=== PATIENT | male | born 1965 | race Hispanic/Latino ===

== ENCOUNTER 2020-05-29 12:33 | Inpatient (IN) | payer MEDICARE ==
--- NOTE | 2020-05-29 13:11 | Emergency Department Report ---
ED Shortness of Breath HPI - General Chief Complaint: Dyspnea/Respdistress Stated Complaint: SOB Time Seen by Provider: 05/29/20 12:58 Source: patient, EMS Mode of arrival: Stretcher Limitations: Physical Limitation - History of Present Illness Initial Comments: Patient is 64 years old male with history of hypertension, diabetes, congestive heart failure left BKA. Patient brought to the emergency room via EMS from home for evaluation of shortness of breath, cough fever and chills for the last 5 days. Patient stated that he has been tested positive for COVID-19 5 days ago. EMS reported patient initial oxygen saturation was 80% on room air improved to 98% on a nonrebreather. Patient denied any chest pain, abdominal pain, nausea or vomiting. MD Complaint: shortness of breath, cough -: days(s) (5) Severity: moderate - Related Data Allergies Allergy/AdvReac Type Severity Reaction Status Date / Time No Known Allergies Allergy Unverified 05/29/20 15:15 ED Review of Systems ROS: Stated complaint: SOB Other details as noted in HPI Comment: All other systems reviewed and negative Constitutional: chills, fever Respiratory: cough, orthopnea, shortness of breath, SOB with exertion, SOB at rest. denies: wheezing Cardiovascular: denies: chest pain, palpitations Gastrointestinal: denies: abdominal pain, nausea, vomiting Neurological: weakness (generalized). denies: headache ED Past Medical Hx - Past Medical History Previous Medical History?: Yes Hx Hypertension: Yes Hx Congestive Heart Failure: Yes Hx Diabetes: Yes - Surgical History Past Surgical History?: Yes Hx Appendectomy: Yes (2007) Additional Surgical History: prostate 2011, Right leg fracture repair 2002, L BKA 2015, sacrum 2014, ED Physical Exam - General Limitations: Physical Limitation General appearance: alert, in no apparent distress - Head Head exam: Present: atraumatic, normocephalic, normal inspection - Eye Eye exam: Present: normal appearance - ENT ENT exam: Present: normal exam, normal orophraynx, mucous membranes moist - Neck Neck exam: Present: normal inspection, full ROM. Absent: tenderness, meningismus, lymphadenopathy, thyromegaly - Respiratory Respiratory exam: Present: normal lung sounds bilaterally - Cardiovascular Cardiovascular Exam: Present: regular rate, normal rhythm, normal heart sounds - GI/Abdominal GI/Abdominal exam: Present: soft, normal bowel sounds. Absent: distended, tenderness, guarding, rebound, rigid, organomegaly, mass, bruit, pulsatile mass, hernia - Extremities Exam Extremities exam: Present: normal inspection, full ROM, normal capillary refill. Absent: pedal edema, calf tenderness - Back Exam Back exam: Present: normal inspection, full ROM. Absent: CVA tenderness (R), CVA tenderness (L) - Neurological Exam Neurological exam: Present: alert, oriented X3, CN II-XII intact - Psychiatric Psychiatric exam: Present: normal mood - Skin Skin exam: Present: warm, intact, normal color ED Course Vital Signs 05/29/20 05/29/20 13:00 13:28 Temperature 99.5 F Pulse Rate 99 H Respiratory 24 Rate Blood Pressure 144/121 [Left] O2 Sat by Pulse 94 94 Oximetry ED Medical Decision Making - Lab Data Result diagrams: 05/29/20 13:25 05/29/20 13:25 - Radiology Data Radiology results: report reviewed - Medical Decision Making Patient is 64 years old male with history of hypertension, diabetes, congestive heart failure left BKA. Patient brought to the emergency room via EMS from home for evaluation of shortness of breath, cough fever and chills for the last 5 days. Patient stated that he has been tested positive for COVID-19 5 days ago. EMS reported patient initial oxygen saturation was 80% on room air improved to 98% on a nonrebreather. Patient denied any chest pain, abdominal pain, nausea or vomiting. Chest x-ray showed bilateral pneumonia. Labs reviewed and showed creatinine of 4.7. Lactic acid of 2.7. Patient received Rocephin 1 g IV and Zithromax 500 mg IV. Patient started on normal saline. I discussed the patient with Dr. Nunn, he agreed to admit the patient to medical service for further management. Critical Care Time: Yes Critical care time in (mins) excluding proc time.: 30 Critical care attestation.: If time is entered above; I have spent that time in minutes in the direct care of this critically ill patient, excluding procedure time. ED Disposition Clinical Impression: Bilateral pneumonia, COVID-19, Acute renal failure Disposition: OP ADMIT IP TO THIS HOSP Is pt being admited?: Yes Condition: Stable Instructions: Bacterial Pneumonia (ED)
--- NOTE | 2020-05-29 13:58 | XRay Report ---
CHEST 1 VIEW 05/29/2020 1:28 PM INDICATION / CLINICAL INFORMATION: Dyspnea. COMPARISON: None available. FINDINGS: SUPPORT DEVICES: None. HEART / MEDIASTINUM: No significant abnormality. LUNGS / PLEURA: There are rather diffuse, somewhat patchy bilateral airspace opacities. No pneumothor ax. ADDITIONAL FINDINGS: No significant additional findings. IMPRESSION: 1. Nonspecific diffuse somewhat patchy bilateral airspace opacities could be infectious/inflammatory in etiology. Signer Name: Arvin Hoover MD Signed: 05/29/2020 1:54 PM Workstation Name: [id number]
[2020-05-29 14:07] LABS: Basophils % (Auto) 0.2 % (0.0-1.8); Eosinophils # (Auto) 0.1 K/mm3 (0.0-0.4); Eosinophils % (Auto) 1.1 % (0.0-4.3); Hemoglobin 13.6 gm/dl (11.8-15.2); Lymphocytes # (Auto) 1.2 K/mm3 (1.2-5.4); Lymphocytes % (Auto) 15.5 % (13.4-35.0); Mean Corpuscular HGB Conc 32 % (32-34); Mean Corpuscular Volume 93 fl (84-94); Monocytes # (Auto) 0.4 K/mm3 (0.0-0.8); Monocytes % (Auto) 4.8 % (0.0-7.3); Platelet Count 184 K/mm3 (140-440); Red Cell Distribution Width 16.4 % (13.2-15.2)
[2020-05-29] MEDS ORDERED: cefTRIAXone/NS 1 GM/50 ML 1 GM/50 ML BAG IV ONE (14:12)
[2020-05-29 14:16] LABS: INR 0.95 (0.87-1.13)
[2020-05-29 14:17] LABS: Partial Thromboplastin Time 28.1 Sec. (24.2-36.6)
[2020-05-29 15:09] LABS: Calcium 8.3 mg/dL (8.4-10.2)
[2020-05-29 15:14] LABS: Alanine Aminotransferase 20 units/L (7-56); Albumin 2.9 g/dL (3.9-5)
[2020-05-29 15:15] LABS: Bilirubin,Direct < 0.2 mg/dL (0-0.2)
[2020-05-29] MEDS ORDERED: AZITHROMYCIN 500 MG in SODIUM CHLORIDE 0.9% 250ML 250 ML IV ONE (15:30)
[2020-05-29] MEDS ORDERED: SODIUM CHLORIDE 0.9% 1000 ML 1,000 ML IV ONE (15:38)
[2020-05-29 16:09] LABS: C-Reactive Protein 40.7 mg/dL (0.00-1.30)
--- NOTE | 2020-05-29 22:34 | History and Physical Report ---
History of Present Illness Date of examination: 05/29/20 Date of admission: 05/29/20 15:44 Chief complaint: Cough and fever for 5 days History of present illness: 64-year-old man with history of hypertension diabetes congestive heart failure and left below-knee amputation comes in for cough fever and shortness of breath and chills for 5 days. Patient has been tested positive for COVID-19 5 days ago. Patient saturations were 80% on room air which improved to 98% on a nonrebreather. Denies any chest pain. Patient is covered positive and hypoxic. - Past Medical History Previous Medical History?: Yes Hypertension: Yes Congestive Heart Failure: Yes Diabetes: Yes - Surgical History Past Surgical History?: Yes Hx Appendectomy: Yes (2007) Additional Surgical History: prostate 2011, Right leg fracture repair 2002, L BKA 2015, sacrum 2014, social history no alcohol family history htn Review of Systems ROS: Constitutional no weight loss or weight gain no fever or chills HEENT no sore throat no post nasal drip no diplopia Neck no neck stiffness no lymph gland enlargement Chest and lungs no shortness of breath cough or wheezing CVS no chest pain no diaphoresis no palpitations GI no nausea no vomiting no diarrhea Genitourinary system no dysuria no flank pain Musculoskeletal system no muscle pains 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 Skin no rash no itching Psychiatric no depression no homicidal or suicidal tendencies Hematologic no lymphedema or bruising Endocrine no polydipsia no polyuria no cold intolerance no heat intolerance Medications and Allergies Allergies Allergy/AdvReac Type Severity Reaction Status Date / Time No Known Allergies Allergy Unverified 05/29/20 15:15 Exam - Constitutional Vitals: Temp Pulse Resp BP Pulse Ox 99.5 F 97 H 30 H 113/89 94 05/29/20 13:00 05/29/20 16:14 05/29/20 16:14 05/29/20 15:00 05/29/20 16:14 General appearance: Present: severe distress, well-nourished - EENT Eyes: Present: PERRL ENT: hearing intact, clear oral mucosa - Neck Neck: Present: supple, normal ROM - Respiratory Respiratory effort: normal Respiratory: bilateral: CTA, rales, rhonchi - Cardiovascular Heart rate: 98 Rhythm: regular Heart Sounds: Present: S1 & S2. Absent: rub, click - Extremities Extremities: pulses symmetrical, No edema, abnormal (Left BKA) Extremity abnormal: other (Left BKA) Peripheral Pulses: within normal limits - Abdominal General gastrointestinal: Present: soft, non-tender, non-distended, normal bowel sounds Male genitourinary: Present: normal - Integumentary Integumentary: Present: clear, warm, dry - Musculoskeletal Musculoskeletal: gait normal, strength equal bilaterally - Psychiatric Psychiatric: appropriate mood/affect, intact judgment & insight - Neurologic Neurologic: CNII-XII intact, moves all extremities HEART Score - HEART Score Troponin: Troponin T 0.025 ng/mL (0.00-0.029) 05/29/20 15:10 Results - Labs CBC & Chem 7: 05/29/20 13:25 05/29/20 15:10 Labs: Laboratory Last Values WBC 7.5 K/mm3 (4.5-11.0) 05/29/20 13:25 RBC 4.50 M/mm3 (3.65-5.03) 05/29/20 13:25 Hgb 13.6 gm/dl (11.8-15.2) 05/29/20 13:25 Hct 42.0 % (35.5-45.6) 05/29/20 13:25 MCV 93 fl (84-94) 05/29/20 13:25 MCH 30 pg (28-32) 05/29/20 13:25 MCHC 32 % (32-34) 05/29/20 13:25 RDW 16.4 % (13.2-15.2) H 05/29/20 13:25 Plt Count 184 K/mm3 (140-440) 05/29/20 13:25 Lymph % (Auto) 15.5 % (13.4-35.0) 05/29/20 13:25 [place] % (Auto) 4.8 % (0.0-7.3) 05/29/20 13:25 Eos % (Auto) 1.1 % (0.0-4.3) 05/29/20 13:25 Baso % (Auto) 0.2 % (0.0-1.8) 05/29/20 13:25 Lymph # 1.2 K/mm3 (1.2-5.4) 05/29/20 13:25 [place] # 0.4 K/mm3 (0.0-0.8) 05/29/20 13:25 Eos # 0.1 K/mm3 (0.0-0.4) 05/29/20 13:25 Baso # 0.0 K/mm3 (0.0-0.1) 05/29/20 13:25 Seg Neutrophils % 78.4 % (40.0-70.0) H 05/29/20 13:25 Seg Neutrophils # 5.9 K/mm3 (1.8-7.7) 05/29/20 13:25 PT 12.9 Sec. (12.2-14.9) 05/29/20 13:25 INR 0.95 (0.87-1.13) 05/29/20 13:25 APTT 28.1 Sec. (24.2-36.6) 05/29/20 13:25 D-Dimer 1391.41 ng/mlDDU (0-234) H 05/29/20 15:10 Sodium 131 mmol/L (137-145) L 05/29/20 13:25 Potassium 5.4 mmol/L (3.6-5.0) H 05/29/20 13:25 Chloride 96.2 mmol/L (98-107) L 05/29/20 13:25 Carbon Dioxide 14 mmol/L (22-30) L 05/29/20 13:25 Anion Gap 26 mmol/L 05/29/20 13:25 BUN 42 mg/dL (9-20) H 05/29/20 13:25 Creatinine 4.7 mg/dL (0.8-1.3) H 05/29/20 13:25 Estimated GFR 13 ml/min 05/29/20 13:25 BUN/Creatinine Ratio 9 % 05/29/20 13:25 Glucose 120 mg/dL (75-100) H 05/29/20 15:10 Lactic Acid 2.20 mmol/L (0.7-2.0) H* 05/29/20 15:10 Calcium 8.3 mg/dL (8.4-10.2) L 05/29/20 13:25 Ferritin 1092.0 ng/mL (30.0-300.0) H 05/29/20 15:10 Total Bilirubin 0.30 mg/dL (0.1-1.2) 05/29/20 13:25 Direct Bilirubin < 0.2 mg/dL (0-0.2) 05/29/20 13:25 Indirect Bilirubin 0.1 mg/dL 05/29/20 13:25 AST 54 units/L (5-40) H 05/29/20 13:25 ALT 20 units/L (7-56) 05/29/20 13:25 Alkaline Phosphatase 55 units/L (35-129) 05/29/20 13:25 Lactate Dehydrogenase 581 units/L (91-180) H 05/29/20 15:10 Troponin T 0.025 ng/mL (0.00-0.029) 05/29/20 15:10 C-Reactive Protein 40.70 mg/dL (0.00-1.30) H 05/29/20 15:10 NT-Pro-B Natriuret Pep 89.58 pg/mL (0-900) 05/29/20 13:25 Total Protein 7.5 g/dL (6.3-8.2) 05/29/20 13:25 Albumin 2.9 g/dL (3.9-5) L 05/29/20 13:25 Albumin/Globulin Ratio 0.6 % 05/29/20 13:25 Short CBC 05/29/20 Range/Units 13:25 WBC 7.5 (4.5-11.0) K/mm3 Hgb 13.6 (11.8-15.2) gm/dl Hct 42.0 (35.5-45.6) % Plt Count 184 (140-440) K/mm3 BMP 05/29/20 05/29/20 13:25 15:10 Sodium 131 L Potassium 5.4 H Chloride 96.2 L Carbon Dioxide 14 L BUN 42 H Creatinine 4.7 H Glucose 121 H 120 H Calcium 8.3 L Cardiac Enzymes 05/29/20 05/29/20 Range/Units 13:25 15:10 Troponin T 0.026 0.025 (0.00-0.029) ng/mL Liver Function 05/29/20 Range/Units 13:25 Total Bilirubin 0.30 (0.1-1.2) mg/dL Direct Bilirubin < 0.2 (0-0.2) mg/dL AST 54 H (5-40) units/L ALT 20 (7-56) units/L Alkaline Phosphatase 55 (35-129) units/L Albumin 2.9 L (3.9-5) g/dL Short CBC 05/29/20 Range/Units 13:25 WBC 7.5 (4.5-11.0) K/mm3 Hgb 13.6 (11.8-15.2) gm/dl Hct 42.0 (35.5-45.6) % Plt Count 184 (140-440) K/mm3 BMP 05/29/20 05/29/20 13:25 15:10 Sodium 131 L Potassium 5.4 H Chloride 96.2 L Carbon Dioxide 14 L BUN 42 H Creatinine 4.7 H Glucose 121 H 120 H Calcium 8.3 L Cardiac Enzymes 05/29/20 05/29/20 Range/Units 13:25 15:10 Troponin T 0.026 0.025 (0.00-0.029) ng/mL Liver Function 05/29/20 Range/Units 13:25 Total Bilirubin 0.30 (0.1-1.2) mg/dL Direct Bilirubin < 0.2 (0-0.2) mg/dL AST 54 H (5-40) units/L ALT 20 (7-56) units/L Alkaline Phosphatase 55 (35-129) units/L Albumin 2.9 L (3.9-5) g/dL Microbiology: Microbiology 05/29/20 13:25 Peripheral/Venous Blood Culture - Preliminary Culture in Progress 05/29/20 13:25 Peripheral/Venous Blood Culture - Preliminary Culture in Progress - Imaging and Cardiology EKG: report reviewed Chest x-ray: report reviewed (Bilateral pneumonia) Assessment and Plan Advance Directives: Yes (Full code) VTE prophylaxis?: Chemical Plan of care discussed with patient/family: Yes - Patient Problems (1) Sepsis Current Visit: Yes Status: Acute Plan to address problem: Secondary to COVID pneumonia Elevated lactic acid (2) Bilateral pneumonia Current Visit: Yes Status: Acute Plan to address problem: Possible COVID pneumonia IV Rocephin initiated Patient is apparently coronavirus +5 days ago We will repeat the coronavirus PCR if positive ID consult (3) Acute respiratory failure with hypoxia Current Visit: Yes Status: Acute Plan to address problem: High flow oxygen for now Possible coronavirus pneumonia (4) COVID-19 Current Visit: Yes Status: Acute Plan to address problem: COVID-19 work-up High flow oxygen IV dexamethasone 6 mg every 24 started Lovenox 40 mg subcu daily for now (5) Hypertension Current Visit: Yes Status: Chronic Qualifiers: Hypertension type: essential hypertension Qualified Code(s): I10 - Essential (primary) hypertension Plan to address problem: Continue antihypertensives (6) Type 2 diabetes mellitus Current Visit: Yes Status: Chronic Qualifiers: Diabetes mellitus intermediate project manager insulin use: unspecified intermediate project manager insulin use status Plan to address problem: Coverage for now Check hemoglobin A1c (7) CHF (congestive heart failure) Current Visit: Yes Status: Chronic Qualifiers: Heart failure type: combined systolic and diastolic Plan to address problem: Echocardiogram requested (8) DVT prophylaxis Current Visit: Yes Status: Acute Plan to address problem: On Lovenox and GI prophylaxis
[2020-05-30] MEDS ORDERED: HYDROmorphone 1 MG/1 ML INJ IV PRN (00:19)
[2020-05-30] MEDS ORDERED: ONDANSETRON 4 MG/2 ML INJ IV PRN (00:19)
[2020-05-30] MEDS ORDERED: oxyCODONE /ACETAMINOPHEN 5-325MG TAB PO PRN (00:19)
[2020-05-30] MEDS: dexAMETHasone 4 MG/ML VIAL IV SCH (01:48)
[2020-05-30 07:58] LABS: Basophils % (Auto) 0.1 % (0.0-1.8); Eosinophils % (Auto) 0.1 % (0.0-4.3); Hematocrit 37.5 % (35.5-45.6); Hemoglobin 12.2 gm/dl (11.8-15.2); Lymphocytes # (Auto) 0.5 K/mm3 (1.2-5.4); Lymphocytes % (Auto) 7.3 % (13.4-35.0); Mean Corpuscular HGB Conc 33 % (32-34); Mean Corpuscular Volume 92 fl (84-94); Monocytes # (Auto) 0.3 K/mm3 (0.0-0.8); Monocytes % (Auto) 4.1 % (0.0-7.3); Platelet Count 195 K/mm3 (140-440); Red Blood Count 4.08 M/mm3 (3.65-5.03)
[2020-05-30 08:04] LABS: Albumin 3.2 g/dL (3.9-5); Calcium 7.8 mg/dL (8.4-10.2)
[2020-05-30] MEDS ORDERED: CALCIUM GLUCONATE 2,000 MG in SODIUM CHLORIDE 0.9% 100 ML IV ONE (09:00)
[2020-05-30] MEDS ORDERED: SODIUM POLYSTYRENE 15 GM/60 ML ORAL LIQD PO ONE ×2 (09:00→16:34)
[2020-05-30] MEDS: INSULIN LISPRO 100 UNIT/ML VIAL 3 mL SUB-Q SCH ×3 (09:41→17:20)
[2020-05-30] MEDS: AZITHROMYCIN 250 MG TAB PO SCH (09:42)
[2020-05-30] MEDS: cefTRIAXone/NS 2 GM/100 ML 2 GM/100 ML BAG IV SCH (09:42)
[2020-05-30] MEDS: FAMOTIDINE 20 MG TAB PO SCH (09:43)
[2020-05-30] MEDS ORDERED: AZITHROMYCIN 500 MG in SODIUM CHLORIDE 0.9% 250ML 250 ML IV SCH ×2 (10:00→20:00)
[2020-05-30] MEDS ORDERED: cefTRIAXone/NS 2 GM/100 ML 2 GM/100 ML BAG IV SCH (10:00)
--- NOTE | 2020-05-30 16:46 | Progress Note ---
Subjective Date of service: 05/30/20 Interval history: 64-year-old man with history of hypertension diabetes congestive heart failure and left below-knee amputation comes in for cough fever and shortness of breath and chills for 5 days. Patient has been tested positive for COVID-19 5 days ago. Patient saturations were 80% on room air which improved to 98% on a nonrebreather. Denies any chest pain. Patient is covered positive and hypoxic. 05/30 patient is a custodial resident, alert and oriented and appears m oderately short of breath and is on Ventimask Denies any chest pain or palpitations. He does complain of cough Lab results reviewed (1) Sepsis Current Visit: Yes Status: Acute Plan to address problem: Secondary to COVID pneumonia Elevated lactic acid, tachycardia, elevated procalcitonin Continue IV antibiotics Blood culture results pending (2) Bilateral pneumonia Current Visit: Yes Status: Acute Plan to address problem: 2/2 COVID pneumonia IV Rocephin initiated Patient is apparently coronavirus +5 days ago Repeat COVID test positive Will consult ID Continue steroids (3) Acute respiratory failure with hypoxia Current Visit: Yes Status: Acute Plan to address problem: Secondary to COVID-19 pneumonia Patient is on nonrebreather Ventimask and O2 sats are in the mid 80s Discussed with urinalysis technician to start the patient on high flow nasal cannula 4. Hyperkalemia secondary to renal failure Repeat electrolytes after Kayexalate administered yesterday shows a potassium of 5.9 Will order Kayexalate 60 g Monitor electrolytes Acute kidney injury R/O acute on chronic kidney disease Severe renal failure Baseline renal function is not known We will request nephrology consult Avoid nephrotoxins Renal ultrasound (5) Hypertension Current Visit: Yes Status: Chronic Qualifiers: Hypertension type: essential hypertension Qualified Code(s): I10 - Essential (primary) hypertension Plan to address problem: Blood pressure fair off medication Continue to monitor (6) Type 2 diabetes mellitus Current Visit: Yes Status: Chronic Qualifiers: Diabetes mellitus detention insulin use: unspecified intermediate project manager insulin use status Plan to address problem: Continue insulin sliding scale coverage hemoglobin A1c 9.7 (7) CHF (congestive heart failure) Current Visit: Yes Status: Chronic Qualifiers: Heart failure type: combined systolic and diastolic Plan to address problem: Echocardiogram requested (8) DVT prophylaxis Current Visit: Yes Status: Acute Plan to address problem: On Lovenox and GI prophylaxis Objective - Constitutional Vitals: Vital Signs - 12hr 05/30/20 05/30/20 05:41 11:25 Temperature 97.0 F L 97.4 F L Pulse Rate 99 H 105 H Respiratory 20 20 Rate Blood Pressure 102/56 115/54 O2 Sat by Pulse 83 L 86 Oximetry General appearance: Present: mild distress - EENT Eyes: PERRL, EOM intact ENT: hearing intact - Neck Neck: supple, normal ROM, no masses or JVD - Respiratory Respiratory effort: accessory muscle use Respiratory: bilateral: diminished - Cardiovascular Rhythm: regular Heart Sounds: Present: S1 & S2 Extremities: No edema Extremity abnormal: other (Left BKA) - Gastrointestinal General gastrointestinal: Present: soft, non-tender Rectal Exam: deferred - Genitourinary Male genitourinary: deferred - Integumentary Integumentary: clear - Neurologic Neurologic: no focal deficits - Labs CBC & Chem 7: 05/30/20 07:00 05/30/20 07:00 Labs: Abnormal lab results 05/29/20 05/29/20 05/30/20 Range/Units 22:55 Unknown 07:00 RDW 16.0 H (13.2-15.2) % Lymph % (Auto) 7.3 L (13.4-35.0) % Lymph # 0.5 L (1.2-5.4) K/mm3 Seg Neutrophils % 88.4 H (40.0-70.0) % Sodium (137-145) mmol/L Potassium (3.6-5.0) mmol/L Chloride (98-107) mmol/L Carbon Dioxide (22-30) mmol/L BUN (9-20) mg/dL Creatinine (0.8-1.3) mg/dL Glucose (75-100) mg/dL POC Glucose 256 H (70-105) Hemoglobin A1c (4-6) % Calcium (8.4-10.2) mg/dL AST (5-40) units/L Albumin (3.9-5) g/dL Coronavirus (PCR) Positive A (Negative) 05/30/20 05/30/20 05/30/20 Range/Units 07:00 07:00 07:45 RDW (13.2-15.2) % Lymph % (Auto) (13.4-35.0) % Lymph # (1.2-5.4) K/mm3 Seg Neutrophils % (40.0-70.0) % Sodium 132 L (137-145) mmol/L Potassium 5.9 H (3.6-5.0) mmol/L Chloride 95.5 L (98-107) mmol/L Carbon Dioxide 18 L (22-30) mmol/L BUN 49 H (9-20) mg/dL Creatinine 4.0 H (0.8-1.3) mg/dL Glucose 415 H (75-100) mg/dL POC Glucose 424 H (70-105) Hemoglobin A1c 9.7 H (4-6) % Calcium 7.8 L (8.4-10.2) mg/dL AST 46 H (5-40) units/L Albumin 3.2 L (3.9-5) g/dL Coronavirus (PCR) (Negative) 05/30/20 Range/Units 11:39 RDW (13.2-15.2) % Lymph % (Auto) (13.4-35.0) % Lymph # (1.2-5.4) K/mm3 Seg Neutrophils % (40.0-70.0) % Sodium (137-145) mmol/L Potassium (3.6-5.0) mmol/L Chloride (98-107) mmol/L Carbon Dioxide (22-30) mmol/L BUN (9-20) mg/dL Creatinine (0.8-1.3) mg/dL Glucose (75-100) mg/dL POC Glucose 468 H (70-105) Hemoglobin A1c (4-6) % Calcium (8.4-10.2) mg/dL AST (5-40) units/L Albumin (3.9-5) g/dL Coronavirus (PCR) (Negative) HEART Score - HEART Score Troponin: Troponin T 0.025 ng/mL (0.00-0.029) 05/29/20 15:10
[2020-05-30] MEDS ORDERED: cefTRIAXone/NS 1 GM/50 ML 1 GM/50 ML BAG IV SCH (17:00)
[2020-05-30] MEDS ORDERED: ENOXAPARIN 40 MG/0.4 ML INJ SUB-Q SCH (22:00)
[2020-05-31] MEDS: INSULIN LISPRO 100 UNIT/ML VIAL 3 mL SUB-Q SCH ×5 (02:15→22:48)
[2020-05-31] MEDS: FAMOTIDINE 20 MG TAB PO SCH ×2 (02:15→09:43)
[2020-05-31] MEDS: ENOXAPARIN 30 MG/0.3 ML INJ SUB-Q SCH ×2 (02:16→21:24)
[2020-05-31] MEDS: dexAMETHasone 4 MG/ML VIAL IV SCH (02:17)
[2020-05-31] MEDS: AZITHROMYCIN 250 MG TAB PO SCH (09:43)
[2020-05-31] MEDS: cefTRIAXone/NS 2 GM/100 ML 2 GM/100 ML BAG IV SCH (09:43)
[2020-05-31 10:56] LABS: Hematocrit 38.9 % (35.5-45.6); Hemoglobin 12.5 gm/dl (11.8-15.2); Mean Corpuscular HGB Conc 32 % (32-34); Mean Corpuscular Volume 93 fl (84-94); Platelet Count 267 K/mm3 (140-440); Red Blood Count 4.19 M/mm3 (3.65-5.03)
[2020-05-31 11:27] LABS: Albumin 3.2 g/dL (3.9-5); C-Reactive Protein 21.3 mg/dL (0.00-1.30); Calcium 8.7 mg/dL (8.4-10.2)
[2020-05-31] MEDS ORDERED: INSULIN REGULAR, HUMAN 100 UNIT/ML 3ML VIAL SUB-Q ONE (12:16)
--- NOTE | 2020-05-31 12:18 | Progress Note ---
Assessment and Plan Assessment and plan: 64-year-old man with history of hypertension diabetes congestive heart failure and left below-knee amputation comes in for cough fever and shortness of breath and chills for 5 days. Patient has been tested positive for COVID-19 5 days ago. Patient saturations were 80% on room air which improved to 98% on a nonrebreather. Denies any chest pain. Patient is covered positive and hypoxic. COVID19 + Bilateral Pneumonia Secondary Coagulopathy- Unable to get CTA chest due to renal dysfunction DM with Hyperglycemia- Adjust insulin. Will give Lantus at 20 night HS, also will give 18 Additional units. Acute Hypoxic Respiratory failure 05/30 patient is a half-way resident, alert and oriented and appears moderately short of breath and is on Ventimask Denies any chest pain or palpitations. He does complain of cough Lab results reviewed 05/31: Continues on high flow oxygen. still on High flow oxygen. Pulmonary consulted, ID consulted. COVID +, adjust insulin for better control. Sepsis Current Visit: Yes Status: Acute Plan to address problem: Secondary to COVID pneumonia Elevated lactic acid, tachycardia, elevated procalcitonin Continue IV antibiotics Blood culture results pending Bilateral pneumonia Current Visit: Yes Status: Acute Plan to address problem: 2/2 COVID pneumonia IV Rocephin initiated Patient is apparently coronavirus +5 days ago Repeat COVID test positive Will consult ID Continue steroids Acute respiratory failure with hypoxia Current Visit: Yes Status: Acute Plan to address problem: Secondary to COVID-19 pneumonia Patient is on nonrebreather Ventimask and O2 sats are in the mid 80s Discussed with facility environmental technician to start the patient on high flow nasal cannula Hyperkalemia secondary to renal failure Repeat electrolytes after Kayexalate administered yesterday shows a potassium of 5.9 Will order Kayexalate 60 g Monitor electrolytes Acute kidney injury R/O acute on chronic kidney disease Severe renal failure Baseline renal function is not known We will request nephrology consult Avoid nephrotoxins Renal ultrasound Hypertension Current Visit: Yes Status: Chronic Qualifiers: Hypertension type: essential hypertension Qualified Code(s): I10 - Essential (primary) hypertension Plan to address problem: Blood pressure fair off medication Continue to monitor Type 2 diabetes mellitus Current Visit: Yes Status: Chronic Qualifiers: Diabetes mellitus tray packer insulin use: unspecified prison insulin use status Plan to address problem: Continue insulin sliding scale coverage hemoglobin A1c 9.7 covid 19 + Management as outlined above CHF (congestive heart failure) Current Visit: Yes Status: Chronic Qualifiers: Heart failure type: combined systolic and diastolic Plan to address problem: Echocardiogram requested DVT prophylaxis Current Visit: Yes Status: Acute Plan to address problem: On Lovenox and GI prophylaxis History Interval history: Patient seen and examined today still with shortness of breath on high flow oxygen. Hospitalist Physical - Physical exam Narrative exam: VITAL SIGNS: Reviewed. GENERAL: The patient appears normally developed, morbidly obese vital signs as documented. HEAD: No signs of head trauma. EYES: Pupils are equal. Extraocular motions intact. EARS: Hearing grossly intact. MOUTH: Oropharynx is normal. NECK: No adenopathy, no JVD. CHEST: Chest with diminished breath sounds bilaterally. Increased respiratory rate. No wheezes, rales, or rhonchi. CARDIAC: Regular rate and rhythm. S1 and S2, without murmurs, gallops, or rubs. VASCULAR: No Edema. Peripheral pulses normal and equal in all extremities. ABDOMEN: Soft, non tender and non distended. No rebound or guarding, and no masses palpated. Bowel Sounds normal. MUSCULOSKELETAL: BKA bilateral lower extremit. extremities without clubbing, cyanosis or edema. NEUROLOGIC EXAM: Alert and oriented x 3 No focal sensory or strength deficits. Speech normal. Follows commands. PSYCHIATRIC: Mood normal. SKIN: detail exam as documented in skin assessment - Constitutional Vitals: Temp Pulse Resp BP Pulse Ox 98.7 F 82 16 123/73 93 05/31/20 06:06 05/31/20 07:55 05/31/20 06:06 05/31/20 06:06 05/31/20 06:06 General appearance: Present: mild distress HEART Score - HEART Score Troponin: Troponin T 0.025 ng/mL (0.00-0.029) 05/29/20 15:10 Results - Labs CBC & Chem 7: 05/31/20 10:17 05/31/20 10:17 Labs: Laboratory Last Values WBC 6.6 K/mm3 (4.5-11.0) 05/31/20 10:17 RBC 4.19 M/mm3 (3.65-5.03) 05/31/20 10:17 Hgb 12.5 gm/dl (11.8-15.2) 05/31/20 10:17 Hct 38.9 % (35.5-45.6) 05/31/20 10:17 MCV 93 fl (84-94) 05/31/20 10:17 MCH 30 pg (28-32) 05/31/20 10:17 MCHC 32 % (32-34) 05/31/20 10:17 RDW 16.0 % (13.2-15.2) H 05/31/20 10:17 Plt Count 267 K/mm3 (140-440) 05/31/20 10:17 Lymph % (Auto) 7.3 % (13.4-35.0) L 05/30/20 07:00 Thomas % (Auto) 4.1 % (0.0-7.3) 05/30/20 07:00 Eos % (Auto) 0.1 % (0.0-4.3) 05/30/20 07:00 Baso % (Auto) 0.1 % (0.0-1.8) 05/30/20 07:00 Lymph # 0.5 K/mm3 (1.2-5.4) L 05/30/20 07:00 Thomas # 0.3 K/mm3 (0.0-0.8) 05/30/20 07:00 Eos # 0.0 K/mm3 (0.0-0.4) 05/30/20 07:00 Baso # 0.0 K/mm3 (0.0-0.1) 05/30/20 07:00 Seg Neutrophils % 88.4 % (40.0-70.0) H 05/30/20 07:00 Seg Neutrophils # 6.5 K/mm3 (1.8-7.7) 05/30/20 07:00 PT 12.9 Sec. (12.2-14.9) 05/29/20 13:25 INR 0.95 (0.87-1.13) 05/29/20 13:25 APTT 28.1 Sec. (24.2-36.6) 05/29/20 13:25 D-Dimer 704.53 ng/mlDDU (0-234) H 05/31/20 10:17 Sodium 134 mmol/L (137-145) L 05/31/20 10:17 Potassium 5.2 mmol/L (3.6-5.0) H 05/31/20 10:17 Chloride 92.9 mmol/L (98-107) L 05/31/20 10:17 Carbon Dioxide 22 mmol/L (22-30) 05/31/20 10:17 Anion Gap 24 mmol/L 05/31/20 10:17 BUN 38 mg/dL (9-20) H 05/31/20 10:17 Creatinine 1.6 mg/dL (0.8-1.3) H D 05/31/20 10:17 Estimated GFR 45 ml/min 05/31/20 10:17 BUN/Creatinine Ratio 24 % 05/31/20 10:17 Glucose 556 mg/dL (75-100) H* 05/31/20 10:17 POC Glucose 482 (70-105) H 05/31/20 11:24 Hemoglobin A1c 9.7 % (4-6) H 05/30/20 07:00 Lactic Acid 2.20 mmol/L (0.7-2.0) H* 05/29/20 15:10 Calcium 8.7 mg/dL (8.4-10.2) 05/31/20 10:17 Ferritin 1221.0 ng/mL (30.0-300.0) H 05/31/20 10:17 Total Bilirubin 0.20 mg/dL (0.1-1.2) 05/31/20 10:17 Direct Bilirubin < 0.2 mg/dL (0-0.2) 05/29/20 13:25 Indirect Bilirubin 0.1 mg/dL 05/29/20 13:25 AST 37 units/L (5-40) 05/31/20 10:17 ALT 17 units/L (7-56) 05/31/20 10:17 Alkaline Phosphatase 66 units/L (35-129) 05/31/20 10:17 Lactate Dehydrogenase 676 units/L (91-180) H 05/31/20 10:17 Troponin T 0.025 ng/mL (0.00-0.029) 05/29/20 15:10 C-Reactive Protein 21.30 mg/dL (0.00-1.30) H 05/31/20 10:17 NT-Pro-B Natriuret Pep 89.58 pg/mL (0-900) 05/29/20 13:25 Total Protein 7.6 g/dL (6.3-8.2) 05/31/20 10:17 Albumin 3.2 g/dL (3.9-5) L 05/31/20 10:17 Albumin/Globulin Ratio 0.7 % 05/31/20 10:17 Procalcitonin 4.38 ng/mL (<0.15) 05/29/20 15:10 Coronavirus (PCR) Positive (Negative) A 05/29/20 Unknown Microbiology: Microbiology 05/29/20 13:25 Peripheral/Venous Blood Culture - Preliminary NO GROWTH AFTER 24 HOURS 05/29/20 13:25 Peripheral/Venous Blood Culture - Preliminary NO GROWTH AFTER 24 HOURS Ambrose/IV: Voiding Method Diaper IV Catheter Type [Left Chest] INT / Saline Lock Active Medications - Current Medications Current Medications: Generic Name Dose Route Start Last Admin Trade Name Freq PRN Reason Stop Dose Admin Acetaminophen 650 mg 05/30/20 00:19 Tylenol PO Q4H PRN Pain MILD(1-3)/Fever >100.5/ESPINOZA Azithromycin 500 mg 05/30/20 10:00 05/31/20 09:43 Zithromax PO 06/02/20 10:01 500 mg QDAY LONG Administration Dexamethasone 6 mg 05/31/20 14:00 Decadron PO 06/07/20 10:01 DAILY LONG Enoxaparin Sodium 30 mg 05/30/20 22:00 05/31/20 02:16 Enoxaparin SUB-Q 30 mg QDAY@2200 LONG Administration Famotidine 10 mg 05/31/20 22:00 Pepcid PO BID LONG Hydromorphone HCl 0.5 mg 05/30/20 00:19 Dilaudid IV Q3H PRN Pain , Severe (7-10) Ceftriaxone Sodium 2 gm in 100 mls @ 200 mls/hr 05/30/20 10:00 05/31/20 09:43 Rocephin/Ns 2 Gm/100 Ml IV 200 mls/hr Q24HR [facility] Administration Protocol Insulin Glargine 20 units 05/31/20 22:00 Lantus SUB-Q QHS LONG Insulin Human Lispro 0 unit 05/30/20 09:30 05/31/20 09:42 Humalog SUB-Q 8 unit ACHS [facility] Administration Protocol Insulin Human Regular 18 unit 05/31/20 12:16 Humulin R SUB-Q 05/31/20 12:17 ONCE ONE Ondansetron HCl 4 mg 05/30/20 00:19 Zofran IV Q8H PRN Nausea And Vomiting Oxycodone/Acetaminophen 1 tab 05/30/20 00:19 Percocet 5/325 PO Q6H PRN Pain, Moderate (4-6) Sodium Chloride 10 ml 05/30/20 10:00 05/31/20 09:43 Sodium Chloride Flush Syringe 10 Ml IV 10 ml BID LONG Administration Sodium Chloride 10 ml 05/30/20 00:19 Sodium Chloride Flush Syringe 10 Ml IV PRN PRN LINE FLUSH Nutrition/Malnutrition Assess - Dietary Evaluation Nutrition/Malnutrition Findings: Nutrition Notes Start: 05/30/20 14:30 Freq: Status: Active Protocol: Document 05/30/20 14:30 LM (Rec: 05/30/20 14:33 LM [id number]) Nutrition Notes Need for Assessment generated from: clinical appeals rn Initial or Follow up Brief Note Current Diagnosis Diabetes,Hypertension,Heart Failure Other Pertinent Diagnosis COVID-19, L BKA Current Diet cardiac Labs/Tests A1C 9.7 BG 424 Usual Body Weight 121 kg Subjective/Other Information RN screen for new DM. Pt with hx of DM. Pt with no wt loss. Pt stated he did not need any DM diet education at this time . Nutrition Intervention Change Diet Order: Cardiac/consistent CHO Revisit per MD consult or patient Sign Off request:
[2020-05-31] MEDS: DEXAMETHASONE 4 MG TAB PO SCH (13:35)
--- NOTE | 2020-05-31 14:32 | Consultation ---
History of Present Illness - Reason for Consult Consult date: 05/31/20 COVID Requesting physician: SHAZIA SUMMERS - History of Present Illness 55 years old male with history of diabetes mellitus, congestive heart disease, hypertension, left below knee amputation, admitted on 05/29/2020 due to 5-day history of cough, fever, malaise, chills and shortness of breath. Patient tested positive for COVID-19 PCR 5 days before admission. On arrival, initial temperature, O2 sat 80% on room air. Initial temperature 99.5. HR 96. RR 19. O2 sat 94%. Blood pressure 144/121, dropped to 81/33. WBC of 7.5. D-dimer 2091. Ferritin 1092. LDH 581. CRP 40. Lactate 2.7. Creatinine 4.7. AST 54. Procalcitonin 1.3. Chest x-ray shows patchy bilateral airspace densities. COV ID-19 PCR positive. Patient placed in a nonrebreather mask. Review of Systems: reviewed ED and H&P notes. Limited due to PPE conservation strategy Medications and Allergies Allergies Allergy/AdvReac Type Severity Reaction Status Date / Time No Known Allergies Allergy Unverified 05/29/20 15:15 Active Meds: Active Medications Acetaminophen (Tylenol) 650 mg PO Q4H PRN PRN Reason: Pain MILD(1-3)/Fever >100.5/ESPINOZA Azithromycin (Zithromax) 500 mg PO QDAY [facility] Stop: 06/02/20 10:01 Last Admin: 05/31/20 09:43 Dose: 500 mg Documented by: Dexamethasone (Decadron) 6 mg PO DAILY [facility] Stop: 06/07/20 10:01 Last Admin: 05/31/20 13:35 Dose: 6 mg Documented by: Enoxaparin Sodium (Enoxaparin) 30 mg SUB-Q QDAY@2200 [facility] Last Admin: 05/31/20 02:16 Dose: 30 mg Documented by: Famotidine (Pepcid) 10 mg PO BID [facility] Hydromorphone HCl (Dilaudid) 0.5 mg IV Q3H PRN PRN Reason: Pain , Severe (7-10) Ceftriaxone Sodium (Rocephin/Ns 2 Gm/100 Ml) 2 gm in 100 mls @ 200 mls/hr IV Q24HR [facility]; Protocol Last Admin: 05/31/20 09:43 Dose: 200 mls/hr Documented by: Insulin Glargine (Lantus) 20 units SUB-Q QHS LONG Insulin Human Lispro (Humalog) 0 unit SUB-Q ACHS [facility]; Protocol Last Admin: 05/31/20 13:32 Dose: 10 unit Documented by: Ondansetron HCl (Zofran) 4 mg IV Q8H PRN PRN Reason: Nausea And Vomiting Oxycodone/Acetaminophen (Percocet 5/325) 1 tab PO Q6H PRN PRN Reason: Pain, Moderate (4-6) Last Admin: 05/31/20 13:30 Dose: 1 tab Documented by: Sodium Chloride (Sodium Chloride Flush Syringe 10 Ml) 10 ml IV BID LONG Last Admin: 05/31/20 09:43 Dose: 10 ml Documented by: Sodium Chloride (Sodium Chloride Flush Syringe 10 Ml) 10 ml IV PRN PRN PRN Reason: LINE FLUSH Physical Examination - Physical Exam Narrative exam: Physical Exam: reviewed ED and hospitalist notes, limited due to conservation of PPE General appearance: limited due to conservation of PPE Eyes: limited due to conservation of PPE HENT: Atraumatic; limited due to conservation of PPE Lungs: limited due to conservation of PPE CV: limited due to conservation of PPE Abdomen: limited due to conservation of PPE Extremities: limited due to conservation of PPE Skin: limited due to conservation of PPE Psych: limited due to conservation of PPE Neuro: limited due to conservation of PPE - Constitutional Vitals: Vital Signs Temp Pulse Resp BP Pulse Ox 97.4 F L 88 24 113/76 90 05/31/20 11:08 05/31/20 11:08 05/31/20 11:08 05/31/20 11:08 05/31/20 11:08 Temperature -Last 24 Hours Temperature 97.4 F Temperature 98.7 F Temperature 98.2 F Temperature 97.5 F Results - Labs CBC & Chem 7: 05/31/20 10:17 05/31/20 10:17 Labs: Abnormal lab results 05/29/20 05/30/20 05/31/20 Range/Units Unknown 17:11 01:49 RDW (13.2-15.2) % D-Dimer (0-234) ng/mlDDU Sodium (137-145) mmol/L Potassium (3.6-5.0) mmol/L Chloride (98-107) mmol/L BUN (9-20) mg/dL Creatinine (0.8-1.3) mg/dL Glucose (75-100) mg/dL POC Glucose 475 H 426 H (70-105) Ferritin (30.0-300.0) ng/mL Lactate Dehydrogenase (91-180) units/L C-Reactive Protein (0.00-1.30) mg/dL Albumin (3.9-5) g/dL Coronavirus (PCR) Positive A (Negative) 05/31/20 05/31/20 05/31/20 Range/Units 08: 10:17 10:17 RDW 16.0 H (13.2-15.2) % D-Dimer 704.53 H (0-234) ng/mlDDU Sodium (137-145) mmol/L Potassium (3.6-5.0) mmol/L Chloride (98-107) mmol/L BUN (9-20) mg/dL Creatinine (0.8-1.3) mg/dL Glucose (75-100) mg/dL POC Glucose 430 H (70-105) Ferritin (30.0-300.0) ng/mL Lactate Dehydrogenase (91-180) units/L C-Reactive Protein (0.00-1.30) mg/dL Albumin (3.9-5) g/dL Coronavirus (PCR) (Negative) 05/31/20 05/31/20 05/31/20 Range/Units 10:17 10:17 11:24 RDW (13.2-15.2) % D-Dimer (0-234) ng/mlDDU Sodium 134 L (137-145) mmol/L Potassium 5.2 H (3.6-5.0) mmol/L Chloride 92.9 L (98-107) mmol/L BUN 38 H (9-20) mg/dL Creatinine 1.6 H D (0.8-1.3) mg/dL Glucose 556 H* (75-100) mg/dL POC Glucose 482 H (70-105) Ferritin 1221.0 H (30.0-300.0) ng/mL Lactate Dehydrogenase 676 H (91-180) units/L C-Reactive Protein 21.30 H (0.00-1.30) mg/dL Albumin 3.2 L (3.9-5) g/dL Coronavirus (PCR) (Negative) Assessment and Plan Cultures: Blood culture 05/29/2020 no growth today COVID PCR 05/29/2020 Positive Assessment: 55 years old male with history of diabetes mellitus, congestive heart failure, hypertension, left below-knee amputation, admitted on 05/29/2020 due to 5-day history of cough, fever, malaise, chills and shortness of breath: #Severe sepsis: Present on admission with hypotension, hypoxia, elevated lactate, NIR, elevated LFTs; likely due to bilateral pneumonia. #Severe COVID pneumonia: Inflammatory markers are very elevated, possible cytokine storm. D-dimer 2090. Procalcitonin 4.3, likely due to acute renal failure, but unclear if there is a bacterial component #Acute hypoxemic respiratory failure: Currently on high flow nasal cannula 100%, 3 L, sats 90%. BNP normal. #Elevated LFTs: from COVID, mild. #NIR: from COVID #Stage III sacral decubitus: Not infected. Per wound care measures 4 x 1 x 0.1 cm, small yellow slough. #Bilateral buttocks candidal intertrigo: Recommendations: -Start Dexamethasone 6 mg IV/PO daily for 10 days -Order COVID-19 convalescent plasma -No indication Remdesivir due to renal failure, renal on board -Monitor inflammatory markers - ferritin, Ddimer, CRP, LDH -Continue ceftriaxone and azithromycin for 5 days -Offloading sacral area, keep area dry -Wound care consult appreciated -Continue anticoagulation per protocol, high d-dimer -Add fluconazole 150 mg p.o. x1/apply topical antifungal to gluteal area Dr. Shannon will be covering the weekend, Dr. Ynag will be rounding on Wednesday. Will follow Trish Mathias MD Infectious Diseases [employer] Engineer [facility] M [phone] O [phone]
[2020-05-31] MEDS ORDERED: FLUCONAZOLE 200 MG TAB PO ONE (14:48)
--- NOTE | 2020-05-31 15:02 | Consultation ---
History of Present Illness - Reason for Consult Consult date: 05/31/20 acute renal failure - History of Present Illness This is a 55 year old male with history of diabetes mellitus, congestive heart disease, hypertension, left below knee amputation, admitted on 05/29/2020 due to 5-day history of cough, fever, malaise, chills and shortness of breath. Patient tested positive for COVID-19 PCR 5 days before admission. On arrival, noted to have creatinine 4.7 with K 5.4, HCO3 14. Lactate was elevated. Reviewed chart thoroughly. Repeat COVID-19 PCR positive. Patient noted to be requiring high oxygen needs. - Past Medical History Previous Medical History?: Yes Hypertension: Yes Congestive Heart Failure: Yes Diabetes: Yes - Surgical History Past Surgical History?: Yes Hx Appendectomy: Yes (2007) Additional Surgical History: prostate 2011, Right leg fracture repair 2002, L BKA 2015, sacrum 2014, social history no alcohol Family history htn Review of Systems: reviewed ED and H&P notes. Limited due to PPE conservation strategy Medications and Allergies Allergies Allergy/AdvReac Type Severity Reaction Status Date / Time No Known Allergies Allergy Unverified 05/29/20 15:15 Active Meds: Active Medications Acetaminophen (Tylenol) 650 mg PO Q4H PRN PRN Reason: Pain MILD(1-3)/Fever >100.5/ESPINOZA Azithromycin (Zithromax) 500 mg PO QDAY [facility] Stop: 06/02/20 10:01 Last Admin: 05/31/20 09:43 Dose: 500 mg Documented by: Dexamethasone (Decadron) 6 mg PO DAILY [facility] Stop: 06/07/20 10:01 Last Admin: 05/31/20 13:35 Dose: 6 mg Documented by: Enoxaparin Sodium (Enoxaparin) 30 mg SUB-Q QDAY@2200 [facility] Last Admin: 05/31/20 02:16 Dose: 30 mg Documented by: Famotidine (Pepcid) 10 mg PO BID [facility] Hydromorphone HCl (Dilaudid) 0.5 mg IV Q3H PRN PRN Reason: Pain , Severe (7-10) Ceftriaxone Sodium (Rocephin/Ns 2 Gm/100 Ml) 2 gm in 100 mls @ 200 mls/hr IV Q24HR [facility]; Protocol Last Admin: 05/31/20 09:43 Dose: 200 mls/hr Documented by: Insulin Glargine (Lantus) 20 units SUB-Q QHS LONG Insulin Human Lispro (Humalog) 0 unit SUB-Q ACHS [facility]; Protocol Last Admin: 05/31/20 13:32 Dose: 10 unit Documented by: Ondansetron HCl (Zofran) 4 mg IV Q8H PRN PRN Reason: Nausea And Vomiting Oxycodone/Acetaminophen (Percocet 5/325) 1 tab PO Q6H PRN PRN Reason: Pain, Moderate (4-6) Last Admin: 05/31/20 13:30 Dose: 1 tab Documented by: Sodium Chloride (Sodium Chloride Flush Syringe 10 Ml) 10 ml IV BID LONG Last Admin: 05/31/20 09:43 Dose: 10 ml Documented by: Sodium Chloride (Sodium Chloride Flush Syringe 10 Ml) 10 ml IV PRN PRN PRN Reason: LINE FLUSH Exam - Vital Signs Vital signs: Vital Signs Pulse Resp 96 H 19 05/29/20 12:36 05/29/20 12:36 - Physical Exam Narrative exam: Exam deferred due to COVID-19 conservation strategy. Reviewed examination from primary providers. Results - Lab Results 05/31/20 10:17 05/31/20 10:17 Most recent lab results Calcium 8.7 mg/dL (8.4-10.2) 05/31/20 10:17 Assessment and Plan # Acute Kidney Injury: creatinine on arrival 4.7, no baseline. Has improved to 1.6 most recently with supportive measures, suspect NIR in setting of COVID-19 sepsis, tubular injury. Continue with current supportive measures. - IVF prn - avoid nephrotoxins - no indications for dialysis - defer serologic testing - renal ultrasound pending, can defer given improvement # Metabolic Acidosis: improving, due to NIR and lactic acidosis # Sepsis, COVID-19, Pneumonia: management per primary, ID, pulmonary. Agree with current measures, prognosis is guarded. Follow up cultures # Respiratory Failure, Hypoxia: currently on non-rebreather # Mild Hyperkalemia: likely due to NIR, medical management prn # HTN: BP stable currently, monitor for hypotension given COVID-19, holding home meds # DM: management per primary
[2020-05-31] MEDS: FAMOTIDINE 10 MG TAB PO SCH (21:24)
[2020-05-31] MEDS ORDERED: INSULIN GLARGINE 100 UNITS/ML SUB-Q SCH (22:00)
[2020-06-01 06:20] LABS: Hematocrit 37.5 % (35.5-45.6); Hemoglobin 12.3 gm/dl (11.8-15.2); Mean Corpuscular HGB Conc 33 % (32-34); Mean Corpuscular Volume 91 fl (84-94); Platelet Count 268 K/mm3 (140-440); Red Blood Count 4.11 M/mm3 (3.65-5.03); Red Cell Distribution Width 15.7 % (13.2-15.2)
[2020-06-01 06:31] LABS: Calcium 8.4 mg/dL (8.4-10.2)
[2020-06-01] MEDS: INSULIN LISPRO 100 UNIT/ML VIAL 3 mL SUB-Q SCH ×4 (07:07→23:18)
[2020-06-01] MEDS ORDERED: INSULIN GLARGINE 100 UNITS/ML SUB-Q ONE (07:24)
[2020-06-01] MEDS ORDERED: INSULIN LISPRO 100 UNIT/ML VIAL 3 mL SUB-Q ONE (07:27)
--- NOTE | 2020-06-01 08:36 | Progress Note ---
Assessment and Plan Assessment and plan: 64-year-old man with history of hypertension diabetes congestive heart failure and left below-knee amputation comes in for cough fever and shortness of breath and chills for 5 days. Patient has been tested positive for COVID-19 5 days ago. Patient saturations were 80% on room air which improved to 98% on a nonrebreather. Denies any chest pain. Patient is covered positive and hypoxic. COVID19 + Bilateral Pneumonia Secondary Coagulopathy- Unable to get CTA chest due to renal dysfunction DM with Hyperglycemia- Adjust insulin. Will give Lantus at 20 night HS, also will give 18 Additional units. Acute Hypoxic Respiratory failure 05/30 patient is a skilled nursing resident, alert and oriented and appears moderately short of breath and is on Ventimask Denies any chest pain or palpitations. He does complain of cough Lab results reviewed 05/31: Continues on high flow oxygen. still on High flow oxygen. Pulmonary consulted, ID consulted. COVID +, adjust insulin for better control. 06/01: Remains on High flow, due to severe hypoxemia Consent obtained for convalescent plasma. We will also obtain type and cross for the same. Wean oxygen as tolerated. ID input noted. No indication Remdesivir due to renal failure, renal on board, although renal function beginning to improve we will discuss with ID if we should revisit Remdesivir if renal function continues to improve. Continue ceftriaxone and azithromycin for 5 days. Offloading sacral area and keep area dry per wound care team. Continue anticoagulation. ID added fluconazole. Will adjust insulin therapy and also sliding scale to a higher scale. Severe sepsis Current Visit: Yes Status: Acute Plan to address problem: Secondary to COVID pneumonia Elevated lactic acid, tachycardia, elevated procalcitonin Continue IV antibiotics Blood culture results pending Bilateral pneumonia Current Visit: Yes Status: Acute Plan to address problem: 2/2 COVID pneumonia IV Rocephin initiated Patient is apparently coronavirus +5 days ago Repeat COVID test positive Will consult ID Continue steroids Acute respiratory failure with hypoxia Current Visit: Yes Status: Acute Plan to address problem: Secondary to COVID-19 pneumonia Patient is on nonrebreather Ventimask and O2 sats are in the mid 80s Discussed with optics test technician to start the patient on high flow nasal cannula Hyperkalemia secondary to renal failure Repeat electrolytes after Kayexalate administered yesterday shows a potassium of 5.9 Will order Kayexalate 60 g Monitor electrolytes Acute kidney injury R/O acute on chronic kidney disease Severe renal failure Baseline renal function is not known We will request nephrology consult Avoid nephrotoxins Renal ultrasound Hypertension Current Visit: Yes Status: Chronic Qualifiers: Hypertension type: essential hypertension Qualified Code(s): I10 - Essential (primary) hypertension Plan to address problem: Blood pressure fair off medication Continue to monitor Type 2 diabetes mellitus Current Visit: Yes Status: Chronic Qualifiers: 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 insulin use: unspecified group home insulin use status Plan to address problem: Continue insulin sliding scale coverage hemoglobin A1c 9.7 covid 19 + Management as outlined above Acute kidney injury with vasomotor nephropathy CHF (congestive heart failure) Current Visit: Yes Status: Chronic Qualifiers: Heart failure type: combined systolic and diastolic Plan to address problem: Echocardiogram requested DVT prophylaxis Current Visit: Yes Status: Acute Plan to address problem: On Lovenox and GI prophylaxis The high probability of a clinically significant, sudden or life threatening deterioration of the [pulmonary, renal] system(s) required my full and direct attention, intervention and personal management. The aggregate critical care time was [35] minutes. This time is in addition to time spent performing reported procedures but includes the following: [x] Data Review and interpretation [x] Patient assessment and monitoring of vital signs [x] Documentation [x] Medication orders and management History Interval history: Patient seen and examined today still with shortness of breath on high flow oxygen. Hospitalist Physical - Physical exam Narrative exam: VITAL SIGNS: Reviewed. GENERAL: The patient appears normally developed, morbidly obese vital signs as documented. HEAD: No signs of head trauma. EYES: Pupils are equal. Extraocular motions intact. EARS: Hearing grossly intact. MOUTH: Oropharynx is normal. NECK: No adenopathy, no JVD. CHEST: Chest with diminished breath sounds bilaterally. Increased respiratory rate. No wheezes, rales, or rhonchi. CARDIAC: Regular rate and rhythm. S1 and S2, without murmurs, gallops, or rubs. VASCULAR: No Edema. Peripheral pulses normal and equal in all extremities. ABDOMEN: Soft, non tender and non distended. No rebound or guarding, and no masses palpated. Bowel Sounds normal. MUSCULOSKELETAL: BKA LEFT LOWER EXT. extremities without clubbing, cyanosis or edema. NEUROLOGIC EXAM: Alert and oriented x 3 No focal sensory or strength deficits. Speech normal. Follows commands. PSYCHIATRIC: Mood normal. SKIN: detail exam as documented in skin assessment - Constitutional Vitals: Temp Pulse Resp BP Pulse Ox 98.0 F 76 20 130/62 87 06/01/20 05:33 06/01/20 05:33 06/01/20 05:33 06/01/20 05:33 06/01/20 05:33 General appearance: Present: mild distress HEART Score - HEART Score Troponin: Troponin T 0.025 ng/mL (0.00-0.029) 05/29/20 15:10 Results - Labs CBC & Chem 7: 06/01/20 04:48 06/01/20 07:46 Labs: Laboratory Last Values WBC 6.3 K/mm3 (4.5-11.0) 06/01/20 04:48 RBC 4.11 M/mm3 (3.65-5.03) 06/01/20 04:48 Hgb 12.3 gm/dl (11.8-15.2) 06/01/20 04:48 Hct 37.5 % (35.5-45.6) 06/01/20 04:48 MCV 91 fl (84-94) 06/01/20 04:48 MCH 30 pg (28-32) 06/01/20 04:48 MCHC 33 % (32-34) 06/01/20 04:48 RDW 15.7 % (13.2-15.2) H 06/01/20 04:48 Plt Count 268 K/mm3 (140-440) 06/01/20 04:48 Lymph % (Auto) 7.3 % (13.4-35.0) L 05/30/20 07:00 Grant % (Auto) 4.1 % (0.0-7.3) 05/30/20 07:00 Eos % (Auto) 0.1 % (0.0-4.3) 05/30/20 07:00 Baso % (Auto) 0.1 % (0.0-1.8) 05/30/20 07:00 Lymph # 0.5 K/mm3 (1.2-5.4) L 05/30/20 07:00 Grant # 0.3 K/mm3 (0.0-0.8) 05/30/20 07:00 Eos # 0.0 K/mm3 (0.0-0.4) 05/30/20 07:00 Baso # 0.0 K/mm3 (0.0-0.1) 05/30/20 07:00 Seg Neutrophils % 88.4 % (40.0-70.0) H 05/30/20 07:00 Seg Neutrophils # 6.5 K/mm3 (1.8-7.7) 05/30/20 07:00 PT 12.9 Sec. (12.2-14.9) 05/29/20 13:25 INR 0.95 (0.87-1.13) 05/29/20 13:25 APTT 28.1 Sec. (24.2-36.6) 05/29/20 13:25 D-Dimer 704.53 ng/mlDDU (0-234) H 05/31/20 10:17 Sodium 132 mmol/L (137-145) L 06/01/20 04:48 Potassium 4.8 mmol/L (3.6-5.0) 06/01/20 04:48 Chloride 93.3 mmol/L (98-107) L 06/01/20 04:48 Carbon Dioxide 22 mmol/L (22-30) 06/01/20 04:48 Anion Gap 22 mmol/L 06/01/20 04:48 BUN 39 mg/dL (9-20) H 06/01/20 04:48 Creatinine 1.4 mg/dL (0.8-1.3) H 06/01/20 04:48 Estimated GFR 53 ml/min 06/01/20 04:48 BUN/Creatinine Ratio 28 % 06/01/20 04:48 Glucose 533 mg/dL (75-100) H* 06/01/20 04:48 POC Glucose 431 (70-105) H 05/31/20 22:52 Hemoglobin A1c 9.7 % (4-6) H 05/30/20 07:00 Lactic Acid 2.20 mmol/L (0.7-2.0) H* 05/29/20 15:10 Calcium 8.4 mg/dL (8.4-10.2) 06/01/20 04:48 Ferritin 1221.0 ng/mL (30.0-300.0) H 05/31/20 10:17 Total Bilirubin 0.20 mg/dL (0.1-1.2) 05/31/20 10:17 Direct Bilirubin < 0.2 mg/dL (0-0.2) 05/29/20 13:25 Indirect Bilirubin 0.1 mg/dL 05/29/20 13:25 AST 37 units/L (5-40) 05/31/20 10:17 ALT 17 units/L (7-56) 05/31/20 10:17 Alkaline Phosphatase 66 units/L (35-129) 05/31/20 10:17 Lactate Dehydrogenase 676 units/L (91-180) H 05/31/20 10:17 Troponin T 0.025 ng/mL (0.00-0.029) 05/29/20 15:10 C-Reactive Protein 21.30 mg/dL (0.00-1.30) H 05/31/20 10:17 NT-Pro-B Natriuret Pep 89.58 pg/mL (0-900) 05/29/20 13:25 Total Protein 7.6 g/dL (6.3-8.2) 05/31/20 10:17 Albumin 3.2 g/dL (3.9-5) L 05/31/20 10:17 Albumin/Globulin Ratio 0.7 % 05/31/20 10:17 Procalcitonin 4.38 ng/mL (<0.15) 05/29/20 15:10 Coronavirus (PCR) Positive (Negative) A 05/29/20 Unknown Microbiology: Microbiology 05/29/20 13:25 Peripheral/Venous Blood Culture - Preliminary NO GROWTH AFTER 48 HOURS 05/29/20 13:25 Peripheral/Venous Blood Culture - Preliminary NO GROWTH AFTER 48 HOURS Ambrose/IV: Voiding Method Diaper IV Catheter Type [Left Chest] INT / Saline Lock Active Medications - Current Medications Current Medications: Generic Name Dose Route Start Last Admin Trade Name Freq PRN Reason Stop Dose Admin Acetaminophen 650 mg 05/30/20 00:19 Tylenol PO Q4H PRN Pain MILD(1-3)/Fever >100.5/ESPINOZA Azithromycin 500 mg 05/30/20 10:00 05/31/20 09:43 Zithromax PO 06/02/20 10:01 500 mg QDAY LONG Administration Dexamethasone 6 mg 05/31/20 14:00 05/31/20 13:35 Decadron PO 06/07/20 10:01 6 mg DAILY LONG Administration Enoxaparin Sodium 30 mg 05/30/20 22:00 05/31/20 21:24 Enoxaparin SUB-Q 30 mg QDAY@2200 LONG Administration Famotidine 10 mg 05/31/20 22:00 05/31/20 21:24 Pepcid PO 10 mg BID LONG Administration Hydromorphone HCl 0.5 mg 05/30/20 00:19 Dilaudid IV Q3H PRN Pain , Severe (7-10) Ceftriaxone Sodium 2 gm in 100 mls @ 200 mls/hr 05/30/20 10:00 05/31/20 09:43 Rocephin/Ns 2 Gm/100 Ml IV 200 mls/hr Q24HR LONG Administration Protocol Insulin Glargine 20 units 05/31/20 22:00 05/31/20 22:49 Lantus SUB-Q 20 units QHS LONG Administration Insulin Human Lispro 0 unit 05/30/20 09:30 06/01/20 07:07 Humalog SUB-Q 10 unit ACHS LONG Administration Protocol Ondansetron HCl 4 mg 05/30/20 00:19 05/31/20 17:38 Zofran IV 4 mg Q8H PRN Administration Nausea And Vomiting Oxycodone/Acetaminophen 1 tab 05/30/20 00:19 05/31/20 13:30 Percocet 5/325 PO 1 tab Q6H PRN Administration Pain, Moderate (4-6) Sodium Chloride 10 ml 05/30/20 10:00 05/31/20 21:24 Sodium Chloride Flush Syringe 10 Ml IV 10 ml BID LONG Administration Sodium Chloride 10 ml 05/30/20 00:19 Sodium Chloride Flush Syringe 10 Ml IV PRN PRN LINE FLUSH Nutrition/Malnutrition Assess - Dietary Evaluation Nutrition/Malnutrition Findings: Nutrition Notes Start: 05/30/20 14:30 Freq: Status: Active Protocol: Document 05/30/20 14:30 LM (Rec: 05/30/20 14:33 LM [email or web address]) Nutrition Notes Need for Assessment generated from: roll skinner Initial or Follow up Brief Note Current Diagnosis Diabetes,Hypertension,Heart Failure Other Pertinent Diagnosis COVID-19, L BKA Current Diet cardiac Labs/Tests A1C 9.7 BG 424 Usual Body Weight 121 kg Subjective/Other Information RN screen for new DM. Pt with hx of DM. Pt with no wt loss. Pt stated he did not need any DM diet education at this time . Nutrition Intervention Change Diet Order: Cardiac/consistent CHO Revisit per MD consult or patient Sign Off request:
[2020-06-01] MEDS: cefTRIAXone/NS 2 GM/100 ML 2 GM/100 ML BAG IV SCH (10:32)
[2020-06-01] MEDS: AZITHROMYCIN 250 MG TAB PO SCH (10:33)
[2020-06-01] MEDS: FAMOTIDINE 10 MG TAB PO SCH (10:33)
[2020-06-01] MEDS: DEXAMETHASONE 4 MG TAB PO SCH (10:33)
[2020-06-01] MEDS ORDERED: FUROSEMIDE 20 MG/2 ML INJ IV ONE (13:38)
--- NOTE | 2020-06-01 13:46 | Consultation ---
History of Present Illness Consult date: 06/01/20 Requesting physician: JUAN F HERNANDEZ Reason for consult: hypoxemia, other (COVID) History of present illness: 55 y/o obese male admitted with acute respiratory failure, acute renal failure and COVID 19 infection. Medications and Allergies Allergies Allergy/AdvReac Type Severity Reaction Status Date / Time No Known Allergies Allergy Unverified 05/29/20 15:15 Active Meds: Active Medications Acetaminophen (Tylenol) 650 mg PO Q4H PRN PRN Reason: Pain MILD(1-3)/Fever >100.5/ESPINOZA Azithromycin (Zithromax) 500 mg PO QDAY [facility] Stop: 06/02/20 10:01 Last Admin: 06/01/20 10:33 Dose: 500 mg Documented by: Dexamethasone (Decadron) 6 mg PO DAILY [facility] Stop: 06/07/20 10:01 Last Admin: 06/01/20 10:33 Dose: 6 mg Documented by: Enoxaparin Sodium (Enoxaparin) 40 mg SUB-Q QHS [facility] Famotidine (Pepcid) 20 mg PO BID [facility] Hydromorphone HCl (Dilaudid) 0.5 mg IV Q3H PRN PRN Reason: Pain , Severe (7-10) Ceftriaxone Sodium (Rocephin/Ns 2 Gm/100 Ml) 2 gm in 100 mls @ 200 mls/hr IV Q24HR [facility]; Protocol Stop: 06/02/20 10:29 Last Admin: 06/01/20 10:32 Dose: 200 mls/hr Documented by: Insulin Glargine (Lantus) 40 units SUB-Q QHS [facility] Insulin Human Lispro (Humalog) 0 unit SUB-Q ACHS [facility]; Protocol Last Admin: 06/01/20 11:30 Dose: 8 unit Documented by: Ondansetron HCl (Zofran) 4 mg IV Q8H PRN PRN Reason: Nausea And Vomiting Last Admin: 05/31/20 17:38 Dose: 4 mg Documented by: Oxycodone/Acetaminophen (Percocet 5/325) 1 tab PO Q6H PRN PRN Reason: Pain, Moderate (4-6) Last Admin: 05/31/20 13:30 Dose: 1 tab Documented by: Sodium Chloride (Sodium Chloride Flush Syringe 10 Ml) 10 ml IV BID [facility] Last Admin: 06/01/20 10:34 Dose: 10 ml Documented by: Sodium Chloride (Sodium Chloride Flush Syringe 10 Ml) 10 ml IV PRN PRN PRN Reason: LINE FLUSH Physical Examination Vital signs: Vital Signs Pulse Resp 96 H 19 05/29/20 12:36 05/29/20 12:36 Patient not examined in person to preserve PPE during the COVID 19 pandemic Results - Laboratory Findings CBC and BMP: 06/01/20 04:48 06/01/20 07:46 PT/INR, D-dimer PT 12.9 Sec. (12.2-14.9) 05/29/20 13:25 INR 0.95 (0.87-1.13) 05/29/20 13:25 D-Dimer 704.53 ng/mlDDU (0-234) H 05/31/20 10:17 Abnormal lab findings: Abnormal Labs 05/29/20 05/29/20 05/29/20 13:25 13:25 13:25 RDW 16.4 H Lymph % (Auto) Lymph # Seg Neutrophils % 78.4 H D-Dimer Sodium 131 L Potassium 5.4 H Chloride 96.2 L Carbon Dioxide 14 L BUN 42 H Creatinine 4.7 H Glucose 121 H POC Glucose Hemoglobin A1c Lactic Acid 2.70 H* Calcium 8.3 L Ferritin AST Lactate Dehydrogenase C-Reactive Protein Albumin Coronavirus (PCR) 05/29/20 05/29/20 05/29/20 13:25 15:10 15:10 RDW Lymph % (Auto) Lymph # Seg Neutrophils % D-Dimer 1391.41 H Sodium Potassium Chloride Carbon Dioxide BUN Creatinine Glucose 120 H POC Glucose Hemoglobin A1c Lactic Acid Calcium Ferritin AST 54 H Lactate Dehydrogenase 581 H C-Reactive Protein 40.70 H Albumin 2.9 L Coronavirus (PCR) 05/29/20 05/29/20 05/29/20 15:10 15:10 22:55 RDW Lymph % (Auto) Lymph # Seg Neutrophils % D-Dimer Sodium Potassium Chloride Carbon Dioxide BUN Creatinine Glucose POC Glucose 256 H Hemoglobin A1c Lactic Acid 2.20 H* Calcium Ferritin 1092.0 H AST Lactate Dehydrogenase C-Reactive Protein Albumin Coronavirus (PCR) 05/29/20 05/30/20 05/30/20 Unknown 07:00 07:00 RDW 16.0 H Lymph % (Auto) 7.3 L Lymph # 0.5 L Seg Neutrophils % 88.4 H D-Dimer Sodium 132 L Potassium 5.9 H Chloride 95.5 L Carbon Dioxide 18 L BUN 49 H Creatinine 4.0 H Glucose 415 H POC Glucose Hemoglobin A1c Lactic Acid Calcium 7.8 L Ferritin AST 46 H Lactate Dehydrogenase C-Reactive Protein Albumin 3.2 L Coronavirus (PCR) Positive A 05/30/20 05/30/20 05/30/20 07:00 07:45 11:39 RDW Lymph % (Auto) Lymph # Seg Neutrophils % D-Dimer Sodium Potassium Chloride Carbon Dioxide BUN Creatinine Glucose POC Glucose 424 H 468 H Hemoglobin A1c 9.7 H Lactic Acid Calcium Ferritin AST Lactate Dehydrogenase C-Reactive Protein Albumin Coronavirus (PCR) 05/30/20 05/31/20 05/31/20 17:11 01:49 08:14 RDW Lymph % (Auto) Lymph # Seg Neutrophils % D-Dimer Sodium Potassium Chloride Carbon Dioxide BUN Creatinine Glucose POC Glucose 475 H 426 H 430 H Hemoglobin A1c Lactic Acid Calcium Ferritin AST Lactate Dehydrogenase C-Reactive Protein Albumin Coronavirus (PCR) 05/31/20 05/31/20 05/31/20 10:17 10:17 10:17 RDW 16.0 H Lymph % (Auto) Lymph # Seg Neutrophils % D-Dimer 704.53 H Sodium 134 L Potassium 5.2 H Chloride 92.9 L Carbon Dioxide BUN 38 H Creatinine 1.6 H D Glucose 556 H* POC Glucose Hemoglobin A1c Lactic Acid Calcium Ferritin AST Lactate Dehydrogenase 676 H C-Reactive Protein 21.30 H Albumin 3.2 L Coronavirus (PCR) 05/31/20 05/31/20 05/31/20 10:17 11:24 16:25 RDW Lymph % (Auto) Lymph # Seg Neutrophils % D-Dimer Sodium Potassium Chloride Carbon Dioxide BUN Creatinine Glucose POC Glucose 482 H 367 H Hemoglobin A1c Lactic Acid Calcium Ferritin 1221.0 H AST Lactate Dehydrogenase C-Reactive Protein Albumin Coronavirus (PCR) 05/31/20 06/01/20 06/01/20 22:52 04:48 04:48 RDW 15.7 H Lymph % (Auto) Lymph # Seg Neutrophils % D-Dimer Sodium 132 L Potassium Chloride 93.3 L Carbon Dioxide BUN 39 H Creatinine 1.4 H Glucose 533 H* POC Glucose 431 H Hemoglobin A1c Lactic Acid Calcium Ferritin AST Lactate Dehydrogenase C-Reactive Protein Albumin Coronavirus (PCR) 06/01/20 06/01/20 06/01/20 07:46 08:46 11:38 RDW Lymph % (Auto) Lymph # Seg Neutrophils % D-Dimer Sodium Potassium Chloride Carbon Dioxide BUN Creatinine Glucose 504 H* POC Glucose 448 H 287 H Hemoglobin A1c Lactic Acid Calcium Ferritin AST Lactate Dehydrogenase C-Reactive Protein Albumin Coronavirus (PCR) - Diagnostic Findings Chest x-ray: image reviewed Assessment and Plan 55 y/o obese male with acute respiratory failure from COVID and acute renal failure. 1. Patient not able to be diuresed 2. Not a candidate for remedesivir secondary to renal function 3. Currently on HFNC with marginal sats 4. Low threshold to transfer to ICU, not IMCU 5. If possible would prone as much as tolerated during the day and sleep prone at night Guarded prognosis, can try bipap but would likely need to be transferred if requires continuous therapy.
--- NOTE | 2020-06-01 15:58 | Progress Note ---
Assessment and Plan # Acute Kidney Injury: creatinine on arrival 4.7, no baseline. Has improved to 1.4 most recently with supportive measures, suspect NIR in setting of COVID-19 sepsis, tubular injury. Continue with current supportive measures. - IVF prn - avoid nephrotoxins - no indications for dialysis - defer serologic testing - renal ultrasound pending, can defer given improvement # Hyponatremia: mild, will follow, likely low due to hyperglycemia # Metabolic Acidosis: improving, due to NIR and lactic acidosis # Sepsis, COVID-19, Pneumonia: management per primary, ID, pulmonary. Agree with current measures, prognosis is guarded. Follow up cultures # Respiratory Failure, Hypoxia: currently on HFNC. Diuretics prn only, defer to pulmonary if needed # Mild Hyperkalemia: likely due to NIR, medical management prn, improved # HTN: BP stable currently, monitor for hypotension given COVID-19, holding home meds # DM: management per primary Subjective Date of service: 06/01/20 Interval history: Continues to require high flow oxygen. Pulmonary consulted. Objective - Exam Narrative Exam: Exam deferred due to COVID-19 conservation strategy. Reviewed examination from primary providers. - Vital Signs Vital signs: Vital Signs - 12hr 06/01/20 06/01/20 06/01/20 05:33 08:00 11:00 Temperature 98.0 F 98.3 F Pulse Rate 76 85 Respiratory 20 22 Rate Blood Pressure 130/62 Blood Pressure 143/76 [Left] O2 Sat by Pulse 87 87 90 Oximetry - Lab 06/01/20 04:48 06/01/20 07:46 Most recent lab results Calcium 8.4 mg/dL (8.4-10.2) 06/01/20 04:48 Medications & Allergies - Medications Allergies/Adverse Reactions: Allergies No Known Allergies Allergy (Unverified 05/29/20 15:15) Home Medications: Home Medications Medication Instructions Recorded Confirmed Last Taken Type No Known Home Medications [No 06/01/20 06/01/20 Unknown History Reported Home Medications] Active Medications: Generic Name Dose Route Start Last Admin Trade Name Freq PRN Reason Stop Dose Admin Acetaminophen 650 mg 05/30/20 00:19 Tylenol PO Q4H PRN Pain MILD(1-3)/Fever >100.5/ESPINOZA Azithromycin 500 mg 05/30/20 10:00 06/01/20 10:33 Zithromax PO 06/02/20 10:01 500 mg QDAY [facility] Administration Dexamethasone 6 mg 05/31/20 14:00 06/01/20 10:33 Decadron PO 06/07/20 10:01 6 mg DAILY [facility] Administration Enoxaparin Sodium 40 mg 06/01/20 22:00 Enoxaparin SUB-Q QHS [facility] Famotidine 20 mg 06/01/20 22:00 Pepcid PO BID [facility] Hydromorphone HCl 0.5 mg 05/30/20 00:19 Dilaudid IV Q3H PRN Pain , Severe (7-10) Ceftriaxone Sodium 2 gm in 100 mls @ 200 mls/hr 05/30/20 10:00 06/01/20 10:32 Rocephin/Ns 2 Gm/100 Ml IV 06/02/20 10:29 200 mls/hr Q24HR [facility] Administration Protocol Insulin Glargine 40 units 06/01/20 22:00 Lantus SUB-Q QHS [facility] Insulin Human Lispro 0 unit 05/30/20 09:30 06/01/20 11:30 Humalog SUB-Q 8 unit ACHS [facility] Administration Protocol Ondansetron HCl 4 mg 05/30/20 00:19 05/31/20 17:38 Zofran IV 4 mg Q8H PRN Administration Nausea And Vomiting Oxycodone/Acetaminophen 1 tab 05/30/20 00:19 05/31/20 13:30 Percocet 5/325 PO 1 tab Q6H PRN Administration Pain, Moderate (4-6) Sodium Chloride 10 ml 05/30/20 10:00 06/01/20 10:34 Sodium Chloride Flush Syringe 10 Ml IV 10 ml BID LONG Administration Sodium Chloride 10 ml 05/30/20 00:19 Sodium Chloride Flush Syringe 10 Ml IV PRN PRN LINE FLUSH
[2020-06-01] MEDS: FAMOTIDINE 20 MG TAB PO SCH (22:25)
[2020-06-01] MEDS: ENOXAPARIN 40 MG/0.4 ML INJ SUB-Q SCH (22:25)
[2020-06-01] MEDS: INSULIN GLARGINE 100 UNITS/ML SUB-Q SCH (23:19)
[2020-06-02] MEDS: INSULIN LISPRO 100 UNIT/ML VIAL 3 mL SUB-Q SCH ×4 (09:23→22:29)
[2020-06-02] MEDS: DEXAMETHASONE 4 MG TAB PO SCH (09:24)
[2020-06-02] MEDS: AZITHROMYCIN 250 MG TAB PO SCH (09:24)
[2020-06-02] MEDS: cefTRIAXone/NS 2 GM/100 ML 2 GM/100 ML BAG IV SCH (09:25)
[2020-06-02] MEDS: FAMOTIDINE 20 MG TAB PO SCH ×2 (09:25→22:28)
--- NOTE | 2020-06-02 10:15 | Progress Note ---
Assessment and Plan # Acute Kidney Injury: creatinine on arrival 4.7, no baseline. Has improved to 1.4 most recently with supportive measures, no labs for review today. Suspect NIR in setting of COVID-19 sepsis, tubular injury. Continue with current suppor tive measures. - IVF prn - avoid nephrotoxins - no indications for dialysis - defer serologic testing - renal ultrasound ordered, can defer given improvement # Hyponatremia: mild, will follow, likely low due to hyperglycemia # Metabolic Acidosis: improving, due to NIR and lactic acidosis # Sepsis, COVID-19, Pneumonia: management per primary, ID, pulmonary. Agree with current measures, prognosis is guarded. Follow up cultures # Respiratory Failure, Hypoxia: currently on HFNC. Diuretics prn only, defer to pulmonary if needed # Mild Hyperkalemia: likely due to NIR, medical management prn, improved # HTN: BP stable currently, monitor for hypotension given COVID-19, holding home meds # DM: management per primary, sugars remain elevated Subjective Date of service: 06/02/20 Interval history: Continues to require high flow oxygen. Pulmonary following. Chart reviewed in depth. Objective - Exam Narrative Exam: Exam deferred due to COVID-19 conservation strategy. Reviewed examination from primary providers. - Vital Signs Vital signs: Vital Signs - 12hr 06/01/20 06/02/20 06/02/20 22:36 02:00 04:58 Temperature 98.3 F 97.5 F L Pulse Rate 93 H 59 L Respiratory 22 24 Rate Blood Pressure 136/76 151/95 O2 Sat by Pulse 96 96 97 Oximetry - Lab 06/01/20 04:48 06/01/20 07:46 Most recent lab results Calcium 8.4 mg/dL (8.4-10.2) 06/01/20 04:48 Medications & Allergies - Medications Allergies/Adverse Reactions: Allergies No Known Allergies Allergy (Unverified 05/29/20 15:15) Home Medications: Home Medications Medication Instructions Recorded Confirmed Last Taken Type No Known Home Medications [No 06/01/20 06/01/20 Unknown History Reported Home Medications] Active Medications: Generic Name Dose Route Start Last Admin Trade Name Freq PRN Reason Stop Dose Admin Acetaminophen 650 mg 05/30/20 00:19 Tylenol PO Q4H PRN Pain MILD(1-3)/Fever >100.5/ESPINOZA Dexamethasone 6 mg 05/31/20 14:00 06/02/20 09:24 Decadron PO 06/07/20 10:01 6 mg DAILY LONG Administration Enoxaparin Sodium 40 mg 06/01/20 22:00 06/01/20 22:25 Enoxaparin SUB-Q 40 mg QHS LONG Administration Famotidine 20 mg 06/01/20 22:00 06/02/20 09:25 Pepcid PO 20 mg BID LONG Administration Hydromorphone HCl 0.5 mg 05/30/20 00:19 Dilaudid IV Q3H PRN Pain , Severe (7-10) Ceftriaxone Sodium 2 gm in 100 mls @ 200 mls/hr 05/30/20 10:00 06/02/20 09:25 Rocephin/Ns 2 Gm/100 Ml IV 06/02/20 10:29 200 mls/hr Q24HR LONG Administration Protocol Insulin Glargine 40 units 06/01/20 22:00 06/01/20 23:19 Lantus SUB-Q 40 units QHS [facility] Administration Insulin Human Lispro 0 unit 05/30/20 09:30 06/02/20 09:23 Humalog SUB-Q 10 unit ACHS [facility] Administration Protocol Ondansetron HCl 4 mg 05/30/20 00:19 05/31/20 17:38 Zofran IV 4 mg Q8H PRN Administration Nausea And Vomiting Oxycodone/Acetaminophen 1 tab 05/30/20 00:19 05/31/20 13:30 Percocet 5/325 PO 1 tab Q6H PRN Administration Pain, Moderate (4-6) Sodium Chloride 10 ml 05/30/20 10:00 06/02/20 09:24 Sodium Chloride Flush Syringe 10 Ml IV 10 ml BID LONG Administration Sodium Chloride 10 ml 05/30/20 00:19 Sodium Chloride Flush Syringe 10 Ml IV PRN PRN LINE FLUSH
[2020-06-02] MEDS ORDERED: FUROSEMIDE 40 MG/4 ML INJ IV ONE ×2 (10:22→15:00)
--- NOTE | 2020-06-02 10:28 | Progress Note ---
Assessment and Plan 55 y/o obese male with acute respiratory failure from COVID and acute renal failure. 1. Suggest checking chemistry, will decide tomorrow in regards to lasix therapy. 2. Not a candidate for remedesivir secondary to renal function 3. Currently on HFNC with marginal sats, also restrained based on charting, so not able to prone. May need some antipsychotic therapy. 4. Low threshold to transfer to ICU, not IMCU 5. If possible would prone as much as tolerated during the day and sleep prone at night, cannot do this if patient is restrained. Guarded prognosis, can try bipap but would likely need to be transferred if requires continuous therapy. Subjective Date of service: 06/02/20 Interval history: no labs today. Renal has seen and stated ok if I give diuretic therapy. Objective Vital Signs - 12hr 06/01/20 06/02/20 06/02/20 22:36 02:00 04:58 Temperature 98.3 F 97.5 F L Pulse Rate 93 H 59 L Respiratory 22 24 Rate Blood Pressure 136/76 151/95 O2 Sat by Pulse 96 96 97 Oximetry CBC and BMP: 06/01/20 04:48 06/01/20 07:46 ABG, PT/INR, D-dimer: PT/INR, D-dimer PT 12.9 Sec. (12.2-14.9) 05/29/20 13:25 INR 0.95 (0.87-1.13) 05/29/20 13:25 D-Dimer 704.53 ng/mlDDU (0-234) H 05/31/20 10:17 Abnormal lab findings: Abnormal Labs 05/29/20 05/29/20 05/29/20 13:25 13:25 13:25 RDW 16.4 H Lymph % (Auto) Lymph # Seg Neutrophils % 78.4 H D-Dimer Sodium 131 L Potassium 5.4 H Chloride 96.2 L Carbon Dioxide 14 L BUN 42 H Creatinine 4.7 H Glucose 121 H POC Glucose Hemoglobin A1c Lactic Acid 2.70 H* Calcium 8.3 L Ferritin AST Lactate Dehydrogenase C-Reactive Protein Albumin Coronavirus (PCR) 05/29/20 05/29/20 05/29/20 13:25 15:10 15:10 RDW Lymph % (Auto) Lymph # Seg Neutrophils % D-Dimer 1391.41 H Sodium Potassium Chloride Carbon Dioxide BUN Creatinine Glucose 120 H POC Glucose Hemoglobin A1c Lactic Acid Calcium Ferritin AST 54 H Lactate Dehydrogenase 581 H C-Reactive Protein 40.70 H Albumin 2.9 L Coronavirus (PCR) 05/29/20 05/29/20 05/29/20 15:10 15:10 22:55 RDW Lymph % (Auto) Lymph # Seg Neutrophils % D-Dimer Sodium Potassium Chloride Carbon Dioxide BUN Creatinine Glucose POC Glucose 256 H Hemoglobin A1c Lactic Acid 2.20 H* Calcium Ferritin 1092.0 H AST Lactate Dehydrogenase C-Reactive Protein Albumin Coronavirus (PCR) 05/29/20 05/30/20 05/30/20 Unknown 07:00 07:00 RDW 16.0 H Lymph % (Auto) 7.3 L Lymph # 0.5 L Seg Neutrophils % 88.4 H D-Dimer Sodium 132 L Potassium 5.9 H Chloride 95.5 L Carbon Dioxide 18 L BUN 49 H Creatinine 4.0 H Glucose 415 H POC Glucose Hemoglobin A1c Lactic Acid Calcium 7.8 L Ferritin AST 46 H Lactate Dehydrogenase C-Reactive Protein Albumin 3.2 L Coronavirus (PCR) Positive A 05/30/20 05/30/20 05/30/20 07:00 07:45 11:39 RDW Lymph % (Auto) Lymph # Seg Neutrophils % D-Dimer Sodium Potassium Chloride Carbon Dioxide BUN Creatinine Glucose POC Glucose 424 H 468 H Hemoglobin A1c 9.7 H Lactic Acid Calcium Ferritin AST Lactate Dehydrogenase C-Reactive Protein Albumin Coronavirus (PCR) 05/30/20 05/31/20 05/31/20 17:11 01:49 08:14 RDW Lymph % (Auto) Lymph # Seg Neutrophils % D-Dimer Sodium Potassium Chloride Carbon Dioxide BUN Creatinine Glucose POC Glucose 475 H 426 H 430 H Hemoglobin A1c Lactic Acid Calcium Ferritin AST Lactate Dehydrogenase C-Reactive Protein Albumin Coronavirus (PCR) 05/31/20 05/31/20 05/31/20 10:17 10:17 10:17 RDW 16.0 H Lymph % (Auto) Lymph # Seg Neutrophils % D-Dimer 704.53 H Sodium 134 L Potassium 5.2 H Chloride 92.9 L Carbon Dioxide BUN 38 H Creatinine 1.6 H D Glucose 556 H* POC Glucose Hemoglobin A1c Lactic Acid Calcium Ferritin AST Lactate Dehydrogenase 676 H C-Reactive Protein 21.30 H Albumin 3.2 L Coronavirus (PCR) 08/05/31/20 05/31/20 10:17 11:24 16:25 RDW Lymph % (Auto) Lymph # Seg Neutrophils % D-Dimer Sodium Potassium Chloride Carbon Dioxide BUN Creatinine Glucose POC Glucose 482 H 367 H Hemoglobin A1c Lactic Acid Calcium Ferritin 1221.0 H AST Lactate Dehydrogenase C-Reactive Protein Albumin Coronavirus (PCR) 05/31/20 06/01/20 06/01/20 22:52 04:48 04:48 RDW 15.7 H Lymph % (Auto) Lymph # Seg Neutrophils % D-Dimer Sodium 132 L Potassium Chloride 93.3 L Carbon Dioxide BUN 39 H Creatinine 1.4 H Glucose 533 H* POC Glucose 431 H Hemoglobin A1c Lactic Acid Calcium Ferritin AST Lactate Dehydrogenase C-Reactive Protein Albumin Coronavirus (PCR) 06/01/20 06/01/20 06/01/20 07:46 08:46 11:38 RDW Lymph % (Auto) Lymph # Seg Neutrophils % D-Dimer Sodium Potassium Chloride Carbon Dioxide BUN Creatinine Glucose 504 H* POC Glucose 448 H 287 H Hemoglobin A1c Lactic Acid Calcium Ferritin AST Lactate Dehydrogenase C-Reactive Protein Albumin Coronavirus (PCR) 06/01/20 06/01/20 06/02/20 16:27 22:47 07:35 RDW Lymph % (Auto) Lymph # Seg Neutrophils % D-Dimer Sodium Potassium Chloride Carbon Dioxide BUN Creatinine Glucose POC Glucose 298 H 411 H 347 H Hemoglobin A1c Lactic Acid Calcium Ferritin AST Lactate Dehydrogenase C-Reactive Protein Albumin Coronavirus (PCR)
[2020-06-02] MEDS ORDERED: DULOXETINE HCL PO SCH (11:45)
[2020-06-02] MEDS ORDERED: ARIPIPRAZOLE 2 MG PO SCH (11:45)
--- NOTE | 2020-06-02 12:31 | Progress Note ---
Assessment and Plan Assessment and plan: 64-year-old man with history of hypertension diabetes congestive heart failure and left below-knee amputation comes in for cough fever and shortness of breath and chills for 5 days. Patient has been tested positive for COVID-19 5 days ago. Patient saturations were 80% on room air which improved to 98% on a nonrebreather. Denies any chest pain. Patient is covered positive and hypoxic. COVID19 + Bilateral Pneumonia Secondary Coagulopathy- Unable to get CTA chest due to renal dysfunction DM with Hyperglycemia- Adjust insulin. Will give Lantus at 20 night HS, also will give 18 Additional units. Acute Hypoxic Respiratory failure 05/30 patient is a long-term resident, alert and oriented and appears moderately short of breath and is on Ventimask Denies any chest pain or palpitations. He does complain of cough Lab results reviewed 05/31: Continues on high flow oxygen. still on High flow oxygen. Pulmonary consulted, ID consulted. COVID +, adjust insulin for better control. 06/01: Remains on High flow, due to severe hypoxemia Consent obtained for convalescent plasma. We will also obtain type and cross for the same. Wean oxygen as tolerated. ID input noted. No indication Remdesivir due to renal failure, renal on board, although renal function beginning to improve we will discuss with ID if we should revisit Remdesivir if renal function continues to improve. Continue ceftriaxone and azithromycin for 5 days. Offloading sacral area and keep area dry per wound care team. Continue anticoagulation. ID added fluconazole. Will adjust insulin therapy and also sliding scale to a higher scale. 06/02: Called and discussed with family patient does have some psychiatric illness will obtain psych consultation due to new onset psychosis. Pulmonary input appreciated. Will proceed with ordering plasma therapy.The assigned patient code is [id number] for plasma transfusion. Severe sepsis Current Visit: Yes Status: Acute Plan to address problem: Secondary to COVID pneumonia Elevated lactic acid, tachycardia, elevated procalcitonin Continue IV antibiotics Blood culture results pending Bilateral pneumonia Current Visit: Yes Status: Acute Plan to address problem: 2/2 COVID pneumonia IV Rocephin initiated Patient is apparently coronavirus +5 days ago Repeat COVID test positive Will consult ID Continue steroids Acute psychosis with visual and auditory hallucination Resume outpatient medications for depression which was just obtained acute respiratory failure with hypoxia Current Visit: Yes Status: Acute Plan to address problem: Secondary to COVID-19 pneumonia Patient is on nonrebreather Ventimask and O2 sats are in the mid 80s Discussed with aviation electronics technician to start the patient on high flow nasal cannula Hyperkalemia secondary to renal failure Repeat electrolytes after Kayexalate administered yesterday shows a potassium of 5.9 Will order Kayexalate 60 g Monitor electrolytes Acute kidney injury R/O acute on chronic kidney disease Severe renal failure Baseline renal function is not known We will request nephrology consult Avoid nephrotoxins Renal ultrasound Hypertension Current Visit: Yes Status: Chronic Qualifiers: Hypertension type: essential hypertension Qualified Code(s): I10 - Essential (primary) hypertension Plan to address problem: Blood pressure fair off medication Continue to monitor Type 2 diabetes mellitus Current Visit: Yes Status: Chronic Qualifiers: Diabetes mellitus longterm insulin use: unspecified termite inspector insulin use status Plan to address problem: Continue insulin sliding scale coverage hemoglobin A1c 9.7 covid 19 + Management as outlined above Acute kidney injury with vasomotor nephropathy CHF (congestive heart failure) Current Visit: Yes Status: Chronic Qualifiers: Heart failure type: combined systolic and diastolic Plan to address problem: Echocardiogram requested DVT prophylaxis Current Visit: Yes Status: Acute Plan to address problem: On Lovenox and GI prophylaxis The high probability of a clinically significant, sudden or life threatening deterioration of the [pulmonary, renal] system(s) required my full and direct attention, intervention and personal management. The aggregate critical care time was [35] minutes. This time is in addition to time spent performing r eported procedures but includes the following: [x] Data Review and interpretation [x] Patient assessment and monitoring of vital signs [x] Documentation [x] Medication orders and management History Interval history: Patient seen and examined today still with shortness of breath on high flow oxygen. Required restraints yesterday as patient became acutely psychotic pulling on lines and exhibiting visual and auditory hallucination Hospitalist Physical - Physical exam Narrative exam: VITAL SIGNS: Reviewed. GENERAL: The patient appears normally developed, morbidly obese vital signs as documented. HEAD: No signs of head trauma. EYES: Pupils are equal. Extraocular motions intact. EARS: Hearing grossly intact. MOUTH: Oropharynx is normal. NECK: No adenopathy, no JVD. CHEST: Chest with diminished breath sounds bilaterally. Increased respiratory rate. No wheezes, rales, or rhonchi. CARDIAC: Regular rate and rhythm. S1 and S2, without murmurs, gallops, or rubs. VASCULAR: No Edema. Peripheral pulses normal and equal in all extremities. ABDOMEN: Soft, non tender and non distended. No rebound or guarding, and no masses palpated. Bowel Sounds normal. MUSCULOSKELETAL: BKA LEFT LOWER EXT. extremities without clubbing, cyanosis or edema. NEUROLOGIC EXAM: Alert and oriented x 1 No focal sensory or strength deficits. Speech normal. Follows commands. PSYCHIATRIC: Mood anxious SKIN: detail exam as documented in skin assessment - Constitutional Vitals: Temp Pulse Resp BP Pulse Ox 97 F L 89 22 132/83 95 06/02/20 11:00 06/02/20 11:40 06/02/20 11:00 06/02/20 11:40 06/02/20 11:59 General appearance: Present: mild distress HEART Score - HEART Score Troponin: Troponin T 0.025 ng/mL (0.00-0.029) 05/29/20 15:10 Results - Labs CBC & Chem 7: 06/01/20 04:48 06/01/20 07:46 Labs: Laboratory Last Values WBC 6.3 K/mm3 (4.5-11.0) 06/01/20 04:48 RBC 4.11 M/mm3 (3.65-5.03) 06/01/20 04:48 Hgb 12.3 gm/dl (11.8-15.2) 06/01/20 04:48 Hct 37.5 % (35.5-45.6) 06/01/20 04:48 MCV 91 fl (84-94) 06/01/20 04:48 MCH 30 pg (28-32) 06/01/20 04:48 MCHC 33 % (32-34) 06/01/20 04:48 RDW 15.7 % (13.2-15.2) H 06/01/20 04:48 Plt Count 268 K/mm3 (140-440) 06/01/20 04:48 Lymph % (Auto) 7.3 % (13.4-35.0) L 05/30/20 07:00 [place] % (Auto) 4.1 % (0.0-7.3) 05/30/20 07:00 Eos % (Auto) 0.1 % (0.0-4.3) 05/30/20 07:00 Baso % (Auto) 0.1 % (0.0-1.8) 05/30/20 07:00 Lymph # 0.5 K/mm3 (1.2-5.4) L 05/30/20 07:00 [place] # 0.3 K/mm3 (0.0-0.8) 05/30/20 07:00 Eos # 0.0 K/mm3 (0.0-0.4) 05/30/20 07:00 Baso # 0.0 K/mm3 (0.0-0.1) 05/30/20 07:00 Seg Neutrophils % 88.4 % (40.0-70.0) H 05/30/20 07:00 Seg Neutrophils # 6.5 K/mm3 (1.8-7.7) 05/30/20 07:00 PT 12.9 Sec. (12.2-14.9) 05/29/20 13:25 INR 0.95 (0.87-1.13) 05/29/20 13:25 APTT 28.1 Sec. (24.2-36.6) 05/29/20 13:25 D-Dimer 704.53 ng/mlDDU (0-234) H 05/31/20 10:17 Sodium 132 mmol/L (137-145) L 06/01/20 04:48 Potassium 4.8 mmol/L (3.6-5.0) 06/01/20 04:48 Chloride 93.3 mmol/L (98-107) L 06/01/20 04:48 Carbon Dioxide 22 mmol/L (22-30) 06/01/20 04:48 Anion Gap 22 mmol/L 06/01/20 04:48 BUN 39 mg/dL (9-20) H 06/01/20 04:48 Creatinine 1.4 mg/dL (0.8-1.3) H 06/01/20 04:48 Estimated GFR 53 ml/min 06/01/20 04:48 BUN/Creatinine Ratio 28 % 06/01/20 04:48 Glucose 504 mg/dL (75-100) H* 06/01/20 07:46 POC Glucose 406 (70-105) H 06/02/20 11:53 Hemoglobin A1c 9.7 % (4-6) H 05/30/20 07:00 Lactic Acid 2.20 mmol/L (0.7-2.0) H* 05/29/20 15:10 Calcium 8.4 mg/dL (8.4-10.2) 06/01/20 04:48 Ferritin 1221.0 ng/mL (30.0-300.0) H 05/31/20 10:17 Total Bilirubin 0.20 mg/dL (0.1-1.2) 05/31/20 10:17 Direct Bilirubin < 0.2 mg/dL (0-0.2) 05/29/20 13:25 Indirect Bilirubin 0.1 mg/dL 05/29/20 13:25 AST 37 units/L (5-40) 05/31/20 10:17 ALT 17 units/L (7-56) 05/31/20 10:17 Alkaline Phosphatase 66 units/L (35-129) 05/31/20 10:17 Lactate Dehydrogenase 676 units/L (91-180) H 05/31/20 10:17 Troponin T 0.025 ng/mL (0.00-0.029) 05/29/20 15:10 C-Reactive Protein 21.30 mg/dL (0.00-1.30) H 05/31/20 10:17 NT-Pro-B Natriuret Pep 89.58 pg/mL (0-900) 05/29/20 13:25 Total Protein 7.6 g/dL (6.3-8.2) 05/31/20 10:17 Albumin 3.2 g/dL (3.9-5) L 05/31/20 10:17 Albumin/Globulin Ratio 0.7 % 05/31/20 10:17 Procalcitonin 4.38 ng/mL (<0.15) 05/29/20 15:10 Coronavirus (PCR) Positive (Negative) A 05/29/20 Unknown Blood Type O POSITIVE 06/02/20 10:09 Antibody Screen Negative 06/02/20 10:09 Microbiology: Microbiology 05/29/20 13:25 Peripheral/Venous Blood Culture - Preliminary NO GROWTH AFTER 72 HOURS 05/29/20 13:25 Peripheral/Venous Blood Culture - Preliminary NO GROWTH AFTER 72 HOURS [place]/IV: Voiding Method Diaper IV Catheter Type [Right INT / Saline Lock Forearm] IV Catheter Type [Left Upper INT / Saline Lock arm] IV Catheter Type [Left Forearm INT / Saline Lock ] IV Catheter Type [Left Chest] INT / Saline Lock Active Medications - Current Medications Current Medications: Generic Name Dose Route Start Last Admin Trade Name Freq PRN Reason Stop Dose Admin Acetaminophen 650 mg 05/30/20 00:19 Tylenol PO Q4H PRN Pain MILD(1-3)/Fever >100.5/ESPINOZA Dexamethasone 6 mg 05/31/20 14:00 06/02/20 09:24 Decadron PO 06/07/20 10:01 6 mg DAILY LONG Administration Enoxaparin Sodium 40 mg 06/01/20 22:00 06/01/20 22:25 Enoxaparin SUB-Q 40 mg QHS LONG Administration Famotidine 20 mg 06/01/20 22:00 06/02/20 09:25 Pepcid PO 20 mg BID LONG Administration Hydromorphone HCl 0.5 mg 05/30/20 00:19 Dilaudid IV Q3H PRN Pain , Severe (7-10) Insulin Glargine 40 units 06/01/20 22:00 06/01/20 23:19 Lantus SUB-Q 40 units QHS LONG Administration Insulin Human Lispro 0 unit 05/30/20 09:30 06/02/20 09:23 Humalog SUB-Q 10 unit ACHS LONG Administration Protocol Miscellaneous Medication 2 mg 06/02/20 11:45 Aripiprazole [Aripiprazole] PO DAILY [facility] Miscellaneous Medication 2 tab 06/02/20 11:45 Duloxetine Hcl [Duloxetine Hcl] PO DAILY [facility] Ondansetron HCl 4 mg 05/30/20 00:19 05/31/20 17:38 Zofran IV 4 mg Q8H PRN Administration Nausea And Vomiting Oxycodone/Acetaminophen 1 tab 05/30/20 00:19 05/31/20 13:30 Percocet 5/325 PO 1 tab Q6H PRN Administration Pain, Moderate (4-6) Paroxetine HCl 10 mg 06/02/20 11:45 Paxil PO DAILY [facility] Sodium Chloride 10 ml 05/30/20 10:00 06/02/20 09:24 Sodium Chloride Flush Syringe 10 Ml IV 10 ml BID LONG Administration Sodium Chloride 10 ml 05/30/20 00:19 Sodium Chloride Flush Syringe 10 Ml IV PRN PRN LINE FLUSH Nutrition/Malnutrition Assess - Dietary Evaluation Nutrition/Malnutrition Findings: Nutrition Notes Start: 05/30/20 14:30 Freq: Status: Active Protocol: Document 05/30/20 14:30 LM (Rec: 05/30/20 14:33 LM [id number]) Nutrition Notes Need for Assessment generated from: observer electrical prospecting Initial or Follow up Brief Note Current Diagnosis Diabetes,Hypertension,Heart Failure Other Pertinent Diagnosis COVID-19, L BKA Current Diet cardiac Labs/Tests A1C 9.7 BG 424 Usual Body Weight 121 kg Subjective/Other Information RN screen for new DM. Pt with hx of DM. Pt with no wt loss. Pt stated he did not need any DM diet education at this time . Nutrition Intervention Change Diet Order: Cardiac/consistent CHO Revisit per MD consult or patient Sign Off request:
[2020-06-02] MEDS: PARoxetine 10 MG TAB PO SCH (12:35)
[2020-06-02] MEDS ORDERED: LORazepam 2 MG/ML VIAL IV ONE ×2 (14:35→17:52)
[2020-06-02] MEDS: INSULIN GLARGINE 100 UNITS/ML SUB-Q SCH (22:27)
[2020-06-02] MEDS: ENOXAPARIN 40 MG/0.4 ML INJ SUB-Q SCH (22:28)
[2020-06-03 05:53] LABS: Hematocrit 43.2 % (35.5-45.6); Hemoglobin 14.3 gm/dl (11.8-15.2); Mean Corpuscular HGB Conc 33 % (32-34); Mean Corpuscular Volume 90 fl (84-94); Platelet Count 341 K/mm3 (140-440); Red Blood Count 4.79 M/mm3 (3.65-5.03); Red Cell Distribution Width 15.6 % (13.2-15.2)
[2020-06-03 06:10] LABS: Calcium 9.2 mg/dL (8.4-10.2)
--- NOTE | 2020-06-03 08:28 | Progress Note ---
Assessment and Plan Assessment and plan: 64-year-old man with history of hypertension diabetes congestive heart failure and left below-knee amputation comes in for cough fever and shortness of breath and chills for 5 days. Patient has been tested positive for COVID-19 5 days ago. Patient saturations were 80% on room air which improved to 98% on a nonrebreather. Denies any chest pain. Patient is covered positive and hypoxic. COVID19 + Bilateral Pneumonia Secondary Coagulopathy- Unable to get CTA chest due to renal dysfunction DM with Hyperglycemia- Adjust insulin. Will give Lantus at 20 night HS, also will give 18 Additional units. Acute Hypoxic Respiratory failure 05/30 patient is a [facility] resident, alert and oriented and appears moderately short of breath and is on Ventimask Denies any chest pain or palpitations. He does complain of cough Lab results reviewed 05/31: Continues on high flow oxygen. still on High flow oxygen. Pulmonary consulted, ID consulted. COVID +, adjust insulin for better control. 06/01: Remains on High flow, due to severe hypoxemia Consent obtained for convalescent plasma. We will also obtain type and cross for the same. Wean oxygen as tolerated. ID input noted. No indication Remdesivir due to renal failure, renal on board, although renal function beginning to improve we will discuss with ID if we should revisit Remdesivir if renal function continues to improve. Continue ceftriaxone and azithromycin for 5 days. Offloading sacral area and keep area dry per wound care team. Continue anticoagulation. ID added fluconazole. Will adjust insulin therapy and also sliding scale to a higher scale. 06/02: Called and discussed with family patient does have some psychiatric illness will obtain psych consultation due to new onset psychosis. Pulmonary input appreciated. Will proceed with ordering plasma therapy.The assigned patient code is [id number] for plasma transfusion. 06/03: Continues with intermittent confusion, known psych hx, psych team consulted. Continue oxygen therapy, awaiting Plasma therapy. Patient being transferred to ICU due to worsening respiratory status. Psych following. Severe sepsis Current Visit: Yes Status: Acute Plan to address problem: Secondary to COVID pneumonia Elevated lactic acid, tachycardia, elevated procalcitonin Continue IV antibiotics Blood culture results pending Bilateral pneumonia Current Visit: Yes Status: Acute Plan to address problem: 2/2 COVID pneumonia IV Rocephin initiated Patient is apparently coronavirus +5 days ago Repeat COVID test positive Will consult ID Continue steroids Acute psychosis with visual and auditory hallucination Resume outpatient medications for depression which was just obtained acute respiratory failure with hypoxia Current Visit: Yes Status: Acute Plan to address problem: Secondary to COVID-19 pneumonia Patient is on nonrebreather Ventimask and O2 sats are in the mid 80s Discussed with medicine tech to start the patient on high flow nasal cannula Hyperkalemia secondary to renal failure Repeat electrolytes after Kayexalate administered yesterday shows a potassium of 5.9 Will order Kayexalate 60 g Monitor electrolytes Acute kidney injury R/O acute on chronic kidney disease Severe renal failure Baseline renal function is not known We will request nephrology consult Avoid nephrotoxins Renal ultrasound Hypertension Current Visit: Yes Status: Chronic Qualifiers: Hypertension type: essential hypertension Qualified Code(s): I10 - Essential (primary) hypertension Plan to address problem: Blood pressure fair off medication Continue to monitor Type 2 diabetes mellitus Current Visit: Yes Status: Chronic Qualifiers: Diabetes mellitus retirement insulin use: unspecified retirement insulin use status Plan to address problem: Continue insulin sliding scale coverage hemoglobin A1c 9.7 COVID19 + Management as outlined above CHF (congestive heart failure) Current Visit: Yes Status: Chronic Qualifiers: Heart failure type: combined systolic and diastolic Plan to address problem: Echocardiogram requested DVT prophylaxis Current Visit: Yes Status: Acute Plan to address problem: On Lovenox and GI prophylaxis The high probability of a clinically significant, sudden or life threatening deterioration of the [pulmonary, renal] system(s) required my full and direct attention, intervention and personal management. The aggregate critical care time was [35] minutes. This time is in addition to time spent performing reported procedures but includes the following: [x] Data Review and interpretation [x] Patient assessment and monitoring of vital signs [x] Documentation [x] Medication orders and management History Interval history: Patient seen and examined today still with shortness of breath on high flow oxygen. Still with hallucination and psychosis, removing lines Hospitalist Physical - Physical exam Narrative exam: VITAL SIGNS: Reviewed. GENERAL: The patient appears normally developed, morbidly obese vital signs as documented. HEAD: No signs of head trauma. EYES: Pupils are equal. Extraocular motions intact. EARS: Hearing grossly intact. MOUTH: Oropharynx is normal. NECK: No adenopathy, no JVD. CHEST: Chest with diminished breath sounds bilaterally. Increased respiratory rate. No wheezes, rales, or rhonchi. CARDIAC: Regular rate and rhythm. S1 and S2, without murmurs, gallops, or rubs. VASCULAR: No Edema. Peripheral pulses normal and equal in all extremities. ABDOMEN: Soft, non tender and non distended. No rebound or guarding, and no masses palpated. Bowel Sounds normal. MUSCULOSKELETAL: BKA LEFT LOWER EXT. extremities without clubbing, cyanosis or edema. NEUROLOGIC EXAM: Alert and oriented x 1 No focal sensory or strength deficits. Speech normal. Follows commands. PSYCHIATRIC: Mood anxious SKIN: detail exam as documented in skin assessment - Constitutional Vitals: Temp Pulse Resp BP Pulse Ox 97.9 F 53 L 24 143/84 83 L 06/03/20 05:30 06/03/20 05:30 06/03/20 05:30 06/03/20 05:30 06/03/20 05:30 General appearance: Present: mild distress HEART Score - HEART Score Troponin: Troponin T 0.025 ng/mL (0.00-0.029) 05/29/20 15:10 Results - Labs CBC & Chem 7: 06/03/20 05:14 06/03/20 05:14 Labs: Laboratory Last Values WBC 11.9 K/mm3 (4.5-11.0) H 06/03/20 05:14 RBC 4.79 M/mm3 (3.65-5.03) 06/03/20 05:14 Hgb 14.3 gm/dl (11.8-15.2) 06/03/20 05:14 Hct 43.2 % (35.5-45.6) 06/03/20 05:14 MCV 90 fl (84-94) 06/03/20 05:14 MCH 30 pg (28-32) 06/03/20 05:14 MCHC 33 % (32-34) 06/03/20 05:14 RDW 15.6 % (13.2-15.2) H 06/03/20 05:14 Plt Count 341 K/mm3 (140-440) 06/03/20 05:14 Lymph % (Auto) 7.3 % (13.4-35.0) L 05/30/20 07:00 Otero % (Auto) 4.1 % (0.0-7.3) 05/30/20 07:00 Eos % (Auto) 0.1 % (0.0-4.3) 05/30/20 07:00 Baso % (Auto) 0.1 % (0.0-1.8) 05/30/20 07:00 Lymph # 0.5 K/mm3 (1.2-5.4) L 05/30/20 07:00 Otero # 0.3 K/mm3 (0.0-0.8) 05/30/20 07:00 Eos # 0.0 K/mm3 (0.0-0.4) 05/30/20 07:00 Baso # 0.0 K/mm3 (0.0-0.1) 05/30/20 07:00 Seg Neutrophils % 88.4 % (40.0-70.0) H 05/30/20 07:00 Seg Neutrophils # 6.5 K/mm3 (1.8-7.7) 05/30/20 07:00 PT 12.9 Sec. (12.2-14.9) 05/29/20 13:25 INR 0.95 (0.87-1.13) 05/29/20 13:25 APTT 28.1 Sec. (24.2-36.6) 05/29/20 13:25 D-Dimer 704.53 ng/mlDDU (0-234) H 05/31/20 10:17 Sodium 142 mmol/L (137-145) D 06/03/20 05:14 Potassium 4.0 mmol/L (3.6-5.0) 06/03/20 05:14 Chloride 101.1 mmol/L (98-107) 06/03/20 05:14 Carbon Dioxide 23 mmol/L (22-30) 06/03/20 05:14 Anion Gap 22 mmol/L 06/03/20 05:14 BUN 44 mg/dL (9-20) H 06/03/20 05:14 Creatinine 1.4 mg/dL (0.8-1.3) H 06/03/20 05:14 Estimated GFR 53 ml/min 06/03/20 05:14 BUN/Creatinine Ratio 31 % 06/03/20 05:14 Glucose 291 mg/dL (75-100) H 06/03/20 05:14 POC Glucose 265 (70-105) H 06/03/20 08:11 Hemoglobin A1c 9.7 % (4-6) H 05/30/20 07:00 Lactic Acid 2.20 mmol/L (0.7-2.0) H* 05/29/20 15:10 Calcium 9.2 mg/dL (8.4-10.2) 06/03/20 05:14 Ferritin 1221.0 ng/mL (30.0-300.0) H 05/31/20 10:17 Total Bilirubin 0.20 mg/dL (0.1-1.2) 05/31/20 10:17 Direct Bilirubin < 0.2 mg/dL (0-0.2) 05/29/20 13:25 Indirect Bilirubin 0.1 mg/dL 05/29/20 13:25 AST 37 units/L (5-40) 05/31/20 10:17 ALT 17 units/L (7-56) 05/31/20 10:17 Alkaline Phosphatase 66 units/L (35-129) 05/31/20 10:17 Lactate Dehydrogenase 676 units/L (91-180) H 05/31/20 10:17 Troponin T 0.025 ng/mL (0.00-0.029) 05/29/20 15:10 C-Reactive Protein 21.30 mg/dL (0.00-1.30) H 05/31/20 10:17 NT-Pro-B Natriuret Pep 89.58 pg/mL (0-900) 05/29/20 13:25 Total Protein 7.6 g/dL (6.3-8.2) 05/31/20 10:17 Albumin 3.2 g/dL (3.9-5) L 05/31/20 10:17 Albumin/Globulin Ratio 0.7 % 05/31/20 10:17 Procalcitonin 4.38 ng/mL (<0.15) 05/29/20 15:10 Coronavirus (PCR) Positive (Negative) A 05/29/20 Unknown Blood Type O POSITIVE 06/02/20 10:09 Antibody Screen Negative 06/02/20 10:09 Microbiology: Microbiology 05/29/20 13:25 Peripheral/Venous Blood Culture - Preliminary NO GROWTH AFTER 4 DAYS 05/29/20 13:25 Peripheral/Venous Blood Culture - Preliminary NO GROWTH AFTER 4 DAYS Ambrose/IV: Voiding Method Incontinent IV Catheter Type [Right INT / Saline Lock Forearm] IV Catheter Type [Left Upper INT / Saline Lock arm] IV Catheter Type [Left Forearm INT / Saline Lock ] IV Catheter Type [Left Chest] INT / Saline Lock Active Medications - Current Medications Current Medications: Generic Name Dose Route Start Last Admin Trade Name Freq PRN Reason Stop Dose Admin Acetaminophen 650 mg 05/30/20 00:19 Tylenol PO Q4H PRN Pain MILD(1-3)/Fever >100.5/ESPINOZA Dexamethasone 6 mg 05/31/20 14:00 06/02/20 09:24 Decadron PO 06/07/20 10:01 6 mg DAILY LONG Administration Duloxetine HCl 120 mg 06/03/20 13:00 Cymbalta PO QDAY LONG Enoxaparin Sodium 40 mg 06/01/20 22:00 06/02/20 22:28 Enoxaparin SUB-Q 40 mg QHS LONG Administration Famotidine 20 mg 06/01/20 22:00 06/02/20 22:28 Pepcid PO 20 mg BID LONG Administration Hydromorphone HCl 0.5 mg 05/30/20 00:19 Dilaudid IV Q3H PRN Pain , Severe (7-10) Insulin Glargine 40 units 06/01/20 22:00 06/02/20 22:27 Lantus SUB-Q 40 units QHS LONG Administration Insulin Human Lispro 0 unit 05/30/20 09:30 06/02/20 22:29 Humalog SUB-Q 8 unit ACHS LONG Administration Protocol Miscellaneous Medication 2 mg 06/02/20 11:45 Aripiprazole [Aripiprazole] PO DAILY [facility] Ondansetron HCl 4 mg 05/30/20 00:19 05/31/20 17:38 Zofran IV 4 mg Q8H PRN Administration Nausea And Vomiting Oxycodone/Acetaminophen 1 tab 05/30/20 00:19 05/31/20 13:30 Percocet 5/325 PO 1 tab Q6H PRN Administration Pain, Moderate (4-6) Paroxetine HCl 10 mg 06/02/20 11:45 06/02/20 12:35 Paxil PO 10 mg DAILY LONG Administration Sodium Chloride 10 ml 05/30/20 10:00 06/02/20 22:29 Sodium Chloride Flush Syringe 10 Ml IV 10 ml BID LONG Administration Sodium Chloride 10 ml 05/30/20 00:19 Sodium Chloride Flush Syringe 10 Ml IV PRN PRN LINE FLUSH Nutrition/Malnutrition Assess - Dietary Evaluation Nutrition/Malnutrition Findings: Nutrition Notes Start: 05/30/20 14:30 Freq: Status: Active Protocol: Document 05/30/20 14:30 LM (Rec: 05/30/20 14:33 LM [id number]) Nutrition 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 Pt with hx of DM. Pt with no wt loss. Pt stated he did not need any DM diet education at this time . Nutrition Intervention Change Diet Order: Cardiac/consistent CHO Revisit per MD consult or patient Sign Off request:
[2020-06-03] MEDS: INSULIN LISPRO 100 UNIT/ML VIAL 3 mL SUB-Q SCH ×4 (08:58→21:15)
[2020-06-03] MEDS: PARoxetine 10 MG TAB PO SCH (09:02)
[2020-06-03] MEDS: FAMOTIDINE 20 MG TAB PO SCH ×2 (09:02→21:14)
[2020-06-03] MEDS: DEXAMETHASONE 4 MG TAB PO SCH (09:02)
--- NOTE | 2020-06-03 10:50 | Progress Note ---
Assessment and Plan Impression: * Acute kidney injury secondary to prerenal azotemia * Sepsis * Acute hypoxic respiratory failure * COVID 19 Pneumonia * Hyperkalemia - resolved * Type II diabetes mellitus Plan: * Renal function has improved - continue current management * Abx, steroids, convalescent plasma per primary team/ID * Glycemic control per primary team * Medical management of lytes * Avoid potential nephrotoxins * Dose medications for renal function Subjective Date of service: 06/03/20 Interval history: Chart, vitals, labs reviewed Objective - Exam Narrative Exam: In light of PPE conservation strategy, exam deferred. - Vital Signs Vital signs: Vital Signs - 12hr 06/02/20 06/03/20 23:52 05:30 Temperature 97.9 F Pulse Rate 53 L Respiratory 24 Rate Blood Pressure 143/84 O2 Sat by Pulse 93 83 L Oximetry - Lab 06/03/20 05:14 06/03/20 05:14 Most recent lab results Calcium 9.2 mg/dL (8.4-10.2) 06/03/20 05:14 Medications & Allergies - Medications Allergies/Adverse Reactions: Allergies No Known Allergies Allergy (Unverified 05/29/20 15:15) Home Medications: Home Medications Medication Instructions Recorded Confirmed Last Taken Type ARIPiprazole [Aripiprazole] 2 mg PO DAILY 06/02/20 06/02/20 Unknown History Duloxetine HCl 2 tab PO DAILY 06/02/20 06/02/20 Unknown History PARoxetine HCl 10 mg PO DAILY 06/02/20 06/02/20 Unknown History Active Medications: Generic Name Dose Route Start Last Admin Trade Name Freq PRN Reason Stop Dose Admin Acetaminophen 650 mg 05/30/20 00:19 Tylenol PO Q4H PRN Pain MILD(1-3)/Fever >100.5/ESPINOZA Dexamethasone 6 mg 05/31/20 14:00 06/03/20 09:02 Decadron PO 06/07/20 10:01 6 mg DAILY LONG Administration Duloxetine HCl 120 mg 06/03/20 13:00 Cymbalta PO QDAY LONG Enoxaparin Sodium 40 mg 06/01/20 22:00 06/02/20 22:28 Enoxaparin SUB-Q 40 mg QHS LONG Administration Famotidine 20 mg 06/01/20 22:00 06/03/20 09:02 Pepcid PO 20 mg BID LONG Administration Hydromorphone HCl 0.5 mg 05/30/20 00:19 Dilaudid IV Q3H PRN Pain , Severe (7-10) Insulin Glargine 40 units 06/01/20 22:00 06/02/20 22:27 Lantus SUB-Q 40 units QHS LONG Administration Insulin Human Lispro 0 unit 05/30/20 09:30 06/03/20 08:58 Humalog SUB-Q 8 unit ACHS LONG Administration Protocol Miscellaneous Medication 2 mg 06/02/20 11:45 Aripiprazole [Aripiprazole] PO DAILY [facility] Ondansetron HCl 4 mg 05/30/20 00:19 05/31/20 17:38 Zofran IV 4 mg Q8H PRN Administration Nausea And Vomiting Oxycodone/Acetaminophen 1 tab 05/30/20 00:19 05/31/20 13:30 Percocet 5/325 PO 1 tab Q6H PRN Administration Pain, Moderate (4-6) Paroxetine HCl 10 mg 06/02/20 11:45 06/03/20 09:02 Paxil PO 10 mg DAILY LONG Administration Sodium Chloride 10 ml 05/30/20 10:00 06/03/20 09:02 Sodium Chloride Flush Syringe 10 Ml IV 10 ml BID LONG Administration Sodium Chloride 10 ml 05/30/20 00:19 Sodium Chloride Flush Syringe 10 Ml IV PRN PRN LINE FLUSH
--- NOTE | 2020-06-03 11:50 | Progress Note ---
Assessment and Plan 55 y/o obese male with acute respiratory failure from COVID and acute renal failure. 1. would like to give lasix therapy. Will ask renal about this. 2. Not a candidate for remedesivir secondary to renal function 3. High risk for intubation. 4. Transfer to ICU, will. try bipap once down here. 5. Guarded prognosis. cct 31 Subjective Date of service: 06/03/20 Interval history: Now on NRB with HFNC sats only in the low 90's. Objective Vital Signs - 12hr 06/02/20 06/03/20 06/03/20 23:52 05:30 11:04 Temperature 97.9 F Pulse Rate 53 L Respiratory 24 Rate Blood Pressure 143/84 O2 Sat by Pulse 93 83 L 89 Oximetry CBC and BMP: 06/03/20 05:14 06/03/20 05:14 ABG, PT/INR, D-dimer: PT/INR, D-dimer PT 12.9 Sec. (12.2-14.9) 05/29/20 13:25 INR 0.95 (0.87-1.13) 05/29/20 13:25 D-Dimer 704.53 ng/mlDDU (0-234) H 05/31/20 10:17 Abnormal lab findings: Abnormal Labs 05/29/20 05/29/20 05/29/20 13:25 13:25 13:25 WBC RDW 16.4 H Lymph % (Auto) Lymph # Seg Neutrophils % 78.4 H D-Dimer Sodium 131 L Potassium 5.4 H Chloride 96.2 L Carbon Dioxide 14 L BUN 42 H Creatinine 4.7 H Glucose 121 H POC Glucose Hemoglobin A1c Lactic Acid 2.70 H* Calcium 8.3 L Ferritin AST Lactate Dehydrogenase C-Reactive Protein Albumin Coronavirus (PCR) 05/29/20 05/29/20 05/29/20 13:25 15:10 15:10 WBC RDW Lymph % (Auto) Lymph # Seg Neutrophils % D-Dimer 1391.41 H Sodium Potassium Chloride Carbon Dioxide BUN Creatinine Glucose 120 H POC Glucose Hemoglobin A1c Lactic Acid Calcium Ferritin AST 54 H Lactate Dehydrogenase 581 H C-Reactive Protein 40.70 H Albumin 2.9 L Coronavirus (PCR) 05/29/20 05/29/20 05/29/20 15:10 15:10 22:55 WBC RDW Lymph % (Auto) Lymph # Seg Neutrophils % D-Dimer Sodium Potassium Chloride Carbon Dioxide BUN Creatinine Glucose POC Glucose 256 H Hemoglobin A1c Lactic Acid 2.20 H* Calcium Ferritin 1092.0 H AST Lactate Dehydrogenase C-Reactive Protein Albumin Coronavirus (PCR) 05/29/20 05/30/20 05/30/20 Unknown 07:00 07:00 WBC RDW 16.0 H Lymph % (Auto) 7.3 L Lymph # 0.5 L Seg Neutrophils % 88.4 H D-Dimer Sodium 132 L Potassium 5.9 H Chloride 95.5 L Carbon Dioxide 18 L BUN 49 H Creatinine 4.0 H Glucose 415 H POC Glucose Hemoglobin A1c Lactic Acid Calcium 7.8 L Ferritin AST 46 H Lactate Dehydrogenase C-Reactive Protein Albumin 3.2 L Coronavirus (PCR) Positive A 05/30/20 05/30/20 05/30/20 07:00 07:45 11:39 WBC RDW Lymph % (Auto) Lymph # Seg Neutrophils % D-Dimer Sodium Potassium Chloride Carbon Dioxide BUN Creatinine Glucose POC Glucose 424 H 468 H Hemoglobin A1c 9.7 H Lactic Acid Calcium Ferritin AST Lactate Dehydrogenase C-Reactive Protein Albumin Coronavirus (PCR) 05/30/20 05/31/20 05/31/20 17:11 01:49 08:14 WBC RDW Lymph % (Auto) Lymph # Seg Neutrophils % D-Dimer Sodium Potassium Chloride Carbon Dioxide BUN Creatinine Glucose POC Glucose 475 H 426 H 430 H Hemoglobin A1c Lactic Acid Calcium Ferritin AST Lactate Dehydrogenase C-Reactive Protein Albumin Coronavirus (PCR) 05/31/20 05/31/20 05/31/20 10:17 10:17 10:17 WBC RDW 16.0 H Lymph % (Auto) Lymph # Seg Neutrophils % D-Dimer 704.53 H Sodium 134 L Potassium 5.2 H Chloride 92.9 L Carbon Dioxide BUN 38 H Creatinine 1.6 H D Glucose 556 H* POC Glucose Hemoglobin A1c Lactic Acid Calcium Ferritin AST Lactate Dehydrogenase 676 H C-Reactive Protein 21.30 H Albumin 3.2 L Coronavirus (PCR) 05/31/20 05/31/20 05/31/20 10:17 11:24 16:25 WBC RDW Lymph % (Auto) Lymph # Seg Neutrophils % D-Dimer Sodium Potassium Chloride Carbon Dioxide BUN Creatinine Glucose POC Glucose 482 H 367 H Hemoglobin A1c Lactic Acid Calcium Ferritin 1221.0 H AST Lactate Dehydrogenase C-Reactive Protein Albumin Coronavirus (PCR) 05/31/20 06/01/20 06/01/20 22:52 04:48 04:48 WBC RDW 15.7 H Lymph % (Auto) Lymph # Seg Neutrophils % D-Dimer Sodium 132 L Potassium Chloride 93.3 L Carbon Dioxide BUN 39 H Creatinine 1.4 H Glucose 533 H* POC Glucose 431 H Hemoglobin A1c Lactic Acid Calcium Ferritin AST Lactate Dehydrogenase C-Reactive Protein Albumin Coronavirus (PCR) 06/01/20 06/01/20 06/01/20 07:46 08:46 11:38 WBC RDW Lymph % (Auto) Lymph # Seg Neutrophils % D-Dimer Sodium Potassium Chloride Carbon Dioxide BUN Creatinine Glucose 504 H* POC Glucose 448 H 287 H Hemoglobin A1c Lactic Acid Calcium Ferritin AST Lactate Dehydrogenase C-Reactive Protein Albumin Coronavirus (PCR) 06/01/20 06/01/20 06/02/20 16:27 22:47 07:35 WBC RDW Lymph % (Auto) Lymph # Seg Neutrophils % D-Dimer Sodium Potassium Chloride Carbon Dioxide BUN Creatinine Glucose POC Glucose 298 H 411 H 347 H Hemoglobin A1c Lactic Acid Calcium Ferritin AST Lactate Dehydrogenase C-Reactive Protein Albumin Coronavirus (PCR) 06/02/20 06/02/20 06/02/20 11:53 17:08 22:41 WBC RDW Lymph % (Auto) Lymph # Seg Neutrophils % D-Dimer Sodium Potassium Chloride Carbon Dioxide BUN Creatinine Glucose POC Glucose 406 H 355 H 272 H Hemoglobin A1c Lactic Acid Calcium Ferritin AST Lactate Dehydrogenase C-Reactive Protein Albumin Coronavirus (PCR) 06/03/20 06/03/20 06/03/20 05:14 05:14 08:11 WBC 11.9 H RDW 15.6 H Lymph % (Auto) Lymph # Seg Neutrophils % D-Dimer Sodium Potassium Chloride Carbon Dioxide BUN 44 H Creatinine 1.4 H Glucose 291 H POC Glucose 265 H Hemoglobin A1c Lactic Acid Calcium Ferritin AST Lactate Dehydrogenase C-Reactive Protein Albumin Coronavirus (PCR)
[2020-06-03] MEDS: DULoxetine 30 MG CAP PO SCH (14:13)
[2020-06-03] MEDS ORDERED: LORazepam 2 MG/ML VIAL IV ONE (15:01)
[2020-06-03] MEDS ORDERED: diphenhydrAMINE 50 MG/ML VIAL IV ONE (15:02)
[2020-06-03] MEDS: HALOPERIDOL LACTATE 5 MG/1 ML INJ IV SCH ×2 (15:22→21:14)
[2020-06-03] MEDS: ACETAMINOPHEN 325 MG TAB PO PRN (15:41)
[2020-06-03] MEDS ORDERED: SODIUM CHLORIDE 0.9% 500 ML 500 ML IV SCH (17:00)
[2020-06-03] MEDS: DEXMEDETOMIDINE 200 MCG in SODIUM CHLORIDE 0.9% 48 ML IV SCH ×2 (17:03→20:11)
[2020-06-03] MEDS: ENOXAPARIN 40 MG/0.4 ML INJ SUB-Q SCH (21:14)
[2020-06-03] MEDS: INSULIN GLARGINE 100 UNITS/ML SUB-Q SCH (21:17)
[2020-06-04] MEDS: DEXMEDETOMIDINE 200 MCG in SODIUM CHLORIDE 0.9% 48 ML IV SCH ×4 (02:29→19:51)
[2020-06-04 04:06] LABS: Hematocrit 45.5 % (35.5-45.6); Mean Corpuscular HGB Conc 33 % (32-34); Mean Corpuscular Volume 91 fl (84-94); Platelet Count 362 K/mm3 (140-440); Red Cell Distribution Width 15.8 % (13.2-15.2)
[2020-06-04 04:49] LABS: Calcium 9.2 mg/dL (8.4-10.2)
[2020-06-04] MEDS: ACETAMINOPHEN 325 MG TAB PO PRN (04:50)
[2020-06-04] MEDS: HALOPERIDOL LACTATE 5 MG/1 ML INJ IV SCH ×4 (07:05→22:58)
[2020-06-04] MEDS: INSULIN LISPRO 100 UNIT/ML VIAL 3 mL SUB-Q SCH ×4 (08:27→23:00)
[2020-06-04] MEDS: PARoxetine 10 MG TAB PO SCH (09:10)
[2020-06-04] MEDS: DEXAMETHASONE 4 MG TAB PO SCH (09:10)
[2020-06-04] MEDS: FAMOTIDINE 20 MG TAB PO SCH ×2 (09:10→22:58)
[2020-06-04] MEDS: DULoxetine 30 MG CAP PO SCH (09:10)
--- NOTE | 2020-06-04 09:29 | Progress Note ---
Assessment and Plan Impression: * Acute kidney injury secondary to prerenal azotemia * Sepsis * Acute hypoxic respiratory failure * COVID 19 Pneumonia * Hyperkalemia - resolved * Type II diabetes mellitus Plan: * Increase in SCr noted. Monitor lytes and volume status. No acute need for initiation of renal replacement therapy * Diuresis prn - IV lasix/albumin * Abx, steroids, convalescent plasma per primary team/ID * Glycemic control per primary team * Medical management of lytes * Avoid potential nephrotoxins * Dose medications for renal function Subjective Date of service: 06/04/20 Interval history: Patient transferred to the ICU overnight. Currently on BiPAP. Objective - Vital Signs Vital signs: Vital Signs - 12hr 06/03/20 06/03/20 06/04/20 23:40 23:50 00:00 Temperature Pulse Rate 101 H 115 H 101 H Pulse Rate [ 98 H Apical] Respiratory 34 H 38 H 35 H Rate Blood Pressure 122/68 111/72 106/63 O2 Sat by Pulse 89 88 Oximetry 06/04/20 06/04/20 06/04/20 00:10 00:20 00:30 Temperature Pulse Rate 101 H 101 H 100 H Pulse Rate [ Apical] Respiratory 34 H 34 H 33 H Rate Blood Pressure 106/63 108/71 106/63 O2 Sat by Pulse 91 89 86 Oximetry 06/04/20 06/04/20 06/04/20 00:40 00:50 01:00 Temperature Pulse Rate 112 H 113 H 100 H Pulse Rate [ Apical] Respiratory 35 H 33 H 31 H Rate Blood Pressure 116/63 106/70 116/67 O2 Sat by Pulse 84 84 87 Oximetry 06/04/20 06/04/20 06/04/20 01:10 01:20 01:30 Temperature Pulse Rate 106 H 103 H 102 H Pulse Rate [ Apical] Respiratory 34 H 32 H 29 H Rate Blood Pressure 116/67 120/77 108/80 O2 Sat by Pulse 87 85 86 Oximetry 06/04/20 06/04/20 06/04/20 01:40 01:50 02:00 Temperature Pulse Rate 100 H 97 H 96 H Pulse Rate [ Apical] Respiratory 32 H 33 H 34 H Rate Blood Pressure 108/80 123/26 117/65 O2 Sat by Pulse 86 88 89 Oximetry 06/04/20 06/04/20 06/04/20 02:10 02:15 02:20 Temperature Pulse Rate 96 H 98 H Pulse Rate [ Apical] Respiratory 33 H 33 H Rate Blood Pressure 117/65 124/79 O2 Sat by Pulse 90 92 90 Oximetry 06/04/20 06/04/20 06/04/20 02:30 02:40 02:50 Temperature Pulse Rate 92 H 101 H 97 H Pulse Rate [ Apical] Respiratory 30 H 34 H 34 H Rate Blood Pressure 111/70 117/65 115/64 O2 Sat by Pulse 98 89 91 Oximetry 06/04/20 06/04/20 06/04/20 03:00 03:10 03:20 Temperature Pulse Rate 94 H 95 H 96 H Pulse Rate [ Apical] Respiratory 35 H 35 H 34 H Rate Blood Pressure 99/69 99/69 100/64 O2 Sat by Pulse 91 88 88 Oximetry 06/04/20 06/04/20 06/04/20 03:30 03:40 03:50 Temperature Pulse Rate 95 H 94 H 93 H Pulse Rate [ Apical] Respiratory 34 H 34 H 33 H Rate Blood Pressure 100/64 97/62 109/64 O2 Sat by Pulse 88 91 87 Oximetry 06/04/20 06/04/20 06/04/20 04:00 04:10 04:20 Temperature Pulse Rate 94 H 91 H 95 H Pulse Rate [ 99 H Apical] Respiratory 34 H 34 H 35 H Rate Blood Pressure 115/55 115/55 101/67 O2 Sat by Pulse 89 91 90 Oximetry 06/04/20 06/04/20 06/04/20 04:30 04:40 04:50 Temperature 101.5 F H Pulse Rate 95 H 100 H 95 H Pulse Rate [ Apical] Respiratory 35 H 26 H 34 H Rate Blood Pressure 107/52 115/55 112/78 O2 Sat by Pulse 90 91 84 Oximetry 06/04/20 06/04/20 06/04/20 05:00 05:10 05:20 Temperature Pulse Rate 99 H 94 H 93 H Pulse Rate [ Apical] Respiratory 25 H 30 H 26 H Rate Blood Pressure 112/78 96/58 122/66 O2 Sat by Pulse 87 92 Oximetry 06/04/20 06/04/20 06/04/20 05:30 05:40 05:50 Temperature Pulse Rate 97 H 96 H 99 H Pulse Rate [ Apical] Respiratory 32 H 21 28 H Rate Blood Pressure 114/76 114/76 126/66 O2 Sat by Pulse 83 L 86 84 Oximetry 06/04/20 06/04/20 06/04/20 06:00 06:10 06:20 Temperature Pulse Rate 91 H 96 H 98 H Pulse Rate [ Apical] Respiratory 25 H 34 H 31 H Rate Blood Pressure 126/66 124/56 124/56 O2 Sat by Pulse 87 Oximetry 06/04/20 06/04/20 06/04/20 06:30 06:40 06:50 Temperature Pulse Rate 98 H 85 99 H Pulse Rate [ Apical] Respiratory 33 H 29 H 29 H Rate Blood Pressure 133/79 133/79 109/64 O2 Sat by Pulse 84 90 90 Oximetry 06/04/20 06/04/20 06/04/20 07:00 07:10 07:20 Temperature Pulse Rate 95 H 102 H 89 Pulse Rate [ Apical] Respiratory 21 28 H 31 H Rate Blood Pressure 120/81 120/81 106/58 O2 Sat by Pulse 86 90 84 Oximetry 06/04/20 06/04/20 06/04/20 07:30 07:40 07:50 Temperature Pulse Rate 89 86 87 Pulse Rate [ Apical] Respiratory 30 H 31 H 32 H Rate Blood Pressure 106/58 112/70 96/72 O2 Sat by Pulse 89 85 85 Oximetry 06/04/20 06/04/20 07:58 08:17 Temperature 99.1 F Pulse Rate 99 H Pulse Rate [ Apical] Respiratory 25 H Rate Blood Pressure 101/62 O2 Sat by Pulse 94 Oximetry - General Appearance General appearance: well-developed, well-nourished Respiratory: Present: Decreased Breath Sounds Cardiology: regular, S1S2 Gastrointestinal: normal, no tenderness, no distended, obese Integumentary: warm and dry Musculoskeletal: other (no edema) - Lab 06/04/20 03:41 06/04/20 03:41 Most recent lab results Calcium 9.2 mg/dL (8.4-10.2) 06/04/20 03:41 Medications & Allergies - Medications Allergies/Adverse Reactions: Allergies No Known Allergies Allergy (Unverified 05/29/20 15:15) Home Medications: Home Medications Medication Instructions Recorded Confirmed Last Taken Type ARIPiprazole [Aripiprazole] 2 mg PO DAILY 06/02/20 06/02/20 Unknown History Duloxetine HCl 2 tab PO DAILY 06/02/20 06/02/20 Unknown History PARoxetine HCl 10 mg PO DAILY 06/02/20 06/02/20 Unknown History Active Medications: Generic Name Dose Route Start Last Admin Trade Name Freq PRN Reason Stop Dose Admin Acetaminophen 650 mg 05/30/20 00:19 06/04/20 04:50 Tylenol PO 650 mg Q4H PRN Administration Pain MILD(1-3)/Fever >100.5/ESPINOZA Dexamethasone 6 mg 05/31/20 14:00 06/04/20 09:10 Decadron PO 06/07/20 10:01 Not Given DAILY LONG Duloxetine HCl 120 mg 06/03/20 13:00 06/04/20 09:10 Cymbalta PO Not Given QDAY LONG Enoxaparin Sodium 40 mg 06/01/20 22:00 06/03/20 21:14 Enoxaparin SUB-Q 40 mg QHS LONG Administration Famotidine 20 mg 06/01/20 22:00 06/04/20 09:10 Pepcid PO Not Given BID LONG Haloperidol Lactate 5 mg 06/03/20 15:07 06/04/20 08:25 Haldol IV 5 mg Q6H LONG Administration Dexmedetomidine HCl 200 mcg/ 50 mls @ 5.9 mls/hr 06/03/20 17:00 06/04/20 07:55 Sodium Chloride IV 0.3 mcg/kg/hr TITRATE LONG 8.85 mls/hr Administration Protocol 0.2 MCG/KG/HR Sodium Chloride 500 mls @ 0 mls/hr 06/03/20 17:00 Nacl 0.9% 500 Ml IV DIRECT LONG As Directed Insulin Glargine 40 units 06/01/20 22:00 06/03/20 21:17 Lantus SUB-Q 40 units QHS LONG Administration Insulin Human Lispro 0 unit 05/30/20 09:30 06/04/20 08:27 Humalog SUB-Q 8 unit ACHS LONG Administration Protocol Ondansetron HCl 4 mg 05/30/20 00:19 05/31/20 17:38 Zofran IV 4 mg Q8H PRN Administration Nausea And Vomiting Paroxetine HCl 10 mg 06/02/20 11:45 06/04/20 09:10 Paxil PO Not Given DAILY LONG Sodium Chloride 10 ml 05/30/20 10:00 06/04/20 02:33 Sodium Chloride Flush Syringe 10 Ml IV 10 ml BID LONG Administration Sodium Chloride 10 ml 05/30/20 00:19 Sodium Chloride Flush Syringe 10 Ml IV PRN PRN LINE FLUSH
--- NOTE | 2020-06-04 09:49 | Progress Note ---
Assessment and Plan 55 y/o obese male with acute respiratory failure from COVID and acute renal failure. 1. would like to give lasix therapy. Will ask renal about this. They are ok, will give 40 with albumin 2. Not a candidate for remedesivir secondary to renal function 3. High risk for intubation. 4. Will attempt whitehead placement. 5. Changed steroids to IV cct 31 Subjective Date of service: 06/04/20 Principal diagnosis: Acute Respiratory Failure Secondary to COVID Interval history: No acute events. Placed on bipap this am as he has been removing the HFNC all night. Tolerating precedex. Objective Vital Signs - 12hr 06/03/20 06/03/20 06/04/20 23:40 23:50 00:00 Temperature Pulse Rate 101 H 115 H 101 H Pulse Rate [ 98 H Apical] Respiratory 34 H 38 H 35 H Rate Blood Pressure 122/68 111/72 106/63 O2 Sat by Pulse 89 88 Oximetry 06/04/20 06/04/20 06/04/20 00:10 00:20 00:30 Temperature Pulse Rate 101 H 101 H 100 H Pulse Rate [ Apical] Respiratory 34 H 34 H 33 H Rate Blood Pressure 106/63 108/71 106/63 O2 Sat by Pulse 91 89 86 Oximetry 06/04/20 06/04/20 06/04/20 00:40 00:50 01:00 Temperature Pulse Rate 112 H 113 H 100 H Pulse Rate [ Apical] Respiratory 35 H 33 H 31 H Rate Blood Pressure 116/63 106/70 116/67 O2 Sat by Pulse 84 84 87 Oximetry 06/04/20 06/04/20 06/04/20 01:10 01:20 01:30 Temperature Pulse Rate 106 H 103 H 102 H Pulse Rate [ Apical] Respiratory 34 H 32 H 29 H Rate Blood Pressure 116/67 120/77 108/80 O2 Sat by Pulse 87 85 86 Oximetry 06/04/20 06/04/20 06/04/20 01:40 01:50 02:00 Temperature Pulse Rate 100 H 97 H 96 H Pulse Rate [ Apical] Respiratory 32 H 33 H 34 H Rate Blood Pressure 108/80 123/26 117/65 O2 Sat by Pulse 86 88 89 Oximetry 06/04/20 06/04/20 06/04/20 02:10 02:15 02:20 Temperature Pulse Rate 96 H 98 H Pulse Rate [ Apical] Respiratory 33 H 33 H Rate Blood Pressure 117/65 124/79 O2 Sat by Pulse 90 92 90 Oximetry 06/04/20 06/04/20 06/04/20 02:30 02:40 02:50 Temperature Pulse Rate 92 H 101 H 97 H Pulse Rate [ Apical] Respiratory 30 H 34 H 34 H Rate Blood Pressure 111/70 117/65 115/64 O2 Sat by Pulse 98 89 91 Oximetry 06/04/20 06/04/20 06/04/20 03:00 03:10 03:20 Temperature Pulse Rate 94 H 95 H 96 H Pulse Rate [ Apical] Respiratory 35 H 35 H 34 H Rate Blood Pressure 99/69 99/69 100/64 O2 Sat by Pulse 91 88 88 Oximetry 06/04/20 06/04/20 06/04/20 03:30 03:40 03:50 Temperature Pulse Rate 95 H 94 H 93 H Pulse Rate [ Apical] Respiratory 34 H 34 H 33 H Rate Blood Pressure 100/64 97/62 109/64 O2 Sat by Pulse 88 91 87 Oximetry 06/04/20 06/04/20 06/04/20 04:00 04:10 04:20 Temperature Pulse Rate 94 H 91 H 95 H Pulse Rate [ 99 H Apical] Respiratory 34 H 34 H 35 H Rate Blood Pressure 115/55 115/55 101/67 O2 Sat by Pulse 89 91 90 Oximetry 06/04/20 06/04/20 06/04/20 04:30 04:40 04:50 Temperature 101.5 F H Pulse Rate 95 H 100 H 95 H Pulse Rate [ Apical] Respiratory 35 H 26 H 34 H Rate Blood Pressure 107/52 115/55 112/78 O2 Sat by Pulse 90 91 84 Oximetry 06/04/20 06/04/20 06/04/20 05:00 05:10 05:20 Temperature Pulse Rate 99 H 94 H 93 H Pulse Rate [ Apical] Respiratory 25 H 30 H 26 H Rate Blood Pressure 112/78 96/58 122/66 O2 Sat by Pulse 87 92 Oximetry 06/04/20 06/04/20 06/04/20 05:30 05:40 05:50 Temperature Pulse Rate 97 H 96 H 99 H Pulse Rate [ Apical] Respiratory 32 H 21 28 H Rate Blood Pressure 114/76 114/76 126/66 O2 Sat by Pulse 83 L 86 84 Oximetry 06/04/20 06/04/20 06/04/20 06:00 06:10 06:20 Temperature Pulse Rate 91 H 96 H 98 H Pulse Rate [ Apical] Respiratory 25 H 34 H 31 H Rate Blood Pressure 126/66 124/56 124/56 O2 Sat by Pulse 87 Oximetry 06/04/20 06/04/20 06/04/20 06:30 06:40 06:50 Temperature Pulse Rate 98 H 85 99 H Pulse Rate [ Apical] Respiratory 33 H 29 H 29 H Rate Blood Pressure 133/79 133/79 109/64 O2 Sat by Pulse 84 90 90 Oximetry 06/04/20 06/04/20 06/04/20 07:00 07:10 07:20 Temperature Pulse Rate 95 H 102 H 89 Pulse Rate [ Apical] Respiratory 21 28 H 31 H Rate Blood Pressure 120/81 120/81 106/58 O2 Sat by Pulse 86 90 84 Oximetry 06/04/20 06/04/20 06/04/20 07:30 07:40 07:50 Temperature Pulse Rate 89 86 87 Pulse Rate [ Apical] Respiratory 30 H 31 H 32 H Rate Blood Pressure 106/58 112/70 96/72 O2 Sat by Pulse 89 85 85 Oximetry 06/04/20 06/04/20 07:58 08:17 Temperature 99.1 F Pulse Rate 99 H Pulse Rate [ Apical] Respiratory 25 H Rate Blood Pressure 101/62 O2 Sat by Pulse 94 Oximetry Constitutional: lethargic (secondary to precedex), appears uncomfortable Eyes: non-icteric ENT: other (short fat neck) Neck: supple Effort: mildly labored Ascultation: Bilateral: diminished breath sounds Percussion: Bilateral: not dull Cardiovascular: regular rate and rhythm Gastrointestinal: normoactive bowel sounds, soft Extremities: no cyanosis CBC and BMP: 06/04/20 03:41 06/04/20 03:41 ABG, PT/INR, D-dimer: PT/INR, D-dimer PT 12.9 Sec. (12.2-14.9) 05/29/20 13:25 INR 0.95 (0.87-1.13) 05/29/20 13:25 D-Dimer 541.25 ng/mlDDU (0-234) H 06/04/20 03:41 Abnormal lab findings: Abnormal Labs 05/29/20 05/29/20 05/29/20 13:25 13:25 13:25 WBC RDW 16.4 H Lymph % (Auto) Lymph # Seg Neutrophils % 78.4 H D-Dimer Sodium 131 L Potassium 5.4 H Chloride 96.2 L Carbon Dioxide 14 L BUN 42 H Creatinine 4.7 H Glucose 121 H POC Glucose Hemoglobin A1c Lactic Acid 2.70 H* Calcium 8.3 L Ferritin AST Lactate Dehydrogenase C-Reactive Protein Albumin Coronavirus (PCR) 05/29/20 05/29/20 05/29/20 13:25 15:10 15:10 WBC RDW Lymph % (Auto) Lymph # Seg Neutrophils % D-Dimer 1391.41 H Sodium Potassium Chloride Carbon Dioxide BUN Creatinine Glucose 120 H POC Glucose Hemoglobin A1c Lactic Acid Calcium Ferritin AST 54 H Lactate Dehydrogenase 581 H C-Reactive Protein 40.70 H Albumin 2.9 L Coronavirus (PCR) 05/29/20 05/29/20 05/29/20 15:10 15:10 22:55 WBC RDW Lymph % (Auto) Lymph # Seg Neutrophils % D-Dimer Sodium Potassium Chloride Carbon Dioxide BUN Creatinine Glucose POC Glucose 256 H Hemoglobin A1c Lactic Acid 2.20 H* Calcium Ferritin 1092.0 H AST Lactate Dehydrogenase C-Reactive Protein Albumin Coronavirus (PCR) 05/29/20 05/30/20 05/30/20 Unknown 07:00 07:00 WBC RDW 16.0 H Lymph % (Auto) 7.3 L Lymph # 0.5 L Seg Neutrophils % 88.4 H D-Dimer Sodium 132 L Potassium 5.9 H Chloride 95.5 L Carbon Dioxide 18 L BUN 49 H Creatinine 4.0 H Glucose 415 H POC Glucose Hemoglobin A1c Lactic Acid Calcium 7.8 L Ferritin AST 46 H Lactate Dehydrogenase C-Reactive Protein Albumin 3.2 L Coronavirus (PCR) Positive A 05/30/20 05/30/20 05/30/20 07:00 07:45 11:39 WBC RDW Lymph % (Auto) Lymph # Seg Neutrophils % D-Dimer Sodium Potassium Chloride Carbon Dioxide BUN Creatinine Glucose POC Glucose 424 H 468 H Hemoglobin A1c 9.7 H Lactic Acid Calcium Ferritin AST Lactate Dehydrogenase C-Reactive Protein Albumin Coronavirus (PCR) 05/30/20 05/31/20 05/31/20 17:11 01:49 08:14 WBC RDW Lymph % (Auto) Lymph # Seg Neutrophils % D-Dimer Sodium Potassium Chloride Carbon Dioxide BUN Creatinine Glucose POC Glucose 475 H 426 H 430 H Hemoglobin A1c Lactic Acid Calcium Ferritin AST Lactate Dehydrogenase C-Reactive Protein Albumin Coronavirus (PCR) 05/31/20 05/31/20 05/31/20 10:17 10:17 10:17 WBC RDW 16.0 H Lymph % (Auto) Lymph # Seg Neutrophils % D-Dimer 704.53 H Sodium 134 L Potassium 5.2 H Chloride 92.9 L Carbon Dioxide BUN 38 H Creatinine 1.6 H D Glucose 556 H* POC Glucose Hemoglobin A1c Lactic Acid Calcium Ferritin AST Lactate Dehydrogenase 676 H C-Reactive Protein 21.30 H Albumin 3.2 L Coronavirus (PCR) 05/31/20 05/31/20 05/31/20 10:17 11:24 16:25 WBC RDW Lymph % (Auto) Lymph # Seg Neutrophils % D-Dimer Sodium Potassium Chloride Carbon Dioxide BUN Creatinine Glucose POC Glucose 482 H 367 H Hemoglobin A1c Lactic Acid Calcium Ferritin 1221.0 H AST Lactate Dehydrogenase C-Reactive Protein Albumin Coronavirus (PCR) 05/31/20 06/01/20 06/01/20 22:52 04:48 04:48 WBC RDW 15.7 H Lymph % (Auto) Lymph # Seg Neutrophils % D-Dimer Sodium 132 L Potassium Chloride 93.3 L Carbon Dioxide BUN 39 H Creatinine 1.4 H Glucose 533 H* POC Glucose 431 H Hemoglobin A1c Lactic Acid Calcium Ferritin AST Lactate Dehydrogenase C-Reactive Protein Albumin Coronavirus (PCR) 06/01/20 06/01/20 06/01/20 07:46 08:46 11:38 WBC RDW Lymph % (Auto) Lymph # Seg Neutrophils % D-Dimer Sodium Potassium Chloride Carbon Dioxide BUN Creatinine Glucose 504 H* POC Glucose 448 H 287 H Hemoglobin A1c Lactic Acid Calcium Ferritin AST Lactate Dehydrogenase C-Reactive Protein Albumin Coronavirus (PCR) 06/01/20 06/01/20 06/02/20 16:27 22:47 07:35 WBC RDW Lymph % (Auto) Lymph # Seg Neutrophils % D-Dimer Sodium Potassium Chloride Carbon Dioxide BUN Creatinine Glucose POC Glucose 298 H 411 H 347 H Hemoglobin A1c Lactic Acid Calcium Ferritin AST Lactate Dehydrogenase C-Reactive Protein Albumin Coronavirus (PCR) 06/02/20 06/02/20 06/02/20 11:53 17:08 22:41 WBC RDW Lymph % (Auto) Lymph # Seg Neutrophils % D-Dimer Sodium Potassium Chloride Carbon Dioxide BUN Creatinine Glucose POC Glucose 406 H 355 H 272 H Hemoglobin A1c Lactic Acid Calcium Ferritin AST Lactate Dehydrogenase C-Reactive Protein Albumin Coronavirus (PCR) 06/03/20 06/03/20 06/03/20 05:14 05:14 08:11 WBC 11.9 H RDW 15.6 H Lymph % (Auto) Lymph # Seg Neutrophils % D-Dimer Sodium Potassium Chloride Carbon Dioxide BUN 44 H Creatinine 1.4 H Glucose 291 H POC Glucose 265 H Hemoglobin A1c Lactic Acid Calcium Ferritin AST Lactate Dehydrogenase C-Reactive Protein Albumin Coronavirus (PCR) 06/03/20 06/03/20 06/03/20 13:32 18:24 21:26 WBC RDW Lymph % (Auto) Lymph # Seg Neutrophils % D-Dimer Sodium Potassium Chloride Carbon Dioxide BUN Creatinine Glucose POC Glucose 309 H 365 H 333 H Hemoglobin A1c Lactic Acid Calcium Ferritin AST Lactate Dehydrogenase C-Reactive Protein Albumin Coronavirus (PCR) 06/04/20 06/04/20 06/04/20 03:41 03:41 03:41 WBC 12.5 H RDW 15.8 H Lymph % (Auto) Lymph # Seg Neutrophils % D-Dimer 541.25 H Sodium Potassium 5.1 H D Chloride Carbon Dioxide BUN 52 H Creatinine 1.8 H Glucose 155 H POC Glucose Hemoglobin A1c Lactic Acid Calcium Ferritin AST Lactate Dehydrogenase 732 H C-Reactive Protein 3.00 H Albumin Coronavirus (PCR) 06/04/20 03:41 WBC RDW Lymph % (Auto) Lymph # Seg Neutrophils % D-Dimer Sodium Potassium Chloride Carbon Dioxide BUN Creatinine Glucose POC Glucose Hemoglobin A1c Lactic Acid Calcium Ferritin 913.8 H AST Lactate Dehydrogenase C-Reactive Protein Albumin Coronavirus (PCR)
[2020-06-04] MEDS ORDERED: ALBUMIN HUMAN 25% (25 GM/100 ML) INJ IV ONE (10:00)
[2020-06-04] MEDS ORDERED: FUROSEMIDE 40 MG/4 ML INJ IV ONE (10:00)
--- NOTE | 2020-06-04 13:16 | Consultation ---
History of Present Illness - Reason for Consult Consult date: 06/04/20 - History of Present Illness covid positive (ICU) 55-year-old man with history of hypertension diabetes congestive heart failure and left below-knee amputation comes in for cough fever and shortness of breath and chills for 5 days. Patient has been tested positive for COVID-19 5 days ago. Patient saturations were 80% on room air which improved to 98% on a nonrebreather. Denies any chest pain. CR 1.[address] VELARDE FOR WHITEHEAD---NURSE UNABLE TO PLACE (PROXIMAL BLCOKAGE) bladder scan - 200c urine abd soft (obese) attempted to place 16F [employer] whitehead via wire without success (dense proximal stricture)- i could partial dilated (hugh urine) unsafe to place suprapubic tube at bedside nurse at bedside A/p dense proximal urethral stricture obs for now may need cysto under anesthesia for whitehead placment Medications and Allergies Allergies Allergy/AdvReac Type Severity Reaction Status Date / Time No Known Allergies Allergy Unverified 05/29/20 15:15 Home Medications Medication Instructions Recorded Confirmed Last Taken Type ARIPiprazole [Aripiprazole] 2 mg PO DAILY 06/02/20 06/02/20 Unknown History Duloxetine HCl 2 tab PO DAILY 06/02/20 06/02/20 Unknown History PARoxetine HCl 10 mg PO DAILY 06/02/20 06/02/20 Unknown History Active Meds: Active Medications Acetaminophen (Tylenol) 650 mg PO Q4H PRN PRN Reason: Pain MILD(1-3)/Fever >100.5/ESPINOZA Last Admin: 06/04/20 04:50 Dose: 650 mg Documented by: Duloxetine HCl (Cymbalta) 120 mg PO QDAY [facility] Last Admin: 06/04/20 09:10 Dose: Not Given Documented by: Enoxaparin Sodium (Enoxaparin) 40 mg SUB-Q QHS [facility] Last Admin: 06/03/20 21:14 Dose: 40 mg Documented by: Famotidine (Pepcid) 20 mg PO BID [facility] Last Admin: 06/04/20 09:10 Dose: Not Given Documented by: Haloperidol Lactate (Haldol) 5 mg IV Q6H [facility] Last Admin: 06/04/20 08:25 Dose: 5 mg Documented by: Dexmedetomidine HCl 200 mcg/ (Sodium Chloride) 50 mls @ 5.9 mls/hr IV TITRATE LONG; Protocol Last Admin: 06/04/20 07:55 Dose: 0.3 mcg/kg/hr, 8.85 mls/hr Documented by: Sodium Chloride (Nacl 0.9% 500 Ml) 500 mls @ 0 mls/hr IV DIRECT LONG Insulin Glargine (Lantus) 40 units SUB-Q QHS [facility] Last Admin: 06/03/20 21:17 Dose: 40 units Documented by: Insulin Human Lispro (Humalog) 0 unit SUB-Q ACHS LONG; Protocol Last Admin: 06/04/20 11:50 Dose: 8 unit Documented by: Methylprednisolone Sodium Succinate (Solu-Medrol) 40 mg IV Q8HR LONG Ondansetron HCl (Zofran) 4 mg IV Q8H PRN PRN Reason: Nausea And Vomiting Last Admin: 05/31/20 17:38 Dose: 4 mg Documented by: Paroxetine HCl (Paxil) 10 mg PO DAILY [facility] Last Admin: 06/04/20 09:10 Dose: Not Given Documented by: Sodium Chloride (Sodium Chloride Flush Syringe 10 Ml) 10 ml IV BID [facility] Last Admin: 06/04/20 09:59 Dose: 10 ml Documented by: Sodium Chloride (Sodium Chloride Flush Syringe 10 Ml) 10 ml IV PRN PRN PRN Reason: LINE FLUSH Exam - Constitutional Vitals: Temp Pulse Resp BP Pulse Ox 99.1 F 99 H 25 H 101/62 94 06/04/20 07:58 06/04/20 08:17 06/04/20 08:17 06/04/20 08:17 06/04/20 08:17 Results - Labs CBC & Chem 7: 06/04/20 03:41 06/04/20 03:41 Labs: Abnormal lab results 06/03/20 06/03/20 06/03/20 Range/Units 13:32 18:24 21:26 WBC (4.5-11.0) K/mm3 RDW (13.2-15.2) % D-Dimer (0-234) ng/mlDDU Potassium (3.6-5.0) mmol/L BUN (9-20) mg/dL Creatinine (0.8-1.3) mg/dL Glucose (75-100) mg/dL POC Glucose 309 H 365 H 333 H (70-105) Ferritin (30.0-300.0) ng/mL Lactate Dehydrogenase (91-180) units/L C-Reactive Protein (0.00-1.30) mg/dL 06/04/20 06/04/20 06/04/20 Range/Units 03:41 03:41 03:41 WBC 12.5 H (4.5-11.0) K/mm3 RDW 15.8 H (13.2-15.2) % D-Dimer 541.25 H (0-234) ng/mlDDU Potassium 5.1 H D (3.6-5.0) mmol/L BUN 52 H (9-20) mg/dL Creatinine 1.8 H (0.8-1.3) mg/dL Glucose 155 H (75-100) mg/dL POC Glucose (70-105) Ferritin (30.0-300.0) ng/mL Lactate Dehydrogenase 732 H (91-180) units/L C-Reactive Protein 3.00 H (0.00-1.30) mg/dL 06/04/20 Range/Units 03:41 WBC (4.5-11.0) K/mm3 RDW (13.2-15.2) % D-Dimer (0-234) ng/mlDDU Potassium (3.6-5.0) mmol/L BUN (9-20) mg/dL Creatinine (0.8-1.3) mg/dL Glucose (75-100) mg/dL POC Glucose (70-105) Ferritin 913.8 H (30.0-300.0) ng/mL Lactate Dehydrogenase (91-180) units/L C-Reactive Protein (0.00-1.30) mg/dL
--- NOTE | 2020-06-04 13:28 | Progress Note ---
Assessment and Plan Cultures: Blood culture 05/29/2020 no growth COVID PCR 05/29/2020 Positive 06/03/2020 blood culture: In process Assessment: 55 years old male with history of diabetes mellitus, congestive heart failure, hypertension, left below-knee amputation, admitted on 05/29/2020 due to 5-day history of cough, fever, malaise, chills and shortness of breath: #Severe sepsis: likely due to bilateral pneumonia. Completed empiric CAP abx. #Severe/Critical COVID pneumonia: Inflammatory markers are very elevated, possible cytokine storm. #Acute hypoxemic respiratory failure: on BiPAP #Elevated LFTs: from COVID, mild. #Acute renal failure: improving. #Stage III sacral decubitus: Not infected. Per wound care measures 4 x 1 x 0.1 cm, small yellow slough. Recs: Given improvement in renal function, will add IV Remdesivir for 5 days, d/w pharmacy Continue steroids Awaiting CCP Completed empiric antibiotic course High mortality risk Alyssa Yang MD, FACP [facility] ([facility] C: [phone] O: [phone] F: [phone] Subjective Date of service: 06/04/20 Principal diagnosis: Acute Respiratory Failure Secondary to COVID Interval history: Patient was moved to ICU due to hypoxia worsening. Currently on BiPAP. Febrile. Objective - Exam Narrative Exam: Physical Exam (reviewed in chart due to PPE conservation) Constitutional: limited due to PPE conservation strategy Head, Ears, Nose: limited due to PPE conservation strategy Eyes: limited due to PPE conservation strategy Neck: limited due to PPE conservation strategy Oral: limited due to PPE conservation strategy Cardiovascular: limited due to PPE conservation strategy Respiratory: limited due to PPE conservation strategy GI: limited due to PPE conservation strategy Musculoskeletal: limited due to PPE conservation strategy Skin: limited due to PPE conservation strategy Hem/Lymphatic: limited due to PPE conservation strategy Psych: limited due to PPE conservation strategy Neurological: limited due to PPE conservation strategy - Constitutional Vitals: Vital Signs Temp Pulse Resp BP Pulse Ox 99.1 F 99 H 25 H 101/62 94 06/04/20 07:58 06/04/20 08:17 06/04/20 08:17 06/04/20 08:17 06/04/20 08:17 Temperature -Last 24 Hours Temperature 99.1 F Temperature 101.5 F Temperature 99.5 F - Labs CBC & Chem 7: 06/04/20 03:41 06/04/20 03:41 Labs: Abnormal lab results 06/03/20 06/03/20 06/04/20 Range/Units 18:24 21:26 03:41 WBC 12.5 H (4.5-11.0) K/mm3 RDW 15.8 H (13.2-15.2) % D-Dimer (0-234) ng/mlDDU Potassium (3.6-5.0) mmol/L BUN (9-20) mg/dL Creatinine (0.8-1.3) mg/dL Glucose (75-100) mg/dL POC Glucose 365 H 333 H (70-105) Ferritin (30.0-300.0) ng/mL Lactate Dehydrogenase (91-180) units/L C-Reactive Protein (0.00-1.30) mg/dL 06/04/20 06/04/20 06/04/20 Range/Units 03:41 03:41 03:41 WBC (4.5-11.0) K/mm3 RDW (13.2-15.2) % D-Dimer 541.25 H (0-234) ng/mlDDU Potassium 5.1 H D (3.6-5.0) mmol/L BUN 52 H (9-20) mg/dL Creatinine 1.8 H (0.8-1.3) mg/dL Glucose 155 H (75-100) mg/dL POC Glucose (70-105) Ferritin 913.8 H (30.0-300.0) ng/mL Lactate Dehydrogenase 732 H (91-180) units/L C-Reactive Protein 3.00 H (0.00-1.30) mg/dL
[2020-06-04] MEDS ORDERED: REMDESIVIR 200 MG in SODIUM CHLORIDE 0.9% 250ML 250 ML IV ONE (14:00)
[2020-06-04] MEDS ORDERED: REMDESIVIR 100 MG VIAL IV ONE (14:00)
[2020-06-04] MEDS: methylPREDNISolone Sod Succinate 40 MG/1 ML INJ IV SCH ×2 (14:51→22:57)
--- NOTE | 2020-06-04 16:09 | Progress Note ---
Assessment and Plan /Severe sepsis Secondary to COVID pneumonia presented with Elevated lactic acid, tachycardia, elevated procalcitonin /Bilateral COVID 19 pneumonia Repeat COVID test positive consulted ID Continue steroids, s/p plasmatherapy Given improvement in renal function, planned to start IV Remdesivir for 5 days, /Acute psychosis with visual and auditory hallucination Resume outpatient medications for depression psych following /Acute respiratory failure with hypoxia Secondary to COVID-19 pneumonia and underlying possible obesity hypoventilation syndrome Patient is on nonrebreather Ventimask/BiPAP cont nebs and wean off as tolerated /Hyperkalemia secondary to renal failure as needed Kayexalate Monitor electrolytes /Acute kidney injury- likely ATN R/O acute on chronic kidney disease Baseline renal function is not known nephrology consulted Avoid nephrotoxins Renal ultrasound /Hypertension Blood pressure fair off medication Continue to monitor /Type 2 diabetes mellitus Continue insulin sliding scale coverage hemoglobin A1c 9.7, consistent carb diet /COVID19 + Management as outlined above /CHF (congestive heart failure), combined systolic and diastolic Echocardiogram requested - pending /Morbid obesity, BMI 45.9 Dietary and exercise recommendation when clinically appropriate --DVT prophylaxis On Lovenox and GI prophylaxis The high probability of a clinically significant, sudden or life threatening deterioration of the [pulmonary, renal] system(s) required my full and direct attention, intervention and personal management. The aggregate critical care time was [35] minutes. This time is in addition to time spent performing reported procedures but includes the following: [x] Data Review and interpretation [x] Patient assessment and monitoring of vital signs [x] Documentation [x] Medication orders and management 05/30 patient is a [facility] resident, alert and oriented and appears moderately short of breath and is on Ventimask Denies any chest pain or palpitations. He does complain of cough Lab results reviewed 05/31: Continues on high flow oxygen. still on High flow oxygen. Pulmonary consulted, ID consulted. COVID +, adjust insulin for better control. 06/01: Remains on High flow, due to severe hypoxemia Consent obtained for convalescent plasma. We will also obtain type and cross for the same. Wean oxygen as tolerated. ID input noted. No indication Remdesivir due to renal richelle fazal, renal on board, although renal function beginning to improve we will discuss with ID if we should revisit Remdesivir if renal function continues to improve. Continue ceftriaxone and azithromycin for 5 days. Offloading sacral area and keep area dry per wound care team. Continue anticoagulation. ID added fluconazole. Will adjust insulin therapy and also sliding scale to a higher scale. 06/02: Called and discussed with family patient does have some psychiatric illness will obtain psych consultation due to new onset psychosis. Pulmonary input appreciated. Will proceed with ordering plasma therapy.The assigned patient code is [id number] for plasma transfusion. 06/03: Continues with intermittent confusion, known psych hx, psych team consulted. Continue oxygen therapy, awaiting Plasma therapy. Patient being transferred to ICU due to worsening respiratory status. Psych following. 06/04: Remains on BiPAP, with intermittent confusion, appears slighlty restless, s/p plasma therapy yesterday. cont to wean off from biPAP. planned to start IV Remdesivir for 5 days as renal function improved Brief History; 64-year-old man with history of hypertension diabetes congestive heart failure and left below-knee amputation comes in for cough fever and shortness of breath and chills for 5 days. Patient has been tested positive for COVID-19 5 days ago. Patient saturations were 80% on room air which improved to 98% on a nonrebreather. Denies any chest pain. Patient is covid positive and remains hypoxic. Subjective Date of service: 06/04/20 Principal diagnosis: Acute Respiratory Failure Secondary to COVID Interval history: Patient seen and examined Patient currently on BiPAP Follows command, denies any chest pain Received plasma therapy last night Objective - Exam Narrative Exam: VITAL SIGNS: Reviewed. GENERAL: The patient appears normally developed, morbidly obese vital signs as documented. HEAD: No signs of head trauma. EYES: Pupils are equal. Extraocular motions intact. EARS: Hearing grossly intact. MOUTH: Oropharynx is normal. NECK: No adenopathy, no JVD. CHEST: Chest with diminished breath sounds bilaterally. Increased respiratory rate. No wheezes, rales, or rhonchi. CARDIAC: Regular rate and rhythm. S1 and S2, without murmurs, gallops, or rubs. VASCULAR: No Edema. Peripheral pulses normal and equal in all extremities. ABDOMEN: Soft, non tender and non distended. No rebound or guarding, and no masses palpated. Bowel Sounds normal. MUSCULOSKELETAL: BKA LEFT LOWER EXT. extremities without clubbing, cyanosis or edema. NEUROLOGIC EXAM: Alert and oriented x 1 No focal sensory or strength deficits. Speech normal. Follows commands. PSYCHIATRIC: Mood anxious SKIN: no rash, warm - Constitutional Vitals: Vital Signs - 12hr 06/04/20 06/04/20 06/04/20 04:10 04:20 04:30 Temperature Pulse Rate 91 H 95 H 95 H Respiratory 34 H 35 H 35 H Rate Blood Pressure 115/55 101/67 107/52 O2 Sat by Pulse 91 90 90 Oximetry 06/04/20 06/04/20 06/04/20 04:40 04:50 05:00 Temperature 101.5 F H Pulse Rate 100 H 95 H 99 H Respiratory 26 H 34 H 25 H Rate Blood Pressure 115/55 112/78 112/78 O2 Sat by Pulse 91 84 87 Oximetry 06/04/20 06/04/20 06/04/20 05:10 05:20 05:30 Temperature Pulse Rate 94 H 93 H 97 H Respiratory 30 H 26 H 32 H Rate Blood Pressure 96/58 122/66 114/76 O2 Sat by Pulse 92 83 L Oximetry 06/04/20 06/04/20 06/04/20 05:40 05:50 06:00 Temperature Pulse Rate 96 H 99 H 91 H Respiratory 21 28 H 25 H Rate Blood Pressure 114/76 126/66 126/66 O2 Sat by Pulse 86 84 Oximetry 06/04/20 06/04/20 06/04/20 06:10 06:20 06:30 Temperature Pulse Rate 96 H 98 H 98 H Respiratory 34 H 31 H 33 H Rate Blood Pressure 124/56 124/56 133/79 O2 Sat by Pulse 87 84 Oximetry 06/04/20 06/04/20 06/04/20 06:40 06:50 07:00 Temperature Pulse Rate 85 99 H 95 H Respiratory 29 H 29 H 21 Rate Blood Pressure 133/79 109/64 120/81 O2 Sat by Pulse 90 90 86 Oximetry 06/04/20 06/04/20 06/04/20 07:10 07:20 07:30 Temperature Pulse Rate 102 H 89 89 Respiratory 28 H 31 H 30 H Rate Blood Pressure 120/81 106/58 106/58 O2 Sat by Pulse 90 84 89 Oximetry 06/04/20 06/04/20 06/04/20 07:40 07:50 07:58 Temperature 99.1 F Pulse Rate 86 87 Respiratory 31 H 32 H Rate Blood Pressure 112/70 96/72 O2 Sat by Pulse 85 85 Oximetry 06/04/20 06/04/20 08:17 14:35 Temperature Pulse Rate 99 H 89 Respiratory 25 H 31 H Rate Blood Pressure 101/62 O2 Sat by Pulse 94 90 Oximetry - Labs CBC & Chem 7: 06/06/20 04:40 06/06/20 05:00 Labs: Abnormal lab results 06/03/20 06/03/20 06/04/20 Range/Units 18:24 21:26 03:41 WBC 12.5 H (4.5-11.0) K/mm3 RDW 15.8 H (13.2-15.2) % D-Dimer (0-234) ng/mlDDU Potassium (3.6-5.0) mmol/L BUN (9-20) mg/dL Creatinine (0.8-1.3) mg/dL Glucose (75-100) mg/dL POC Glucose 365 H 333 H (70-105) Ferritin (30.0-300.0) ng/mL Lactate Dehydrogenase (91-180) units/L C-Reactive Protein (0.00-1.30) mg/dL 06/04/20 06/04/20 06/04/20 Range/Units 03:41 03:41 03:41 WBC (4.5-11.0) K/mm3 RDW (13.2-15.2) % D-Dimer 541.25 H (0-234) ng/mlDDU Potassium 5.1 H D (3.6-5.0) mmol/L BUN 52 H (9-20) mg/dL Creatinine 1.8 H (0.8-1.3) mg/dL Glucose 155 H (75-100) mg/dL POC Glucose (70-105) Ferritin 913.8 H (30.0-300.0) ng/mL Lactate Dehydrogenase 732 H (91-180) units/L C-Reactive Protein 3.00 H (0.00-1.30) mg/dL 06/04/20 Range/Units 07:49 WBC (4.5-11.0) K/mm3 RDW (13.2-15.2) % D-Dimer (0-234) ng/mlDDU Potassium (3.6-5.0) mmol/L BUN (9-20) mg/dL Creatinine (0.8-1.3) mg/dL Glucose (75-100) mg/dL POC Glucose 254 H (70-105) Ferritin (30.0-300.0) ng/mL Lactate Dehydrogenase (91-180) units/L C-Reactive Protein (0.00-1.30) mg/dL HEART Score - HEART Score Troponin: Troponin T 0.025 ng/mL (0.00-0.029) 05/29/20 15:10
[2020-06-04] MEDS: SODIUM CHLORIDE 0.9% 50 ML IVPB IV SCH (20:10)
[2020-06-04] MEDS: ENOXAPARIN 40 MG/0.4 ML INJ SUB-Q SCH (22:57)
[2020-06-04] MEDS: INSULIN GLARGINE 100 UNITS/ML SUB-Q SCH (22:58)
[2020-06-05] MEDS: DEXMEDETOMIDINE 200 MCG in SODIUM CHLORIDE 0.9% 48 ML IV SCH ×4 (03:22→23:46)
[2020-06-05] MEDS: HALOPERIDOL LACTATE 5 MG/1 ML INJ IV SCH ×4 (05:41→21:33)
[2020-06-05] MEDS: methylPREDNISolone Sod Succinate 40 MG/1 ML INJ IV SCH ×3 (05:41→21:33)
[2020-06-05 06:59] LABS: Albumin 3.4 g/dL (3.9-5); Calcium 8.9 mg/dL (8.4-10.2)
--- NOTE | 2020-06-05 09:08 | Progress Note ---
Assessment and Plan Impression: * Acute kidney injury secondary to prerenal azotemia * Sepsis * Acute hypoxic respiratory failure * COVID 19 Pneumonia * Hyperkalemia - resolved * Type II diabetes mellitus Plan: * Increase in SCr noted. Recommend holding diuresis for now * Monitor lytes and volume status. No acute need for initiation of renal replacement therapy * Abx, steroids, convalescent plasma per primary team/ID * Glycemic control per primary team * Medical management of lytes * Avoid potential nephrotoxins * Dose medications for renal function * Discussed with Dr. Gamboa Subjective Date of service: 06/05/20 Principal diagnosis: Acute Respiratory Failure Secondary to COVID Interval history: Patient has no complaints. States SOB slightly better than yesterday. Currently off BIPAP and on HiFlow oxygen Objective - Vital Signs Vital signs: Vital Signs - 12hr 06/04/20 06/04/20 06/04/20 21:11 21:21 21:31 Temperature Pulse Rate 79 76 75 Pulse Rate [ Apical] Respiratory 31 H 32 H 30 H Rate Blood Pressure 100/55 102/57 123/49 O2 Sat by Pulse 95 94 94 Oximetry 06/04/20 06/04/20 06/04/20 21:41 21:51 22:00 Temperature Pulse Rate 75 72 Pulse Rate [ Apical] Respiratory 33 H 32 H Rate Blood Pressure 123/49 108/48 O2 Sat by Pulse 94 93 80 L Oximetry 06/04/20 06/04/20 06/04/20 22:01 22:11 22:21 Temperature Pulse Rate 77 73 78 Pulse Rate [ Apical] Respiratory 32 H 30 H 27 H Rate Blood Pressure 108/48 108/48 108/48 O2 Sat by Pulse 90 92 89 Oximetry 06/04/20 06/04/20 06/04/20 22:31 22:41 22:51 Temperature Pulse Rate 75 74 Pulse Rate [ Apical] Respiratory 22 29 H Rate Blood Pressure 108/48 106/66 98/31 O2 Sat by Pulse 93 91 93 Oximetry 06/04/20 06/04/20 06/04/20 23:01 23:11 23:21 Temperature Pulse Rate 71 70 71 Pulse Rate [ Apical] Respiratory 30 H 28 H 30 H Rate Blood Pressure 85/56 107/16 107/16 O2 Sat by Pulse 92 92 95 Oximetry 06/04/20 06/04/20 06/04/20 23:31 23:41 23:51 Temperature Pulse Rate 70 74 73 Pulse Rate [ Apical] Respiratory 29 H 28 H 29 H Rate Blood Pressure 102/48 102/48 106/55 O2 Sat by Pulse 94 94 95 Oximetry 06/05/20 06/05/20 06/05/20 00:00 00:01 00:11 Temperature 99.9 F H Pulse Rate 73 75 Pulse Rate [ 72 Apical] Respiratory 26 H 18 Rate Blood Pressure 94/64 94/64 O2 Sat by Pulse 94 96 Oximetry 06/05/20 06/05/20 06/05/20 00:21 00:31 00:41 Temperature Pulse Rate 77 72 71 Pulse Rate [ Apical] Respiratory 25 H 28 H 28 H Rate Blood Pressure 113/50 102/38 102/38 O2 Sat by Pulse 92 89 Oximetry 06/05/20 06/05/20 06/05/20 00:43 00:51 01:01 Temperature Pulse Rate 70 69 69 Pulse Rate [ Apical] Respiratory 24 29 H 28 H Rate Blood Pressure 103/44 110/44 94/33 O2 Sat by Pulse 92 90 93 Oximetry 06/05/20 06/05/20 06/05/20 01:11 01:21 01:31 Temperature Pulse Rate 70 67 70 Pulse Rate [ Apical] Respiratory 28 H 27 H 25 H Rate Blood Pressure 94/33 99/50 103/44 O2 Sat by Pulse 92 89 91 Oximetry 06/05/20 06/05/20 06/05/20 01:41 01:51 02:00 Temperature Pulse Rate 72 67 67 Pulse Rate [ Apical] Respiratory 26 H 26 H 25 H Rate Blood Pressure 103/44 102/49 111/59 O2 Sat by Pulse 92 89 95 Oximetry 06/05/20 06/05/20 06/05/20 02:11 02:21 02:31 Temperature Pulse Rate 71 74 70 Pulse Rate [ Apical] Respiratory 27 H 25 H 26 H Rate Blood Pressure 111/59 94/32 78/53 O2 Sat by Pulse 96 97 97 Oximetry 06/05/20 06/05/20 06/05/20 02:41 02:51 03:00 Temperature Pulse Rate 70 70 68 Pulse Rate [ Apical] Respiratory 28 H 26 H 27 H Rate Blood Pressure 78/53 91/52 106/64 O2 Sat by Pulse 95 95 96 Oximetry 06/05/20 06/05/20 06/05/20 03:11 04:00 06:04 Temperature 98.0 F Pulse Rate 72 74 Pulse Rate [ 68 Apical] Respiratory 28 H 37 H Rate Blood Pressure 106/64 103/49 O2 Sat by Pulse 95 95 Oximetry 06/05/20 08:18 Temperature Pulse Rate Pulse Rate [ Apical] Respiratory Rate Blood Pressure O2 Sat by Pulse 93 Oximetry - General Appearance General appearance: well-developed, well-nourished EENT: ATNC Respiratory: Present: Decreased Breath Sounds Cardiology: regular, S1S2 Gastrointestinal: normal, obese Integumentary: no rash, warm and dry Psychiatric: cooperative - Lab 06/04/20 03:41 06/05/20 05:30 Most recent lab results Calcium 8.9 mg/dL (8.4-10.2) 06/05/20 05:30 Medications & Allergies - Medications Allergies/Adverse Reactions: Allergies No Known Allergies Allergy (Unverified 05/29/20 15:15) Home Medications: Home Medications Medication Instructions Recorded Confirmed Last Taken Type ARIPiprazole [Aripiprazole] 2 mg PO DAILY 06/02/20 06/02/20 Unknown History Duloxetine HCl 2 tab PO DAILY 06/02/20 06/02/20 Unknown History PARoxetine HCl 10 mg PO DAILY 06/02/20 06/02/20 Unknown History Active Medications: Generic Name Dose Route Start Last Admin Trade Name Freq PRN Reason Stop Dose Admin Acetaminophen 650 mg 05/30/20 00:19 06/04/20 04:50 Tylenol PO 650 mg Q4H PRN Administration Pain MILD(1-3)/Fever >100.5/ESPINOZA Duloxetine HCl 120 mg 06/03/20 13:00 06/04/20 09:10 Cymbalta PO Not Given QDAY LONG Enoxaparin Sodium 30 mg 06/05/20 22:00 Enoxaparin SUB-Q QHS LONG Famotidine 20 mg 06/05/20 10:00 Pepcid PO DAILY LONG Haloperidol Lactate 5 mg 06/03/20 15:07 06/05/20 05:41 Haldol IV 5 mg Q6H LONG Administration Dexmedetomidine HCl 200 mcg/ 50 mls @ 5.9 mls/hr 06/03/20 17:00 06/05/20 03:22 Sodium Chloride IV 0.3 mcg/kg/hr TITRATE LONG 8.85 mls/hr Administration Protocol 0.2 MCG/KG/HR Sodium Chloride 500 mls @ 0 mls/hr 06/03/20 17:00 Nacl 0.9% 500 Ml IV DIRECT LONG As Directed REMDESIVIR 100 mg/ Sodium 250 mls @ 500 mls/hr 06/05/20 21:00 Chloride IV 06/08/20 21:29 [id number]@2100 LONG Insulin Glargine 40 units 06/01/20 22:00 06/04/20 22:58 Lantus SUB-Q 40 units QHS LONG Administration Insulin Human Lispro 0 unit 05/30/20 09:30 06/04/20 23:00 Humalog SUB-Q 8 unit ACHS LONG Administration Protocol Methylprednisolone Sodium Succinate 40 mg 06/04/20 14:00 06/05/20 05:41 Solu-Medrol IV 40 mg Q8HR LONG Administration Ondansetron HCl 4 mg 05/30/20 00:19 05/31/20 17:38 Zofran IV 4 mg Q8H PRN Administration Nausea And Vomiting Paroxetine HCl 10 mg 06/02/20 11:45 06/04/20 09:10 Paxil PO Not Given DAILY LONG Sodium Chloride 10 ml 05/30/20 10:00 06/04/20 09:59 Sodium Chloride Flush Syringe 10 Ml IV 10 ml BID LONG Administration Sodium Chloride 10 ml 05/30/20 00:19 Sodium Chloride Flush Syringe 10 Ml IV PRN PRN LINE FLUSH Sodium Chloride 50 ml 06/04/20 15:00 06/04/20 20:10 Nacl 0.9% IV 06/08/20 21:01 50 ml 2100 LONG Administration
[2020-06-05 10:48] LABS: INR 1.08 (0.87-1.13)
--- NOTE | 2020-06-05 11:37 | Progress Note ---
Assessment and Plan 55 y/o obese male with acute respiratory failure from COVID and acute renal failure. 1. No further lasix therapy 2. Will go to OR for cysto tomorrow and likely suprapubic catheter. 3. High risk for intubation. 4. Continue IV steroids 5. Did get Remdesivir yesterday, given clinical state will give again today and recheck chemistry tomorrow. cct 31 Subjective Date of service: 06/05/20 Principal diagnosis: Acute Respiratory Failure Secondary to COVID Interval history: Appreciate urology help. Patient will go to OR for tomorrow with cystoscopy and likely suprapubic catheter placement. Now on HFNC and tolerating well. Still on precedex and calm. Objective Vital Signs - 12hr 06/04/20 06/04/20 06/05/20 23:41 23:51 00:00 Temperature 99.9 F H Pulse Rate 74 73 Pulse Rate [ 72 Apical] Respiratory 28 H 29 H Rate Blood Pressure 102/48 106/55 O2 Sat by Pulse 94 95 Oximetry 06/05/20 06/05/20 06/05/20 00:01 00:11 00:21 Temperature Pulse Rate 73 75 77 Pulse Rate [ Apical] Respiratory 26 H 18 25 H Rate Blood Pressure 94/64 94/64 113/50 O2 Sat by Pulse 94 96 Oximetry 06/05/20 06/05/20 06/05/20 00:31 00:41 00:43 Temperature Pulse Rate 72 71 70 Pulse Rate [ Apical] Respiratory 28 H 28 H 24 Rate Blood Pressure 102/38 102/38 103/44 O2 Sat by Pulse 92 89 92 Oximetry 06/05/20 06/05/20 06/05/20 00:51 01:01 01:11 Temperature Pulse Rate 69 69 70 Pulse Rate [ Apical] Respiratory 29 H 28 H 28 H Rate Blood Pressure 110/44 94/33 94/33 O2 Sat by Pulse 90 93 92 Oximetry 06/05/20 06/05/20 06/05/20 01:21 01:31 01:41 Temperature Pulse Rate 67 70 72 Pulse Rate [ Apical] Respiratory 27 H 25 H 26 H Rate Blood Pressure 99/50 103/44 103/44 O2 Sat by Pulse 89 91 92 Oximetry 06/05/20 06/05/20 06/05/20 01:51 02:00 02:11 Temperature Pulse Rate 67 67 71 Pulse Rate [ Apical] Respiratory 26 H 25 H 27 H Rate Blood Pressure 102/49 111/59 111/59 O2 Sat by Pulse 89 95 96 Oximetry 06/05/20 06/05/20 06/05/20 02:21 02:31 02:41 Temperature Pulse Rate 74 70 70 Pulse Rate [ Apical] Respiratory 25 H 26 H 28 H Rate Blood Pressure 94/32 78/53 78/53 O2 Sat by Pulse 97 97 95 Oximetry 06/05/20 06/05/20 06/05/20 02:51 03:00 03:11 Temperature Pulse Rate 70 68 72 Pulse Rate [ Apical] Respiratory 26 H 27 H 28 H Rate Blood Pressure 91/52 106/64 106/64 O2 Sat by Pulse 95 96 95 Oximetry 06/05/20 06/05/20 06/05/20 04:00 06:04 08:00 Temperature 98.0 F 98.8 F Pulse Rate 74 Pulse Rate [ 68 Apical] Respiratory 37 H Rate Blood Pressure 103/49 O2 Sat by Pulse 95 Oximetry 06/05/20 08:18 Temperature Pulse Rate Pulse Rate [ Apical] Respiratory Rate Blood Pressure O2 Sat by Pulse 93 Oximetry Constitutional: lethargic (secondary to precedex), appears uncomfortable Eyes: non-icteric ENT: other (short fat neck) Neck: supple Effort: mildly labored Ascultation: Bilateral: diminished breath sounds Percussion: Bilateral: not dull Cardiovascular: regular rate and rhythm Gastrointestinal: normoactive bowel sounds, soft Extremities: no cyanosis CBC and BMP: 06/04/20 03:41 06/05/20 05:30 ABG, PT/INR, D-dimer: PT/INR, D-dimer PT 14.1 Sec. (12.2-14.9) 06/05/20 10:30 INR 1.08 (0.87-1.13) 06/05/20 10:30 D-Dimer 541.25 ng/mlDDU (0-234) H 06/04/20 03:41 Abnormal lab findings: Abnormal Labs 05/29/20 05/29/20 05/29/20 13:25 13:25 13:25 WBC RDW 16.4 H Lymph % (Auto) Lymph # Seg Neutrophils % 78.4 H D-Dimer Sodium 131 L Potassium 5.4 H Chloride 96.2 L Carbon Dioxide 14 L BUN 42 H Creatinine 4.7 H Glucose 121 H POC Glucose Hemoglobin A1c Lactic Acid 2.70 H* Calcium 8.3 L Ferritin AST Lactate Dehydrogenase C-Reactive Protein Albumin Coronavirus (PCR) 05/29/20 05/29/20 05/29/20 13:25 15:10 15:10 WBC RDW Lymph % (Auto) Lymph # Seg Neutrophils % D-Dimer 1391.41 H Sodium Potassium Chloride Carbon Dioxide BUN Creatinine Glucose 120 H POC Glucose Hemoglobin A1c Lactic Acid Calcium Ferritin AST 54 H Lactate Dehydrogenase 581 H C-Reactive Protein 40.70 H Albumin 2.9 L Coronavirus (PCR) 05/29/20 05/29/20 05/29/20 15:10 15:10 22:55 WBC RDW Lymph % (Auto) Lymph # Seg Neutrophils % D-Dimer Sodium Potassium Chloride Carbon Dioxide BUN Creatinine Glucose POC Glucose 256 H Hemoglobin A1c Lactic Acid 2.20 H* Calcium Ferritin 1092.0 H AST Lactate Dehydrogenase C-Reactive Protein Albumin Coronavirus (PCR) 05/29/20 05/30/20 05/30/20 Unknown 07:00 07:00 WBC RDW 16.0 H Lymph % (Auto) 7.3 L Lymph # 0.5 L Seg Neutrophils % 88.4 H D-Dimer Sodium 132 L Potassium 5.9 H Chloride 95.5 L Carbon Dioxide 18 L BUN 49 H Creatinine 4.0 H Glucose 415 H POC Glucose Hemoglobin A1c Lactic Acid Calcium 7.8 L Ferritin AST 46 H Lactate Dehydrogenase C-Reactive Protein Albumin 3.2 L Coronavirus (PCR) Positive A 05/30/20 05/30/20 05/30/20 07:00 07:45 11:39 WBC RDW Lymph % (Auto) Lymph # Seg Neutrophils % D-Dimer Sodium Potassium Chloride Carbon Dioxide BUN Creatinine Glucose POC Glucose 424 H 468 H Hemoglobin A1c 9.7 H Lactic Acid Calcium Ferritin AST Lactate Dehydrogenase C-Reactive Protein Albumin Coronavirus (PCR) 05/30/20 05/31/20 05/31/20 17:11 01:49 08:14 WBC RDW Lymph % (Auto) Lymph # Seg Neutrophils % D-Dimer Sodium Potassium Chloride Carbon Dioxide BUN Creatinine Glucose POC Glucose 475 H 426 H 430 H Hemoglobin A1c Lactic Acid Calcium Ferritin AST Lactate Dehydrogenase C-Reactive Protein Albumin Coronavirus (PCR) 05/31/20 05/31/20 05/31/20 10:17 10:17 10:17 WBC RDW 16.0 H Lymph % (Auto) Lymph # Seg Neutrophils % D-Dimer 704.53 H Sodium 134 L Potassium 5.2 H Chloride 92.9 L Carbon Dioxide BUN 38 H Creatinine 1.6 H D Glucose 556 H* POC Glucose Hemoglobin A1c Lactic Acid Calcium Ferritin AST Lactate Dehydrogenase 676 H C-Reactive Protein 21.30 H Albumin 3.2 L Coronavirus (PCR) 05/31/20 05/31/20 05/31/20 10:17 11:24 16:25 WBC RDW Lymph % (Auto) Lymph # Seg Neutrophils % D-Dimer Sodium Potassium Chloride Carbon Dioxide BUN Creatinine Glucose POC Glucose 482 H 367 H Hemoglobin A1c Lactic Acid Calcium Ferritin 1221.0 H AST Lactate Dehydrogenase C-Reactive Protein Albumin Coronavirus (PCR) 05/31/20 06/01/20 06/01/20 22:52 04:48 04:48 WBC RDW 15.7 H Lymph % (Auto) Lymph # Seg Neutrophils % D-Dimer Sodium 132 L Potassium Chloride 93.3 L Carbon Dioxide BUN 39 H Creatinine 1.4 H Glucose 533 H* POC Glucose 431 H Hemoglobin A1c Lactic Acid Calcium Ferritin AST Lactate Dehydrogenase C-Reactive Protein Albumin Coronavirus (PCR) 06/01/20 06/01/20 06/01/20 07:46 08:46 11:38 WBC RDW Lymph % (Auto) Lymph # Seg Neutrophils % D-Dimer Sodium Potassium Chloride Carbon Dioxide BUN Creatinine Glucose 504 H* POC Glucose 448 H 287 H Hemoglobin A1c Lactic Acid Calcium Ferritin AST Lactate Dehydrogenase C-Reactive Protein Albumin Coronavirus (PCR) 06/01/20 06/01/20 06/02/20 16:27 22:47 07:35 WBC RDW Lymph % (Auto) Lymph # Seg Neutrophils % D-Dimer Sodium Potassium Chloride Carbon Dioxide BUN Creatinine Glucose POC Glucose 298 H 411 H 347 H Hemoglobin A1c Lactic Acid Calcium Ferritin AST Lactate Dehydrogenase C-Reactive Protein Albumin Coronavirus (PCR) 06/02/20 06/02/20 06/02/20 11:53 17:08 22:41 WBC RDW Lymph % (Auto) Lymph # Seg Neutrophils % D-Dimer Sodium Potassium Chloride Carbon Dioxide BUN Creatinine Glucose POC Glucose 406 H 355 H 272 H Hemoglobin A1c Lactic Acid Calcium Ferritin AST Lactate Dehydrogenase C-Reactive Protein Albumin Coronavirus (PCR) 06/03/20 06/03/20 06/03/20 05:14 05:14 08:11 WBC 11.9 H RDW 15.6 H Lymph % (Auto) Lymph # Seg Neutrophils % D-Dimer Sodium Potassium Chloride Carbon Dioxide BUN 44 H Creatinine 1.4 H Glucose 291 H POC Glucose 265 H Hemoglobin A1c Lactic Acid Calcium Ferritin AST Lactate Dehydrogenase C-Reactive Protein Albumin Coronavirus (PCR) 06/03/20 06/03/20 06/03/20 13:32 18:24 21:26 WBC RDW Lymph % (Auto) Lymph # Seg Neutrophils % D-Dimer Sodium Potassium Chloride Carbon Dioxide BUN Creatinine Glucose POC Glucose 309 H 365 H 333 H Hemoglobin A1c Lactic Acid Calcium Ferritin AST Lactate Dehydrogenase C-Reactive Protein Albumin Coronavirus (PCR) 06/04/20 06/04/20 06/04/20 03:41 03:41 03:41 WBC 12.5 H RDW 15.8 H Lymph % (Auto) Lymph # Seg Neutrophils % D-Dimer 541.25 H Sodium Potassium 5.1 H D Chloride Carbon Dioxide BUN 52 H Creatinine 1.8 H Glucose 155 H POC Glucose Hemoglobin A1c Lactic Acid Calcium Ferritin AST Lactate Dehydrogenase 732 H C-Reactive Protein 3.00 H Albumin Coronavirus (PCR) 06/04/20 06/04/20 06/04/20 03:41 07:49 10:54 WBC RDW Lymph % (Auto) Lymph # Seg Neutrophils % D-Dimer Sodium Potassium Chloride Carbon Dioxide BUN Creatinine Glucose POC Glucose 254 H 288 H Hemoglobin A1c Lactic Acid Calcium Ferritin 913.8 H AST Lactate Dehydrogenase C-Reactive Protein Albumin Coronavirus (PCR) 06/04/20 06/04/20 06/05/20 17:11 23:10 05:30 WBC RDW Lymph % (Auto) Lymph # Seg Neutrophils % D-Dimer Sodium 153 H D Potassium Chloride 109.5 H Carbon Dioxide BUN 93 H Creatinine 2.9 H D Glucose 370 H POC Glucose 194 H 268 H Hemoglobin A1c Lactic Acid Calcium Ferritin AST Lactate Dehydrogenase C-Reactive Protein Albumin 3.4 L Coronavirus (PCR)
--- NOTE | 2020-06-05 11:56 | Progress Note ---
Assessment and Plan Cultures: Blood culture 05/29/2020 no growth COVID PCR 05/29/2020 Positive 06/03/2020 blood culture: In process Assessment: 55 years old male with history of diabetes mellitus, congestive heart failure, hypertension, left below-knee amputation, admitted on 05/29/2020 due to 5-day history of cough, fever, malaise, chills and shortness of breath: #Severe sepsis: likely due to bilateral pneumonia. Completed empiric CAP abx. #Severe/Critical COVID pneumonia: Inflammatory markers very elevated, possible cytokine storm. S/P CCP 06/03/2020. On steroids. On Remdesivir. #Acute hypoxemic respiratory failure: on BiPAP/HFNC. #Elevated LFTs: from COVID, mild. #Acute renal failure: worsened again, ?obstructive component. Urology planning SP cath. #Stage III sacral decubitus: Not infected. Per wound care measures 4 x 1 x 0.1 cm, small yellow slough. Recs: renal function decline probably obstruction related, OK to continue IV Remdesivir for now, D2 of 5, d/w pharmacy Continue steroids x 10 days at least S/P CCP 06/03/2020 Alyssa Yang MD, FACP [facility] C: [phone] O: [phone] F: [phone] Subjective Date of service: 06/05/20 Principal diagnosis: Acute Respiratory Failure Secondary to COVID Interval history: Low grade fever. Remains in ICU. On high flow oxygen. Creatinine worsened. Objective - Exam Narrative Exam: Physical Exam (reviewed in chart due to PPE conservation) Constitutional: limited due to PPE conservation strategy Head, Ears, Nose: limited due to PPE conservation strategy Eyes: limited due to PPE conservation strategy Neck: limited due to PPE conservation strategy Oral: limited due to PPE conservation strategy Cardiovascular: limited due to PPE conservation strategy Respiratory: limited due to PPE conservation strategy GI: limited due to PPE conservation strategy Musculoskeletal: limited due to PPE conservation strategy Skin: limited due to PPE conservation strategy Hem/Lymphatic: limited due to PPE conservation strategy Psych: limited due to PPE conservation strategy Neurological: limited due to PPE conservation strategy - Constitutional Vitals: Vital Signs Temp Pulse Resp BP Pulse Ox 98.8 F 74 37 H 103/49 93 06/05/20 08:00 06/05/20 06:04 06/05/20 06:04 06/05/20 06:04 06/05/20 08:18 Temperature -Last 24 Hours Temperature 98.8 F Temperature 98.0 F Temperature 99.9 F Temperature 99.9 F Temperature 100.3 F - Labs CBC & Chem 7: 06/04/20 03:41 06/05/20 05:30 Labs: Abnormal lab results 06/04/20 06/04/20 06/04/20 Range/Units 07:49 10:54 17:11 Sodium (137-145) mmol/L Chloride (98-107) mmol/L BUN (9-20) mg/dL Creatinine (0.8-1.3) mg/dL Glucose (75-100) mg/dL POC Glucose 254 H 288 H 194 H (70-105) Albumin (3.9-5) g/dL 06/04/20 06/05/20 Range/Units 23:10 05:30 Sodium 153 H D (137-145) mmol/L Chloride 109.5 H (98-107) mmol/L BUN 93 H (9-20) mg/dL Creatinine 2.9 H D (0.8-1.3) mg/dL Glucose 370 H (75-100) mg/dL POC Glucose 268 H (70-105) Albumin 3.4 L (3.9-5) g/dL
[2020-06-05] MEDS: INSULIN LISPRO 100 UNIT/ML VIAL 3 mL SUB-Q SCH ×3 (13:19→21:38)
[2020-06-05] MEDS: INSULIN GLARGINE 100 UNITS/ML SUB-Q SCH (13:20)
--- NOTE | 2020-06-05 16:11 | Progress Note ---
Assessment and Plan /Severe sepsis Secondary to COVID pneumonia presented with Elevated lactic acid, tachycardia, elevated procalcitonin /Bilateral COVID 19 pneumonia Repeat COVID test positive, consulted ID Continue steroids, s/p plasmatherapy Given improvement in renal function, started on IV Remdesivir for 5 days, /Acute psychosis with visual and auditory hallucination Resume outpatient medications for depression psych following /Acute respiratory failure with hypoxia Secondary to COVID-19 pneumonia and underlying possible obesity hypoventilation syndrome Patient is on high flow Ventimask/BiPAP alternatively cont nebs and wean off as tolerated /Hyperkalemia secondary to renal failure as needed Kayexalate Monitor electrolytes /Acute kidney injury- likely ATN R/O acute on chronic kidney disease Baseline renal function is not known nephrology consulted, Avoid nephrotoxins Renal ultrasound ordered /Hypertension Blood pressure fair off medication Continue to monitor /Type 2 diabetes mellitus Continue insulin sliding scale coverage hemoglobin A1c 9.7, consistent carb diet /COVID19 + Management as outlined above /CHF (congestive heart failure), combined systolic and diastolic Echocardiogram requested - pending /Morbid obesity, BMI 45.9 Dietary and exercise recommendation when clinically appropriate --DVT prophylaxis On Lovenox and GI prophylaxis The high probability of a clinically significant, sudden or life threatening deterioration of the [pulmonary, renal] system(s) required my full and direct attention, intervention and personal management. The aggregate critical care time was [35] minutes. This time is in addition to time spent performing reported procedures but includes the following: [x] Data Review and interpretation [x] Patient assessment and monitoring of vital signs [x] Documentation [x] Medication orders and management 05/30 patient is a long term resident, alert and oriented and appears moderately short of breath and is on Ventimask Denies any chest pain or palpitations. He does complain of cough Lab results reviewed 05/31: Continues on high flow oxygen. still on High flow oxygen. Pulmonary consulted, ID consulted. COVID +, adjust insulin for better control. 06/01: Remains on High flow, due to severe hypoxemia Consent obtained for convalescent plasma. We will also obtain type and cross for the same. Wean oxygen as tolerated. ID input noted. No indication Remdesivir due to renal failure, renal on board, although renal function beginning to improve we will discuss with ID if we should revisit Remdesivir if renal function continues to improve. Continue ceftriaxone and azithromycin for 5 days. Offloading sacral area and keep area dry per wound care team. Continue anticoagulation. ID added fluconazole. Will adjust insulin therapy and also sliding scale to a higher scale. 06/02: Called and discussed with family patient does have some psychiatric illness will obtain psych consultation due to new onset psychosis. Pulmonary input appreciated. Will proceed with ordering plasma therapy.The assigned patient code is [id number] for plasma transfusion. 06/03: Continues with intermittent confusion, known psych hx, psych team consulted. Continue oxygen therapy, awaiting Plasma therapy. Patient being transferred to ICU due to worsening respiratory status. Psych following. 06/04: Remains on BiPAP, with intermittent confusion, appears slighlty restless, s/p plasma therapy yesterday. cont to wean off from biPAP. planned to start IV Remdesivir for 5 days as renal function improved 06/05; renal function declined, OK to continue IV Remdesivir for now, D2 of 5 per ID. Patient remains on 100% high flow O2/BiPAP alternatively. Continue to wean off from O2 requirement as tolerated. Brief History; 64-year-old man with history of hypertension diabetes congestive heart failure and left below-knee amputation comes in for cough fever and shortness of breath and chills for 5 days. Patient has been tested positive for COVID-19 5 days ago . Patient saturations were 80% on room air which improved to 98% on a nonrebreather. Denies any chest pain. Patient is covid 19 positive and hypoxic. Subjective Date of service: 06/05/20 Principal diagnosis: Acute Respiratory Failure Secondary to COVID Interval history: Patient seen and examined Patient now on high flow nasal cannula Follows command, denies any chest pain Renal function decline today Objective - Exam Narrative Exam: VITAL SIGNS: Reviewed. GENERAL: The patient appears normally developed, morbidly obese vital signs as documented. HEAD: No signs of head trauma. EYES: Pupils are equal. Extraocular motions intact. EARS: Hearing grossly intact. MOUTH: Oropharynx is normal. NECK: No adenopathy, no JVD. CHEST: Chest with diminished breath sounds bilaterally. Increased respiratory rate. No wheezes, rales, or rhonchi. CARDIAC: Regular rate and rhythm. S1 and S2, without murmurs, gallops, or rubs. VASCULAR: No Edema. Peripheral pulses normal and equal in all extremities. ABDOMEN: Soft, non tender and non distended. No rebound or guarding, and no masses palpated. Bowel Sounds normal. MUSCULOSKELETAL: BKA LEFT LOWER EXT. extremities without clubbing, cyanosis or edema. NEUROLOGIC EXAM: Alert and oriented x 1 No focal sensory or strength deficits. Speech normal. Follows commands. PSYCHIATRIC: Mood anxious SKIN: no rash, warm - Constitutional Vitals: Vital Signs - 12hr 06/05/20 06/05/20 06/05/20 06:04 08:00 08:18 Temperature 98.8 F Pulse Rate 74 Respiratory 37 H Rate Blood Pressure 103/49 O2 Sat by Pulse 95 93 Oximetry 06/05/20 06/05/20 12:00 13:45 Temperature 98.1 F Pulse Rate Respiratory Rate Blood Pressure O2 Sat by Pulse 93 Oximetry - Labs CBC & Chem 7: 06/06/20 04:40 06/06/20 05:00 Labs: Abnormal lab results 06/04/20 06/04/20 06/04/20 Range/Units 10:54 17:11 23:10 Sodium (137-145) mmol/L Chloride (98-107) mmol/L BUN (9-20) mg/dL Creatinine (0.8-1.3) mg/dL Glucose (75-100) mg/dL POC Glucose 288 H 194 H 268 H (70-105) Albumin (3.9-5) g/dL 06/05/20 06/05/20 Range/Units 05:30 11:44 Sodium 153 H D (137-145) mmol/L Chloride 109.5 H (98-107) mmol/L BUN 93 H (9-20) mg/dL Creatinine 2.9 H D (0.8-1.3) mg/dL Glucose 370 H (75-100) mg/dL POC Glucose 432 H (70-105) Albumin 3.4 L (3.9-5) g/dL HEART Score - HEART Score Troponin: Troponin T 0.025 ng/mL (0.00-0.029) 05/29/20 15:10
[2020-06-05] MEDS: DULoxetine 30 MG CAP PO SCH (16:37)
[2020-06-05] MEDS: PARoxetine 10 MG TAB PO SCH (16:37)
[2020-06-05] MEDS: FAMOTIDINE 20 MG TAB PO SCH (16:38)
[2020-06-05] MEDS: REMDESIVIR 100 MG in SODIUM CHLORIDE 0.9% 250ML 250 ML IV SCH (21:32)
[2020-06-05] MEDS: SODIUM CHLORIDE 0.9% 50 ML IVPB IV SCH (21:40)
[2020-06-05] MEDS ORDERED: ENOXAPARIN 30 MG/0.3 ML INJ SUB-Q SCH (22:00)
[2020-06-05] MEDS ORDERED: INSULIN GLARGINE 100 UNITS/ML SUB-Q SCH (22:00)
[2020-06-06] MEDS: INSULIN LISPRO 100 UNIT/ML VIAL 3 mL SUB-Q SCH ×7 (01:26→21:19)
[2020-06-06] MEDS: HALOPERIDOL LACTATE 5 MG/1 ML INJ IV SCH ×4 (02:52→21:25)
[2020-06-06 05:07] LABS: Basophils # (Auto) 0.1 K/mm3 (0.0-0.1); Hemoglobin 14.9 gm/dl (11.8-15.2); Lymphocytes # (Auto) 0.7 K/mm3 (1.2-5.4); Lymphocytes % (Auto) 5.4 % (13.4-35.0); Mean Corpuscular HGB Conc 32 % (32-34); Mean Corpuscular Volume 93 fl (84-94); Monocytes # (Auto) 0.8 K/mm3 (0.0-0.8); Monocytes % (Auto) 5.7 % (0.0-7.3); Platelet Count 194 K/mm3 (140-440); Red Blood Count 4.96 M/mm3 (3.65-5.03); Red Cell Distribution Width 16.3 % (13.2-15.2)
[2020-06-06 05:53] LABS: Albumin 3.6 g/dL (3.9-5); Calcium 8.7 mg/dL (8.4-10.2)
[2020-06-06 05:55] LABS: C-Reactive Protein 2.2 mg/dL (0.00-1.30)
[2020-06-06] MEDS: methylPREDNISolone Sod Succinate 40 MG/1 ML INJ IV SCH ×3 (06:33→21:25)
[2020-06-06] MEDS: DEXMEDETOMIDINE 200 MCG in SODIUM CHLORIDE 0.9% 48 ML IV SCH ×4 (07:20→22:01)
--- NOTE | 2020-06-06 08:58 | Event Note ---
Date: 06/06/20 I spoke with regarding cysto whitehead placement in OR Questions answered. She is ok to with proceeding. Gena Starks [phone]
--- NOTE | 2020-06-06 09:27 | Progress Note ---
Assessment and Plan Impression: * Acute kidney injury secondary to prerenal azotemia * Sepsis * Acute hypoxic respiratory failure * COVID 19 Pneumonia * Hyperkalemia - resolved * Type II diabetes mellitus Plan: * SCr increased over baseline but stable c/w yesterday * Monitor lytes and volume status. No acute need for initiation of renal replacement therapy * To OR w/ urology today * Pulm/ID recommendations reviewed * Glycemic control per primary team * Medical management of lytes * Avoid potential nephrotoxins * Dose medications for renal function Subjective Date of service: 06/06/20 Principal diagnosis: Acute Respiratory Failure Secondary to COVID Interval history: Chart, vitals, labs reviewed. Objective - Exam Narrative Exam: In light of PPE conservation strategy, exam deferred. - Vital Signs Vital signs: Vital Signs - 12hr 06/05/20 06/05/20 06/06/20 22:00 22:35 00:00 Temperature 101.1 F H Pulse Rate 77 Pulse Rate [ 77 Apical] Respiratory 28 H Rate Blood Pressure 112/57 O2 Sat by Pulse 98 95 Oximetry 06/06/20 06/06/20 04:00 08:00 Temperature 98.8 F 98.0 F Pulse Rate Pulse Rate [ 82 111 H Apical] Respiratory Rate Blood Pressure O2 Sat by Pulse Oximetry - Lab 06/06/20 04:40 06/06/20 05:00 Most recent lab results Calcium 8.7 mg/dL (8.4-10.2) 06/06/20 05:00 Medications & Allergies - Medications Allergies/Adverse Reactions: Allergies No Known Allergies Allergy (Unverified 05/29/20 15:15) Home Medications: Home Medications Medication Instructions Recorded Confirmed Last Taken Type ARIPiprazole [Aripiprazole] 2 mg PO DAILY 06/02/20 06/02/20 Unknown History Duloxetine HCl 2 tab PO DAILY 06/02/20 06/02/20 Unknown History PARoxetine HCl 10 mg PO DAILY 06/02/20 06/02/20 Unknown History Active Medications: Generic Name Dose Route Start Last Admin Trade Name Freq PRN Reason Stop Dose Admin Acetaminophen 650 mg 05/30/20 00:19 06/04/20 04:50 Tylenol PO 650 mg Q4H PRN Administration Pain MILD(1-3)/Fever >100.5/ESPINOZA Duloxetine HCl 120 mg 06/03/20 13:00 08/19/20 16:37 Cymbalta PO Not Given QDAY LONG Enoxaparin Sodium 30 mg 06/05/20 22:00 06/05/20 21:33 Enoxaparin SUB-Q 30 mg QHS LONG Administration Famotidine 20 mg 06/05/20 10:00 06/05/20 16:38 Pepcid PO Not Given DAILY [facility]1983 Haloperidol Lactate 5 mg 06/03/20 15:07 06/06/20 02:52 Haldol IV 5 mg Q6H LONG Administration Dexmedetomidine HCl 200 mcg/ 50 mls @ 5.9 mls/hr 06/03/20 17:00 06/06/20 07:20 Sodium Chloride IV 0.3 mcg/kg/hr TITRATE LONG 8.85 mls/hr Administration Protocol 0.2 MCG/KG/HR Sodium Chloride 500 mls @ 0 mls/hr 06/03/20 17:00 Nacl 0.9% 500 Ml IV DIRECT LONG As Directed REMDESIVIR 100 mg/ Sodium 250 mls @ 500 mls/hr 06/05/20 21:00 06/05/20 21:32 Chloride IV 06/08/20 21:29 500 mls/hr Q24HR@2100 LONG Administration Insulin Glargine 10 units 06/05/20 12:00 06/05/20 13:20 Lantus SUB-Q 10 units DAILY LONG Administration Insulin Glargine 55 units 06/06/20 22:00 Lantus SUB-Q QHS [facility]1983 Insulin Human Lispro 0 unit 06/05/20 14:00 06/06/20 06:34 Humalog SUB-Q 6 unit Q4HR LONG Administration Protocol Methylprednisolone Sodium Succinate 40 mg 06/04/20 14:00 06/06/20 06:33 Solu-Medrol IV 40 mg Q8HR LONG Administration Ondansetron HCl 4 mg 05/30/20 00:19 05/31/20 17:38 Zofran IV 4 mg Q8H PRN Administration Nausea And Vomiting Paroxetine HCl 10 mg 06/02/20 11:45 06/05/20 16:37 Paxil PO Not Given DAILY LONG Sodium Chloride 10 ml 05/30/20 10:00 06/05/20 21:34 Sodium Chloride Flush Syringe 10 Ml IV 10 ml BID LONG Administration Sodium Chloride 10 ml 05/30/20 00:19 Sodium Chloride Flush Syringe 10 Ml IV PRN PRN LINE FLUSH Sodium Chloride 50 ml 06/04/20 15:00 06/05/20 21:40 Nacl 0.9% IV 06/08/20 21:01 50 ml 2100 LONG Administration
[2020-06-06] MEDS: PARoxetine 10 MG TAB PO SCH (10:14)
[2020-06-06] MEDS: DULoxetine 30 MG CAP PO SCH (10:14)
[2020-06-06] MEDS: FAMOTIDINE 20 MG TAB PO SCH (10:14)
--- NOTE | 2020-06-06 10:30 | Progress Note ---
Assessment and Plan 55 y/o obese male with acute respiratory failure from COVID and acute renal failure. 1. No further lasix therapy 2. OR today for cystoscopy 3. High risk for intubation. 4. Continue IV steroids 5. Did get Remdesivir yesterday, given clinical state will give again today and recheck chemistry tomorrow. ID ok with continuing. 6. Increased lantus given elevated sugars on steroids. cct 31 Subjective Date of service: 06/06/20 Principal diagnosis: Acute Respiratory Failure Secondary to COVID Interval history: No acute events. Still on bipap. Going to OR today for cystoscopy and likely suprapubic catheter. Objective Vital Signs - 12hr 06/05/20 06/06/20 06/06/20 22:35 00:00 04:00 Temperature 101.1 F H 98.8 F Pulse Rate 77 Pulse Rate [ 77 82 Apical] Respiratory 28 H Rate Blood Pressure 112/57 O2 Sat by Pulse 95 Oximetry 06/06/20 08:00 Temperature 98.0 F Pulse Rate Pulse Rate [ 111 H Apical] Respiratory Rate Blood Pressure O2 Sat by Pulse Oximetry Constitutional: lethargic (secondary to precedex), appears uncomfortable Eyes: non-icteric ENT: other (short fat neck) Neck: supple Effort: mildly labored Ascultation: Bilateral: diminished breath sounds Percussion: Bilateral: not dull Cardiovascular: regular rate and rhythm Gastrointestinal: normoactive bowel sounds, soft Extremities: no cyanosis CBC and BMP: 06/06/20 04:40 06/06/20 05:00 ABG, PT/INR, D-dimer: PT/INR, D-dimer PT 14.1 Sec. (12.2-14.9) 06/05/20 10:30 INR 1.08 (0.87-1.13) 06/05/20 10:30 D-Dimer 4258.77 ng/mlDDU (0-234) H 06/06/20 04:40 Abnormal lab findings: Abnormal Labs 05/29/20 05/29/20 05/29/20 13:25 13:25 13:25 WBC Hct RDW 16.4 H Lymph % (Auto) Lymph # Seg Neutrophils % 78.4 H Seg Neutrophils # D-Dimer Sodium 131 L Potassium 5.4 H Chloride 96.2 L Carbon Dioxide 14 L BUN 42 H Creatinine 4.7 H Glucose 121 H POC Glucose Hemoglobin A1c Lactic Acid 2.70 H* Calcium 8.3 L Ferritin AST Lactate Dehydrogenase C-Reactive Protein Albumin Coronavirus (PCR) 05/29/20 05/29/20 05/29/20 13:25 15:10 15:10 WBC Hct RDW Lymph % (Auto) Lymph # Seg Neutrophils % Seg Neutrophils # D-Dimer 1391.41 H Sodium Potassium Chloride Carbon Dioxide BUN Creatinine Glucose 120 H POC Glucose Hemoglobin A1c Lactic Acid Calcium Ferritin AST 54 H Lactate Dehydrogenase 581 H C-Reactive Protein 40.70 H Albumin 2.9 L Coronavirus (PCR) 05/29/20 05/29/20 05/29/20 15:10 15:10 22:55 WBC Hct RDW Lymph % (Auto) Lymph # Seg Neutrophils % Seg Neutrophils # D-Dimer Sodium Potassium Chloride Carbon Dioxide BUN Creatinine Glucose POC Glucose 256 H Hemoglobin A1c Lactic Acid 2.20 H* Calcium Ferritin 1092.0 H AST Lactate Dehydrogenase C-Reactive Protein Albumin Coronavirus (PCR) 05/29/20 05/30/20 05/30/20 Unknown 07:00 07:00 WBC Hct RDW 16.0 H Lymph % (Auto) 7.3 L Lymph # 0.5 L Seg Neutrophils % 88.4 H Seg Neutrophils # D-Dimer Sodium 132 L Potassium 5.9 H Chloride 95.5 L Carbon Dioxide 18 L BUN 49 H Creatinine 4.0 H Glucose 415 H POC Glucose Hemoglobin A1c Lactic Acid Calcium 7.8 L Ferritin AST 46 H Lactate Dehydrogenase C-Reactive Protein Albumin 3.2 L Coronavirus (PCR) Positive A 05/30/20 05/30/20 05/30/20 07:00 07:45 11:39 WBC Hct RDW Lymph % (Auto) Lymph # Seg Neutrophils % Seg Neutrophils # D-Dimer Sodium Potassium Chloride Carbon Dioxide BUN Creatinine Glucose POC Glucose 424 H 468 H Hemoglobin A1c 9.7 H Lactic Acid Calcium Ferritin AST Lactate Dehydrogenase C-Reactive Protein Albumin Coronavirus (PCR) 05/30/20 05/31/20 05/31/20 17:11 01:49 08:14 WBC Hct RDW Lymph % (Auto) Lymph # Seg Neutrophils % Seg Neutrophils # D-Dimer Sodium Potassium Chloride Carbon Dioxide BUN Creatinine Glucose POC Glucose 475 H 426 H 430 H Hemoglobin A1c Lactic Acid Calcium Ferritin AST Lactate Dehydrogenase C-Reactive Protein Albumin Coronavirus (PCR) 05/31/20 05/31/2020 10:17 10:17 10:17 WBC Hct RDW 16.0 H Lymph % (Auto) Lymph # Seg Neutrophils % Seg Neutrophils # D-Dimer 704.53 H Sodium 134 L Potassium 5.2 H Chloride 92.9 L Carbon Dioxide BUN 38 H Creatinine 1.6 H D Glucose 556 H* POC Glucose Hemoglobin A1c Lactic Acid Calcium Ferritin AST Lactate Dehydrogenase 676 H C-Reactive Protein 21.30 H Albumin 3.2 L Coronavirus (PCR) 05/31/20 05/31/20 05/31/20 10:17 11:24 16:25 WBC Hct RDW Lymph % (Auto) Lymph # Seg Neutrophils % Seg Neutrophils # D-Dimer Sodium Potassium Chloride Carbon Dioxide BUN Creatinine Glucose POC Glucose 482 H 367 H Hemoglobin A1c Lactic Acid Calcium Ferritin 1221.0 H AST Lactate Dehydrogenase C-Reactive Protein Albumin Coronavirus (PCR) 05/31/20 06/01/20 06/01/20 22:52 04:48 04:48 WBC Hct RDW 15.7 H Lymph % (Auto) Lymph # Seg Neutrophils % Seg Neutrophils # D-Dimer Sodium 132 L Potassium Chloride 93.3 L Carbon Dioxide BUN 39 H Creatinine 1.4 H Glucose 533 H* POC Glucose 431 H Hemoglobin A1c Lactic Acid Calcium Ferritin AST Lactate Dehydrogenase C-Reactive Protein Albumin Coronavirus (PCR) 06/01/20 06/01/20 06/01/20 07:46 08:46 11:38 WBC Hct RDW Lymph % (Auto) Lymph # Seg Neutrophils % Seg Neutrophils # D-Dimer Sodium Potassium Chloride Carbon Dioxide BUN Creatinine Glucose 504 H* POC Glucose 448 H 287 H Hemoglobin A1c Lactic Acid Calcium Ferritin AST Lactate Dehydrogenase C-Reactive Protein Albumin Coronavirus (PCR) 06/01/20 06/01/20 06/02/20 16:27 22:47 07:35 WBC Hct RDW Lymph % (Auto) Lymph # Seg Neutrophils % Seg Neutrophils # D-Dimer Sodium Potassium Chloride Carbon Dioxide BUN Creatinine Glucose POC Glucose 298 H 411 H 347 H Hemoglobin A1c Lactic Acid Calcium Ferritin AST Lactate Dehydrogenase C-Reactive Protein Albumin Coronavirus (PCR) 06/02/20 06/02/20 06/02/20 11:53 17:08 22:41 WBC Hct RDW Lymph % (Auto) Lymph # Seg Neutrophils % Seg Neutrophils # D-Dimer Sodium Potassium Chloride Carbon Dioxide BUN Creatinine Glucose POC Glucose 406 H 355 H 272 H Hemoglobin A1c Lactic Acid Calcium Ferritin AST Lactate Dehydrogenase C-Reactive Protein Albumin Coronavirus (PCR) 06/03/20 06/03/20 06/03/20 05:14 05:14 08:11 WBC 11.9 H Hct RDW 15.6 H Lymph % (Auto) Lymph # Seg Neutrophils % Seg Neutrophils # D-Dimer Sodium Potassium Chloride Carbon Dioxide BUN 44 H Creatinine 1.4 H Glucose 291 H POC Glucose 265 H Hemoglobin A1c Lactic Acid Calcium Ferritin AST Lactate Dehydrogenase C-Reactive Protein Albumin Coronavirus (PCR) 06/03/20 06/03/20 06/03/20 13:32 18:24 21:26 WBC Hct RDW Lymph % (Auto) Lymph # Seg Neutrophils % Seg Neutrophils # D-Dimer Sodium Potassium Chloride Carbon Dioxide BUN Creatinine Glucose POC Glucose 309 H 365 H 333 H Hemoglobin A1c Lactic Acid Calcium Ferritin AST Lactate Dehydrogenase C-Reactive Protein Albumin Coronavirus (PCR) 06/04/20 06/04/20 06/04/20 03:41 03:41 03:41 WBC 12.5 H Hct RDW 15.8 H Lymph % (Auto) Lymph # Seg Neutrophils % Seg Neutrophils # D-Dimer 541.25 H Sodium Potassium 5.1 H D Chloride Carbon Dioxide BUN 52 H Creatinine 1.8 H Glucose 155 H POC Glucose Hemoglobin A1c Lactic Acid Calcium Ferritin AST Lactate Dehydrogenase 732 H C-Reactive Protein 3.00 H Albumin Coronavirus (PCR) 06/04/20 06/04/20 06/04/20 03:41 07:49 10:54 WBC Hct RDW Lymph % (Auto) Lymph # Seg Neutrophils % Seg Neutrophils # D-Dimer Sodium Potassium Chloride Carbon Dioxide BUN Creatinine Glucose POC Glucose 254 H 288 H Hemoglobin A1c Lactic Acid Calcium Ferritin 913.8 H AST Lactate Dehydrogenase C-Reactive Protein Albumin Coronavirus (PCR) 06/04/20 06/04/20 06/05/20 17:11 23:10 05:30 WBC Hct RDW Lymph % (Auto) Lymph # Seg Neutrophils % Seg Neutrophils # D-Dimer Sodium 153 H D Potassium Chloride 109.5 H Carbon Dioxide BUN 93 H Creatinine 2.9 H D Glucose 370 H POC Glucose 194 H 268 H Hemoglobin A1c Lactic Acid Calcium Ferritin AST Lactate Dehydrogenase C-Reactive Protein Albumin 3.4 L Coronavirus (PCR) 06/05/20 06/05/20 06/05/20 11:44 16:16 18:19 WBC Hct RDW Lymph % (Auto) Lymph # Seg Neutrophils % Seg Neutrophils # D-Dimer Sodium Potassium Chloride Carbon Dioxide BUN Creatinine Glucose POC Glucose 432 H 452 H 458 H Hemoglobin A1c Lactic Acid Calcium Ferritin AST Lactate Dehydrogenase C-Reactive Protein Albumin Coronavirus (PCR) 06/05/20 06/06/20 06/06/20 21:26 02:04 04:00 WBC Hct RDW Lymph % (Auto) Lymph # Seg Neutrophils % Seg Neutrophils # D-Dimer Sodium Potassium Chloride Carbon Dioxide BUN Creatinine Glucose POC Glucose 436 H 372 H Hemoglobin A1c Lactic Acid Calcium Ferritin 1073.0 H AST Lactate Dehydrogenase C-Reactive Protein Albumin Coronavirus (PCR) 06/06/20 06/06/20 06/06/20 04:00 04:40 04:40 WBC 13.6 H Hct 46.0 H RDW 16.3 H Lymph % (Auto) 5.4 L Lymph # 0.7 L Seg Neutrophils % 87.9 H Seg Neutrophils # 11.9 H D-Dimer 4258.77 H Sodium Potassium Chloride Carbon Dioxide BUN Creatinine Glucose POC Glucose Hemoglobin A1c Lactic Acid Calcium Ferritin AST Lactate Dehydrogenase 627 H C-Reactive Protein 2.20 H Albumin Coronavirus (PCR) 06/06/20 06/06/20 05:00 05:36 WBC Hct RDW Lymph % (Auto) Lymph # Seg Neutrophils % Seg Neutrophils # D-Dimer Sodium 157 H Potassium Chloride 115.8 H Carbon Dioxide BUN 110 H Creatinine 2.9 H Glucose 342 H POC Glucose 247 H Hemoglobin A1c Lactic Acid Calcium Ferritin AST Lactate Dehydrogenase C-Reactive Protein Albumin 3.6 L Coronavirus (PCR)
[2020-06-06] MEDS: INSULIN GLARGINE 100 UNITS/ML SUB-Q SCH ×2 (10:32→21:22)
[2020-06-06] MEDS ORDERED: ONDANSETRON 4 MG/2 ML INJ ONE (11:30)
[2020-06-06] MEDS ORDERED: DEXMEDETOMIDINE 200 MCG/2 ML VIAL IV ONE (11:30)
[2020-06-06] MEDS ORDERED: SUCCINYLCHOLINE CHLORIDE 200 MG/10 ML INJ MDV ONE (11:47)
[2020-06-06] MEDS ORDERED: ETOMIDATE 20 MG/10 ML INJ IV ONE (11:47)
[2020-06-06] MEDS ORDERED: fentaNYL 100 MCG/2 ML INJ ONE (11:47)
--- NOTE | 2020-06-06 11:53 | Progress Note ---
Assessment and Plan Cultures: Blood culture 05/29/2020 no growth COVID PCR 05/29/2020 Positive 06/03/2020 blood culture: no growth Assessment: 55 years old male with history of diabetes mellitus, congestive heart failure, hypertension, left below-knee amputation, admitted on 05/29/2020 due to 5-day history of cough, fever, malaise, chills and shortness of breath: #Severe sepsis: likely due to bilateral pneumonia. Completed empiric CAP abx. #Severe/Critical COVID pneumonia: Inflammatory markers very elevated, possible cytokine storm. S/P CCP 06/03/2020. On steroids. On Remdesivir. #Acute hypoxemic respiratory failure: on BiPAP/HFNC. #Elevated LFTs: from COVID, mild. #Acute renal failure: worsened again, ?obstructive component. Urology planning SP cath. #Stage III sacral decubitus: Not infected. Per wound care measures 4 x 1 x 0.1 cm, small yellow slough. Recs: renal function decline probably obstruction related, OK to continue IV Remd esivir for now, D3 of 5, d/w pharmacy Continue steroids x 10 days at least S/P CCP 06/03/2020 Alyssa Yang MD, FACP [facility] C: [phone] O: [phone] F: [phone] Subjective Date of service: 06/06/20 Principal diagnosis: Acute Respiratory Failure Secondary to COVID Interval history: Fever again. Remains in ICU. On high flow oxygen/NIV. Creatinine remains elevated, awaiting whitehead placement in OR Objective - Exam Narrative Exam: Physical Exam (reviewed in chart due to PPE conservation) Constitutional: limited due to PPE conservation strategy Head, Ears, Nose: limited due to PPE conservation strategy Eyes: limited due to PPE conservation strategy Neck: limited due to PPE conservation strategy Oral: limited due to PPE conservation strategy Cardiovascular: limited due to PPE conservation strategy Respiratory: limited due to PPE conservation strategy GI: limited due to PPE conservation strategy Musculoskeletal: limited due to PPE conservation strategy Skin: limited due to PPE conservation strategy Hem/Lymphatic: limited due to PPE conservation strategy Psych: limited due to PPE conservation strategy Neurological: limited due to PPE conservation strategy - Constitutional Vitals: Vital Signs Temp Pulse Resp BP Pulse Ox 98.0 F 111 H 28 H 112/57 95 06/06/20 08:00 06/06/20 08:00 06/05/20 22:35 06/05/20 22:35 06/05/20 22:35 Temperature -Last 24 Hours Temperature 98.0 F Temperature 98.8 F Temperature 101.1 F Temperature 99.8 F Temperature 98.4 F Temperature 98.1 F - Labs CBC & Chem 7: 06/06/20 04:40 06/06/20 05:00 Labs: Abnormal lab results 06/05/20 06/05/20 06/05/20 Range/Units 11:44 16:16 18:19 WBC (4.5-11.0) K/mm3 Hct (35.5-45.6) % RDW (13.2-15.2) % Lymph % (Auto) (13.4-35.0) % Lymph # (1.2-5.4) K/mm3 Seg Neutrophils % (40.0-70.0) % Seg Neutrophils # (1.8-7.7) K/mm3 D-Dimer (0-234) ng/mlDDU Sodium (137-145) mmol/L Chloride (98-107) mmol/L BUN (9-20) mg/dL Creatinine (0.8-1.3) mg/dL Glucose (75-100) mg/dL POC Glucose 432 H 452 H 458 H (70-105) Ferritin (30.0-300.0) ng/mL Lactate Dehydrogenase (91-180) units/L C-Reactive Protein (0.00-1.30) mg/dL Albumin (3.9-5) g/dL 06/05/20 06/06/20 06/06/20 Range/Units 21:26 02:04 04:00 WBC (4.5-11.0) K/mm3 Hct (35.5-45.6) % RDW (13.2-15.2) % Lymph % (Auto) (13.4-35.0) % Lymph # (1.2-5.4) K/mm3 Seg Neutrophils % (40.0-70.0) % Seg Neutrophils # (1.8-7.7) K/mm3 D-Dimer (0-234) ng/mlDDU Sodium (137-145) mmol/L Chloride (98-107) mmol/L BUN (9-20) mg/dL Creatinine (0.8-1.3) mg/dL Glucose (75-100) mg/dL POC Glucose 436 H 372 H (70-105) Ferritin 1073.0 H (30.0-300.0) ng/mL Lactate Dehydrogenase (91-180) units/L C-Reactive Protein (0.00-1.30) mg/dL Albumin (3.9-5) g/dL 06/06/20 06/06/20 06/06/20 Range/Units 04:00 04:40 04:40 WBC 13.6 H (4.5-11.0) K/mm3 Hct 46.0 H (35.5-45.6) % RDW 16.3 H (13.2-15.2) % Lymph % (Auto) 5.4 L (13.4-35.0) % Lymph # 0.7 L (1.2-5.4) K/mm3 Seg Neutrophils % 87.9 H (40.0-70.0) % Seg Neutrophils # 11.9 H (1.8-7.7) K/mm3 D-Dimer 4258.77 H (0-234) ng/mlDDU Sodium (137-145) mmol/L Chloride (98-107) mmol/L BUN (9-20) mg/dL Creatinine (0.8-1.3) mg/dL Glucose (75-100) mg/dL POC Glucose (70-105) Ferritin (30.0-300.0) ng/mL Lactate Dehydrogenase 627 H (91-180) units/L C-Reactive Protein 2.20 H (0.00-1.30) mg/dL Albumin (3.9-5) g/dL 06/06/20 06/06/20 Range/Units 05:00 05:36 WBC (4.5-11.0) K/mm3 Hct (35.5-45.6) % RDW (13.2-15.2) % Lymph % (Auto) (13.4-35.0) % Lymph # (1.2-5.4) K/mm3 Seg Neutrophils % (40.0-70.0) % Seg Neutrophils # (1.8-7.7) K/mm3 D-Dimer (0-234) ng/mlDDU Sodium 157 H (137-145) mmol/L Chloride 115.8 H (98-107) mmol/L BUN 110 H (9-20) mg/dL Creatinine 2.9 H (0.8-1.3) mg/dL Glucose 342 H (75-100) mg/dL POC Glucose 247 H (70-105) Ferritin (30.0-300.0) ng/mL Lactate Dehydrogenase (91-180) units/L C-Reactive Protein (0.00-1.30) mg/dL Albumin 3.6 L (3.9-5) g/dL
[2020-06-06] MEDS ORDERED: LIDOCAINE 2% UROJECT 10 ML JELLY ONE (12:10)
[2020-06-06] MEDS ORDERED: SODIUM CHLORIDE 0.9% 1000 ML 1,000 ML ONE (12:33)
--- NOTE | 2020-06-06 12:45 | Progress Note ---
Assessment and Plan /Severe sepsis Secondary to COVID pneumonia presented with Elevated lactic acid, tachycardia, elevated procalcitonin /Bilateral COVID 19 pneumonia Repeat COVID test positive, consulted ID Continue steroids, s/p plasmatherapy Given improvement in renal function, started on IV Remdesivir for 5 days, /Acute psychosis with visual and auditory hallucination Resume outpatient medications for depression psych following /Acute respiratory failure with hypoxia Secondary to COVID-19 pneumonia and underlying possible obesity hypoventilation syndrome Patient is on high flow Ventimask/BiPAP alternatively cont nebs and wean off as tolerated /Hyperkalemia secondary to renal failure as needed Kayexalate Monitor electrolytes /Acute kidney injury- likely ATN vs postobstructive R/O acute on chronic kidney disease Baseline renal function is not known nephrology consulted, Avoid nephrotoxins Renal ultrasound ordered /dense proximal urethral stricture - unable to place whitehead at bedside - Urology consulted, plan to place whitehead by cysto /Hypertension Blood pressure fair off medication Continue to monitor /Hypernatremia - monitor BMP, initiate 1/2NS /Type 2 diabetes mellitus Continue insulin sliding scale coverage hemoglobin A1c 9.7, consistent carb diet /COVID19 + Management as outlined above /CHF (congestive heart failure), combined systolic and diastolic Echocardiogram requested - pending /Morbid obesity, BMI 45.9 Dietary and exercise recommendation when clinically appropriate --DVT prophylaxis On Lovenox and GI prophylaxis The high probability of a clinically significant, sudden or life threatening deterioration of the [pulmonary, renal] system(s) required my full and direct attention, intervention and personal management. The aggregate critical care time was [35] minutes. 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 He does complain of cough Lab results reviewed 05/31: Continues on high flow oxygen. still on High flow oxygen. Pulmonary c onsulted, ID consulted. COVID +, adjust insulin for better control. 06/01: Remains on High flow, due to severe hypoxemia Consent obtained for convalescent plasma. We will also obtain type and cross for the same. Wean oxygen as tolerated. ID input noted. No indication Remdesivir due to renal fail ure, renal on board, although renal function beginning to improve we will discuss with ID if we should revisit Remdesivir if renal function continues to improve. Continue ceftriaxone and azithromycin for 5 days. Offloading sacral area and keep area dry per wound care team. Continue anticoagulation. ID added fluconazole. Will adjust insulin therapy and also sliding scale to a higher scale. 06/02: Called and discussed with family patient does have some psychiatric illness will obtain psych consultation due to new onset psychosis. Pulmonary input appreciated. Will proceed with ordering plasma therapy.The assigned patient code is [id number] for plasma transfusion. 06/03: Continues with intermittent confusion, known psych hx, psych team consulted. Continue oxygen therapy, awaiting Plasma therapy. Patient being transferred to ICU due to worsening respiratory status. Psych following. 06/04: Remains on BiPAP, with intermittent confusion, appears slighlty restless, s/p plasma therapy yesterday. cont to wean off from biPAP. planned to start IV Remdesivir for 5 days as renal function improved 06/05; renal function declined, OK to continue IV Remdesivir for now, D2 of 5 per ID. Patient remains on 100% high flow O2/BiPAP alternatively. Continue to wean off from O2 requirement as tolerated. 06/06: Continue day 3 of Remdesivir, continue to follow renal function, continue to wean off O2 as tolerated. Prognosis remains guarded. d-dimer significantly elevated - will order VQ scan for possible PE and start on therapeutic AC, cont to monitor. also plan to place whiethead by cysto today Brief History; 64-year-old man with history of hypertension diabetes congestive heart failure and left below-knee amputation comes in for cough fever and shortness of breath and chills for 5 days. Patient has been tested positive for COVID-19 5 days ago. Patient saturations were 80% on room air which improved to 98% on a nonrebreather. Denies any chest pain. Patient is covid 19 positive and hypoxic. Subjective Date of service: 06/06/20 Principal diagnosis: Acute Respiratory Failure Secondary to COVID Interval history: Patient seen and examined Patient now on high flow nasal cannula Follows command, denies any chest pain planned for cystoscopy today Objective - Exam Narrative Exam: VITAL SIGNS: Reviewed. GENERAL: The patient appears normally developed, morbidly obese vital signs as documented. HEAD: No signs of head trauma. EYES: Pupils are equal. Extraocular motions intact. EARS: Hearing grossly intact. MOUTH: Oropharynx is normal. NECK: No adenopathy, no JVD. CHEST: Chest with diminished breath sounds bilaterally. Increased respiratory rate. No wheezes, rales, or rhonchi. CARDIAC: Regular rate and rhythm. S1 and S2, without murmurs, gallops, or rubs. VASCULAR: No Edema. Peripheral pulses normal and equal in all extremities. ABDOMEN: Soft, non tender and non distended. No rebound or guarding, and no masses palpated. Bowel Sounds normal. MUSCULOSKELETAL: BKA LEFT LOWER EXT. extremities without clubbing, cyanosis or edema. NEUROLOGIC EXAM: Alert and oriented x 1 No focal sensory or strength deficits. Speech normal. Follows commands. PSYCHIATRIC: Mood anxious SKIN: no rash, warm - Constitutional Vitals: Vital Signs - 12hr 06/06/20 06/06/20 06/06/20 04:00 08:00 12:00 Temperature 98.8 F 98.0 F Pulse Rate [ 82 111 H 111 H Apical] O2 Sat by Pulse 100 Oximetry - Labs CBC & Chem 7: 06/07/20 06:50 06/07/20 06:50 Labs: Abnormal lab results 06/05/20 06/05/20 06/05/20 Range/Units 16:16 18:19 21:26 WBC (4.5-11.0) K/mm3 Hct (35.5-45.6) % RDW (13.2-15.2) % Lymph % (Auto) (13.4-35.0) % Lymph # (1.2-5.4) K/mm3 Seg Neutrophils % (40.0-70.0) % Seg Neutrophils # (1.8-7.7) K/mm3 D-Dimer (0-234) ng/mlDDU Sodium (137-145) mmol/L Chloride (98-107) mmol/L BUN (9-20) mg/dL Creatinine (0.8-1.3) mg/dL Glucose (75-100) mg/dL POC Glucose 452 H 458 H 436 H (70-105) Ferritin (30.0-300.0) ng/mL Lactate Dehydrogenase (91-180) units/L C-Reactive Protein (0.00-1.30) mg/dL Albumin (3.9-5) g/dL 06/06/20 06/06/20 06/06/20 Range/Units 02:04 04:00 04:00 WBC (4.5-11.0) K/mm3 Hct (35.5-45.6) % RDW (13.2-15.2) % Lymph % (Auto) (13.4-35.0) % Lymph # (1.2-5.4) K/mm3 Seg Neutrophils % (40.0-70.0) % Seg Neutrophils # (1.8-7.7) K/mm3 D-Dimer (0-234) ng/mlDDU Sodium (137-145) mmol/L Chloride (98-107) mmol/L BUN (9-20) mg/dL Creatinine (0.8-1.3) mg/dL Glucose (75-100) mg/dL POC Glucose 372 H (70-105) Ferritin 1073.0 H (30.0-300.0) ng/mL Lactate Dehydrogenase 627 H (91-180) units/L C-Reactive Protein 2.20 H (0.00-1.30) mg/dL Albumin (3.9-5) g/dL 06/06/20 06/06/20 06/06/20 Range/Units 04:40 04:40 05:00 WBC 13.6 H (4.5-11.0) K/mm3 Hct 46.0 H (35.5-45.6) % RDW 16.3 H (13.2-15.2) % Lymph % (Auto) 5.4 L (13.4-35.0) % Lymph # 0.7 L (1.2-5.4) K/mm3 Seg Neutrophils % 87.9 H (40.0-70.0) % Seg Neutrophils # 11.9 H (1.8-7.7) K/mm3 D-Dimer 4258.77 H (0-234) ng/mlDDU Sodium 157 H (137-145) mmol/L Chloride 115.8 H (98-107) mmol/L BUN 110 H (9-20) mg/dL Creatinine 2.9 H (0.8-1.3) mg/dL Glucose 342 H (75-100) mg/dL POC Glucose (70-105) Ferritin (30.0-300.0) ng/mL Lactate Dehydrogenase (91-180) units/L C-Reactive Protein (0.00-1.30) mg/dL Albumin 3.6 L (3.9-5) g/dL 06/06/20 Range/Units 05:36 WBC (4.5-11.0) K/mm3 Hct (35.5-45.6) % RDW (13.2-15.2) % Lymph % (Auto) (13.4-35.0) % Lymph # (1.2-5.4) K/mm3 Seg Neutrophils % (40.0-70.0) % Seg Neutrophils # (1.8-7.7) K/mm3 D-Dimer (0-234) ng/mlDDU Sodium (137-145) mmol/L Chloride (98-107) mmol/L BUN (9-20) mg/dL Creatinine (0.8-1.3) mg/dL Glucose (75-100) mg/dL POC Glucose 247 H (70-105) Ferritin (30.0-300.0) ng/mL Lactate Dehydrogenase (91-180) units/L C-Reactive Protein (0.00-1.30) mg/dL Albumin (3.9-5) g/dL HEART Score - HEART Score Troponin: Troponin T 0.025 ng/mL (0.00-0.029) 05/29/20 15:10
[2020-06-06] MEDS ORDERED: WATER FOR IRRIG STERILE 2000 ML IR ONE (13:00)
[2020-06-06] MEDS ORDERED: LIDOCAINE 2% UROJECT 10 ML JELLY UR ONE (13:00)
--- NOTE | 2020-06-06 13:15 | Post Operative Note ---
Date of procedure: 06/06/20 Pre-op diagnosis: urethral stricture Post-op diagnosis: same Procedure: cysto, urethral dilation, cystogram Anesthesia: ROQUE Surgeon: MARY ANN VIDAL Estimated blood loss: minimal Pathology: none Condition: stable Disposition: PACU
[2020-06-06] MEDS: APIXABAN 5 MG TAB PO SCH ×2 (13:44→21:25)
--- NOTE | 2020-06-06 13:45 | Post Anesthesia Evaluation ---
- Post Anesthesia Evaluation Patient Participated: No Airway Patent: Yes Stable Respiratory Function: Yes (Pt on BiPAP, RT at bed side, Sp02 90%) Nausea/Vomiting: No Temp > 96.8F: Yes Pain Manageable: Yes Adequeate Hydration: Yes Anesthesia Complications: No Block Receding Appropriately: Not Applicable Patient on Ventilator: Yes (Pt not intubated, placed on BiPAP in OR, returned to ICU on BiPAP)
--- NOTE | 2020-06-06 14:24 | Anesthesia Day of Surgery ---
Anesthesia Day of Surgery - Day of Surgery Patient Examined: Yes Patient H&P Reviewed: Yes Patient is NPO: Yes
--- NOTE | 2020-06-06 14:24 | Anesthesia Consultation ---
Anesthesia Consult and Med Hx Date of service: 06/06/20 - Airway Anesthetic Teeth Evaluation: Poor Mental/Hyoid Distance: Inadequate Intubation Access Assessment: Possibly Difficult - Pulmonary Exam CTA: No - Cardiac Exam Cardiac Exam: RRR - Pre-Operative Health Status ASA Pre-Surgery Classification: ASA4 Proposed Anesthetic Plan: MAC - Pulmonary Hx Respiratory Symptoms: Yes (resp. failure 2/2 COVID PNA) SOB: Yes (NIPPV FiO2 1.0) Hx Pneumonia: Yes (COVID+) - Cardiovascular System Hx Hypertension: Yes (hx CHF) Hx Peripheral Vascular Disease: Yes (s/p BKA) - Central Nervous System CVA: No Hx Psychiatric Problems: Yes - Endocrine Hx Renal Disease: Yes (acute renal failure w/ concern for urethral obstruction) Hx Liver Disease: No Hx Insulin Dependent Diabetes: Yes - Hematic Hx Anemia: Yes - Other Systems Hx Obesity: Yes (BMI 45) - Additional Comments Anesthesia Medical History Comments: Patient with severe COVID PNA requiring NIPPV with acute renal failure scheduled for cystoscopy. Currently in ICU with precedex gtt for sedation. Anesthesia consent obtained from , Gena easton. Discussed possibility of post-op mechanical ventilation given ongoing respiratory compromise. Procedure will be performed with OR COVID protocol.
[2020-06-06] MEDS: SODIUM CHLORIDE 0.45% 1000 ML 1,000 ML IV SCH (15:18)
--- NOTE | 2020-06-06 16:53 | Fluoroscopy Report ---
INTRAOPERATIVE FLUOROSCOPY: CYSTOGRAM WITH URETERAL DILATION INDICATION / CLINICAL INFORMATION: URETHRAL STRICTURE. TECHNIQUE: Intraoperative spot images were obtained during the procedure. FINDINGS: Fluoroscopic guidance was provided during the procedure. Catheter was inserted into the bladder. Cyst ogram demonstrates no bladder leak. Fluoroscopy Time: 1.5 minutes. Fluoroscopy Images: 4. Signer Name: Bola Peguero MD Signed: 06/06/2020 4:49 PM Workstation Name: [id number]
--- NOTE | 2020-06-06 16:53 | Operative Report ---
PREOPERATIVE DIAGNOSIS: Urethral stricture. POSTOPERATIVE DIAGNOSIS: Urethral stricture. PROCEDURE: Cystoscopy, urethral dilatation, Ambrose catheter placement, cystogram. SURGEON: Trey Brito MD ANESTHESIA: General. ESTIMATED BLOOD LOSS: Minimal. FLUIDS: Crystalloid. COMPLICATIONS: No complications. INDICATIONS: This 55-year-old gentleman admitted to the hospital for respiratory distress. He was found to be COVID-19 positive. I was consulted for rising creatinine, postvoid residual of 200 mL. Initial creatinine was 1.8. Attempts by nursing staff to place a Ambrose catheter was unsuccessful in the intensive care unit. I attempted Ambrose catheter placement and noted proximal blockage consistent with a urethral stricture. Could slightly dilate the stricture, but not enough to place the catheter. Following day, his creatinine went to 2.8. Discussed with the microarray analyst and other specialties involved. They felt it was prudent to proceed with intervention. I discussed this with his Gena Starks and she agreed. The patient has a left below-knee amputation and has some contractures, so it will be difficult for a dorsal lithotomy as well as he has an increased body mass index. DESCRIPTION OF PROCEDURE: The patient was taken to the operative suite, placed in a supine position. After adequate general anesthesia, we were not able to put him in stirrups, but was able to slightly open his legs to allow rigid scope. He was prepped and draped. Obvious cystoscopy was performed. Distal urethra normal. Proximal urethra had edema and a tight stricture. Multiple attempts to advance the scope into the bladder, there was concern for a false passage. I placed a wire. I was able to dilate his tract with the blue dilators up to 20-[place]. Due to his respiratory status, I just placed a 16-[place] Ambrose catheter with pink urine return. He tolerated the procedure well. If further manipulation was needed, would recommend nephrostomy tubes. The patient was extubated and taken to recovery room. JOB# [id number] [facility]
[2020-06-06] MEDS: REMDESIVIR 100 MG in SODIUM CHLORIDE 0.9% 250ML 250 ML IV SCH (21:18)
[2020-06-06] MEDS: SODIUM CHLORIDE 0.9% 50 ML IVPB IV SCH (21:19)
[2020-06-07] MEDS: INSULIN LISPRO 100 UNIT/ML VIAL 3 mL SUB-Q SCH ×6 (02:12→21:44)
[2020-06-07] MEDS: SODIUM CHLORIDE 0.45% 1000 ML 1,000 ML IV SCH (03:28)
[2020-06-07] MEDS: DEXMEDETOMIDINE 200 MCG in SODIUM CHLORIDE 0.9% 48 ML IV SCH ×2 (05:35→11:08)
[2020-06-07] MEDS: HALOPERIDOL LACTATE 5 MG/1 ML INJ IV SCH ×4 (05:40→21:19)
[2020-06-07] MEDS: methylPREDNISolone Sod Succinate 40 MG/1 ML INJ IV SCH ×3 (05:41→21:19)
[2020-06-07 07:07] LABS: Basophils # (Auto) 0.1 K/mm3 (0.0-0.1); Basophils % (Auto) 0.4 % (0.0-1.8); Hematocrit 47.1 % (35.5-45.6); Hemoglobin 14.7 gm/dl (11.8-15.2); Lymphocytes # (Auto) 0.8 K/mm3 (1.2-5.4); Lymphocytes % (Auto) 6.3 % (13.4-35.0); Mean Corpuscular HGB Conc 31 % (32-34); Mean Corpuscular Volume 96 fl (84-94); Monocytes # (Auto) 0.6 K/mm3 (0.0-0.8); Monocytes % (Auto) 4.5 % (0.0-7.3); Platelet Count 132 K/mm3 (140-440); Red Blood Count 4.91 M/mm3 (3.65-5.03); Red Cell Distribution Width 16.8 % (13.2-15.2)
[2020-06-07 07:21] LABS: Calcium 8.2 mg/dL (8.4-10.2)
--- NOTE | 2020-06-07 07:38 | Progress Note ---
Assessment and Plan 55 y/o obese male with acute respiratory failure from COVID and acute renal failure. 1. No further lasix therapy 2. Will give IV dextrose to help with free water deficit. Also will place Dobb sayda and start feeds with free water flushes. 3. HFNC today. 4. Continue IV steroids, will start wean over the weekend. 5. Continue Remdesivir and renal function is improving. 6. Hopefully will not have to start insulin drip but will if needed. Discussed with pharmacy and nursing. cct 31 Subjective Date of service: 06/07/20 Principal diagnosis: Acute Respiratory Failure Secondary to COVID Interval history: Had cysto done yesterday. Revealed significant stricture. Dilated and catheter placed. Minimal output overnight. Bun and Cr better but Na continues to increase. Needs free water. Objective Vital Signs - 12hr 06/06/20 06/06/20 06/06/20 20:00 20:39 22:00 Temperature 98.9 F Pulse Rate Pulse Rate [ 79 Apical] Respiratory Rate Blood Pressure O2 Sat by Pulse 91 92 75 L Oximetry 06/06/20 06/06/20 06/07/20 22:45 23:25 00:00 Temperature 98.9 F Pulse Rate 67 Pulse Rate [ 67 Apical] Respiratory 27 H Rate Blood Pressure 108/74 O2 Sat by Pulse 95 97 Oximetry 06/07/20 06/07/20 06/07/20 02:00 03:42 03:57 Temperature 98.2 F Pulse Rate 62 Pulse Rate [ Apical] Respiratory 24 Rate Blood Pressure 114/76 O2 Sat by Pulse 95 96 Oximetry 06/07/20 04:00 Temperature Pulse Rate Pulse Rate [ 59 L Apical] Respiratory Rate Blood Pressure O2 Sat by Pulse 93 Oximetry Constitutional: lethargic (secondary to precedex), appears uncomfortable Eyes: non-icteric ENT: other (short fat neck) Neck: supple Effort: mildly labored Ascultation: Bilateral: diminished breath sounds Percussion: Bilateral: not dull Cardiovascular: regular rate and rhythm Gastrointestinal: normoactive bowel sounds, soft Extremities: no cyanosis CBC and BMP: 06/07/20 06:50 06/07/20 06:50 ABG, PT/INR, D-dimer: PT/INR, D-dimer PT 14.1 Sec. (12.2-14.9) 06/05/20 10:30 INR 1.08 (0.87-1.13) 06/05/20 10:30 D-Dimer 4258.77 ng/mlDDU (0-234) H 06/06/20 04:40 Abnormal lab findings: Abnormal Labs 05/29/20 05/29/20 05/29/20 13:25 13:25 13:25 WBC Hct MCV MCHC RDW 16.4 H Plt Count Lymph % (Auto) Lymph # Seg Neutrophils % 78.4 H Seg Neutrophils # D-Dimer Sodium 131 L Potassium 5.4 H Chloride 96.2 L Carbon Dioxide 14 L BUN 42 H Creatinine 4.7 H Glucose 121 H POC Glucose Hemoglobin A1c Lactic Acid 2.70 H* Calcium 8.3 L Ferritin AST Lactate Dehydrogenase C-Reactive Protein Albumin Coronavirus (PCR) 05/29/20 05/29/20 05/29/20 13:25 15:10 15:10 WBC Hct MCV MCHC RDW Plt Count Lymph % (Auto) Lymph # Seg Neutrophils % Seg Neutrophils # D-Dimer 1391.41 H Sodium Potassium Chloride Carbon Dioxide BUN Creatinine Glucose 120 H POC Glucose Hemoglobin A1c Lactic Acid Calcium Ferritin AST 54 H Lactate Dehydrogenase 581 H C-Reactive Protein 40.70 H Albumin 2.9 L Coronavirus (PCR) 05/29/20 05/29/20 05/29/20 15:10 15:10 22:55 WBC Hct MCV MCHC RDW Plt Count Lymph % (Auto) Lymph # Seg Neutrophils % Seg Neutrophils # D-Dimer Sodium Potassium Chloride Carbon Dioxide BUN Creatinine Glucose POC Glucose 256 H Hemoglobin A1c Lactic Acid 2.20 H* Calcium Ferritin 1092.0 H AST Lactate Dehydrogenase C-Reactive Protein Albumin Coronavirus (PCR) 05/29/20 05/30/20 05/30/20 Unknown 07:00 07:00 WBC Hct MCV MCHC RDW 16.0 H Plt Count Lymph % (Auto) 7.3 L Lymph # 0.5 L Seg Neutrophils % 88.4 H Seg Neutrophils # D-Dimer Sodium 132 L Potassium 5.9 H Chloride 95.5 L Carbon Dioxide 18 L BUN 49 H Creatinine 4.0 H Glucose 415 H POC Glucose Hemoglobin A1c Lactic Acid Calcium 7.8 L Ferritin AST 46 H Lactate Dehydrogenase C-Reactive Protein Albumin 3.2 L Coronavirus (PCR) Positive A 05/30/20 05/30/20 05/30/20 07:00 07:45 11:39 WBC Hct MCV MCHC RDW Plt Count Lymph % (Auto) Lymph # Seg Neutrophils % Seg Neutrophils # D-Dimer Sodium Potassium Chloride Carbon Dioxide BUN Creatinine Glucose POC Glucose 424 H 468 H Hemoglobin A1c 9.7 H Lactic Acid Calcium Ferritin AST Lactate Dehydrogenase C-Reactive Protein Albumin Coronavirus (PCR) 05/30/20 05/31/20 05/31/20 17:11 01:49 08:14 WBC Hct MCV MCHC RDW Plt Count Lymph % (Auto) Lymph # Seg Neutrophils % Seg Neutrophils # D-Dimer Sodium Potassium Chloride Carbon Dioxide BUN Creatinine Glucose POC Glucose 475 H 426 H 430 H Hemoglobin A1c Lactic Acid Calcium Ferritin AST Lactate Dehydrogenase C-Reactive Protein Albumin Coronavirus (PCR) 05/31/20 05/31/20 05/31/20 10:17 10:17 10:17 WBC Hct MCV MCHC RDW 16.0 H Plt Count Lymph % (Auto) Lymph # Seg Neutrophils % Seg Neutrophils # D-Dimer 704.53 H Sodium 134 L Potassium 5.2 H Chloride 92.9 L Carbon Dioxide BUN 38 H Creatinine 1.6 H D Glucose 556 H* POC Glucose Hemoglobin A1c Lactic Acid Calcium Ferritin AST Lactate Dehydrogenase 676 H C-Reactive Protein 21.30 H Albumin 3.2 L Coronavirus (PCR) 05/31/20 05/31/20 05/31/20 10:17 11:24 16:25 WBC Hct MCV MCHC RDW Plt Count Lymph % (Auto) Lymph # Seg Neutrophils % Seg Neutrophils # D-Dimer Sodium Potassium Chloride Carbon Dioxide BUN Creatinine Glucose POC Glucose 482 H 367 H Hemoglobin A1c Lactic Acid Calcium Ferritin 1221.0 H AST Lactate Dehydrogenase C-Reactive Protein Albumin Coronavirus (PCR) 05/31/20 06/01/20 06/01/20 22:52 04:48 04:48 WBC Hct MCV MCHC RDW 15.7 H Plt Count Lymph % (Auto) Lymph # Seg Neutrophils % Seg Neutrophils # D-Dimer Sodium 132 L Potassium Chloride 93.3 L Carbon Dioxide BUN 39 H Creatinine 1.4 H Glucose 533 H* POC Glucose 431 H Hemoglobin A1c Lactic Acid Calcium Ferritin AST Lactate Dehydrogenase C-Reactive Protein Albumin Coronavirus (PCR) 06/01/20 06/01/20 06/01/20 07:46 08:46 11:38 WBC Hct MCV MCHC RDW Plt Count Lymph % (Auto) Lymph # Seg Neutrophils % Seg Neutrophils # D-Dimer Sodium Potassium Chloride Carbon Dioxide BUN Creatinine Glucose 504 H* POC Glucose 448 H 287 H Hemoglobin A1c Lactic Acid Calcium Ferritin AST Lactate Dehydrogenase C-Reactive Protein Albumin Coronavirus (PCR) 06/01/20 06/01/20 06/02/20 16:27 22:47 07:35 WBC Hct MCV MCHC RDW Plt Count Lymph % (Auto) Lymph # Seg Neutrophils % Seg Neutrophils # D-Dimer Sodium Potassium Chloride Carbon Dioxide BUN Creatinine Glucose POC Glucose 298 H 411 H 347 H Hemoglobin A1c Lactic Acid Calcium Ferritin AST Lactate Dehydrogenase C-Reactive Protein Albumin Coronavirus (PCR) 06/02/20 06/02/20 06/02/20 11:53 17:08 22:41 WBC Hct MCV MCHC RDW Plt Count Lymph % (Auto) Lymph # Seg Neutrophils % Seg Neutrophils # D-Dimer Sodium Potassium Chloride Carbon Dioxide BUN Creatinine Glucose POC Glucose 406 H 355 H 272 H Hemoglobin A1c Lactic Acid Calcium Ferritin AST Lactate Dehydrogenase C-Reactive Protein Albumin Coronavirus (PCR) 06/03/20 06/03/20 06/03/20 05:14 05:14 08:11 WBC 11.9 H Hct MCV MCHC RDW 15.6 H Plt Count Lymph % (Auto) Lymph # Seg Neutrophils % Seg Neutrophils # D-Dimer Sodium Potassium Chloride Carbon Dioxide BUN 44 H Creatinine 1.4 H Glucose 291 H POC Glucose 265 H Hemoglobin A1c Lactic Acid Calcium Ferritin AST Lactate Dehydrogenase C-Reactive Protein Albumin Coronavirus (PCR) 06/03/20 06/03/20 06/03/20 13:32 18:24 21:26 WBC Hct MCV MCHC RDW Plt Count Lymph % (Auto) Lymph # Seg Neutrophils % Seg Neutrophils # D-Dimer Sodium Potassium Chloride Carbon Dioxide BUN Creatinine Glucose POC Glucose 309 H 365 H 333 H Hemoglobin A1c Lactic Acid Calcium Ferritin AST Lactate Dehydrogenase C-Reactive Protein Albumin Coronavirus (PCR) 06/04/20 06/04/20 06/04/20 03:41 03:41 03:41 WBC 12.5 H Hct MCV MCHC RDW 15.8 H Plt Count Lymph % (Auto) Lymph # Seg Neutrophils % Seg Neutrophils # D-Dimer 541.25 H Sodium Potassium 5.1 H D Chloride Carbon Dioxide BUN 52 H Creatinine 1.8 H Glucose 155 H POC Glucose Hemoglobin A1c Lactic Acid Calcium Ferritin AST Lactate Dehydrogenase 732 H C-Reactive Protein 3.00 H Albumin Coronavirus (PCR) 06/04/20 06/04/20 06/04/20 03:41 07:49 10:54 WBC Hct MCV MCHC RDW Plt Count Lymph % (Auto) Lymph # Seg Neutrophils % Seg Neutrophils # D-Dimer Sodium Potassium Chloride Carbon Dioxide BUN Creatinine Glucose POC Glucose 254 H 288 H Hemoglobin A1c Lactic Acid Calcium Ferritin 913.8 H AST Lactate Dehydrogenase C-Reactive Protein Albumin Coronavirus (PCR) 06/04/20 06/04/20 06/05/20 17:11 23:10 05:30 WBC Hct MCV MCHC RDW Plt Count Lymph % (Auto) Lymph # Seg Neutrophils % Seg Neutrophils # D-Dimer Sodium 153 H D Potassium Chloride 109.5 H Carbon Dioxide BUN 93 H Creatinine 2.9 H D Glucose 370 H POC Glucose 194 H 268 H Hemoglobin A1c Lactic Acid Calcium Ferritin AST Lactate Dehydrogenase C-Reactive Protein Albumin 3.4 L Coronavirus (PCR) 06/05/20 06/05/20 06/05/20 11:44 16:16 18:19 WBC Hct MCV MCHC RDW Plt Count Lymph % (Auto) Lymph # Seg Neutrophils % Seg Neutrophils # D-Dimer Sodium Potassium Chloride Carbon Dioxide BUN Creatinine Glucose POC Glucose 432 H 452 H 458 H Hemoglobin A1c Lactic Acid Calcium Ferritin AST Lactate Dehydrogenase C-Reactive Protein Albumin Coronavirus (PCR) 06/05/20 06/06/20 06/06/20 21:26 02:04 04:00 WBC Hct MCV MCHC RDW Plt Count Lymph % (Auto) Lymph # Seg Neutrophils % Seg Neutrophils # D-Dimer Sodium Potassium Chloride Carbon Dioxide BUN Creatinine Glucose POC Glucose 436 H 372 H Hemoglobin A1c Lactic Acid Calcium Ferritin 1073.0 H AST Lactate Dehydrogenase C-Reactive Protein Albumin Coronavirus (PCR) 06/06/20 06/06/20 06/06/20 04:00 04:40 04:40 WBC 13.6 H Hct 46.0 H MCV MCHC RDW 16.3 H Plt Count Lymph % (Auto) 5.4 L Lymph # 0.7 L Seg Neutrophils % 87.9 H Seg Neutrophils # 11.9 H D-Dimer 4258.77 H Sodium Potassium Chloride Carbon Dioxide BUN Creatinine Glucose POC Glucose Hemoglobin A1c Lactic Acid Calcium Ferritin AST Lactate Dehydrogenase 627 H C-Reactive Protein 2.20 H Albumin Coronavirus (PCR) 06/06/20 06/06/20 06/06/20 05:00 05:36 10:11 WBC Hct MCV MCHC RDW Plt Count Lymph % (Auto) Lymph # Seg Neutrophils % Seg Neutrophils # D-Dimer Sodium 157 H Potassium Chloride 115.8 H Carbon Dioxide BUN 110 H Creatinine 2.9 H Glucose 342 H POC Glucose 247 H 265 H Hemoglobin A1c Lactic Acid Calcium Ferritin AST Lactate Dehydrogenase C-Reactive Protein Albumin 3.6 L Coronavirus (PCR) 06/06/20 06/06/20 06/06/20 14:17 18:43 21:31 WBC Hct MCV MCHC RDW Plt Count Lymph % (Auto) Lymph # Seg Neutrophils % Seg Neutrophils # D-Dimer Sodium Potassium Chloride Carbon Dioxide BUN Creatinine Glucose POC Glucose 324 H 301 H 275 H Hemoglobin A1c Lactic Acid Calcium Ferritin AST Lactate Dehydrogenase C-Reactive Protein Albumin Coronavirus (PCR) 06/07/20 06/07/20 06/07/20 00:26 02:01 05:51 WBC Hct MCV MCHC RDW Plt Count Lymph % (Auto) Lymph # Seg Neutrophils % Seg Neutrophils # D-Dimer Sodium Potassium Chloride Carbon Dioxide BUN Creatinine Glucose POC Glucose 268 H 239 H 212 H Hemoglobin A1c Lactic Acid Calcium Ferritin AST Lactate Dehydrogenase C-Reactive Protein Albumin Coronavirus (PCR) 06/07/20 06/07/20 06:50 06:50 WBC 13.4 H Hct 47.1 H MCV 96 H MCHC 31 L RDW 16.8 H Plt Count 132 L Lymph % (Auto) 6.3 L Lymph # 0.8 L Seg Neutrophils % 88.8 H Seg Neutrophils # 11.9 H D-Dimer Sodium Potassium Chloride 124.7 H Carbon Dioxide BUN 107 H Creatinine 2.4 H Glucose 212 H POC Glucose Hemoglobin A1c Lactic Acid Calcium 8.2 L Ferritin AST Lactate Dehydrogenase C-Reactive Protein Albumin Coronavirus (PCR)
[2020-06-07] MEDS ORDERED: SODIUM BICARBONATE 325 MG TAB FEEDTUBE PRN (08:46)
[2020-06-07] MEDS ORDERED: SIMPLE SYRUP 15 ML FEEDTUBE PRN ×2 (08:46)
[2020-06-07] MEDS ORDERED: LIPASE 10,500/PROTEASE 25,000/AMYLASE 43,750 (UNITS) DR CAP FEEDTUBE PRN (08:46)
[2020-06-07] MEDS: INSULIN GLARGINE 100 UNITS/ML SUB-Q SCH ×2 (09:32→21:43)
[2020-06-07] MEDS: APIXABAN 5 MG TAB PO SCH ×2 (09:34→21:20)
[2020-06-07] MEDS: DEXTROSE 5% IN WATER 1,000 ML IV SCH ×2 (09:35→21:20)
[2020-06-07] MEDS: FAMOTIDINE 20 MG TAB PO SCH (09:35)
[2020-06-07] MEDS: PARoxetine 10 MG TAB PO SCH (10:05)
[2020-06-07] MEDS: DULoxetine 30 MG CAP PO SCH (10:06)
--- NOTE | 2020-06-07 10:47 | Progress Note ---
Assessment and Plan Impression: * Acute kidney injury secondary to prerenal azotemia * Azotemia - secondary to NIR vs steroids * Sepsis * Acute hypoxic respiratory failure * COVID 19 Pneumonia * Hypernatremia * Hyperkalemia - resolved * Type II diabetes mellitus * Urethra stricture --s/p cystoscopy, urethral dilation, cystogram Plan: * SCr w/ slight improvement. Monitor lytes and volume status. No acute need for initiation of renal replacement therapy * Note order for D5W - Na 162 this AM. * Continue 250ml q4h free water * Pulm/ID recommendations reviewed * Steroids/Redemsevir per ID * Recommend holding Cymbalta for now - patient is slow to respond to questions * Glycemic control per primary team * Medical management of lytes * Avoid potential nephrotoxins * Dose medications for renal function Subjective Date of service: 06/07/20 Principal diagnosis: Acute Respiratory Failure Secondary to COVID Interval history: Chart, vitals, labs reviewed. Currently on hi flow oxygen Objective - Vital Signs Vital signs: Vital Signs - 12hr 06/06/20 06/07/20 06/07/20 23:25 00:00 02:00 Temperature 98.9 F Pulse Rate Pulse Rate [ 67 Apical] Respiratory Rate Blood Pressure O2 Sat by Pulse 97 95 Oximetry 06/07/20 06/07/20 06/07/20 03:42 03:57 04:00 Temperature 98.2 F Pulse Rate 62 Pulse Rate [ 59 L Apical] Respiratory 24 Rate Blood Pressure 114/76 O2 Sat by Pulse 96 93 Oximetry 06/07/20 06/07/20 06/07/20 08:00 08:58 09:04 Temperature 97.4 F L Pulse Rate 59 L Pulse Rate [ Apical] Respiratory 26 H Rate Blood Pressure 88/64 O2 Sat by Pulse 93 93 Oximetry - General Appearance General appearance: well-developed, well-nourished EENT: ATNC Respiratory: Present: Decreased Breath Sounds Cardiology: regular, S1S2 Gastrointestinal: obese Integumentary: no rash, warm and dry Musculoskeletal: other (no edema) Psychiatric: cooperative - Lab 06/07/20 06:50 06/07/20 06:50 Most recent lab results Calcium 8.2 mg/dL (8.4-10.2) L 06/07/20 06:50 Medications & Allergies - Medications Allergies/Adverse Reactions: Allergies No Known Allergies Allergy (Unverified 05/29/20 15:15) Home Medications: Home Medications Medication Instructions Recorded Confirmed Last Taken Type ARIPiprazole [Aripiprazole] 2 mg PO DAILY 06/02/20 06/02/20 Unknown History Duloxetine HCl 2 tab PO DAILY 06/02/20 06/02/20 Unknown History PARoxetine HCl 10 mg PO DAILY 06/02/20 06/02/20 Unknown History Active Medications: Generic Name Dose Route Start Last Admin Trade Name Freq PRN Reason Stop Dose Admin Acetaminophen 650 mg 05/30/20 00:19 06/04/20 04:50 Tylenol PO 650 mg Q4H PRN Administration Pain MILD(1-3)/Fever >100.5/ESPINOZA Lipase/Protease/Amylase 1 each 06/07/20 08:[address] 10,500 Unit FEEDTUBE PRN PRN For Clogged Feeding Tube Apixaban 5 mg 06/06/20 13:00 06/07/20 09:34 Eliquis PO 5 mg Q12HR LONG Administration Protocol Duloxetine HCl 120 mg 06/03/20 13:00 06/06/20 10:14 Cymbalta PO Not Given QDAY LONG Famotidine 20 mg 06/05/20 10:00 06/07/20 09:35 Pepcid PO 20 mg DAILY LONG Administration Haloperidol Lactate 5 mg 06/03/20 15:07 06/07/20 09:31 Haldol IV 5 mg Q6H LONG Administration Dexmedetomidine HCl 200 mcg/ 50 mls @ 5.9 mls/hr 06/03/20 17:00 06/07/20 05:35 Sodium Chloride IV 0.3 mcg/kg/hr TITRATE LONG 8.85 mls/hr Administration Protocol 0.2 MCG/KG/HR REMDESIVIR 100 mg/ Sodium 250 mls @ 500 mls/hr 06/05/20 21:00 06/06/20 21:18 Chloride IV 06/08/20 21:29 500 mls/hr Q24HR@2100 LONG Administration Dextrose 1,000 mls @ 75 mls/hr 06/07/20 08:00 06/07/20 09:35 D5w IV 75 mls/hr DIRECT LONG Administration Insulin Glargine 10 units 06/05/20 12:00 06/07/20 09:32 Lantus SUB-Q 10 units DAILY LONG Administration Insulin Glargine 55 units 06/06/20 22:00 06/06/20 21:22 Lantus SUB-Q 55 units QHS LONG Administration Insulin Human Lispro 0 unit 06/05/20 14:00 06/07/20 09:32 Humalog SUB-Q 4 unit Q4HR LONG Administration Protocol Methylprednisolone Sodium Succinate 40 mg 06/04/20 14:00 06/07/20 05:41 Solu-Medrol IV 40 mg Q8HR LONG Administration Ondansetron HCl 4 mg 05/30/20 00:19 05/31/20 17:38 Zofran IV 4 mg Q8H PRN Administration Nausea And Vomiting Paroxetine HCl 10 mg 06/02/20 11:45 06/06/20 10:14 Paxil PO Not Given DAILY LONG Simple Syrup 15 ml 06/07/20 08:46 Simple Syrup FEEDTUBE PRN PRN Hypoglycemia Simple Syrup 30 ml 06/07/20 08:46 Simple Syrup FEEDTUBE PRN PRN Hypoglycemia Sodium Bicarbonate 325 mg 06/07/20 08:46 Sodium Bicarbonate FEEDTUBE PRN PRN For Clogged Feeding Tube Sodium Chloride 10 ml 05/30/20 10:00 06/07/20 10:17 Sodium Chloride Flush Syringe 10 Ml IV 10 ml BID LONG Administration Sodium Chloride 10 ml 05/30/20 00:19 Sodium Chloride Flush Syringe 10 Ml IV PRN PRN LINE FLUSH Sodium Chloride 50 ml 06/04/20 15:00 06/06/20 21:19 Nacl 0.9% IV 06/08/20 21:01 50 ml 2100 LONG Administration
--- NOTE | 2020-06-07 12:25 | Nuclear Medicine Report ---
NUCLEAR MEDICINE PERFUSION LUNG SCAN INDICATION: Possible PE. Dyspnea. TECHNIQUE: 5.0 mCi of Tc-99m MAA were given by IV. COMPARISON: Chest radiograph dated 05/29/2020. FINDINGS: PERFUSION: No significant perfusion defects. ADDITIONAL FINDINGS: None. IMPRESSION: Low probability for pulmonary embolism. A repeat chest radiograph is recommended since the last avail able chest radiograph is from 05/29/2020. Signer Name: Marty Zayas MD Signed: 06/07/2020 12:21 PM Workstation Name: [id number]
--- NOTE | 2020-06-07 13:35 | Progress Note ---
Assessment and Plan Cultures: Blood culture 05/29/2020 no growth COVID PCR 05/29/2020 Positive 06/03/2020 blood culture: no growth Assessment: 55 years old male with history of diabetes mellitus, congestive heart failure, hypertension, left below-knee amputation, admitted on 05/29/2020 due to 5-day history of cough, fever, malaise, chills and shortness of breath: #Severe sepsis: likely due to bilateral pneumonia. Completed empiric CAP abx. #Severe/Critical COVID pneumonia: Inflammatory markers very elevated, possible cytokine storm. S/P CCP 06/03/2020. On steroids. On Remdesivir. #Acute hypoxemic respiratory failure: on BiPAP/HFNC. #Elevated LFTs: from COVID, mild. #Acute renal failure: worsened again, ?obstructive component. Urology planning SP cath. #Stage III sacral decubitus: Not infected. Per wound care measures 4 x 1 x 0.1 cm, small yellow slough. Recs: renal function gradually improving, probably obstruction related, OK to continue IV Remdesivir for now, D4 of 5, d/w pharmacy Continue steroids x 10 days at least S/P CCP 06/03/2020 continue supportive care Alyssa Yang MD, FACP [facility], [place] [facility] ([facility] C: [phone] O: [phone] F: [phone] Subjective Date of service: 06/07/20 Principal diagnosis: Acute Respiratory Failure Secondary to COVID Interval history: No fever. Remains in ICU. On high flow oxygen. Got cystoscopy and stricture dilatation, whitehead placement in OR Objective - Exam Narrative Exam: Physical Exam (reviewed in chart due to PPE conservation) Constitutional: limited due to PPE conservation strategy Head, Ears, Nose: limited due to PPE conservation strategy Eyes: limited due to PPE conservation strategy Neck: limited due to PPE conservation strategy Oral: limited due to PPE conservation strategy Cardiovascular: limited due to PPE conservation strategy Respiratory: limited due to PPE conservation strategy GI: limited due to PPE conservation strategy Musculoskeletal: limited due to PPE conservation strategy Skin: limited due to PPE conservation strategy Hem/Lymphatic: limited due to PPE conservation strategy Psych: limited due to PPE conservation strategy Neurological: limited due to PPE conservation strategy - Constitutional Vitals: Vital Signs Temp Pulse Resp BP Pulse Ox 97.4 F L 73 26 H 88/64 98 08/21/20 08:00 06/07/20 12:00 06/07/20 08:58 06/07/20 08:58 06/07/20 12:00 Temperature -Last 24 Hours Temperature 97.4 F Temperature 98.2 F Temperature 98.9 F Temperature 98.9 F Temperature 97.7 F Temperature 97.8 F - Labs CBC & Chem 7: 06/07/20 06:50 06/07/20 06:50 Labs: Abnormal lab results 06/06/20 06/06/20 06/06/20 Range/Units 14:17 18:43 21:31 WBC (4.5-11.0) K/mm3 Hct (35.5-45.6) % MCV (84-94) fl MCHC (32-34) % RDW (13.2-15.2) % Plt Count (140-440) K/mm3 Lymph % (Auto) (13.4-35.0) % Lymph # (1.2-5.4) K/mm3 Seg Neutrophils % (40.0-70.0) % Seg Neutrophils # (1.8-7.7) K/mm3 Sodium (137-145) mmol/L Chloride (98-107) mmol/L BUN (9-20) mg/dL Creatinine (0.8-1.3) mg/dL Glucose (75-100) mg/dL POC Glucose 324 H 301 H 275 H (70-105) Calcium (8.4-10.2) mg/dL 06/07/20 06/07/20 06/07/20 Range/Units 00:26 02:01 05:51 WBC (4.5-11.0) K/mm3 Hct (35.5-45.6) % MCV (84-94) fl MCHC (32-34) % RDW (13.2-15.2) % Plt Count (140-440) K/mm3 Lymph % (Auto) (13.4-35.0) % Lymph # (1.2-5.4) K/mm3 Seg Neutrophils % (40.0-70.0) % Seg Neutrophils # (1.8-7.7) K/mm3 Sodium (137-145) mmol/L Chloride (98-107) mmol/L BUN (9-20) mg/dL Creatinine (0.8-1.3) mg/dL Glucose (75-100) mg/dL POC Glucose 268 H 239 H 212 H (70-105) Calcium (8.4-10.2) mg/dL 06/07/20 06/07/20 Range/Units 06:50 06:50 WBC 13.4 H (4.5-11.0) K/mm3 Hct 47.1 H (35.5-45.6) % MCV 96 H (84-94) fl MCHC 31 L (32-34) % RDW 16.8 H (13.2-15.2) % Plt Count 132 L (140-440) K/mm3 Lymph % (Auto) 6.3 L (13.4-35.0) % Lymph # 0.8 L (1.2-5.4) K/mm3 Seg Neutrophils % 88.8 H (40.0-70.0) % Seg Neutrophils # 11.9 H (1.8-7.7) K/mm3 Sodium 162 H* (137-145) mmol/L Chloride 124.7 H (98-107) mmol/L BUN 107 H (9-20) mg/dL Creatinine 2.4 H (0.8-1.3) mg/dL Glucose 212 H (75-100) mg/dL POC Glucose (70-105) Calcium 8.2 L (8.4-10.2) mg/dL
--- NOTE | 2020-06-07 14:07 | XRay Report ---
ABDOMEN 1 VIEW(S) INDICATION / CLINICAL INFORMATION: ngt placement. COMPARISON: None available. FINDINGS: TUBES / LINES: Nasogastric tube terminates in the descending duodenum. BOWEL GAS PATTERN: No significant abnormality. FREE AIR / EXTRALUMINAL GAS: None seen. ADDITIONAL FINDINGS: No significant additional findings. IMPRESSION: No significant abnormality. Nasogastric tube as described. Signer Name: Spencer Marie Jr, MD Signed: 06/07/2020 2:03 PM Workstation Name: [id number]
--- NOTE | 2020-06-07 14:15 | Progress Note ---
Assessment and Plan /Severe sepsis Secondary to COVID pneumonia presented with Elevated lactic acid, tachycardia, elevated procalcitonin /Bilateral COVID 19 pneumonia Repeat COVID test positive, consulted ID Continue steroids, s/p plasmatherapy Given improvement in renal function, started on IV Remdesivir for 5 days, /Acute psychosis with visual and auditory hallucination Resume outpatient medications for depression psych following /Acute respiratory failure with hypoxia Secondary to COVID-19 pneumonia and underlying possible obesity hypoventilation syndrome Patient is on high flow Ventimask/BiPAP alternatively cont nebs and wean off as tolerated /Hyperkalemia secondary to renal failure as needed Kayexalate Monitor electrolytes /Acute kidney injury- likely ATN vs postobstructive R/O acute on chronic kidney disease Baseline renal function is not known nephrology consulted, Avoid nephrotoxins Renal ultrasound ordered renal function improving /dense proximal urethral stricture - unable to place whitehead at bedside - Urology consulted, s/p whitehead by cysto /Hypertension Blood pressure fair off medication Continue to monitor /Hypernatremia - Na 162 today - monitor BMP, initiated d5w /Type 2 diabetes mellitus Continue insulin sliding scale coverage hemoglobin A1c 9.7, consistent carb diet /COVID19 + Management as outlined above /CHF (congestive heart failure), combined systolic and diastolic Echocardiogram requested - pending /Morbid obesity, BMI 45.9 Dietary and exercise recommendation when clinically appropriate --DVT prophylaxis On Lovenox and GI prophylaxis The high probability of a clinically significant, sudden or life threatening deterioration of the [pulmonary, renal] system(s) required my full and direct attention, intervention and personal management. The aggregate critical care time was [35] minutes. This time is in addition to time spent performing reported procedures but includes the following: [x] Data Review and interpretation [x] Patient assessment and monitoring of vital signs [x] Documentation [x] Medication orders and management 05/30 patient is a assisted resident, alert and oriented and appears moderately short of breath and is on Ventimask Denies any chest pain or palpitations. He does complain of cough Lab results reviewed 05/31: Continues on high flow oxygen. still on High flow oxygen. Pulmonary consulted, ID consulted. COVID +, adjust insulin for better control. 06/01: Remains on High flow, due to severe hypoxemia Consent obtained for convalescent plasma. We will also obtain type and cross for the same. Wean oxygen as tolerated. ID input noted. No indication Remdesivir due to renal failure, renal on board, although renal function beginning to improve we will discuss with ID if we should revisit Remdesivir if renal function continues to improve. Continue ceftriaxone and azithromycin for 5 days. Offloading sacral area and keep area dry per wound care team. Continue anticoagulation. ID added fluconazole. Will adjust insulin therapy and also sliding scale to a higher scale. 06/02: Called and discussed with family patient does have some psychiatric illness will obtain psych consultation due to new onset psychosis. Pulmonary input appreciated. Will proceed with ordering plasma therapy.The assigned patient code is [id number] for plasma transfusion. 06/03: Continues with intermittent confusion, known psych hx, psych team consulted. Continue oxygen therapy, awaiting Plasma therapy. Patient being transferred to ICU due to worsening respiratory status. Psych following. 06/04: Remains on BiPAP, with intermittent confusion, appears slighlty restless, s/p plasma therapy yesterday. cont to wean off from biPAP. planned to start IV Remdesivir for 5 days as renal function improved 06/05; renal function declined, OK to continue IV Remdesivir for now, D2 of 5 per ID. Patient remains on 100% high flow O2/BiPAP alternatively. Continue to wean off from O2 requirement as tolerated. 06/06: Continue day 3 of Remdesivir, continue to follow renal function, continue to wean off O2 as tolerated. Prognosis remains guarded. d-dimer significantly elevated - will order VQ scan for possible PE and start on therapeutic AC, cont to monitor. also plan to place whitehead by cysto today 06/07: Na 162 today, placed on d5w, cont to monitor. Cr slightly improved Brief History; 64-year-old man with history of hypertension diabetes congestive heart failure and left below-knee amputation comes in for cough fever and shortness of breath and chills for 5 days. Patient has been tested positive for COVID-19 5 days ago. Patient saturations were 80% on room air which improved to 98% on a nonrebreather. Denies any chest pain. Patient is covid 19 positive and hypoxic. Subjective Date of service: 06/07/20 Principal diagnosis: Acute Respiratory Failure Secondary to COVID Interval history: Patient seen and examined Patient now on high flow nasal cannula - 85% fio2 Follows command, denies any chest pain Objective - Exam Narrative Exam: VITAL SIGNS: Reviewed. GENERAL: The patient appears normally developed, morbidly obese vital signs as documented. HEAD: No signs of head trauma. EYES: Pupils are equal. Extraocular motions intact. EARS: Hearing grossly intact. MOUTH: Oropharynx is normal. NECK: No adenopathy, no JVD. CHEST: Chest with diminished breath sounds bilaterally. Increased respiratory rate. No wheezes, rales, or rhonchi. CARDIAC: Regular rate and rhythm. S1 and S2, without murmurs, gallops, or rubs. VASCULAR: No Edema. Peripheral pulses normal and equal in all extremities. ABDOMEN: Soft, non tender and non distended. No rebound or guarding, and no masses palpated. Bowel Sounds normal. MUSCULOSKELETAL: BKA LEFT LOWER EXT. extremities without clubbing, cyanosis or edema. NEUROLOGIC EXAM: Alert and oriented x 1 No focal sensory or strength deficits. Speech normal. Follows commands. PSYCHIATRIC: Mood anxious SKIN: no rash, warm - Constitutional Vitals: Vital Signs - 12hr 06/07/20 06/07/20 06/07/20 03:42 03:57 04:00 Temperature 98.2 F Pulse Rate 62 Pulse Rate [ 59 L Apical] Respiratory 24 Rate Blood Pressure 114/76 O2 Sat by Pulse 96 93 Oximetry 06/07/20 06/07/20 06/07/20 08:00 08:58 09:04 Temperature 97.4 F L Pulse Rate 59 L Pulse Rate [ 59 L Apical] Respiratory 26 H Rate Blood Pressure 88/64 O2 Sat by Pulse 91 93 93 Oximetry 06/07/20 06/07/20 11:38 12:00 Temperature Pulse Rate Pulse Rate [ 73 Apical] Respiratory Rate Blood Pressure O2 Sat by Pulse 99 98 Oximetry - Labs CBC & Chem 7: 06/08/20 06:35 06/08/20 06:35 Labs: Abnormal lab results 06/06/20 06/06/20 06/06/20 Range/Units 14:17 18:43 21:31 WBC (4.5-11.0) K/mm3 Hct (35.5-45.6) % MCV (84-94) fl MCHC (32-34) % RDW (13.2-15.2) % Plt Count (140-440) K/mm3 Lymph % (Auto) (13.4-35.0) % Lymph # (1.2-5.4) K/mm3 Seg Neutrophils % (40.0-70.0) % Seg Neutrophils # (1.8-7.7) K/mm3 Sodium (137-145) mmol/L Chloride (98-107) mmol/L BUN (9-20) mg/dL Creatinine (0.8-1.3) mg/dL Glucose (75-100) mg/dL POC Glucose 324 H 301 H 275 H (70-105) Calcium (8.4-10.2) mg/dL 06/07/20 06/07/20 06/07/20 Range/Units 00:26 02:01 05:51 WBC (4.5-11.0) K/mm3 Hct (35.5-45.6) % MCV (84-94) fl MCHC (32-34) % RDW (13.2-15.2) % Plt Count (140-440) K/mm3 Lymph % (Auto) (13.4-35.0) % Lymph # (1.2-5.4) K/mm3 Seg Neutrophils % (40.0-70.0) % Seg Neutrophils # (1.8-7.7) K/mm3 Sodium (137-145) mmol/L Chloride (98-107) mmol/L BUN (9-20) mg/dL Creatinine (0.8-1.3) mg/dL Glucose (75-100) mg/dL POC Glucose 268 H 239 H 212 H (70-105) Calcium (8.4-10.2) mg/dL 06/07/20 06/07/20 Range/Units 06:50 06:50 WBC 13.4 H (4.5-11.0) K/mm3 Hct 47.1 H (35.5-45.6) % MCV 96 H (84-94) fl MCHC 31 L (32-34) % RDW 16.8 H (13.2-15.2) % Plt Count 132 L (140-440) K/mm3 Lymph % (Auto) 6.3 L (13.4-35.0) % Lymph # 0.8 L (1.2-5.4) K/mm3 Seg Neutrophils % 88.8 H (40.0-70.0) % Seg Neutrophils # 11.9 H (1.8-7.7) K/mm3 Sodium 162 H* (137-145) mmol/L Chloride 124.7 H (98-107) mmol/L BUN 107 H (9-20) mg/dL Creatinine 2.4 H (0.8-1.3) mg/dL Glucose 212 H (75-100) mg/dL POC Glucose (70-105) Calcium 8.2 L (8.4-10.2) mg/dL HEART Score - HEART Score Troponin: Troponin T 0.025 ng/mL (0.00-0.029) 05/29/20 15:10
[2020-06-07] MEDS: DEXMEDETOMIDINE 400 MCG in SODIUM CHLORIDE 0.9% 100 ML IV SCH (17:58)
[2020-06-07] MEDS: REMDESIVIR 100 MG in SODIUM CHLORIDE 0.9% 250ML 250 ML IV SCH (21:21)
[2020-06-07] MEDS: SODIUM CHLORIDE 0.9% 50 ML IVPB IV SCH (21:21)
[2020-06-08] MEDS: INSULIN LISPRO 100 UNIT/ML VIAL 3 mL SUB-Q SCH ×6 (02:34→22:41)
[2020-06-08] MEDS: HALOPERIDOL LACTATE 5 MG/1 ML INJ IV SCH ×4 (02:34→22:01)
--- NOTE | 2020-06-08 05:45 | XRay Report ---
ABDOMEN 1 VIEW(S) INDICATION / CLINICAL INFORMATION: Nasogastric tube placement. COMPARISON: Abdominal radiograph, 06/07/2020 FINDINGS: The patient is significantly rotated. TUBES / LINES: There has been placement of esophagogastric tube with distal tip and sidehole overlyin g the expected position of the gastroesophageal junction BOWEL GAS PATTERN: The bowel gas pattern is not well visualized secondary to patient positioning. IMPRESSION: 1. Placement of esophagogastric tube with distal tip projecting in the expected position of the gastr oesophageal junction. The tube would need to be advanced for optimal positioning. A repeat radiograph would also be helpful given that the patient is significantly rotated on today's study. Signer Name: Samreen Chua MD Signed: 06/08/2020 5:41 AM Workstation Name: [id number]
[2020-06-08] MEDS: methylPREDNISolone Sod Succinate 40 MG/1 ML INJ IV SCH ×3 (06:19→22:00)
[2020-06-08 06:59] LABS: Basophils % (Auto) 0.3 % (0.0-1.8); Eosinophils % (Auto) 0.1 % (0.0-4.3); Hematocrit 45.8 % (35.5-45.6); Hemoglobin 14.4 gm/dl (11.8-15.2); Lymphocytes # (Auto) 0.9 K/mm3 (1.2-5.4); Lymphocytes % (Auto) 6.3 % (13.4-35.0); Mean Corpuscular HGB Conc 31 % (32-34); Mean Corpuscular Volume 94 fl (84-94); Monocytes # (Auto) 0.6 K/mm3 (0.0-0.8); Monocytes % (Auto) 4.3 % (0.0-7.3); Platelet Count 110 K/mm3 (140-440); Red Blood Count 4.86 M/mm3 (3.65-5.03); Red Cell Distribution Width 16.7 % (13.2-15.2)
[2020-06-08 07:26] LABS: Albumin 2.8 g/dL (3.9-5); C-Reactive Protein 1.5 mg/dL (0.00-1.30); Calcium 8.3 mg/dL (8.4-10.2)
[2020-06-08] MEDS: DEXMEDETOMIDINE 400 MCG in SODIUM CHLORIDE 0.9% 100 ML IV SCH ×2 (08:30→22:04)
[2020-06-08] MEDS: DEXTROSE 5% IN WATER 1,000 ML IV SCH ×2 (09:36→21:59)
[2020-06-08] MEDS: INSULIN GLARGINE 100 UNITS/ML SUB-Q SCH ×2 (09:37→22:00)
[2020-06-08] MEDS: APIXABAN 5 MG TAB PO SCH ×2 (09:38→22:00)
[2020-06-08] MEDS: PARoxetine 10 MG TAB PO SCH (09:38)
[2020-06-08] MEDS: FAMOTIDINE 20 MG TAB PO SCH (09:38)
--- NOTE | 2020-06-08 09:58 | Progress Note ---
Assessment and Plan Cultures: Blood culture 05/29/2020 no growth COVID PCR 05/29/2020 Positive 06/03/2020 blood culture: no growth Assessment: 55 years old male with history of diabetes mellitus, congestive heart failure, hypertension, left below-knee amputation, admitted on 05/29/2020 due to 5-day history of cough, fever, malaise, chills and shortness of breath: #Severe sepsis: likely due to bilateral pneumonia. Completed empiric CAP abx. #Severe/Critical COVID pneumonia: Inflammatory markers very elevated, possible cytokine storm. S/P CCP 06/03/2020. On steroids. On Remdesivir. #Acute hypoxemic respiratory failure: on BiPAP/HFNC. #Elevated LFTs: from COVID, mild. #Acute renal failure: ?obstructive. Now with whitehead placement in OR. Improving. #Stage III sacral decubitus: Not infected. Per wound care measures 4 x 1 x 0.1 cm, small yellow slough. Recs: renal function improving, likely obstruction related, OK to continue IV Remdesivir D5 of 5 today Continue steroids x 10 days at least S/P CCP 06/03/2020 continue supportive care and oxygen weaning Alyssa Yang MD, FACP [facility] ([facility]) C: [phone] O: [phone] F: [phone] Subjective Date of service: 06/08/20 Principal diagnosis: Acute Respiratory Failure Secondary to COVID Interval history: No fever. Remains in ICU. On high flow oxygen. Creatinine downtrending. Objective - Exam Narrative Exam: Physical Exam (reviewed in chart due to PPE conservation) Constitutional: limited due to PPE conservation strategy Head, Ears, Nose: limited due to PPE conservation strategy Eyes: limited due to PPE conservation strategy Neck: limited due to PPE conservation strategy Oral: limited due to PPE conservation strategy Cardiovascular: limited due to PPE conservation strategy Respiratory: limited due to PPE conservation strategy GI: limited due to PPE conservation strategy Musculoskeletal: limited due to PPE conservation strategy Skin: limited due to PPE conservation strategy Hem/Lymphatic: limited due to PPE conservation strategy Psych: limited due to PPE conservation strategy Neurological: limited due to PPE conservation strategy - Constitutional Vitals: Vital Signs Temp Pulse Resp BP Pulse Ox 98.4 F 90 26 H 88/64 94 06/08/20 08:00 06/08/20 04:00 06/07/20 08:58 06/07/20 08:58 06/08/20 08:52 Temperature -Last 24 Hours Temperature 98.4 F Temperature 97.8 F Temperature 97.5 F Temperature 98.1 F Temperature 97.1 F Temperature 97.1 F - Labs CBC & Chem 7: 06/08/20 06:35 06/08/20 06:35 Labs: Abnormal lab results 06/07/20 06/07/20 06/07/20 Range/Units 09:42 13:35 14:30 WBC (4.5-11.0) K/mm3 Hct (35.5-45.6) % MCHC (32-34) % RDW (13.2-15.2) % Plt Count (140-440) K/mm3 Lymph % (Auto) (13.4-35.0) % Lymph # (1.2-5.4) K/mm3 Seg Neutrophils % (40.0-70.0) % Seg Neutrophils # (1.8-7.7) K/mm3 D-Dimer (0-234) ng/mlDDU Sodium (137-145) mmol/L Chloride (98-107) mmol/L Carbon Dioxide (22-30) mmol/L BUN (9-20) mg/dL Creatinine (0.8-1.3) mg/dL Glucose (75-100) mg/dL POC Glucose 192 H 192 H 184 H (70-105) Calcium (8.4-10.2) mg/dL Lactate Dehydrogenase (91-180) units/L C-Reactive Protein (0.00-1.30) mg/dL Albumin (3.9-5) g/dL 06/07/20 06/07/20 06/08/20 Range/Units 17:20 21:47 00:08 WBC (4.5-11.0) K/mm3 Hct (35.5-45.6) % MCHC (32-34) % RDW (13.2-15.2) % Plt Count (140-440) K/mm3 Lymph % (Auto) (13.4-35.0) % Lymph # (1.2-5.4) K/mm3 Seg Neutrophils % (40.0-70.0) % Seg Neutrophils # (1.8-7.7) K/mm3 D-Dimer (0-234) ng/mlDDU Sodium (137-145) mmol/L Chloride (98-107) mmol/L Carbon Dioxide (22-30) mmol/L BUN (9-20) mg/dL Creatinine (0.8-1.3) mg/dL Glucose (75-100) mg/dL POC Glucose 165 H 299 H 335 H (70-105) Calcium (8.4-10.2) mg/dL Lactate Dehydrogenase (91-180) units/L C-Reactive Protein (0.00-1.30) mg/dL Albumin (3.9-5) g/dL 06/08/20 06/08/20 06/08/20 Range/Units 02:02 06:33 06:35 WBC (4.5-11.0) K/mm3 Hct (35.5-45.6) % MCHC (32-34) % RDW (13.2-15.2) % Plt Count (140-440) K/mm3 Lymph % (Auto) (13.4-35.0) % Lymph # (1.2-5.4) K/mm3 Seg Neutrophils % (40.0-70.0) % Seg Neutrophils # (1.8-7.7) K/mm3 D-Dimer 2645.35 H (0-234) ng/mlDDU Sodium (137-145) mmol/L Chloride (98-107) mmol/L Carbon Dioxide (22-30) mmol/L BUN (9-20) mg/dL Creatinine (0.8-1.3) mg/dL Glucose (75-100) mg/dL POC Glucose 342 H 242 H (70-105) Calcium (8.4-10.2) mg/dL Lactate Dehydrogenase (91-180) units/L C-Reactive Protein (0.00-1.30) mg/dL Albumin (3.9-5) g/dL 06/08/20 06/08/20 Range/Units 06:35 06:35 WBC 13.6 H (4.5-11.0) K/mm3 Hct 45.8 H (35.5-45.6) % MCHC 31 L (32-34) % RDW 16.7 H (13.2-15.2) % Plt Count 110 L (140-440) K/mm3 Lymph % (Auto) 6.3 L (13.4-35.0) % Lymph # 0.9 L (1.2-5.4) K/mm3 Seg Neutrophils % 89.0 H (40.0-70.0) % Seg Neutrophils # 12.1 H (1.8-7.7) K/mm3 D-Dimer (0-234) ng/mlDDU Sodium 153 H D (137-145) mmol/L Chloride 117.0 H (98-107) mmol/L Carbon Dioxide 19 L (22-30) mmol/L BUN 84 H (9-20) mg/dL Creatinine 1.8 H (0.8-1.3) mg/dL Glucose 268 H (75-100) mg/dL POC Glucose (70-105) Calcium 8.3 L (8.4-10.2) mg/dL Lactate Dehydrogenase 679 H (91-180) units/L C-Reactive Protein 1.50 H (0.00-1.30) mg/dL Albumin 2.8 L (3.9-5) g/dL
--- NOTE | 2020-06-08 12:09 | Progress Note ---
Assessment and Plan Impression: * Acute kidney injury secondary to prerenal azotemia * Azotemia - secondary to NIR vs steroids * Sepsis * Acute hypoxic respiratory failure * COVID 19 Pneumonia * Hypernatremia * Hyperkalemia - resolved * Type II diabetes mellitus * Urethra stricture --s/p cystoscopy, urethral dilation, cystogram Plan: * Renal function is stable - SCr trending down. Monitor lytes and volume status. No acute need for initiation of renal replacement therapy * Continue D5W and 250ml q4h free water * Pulm/ID recommendations reviewed * Steroids/Redemsevir per ID * Hold Cymbalta for now * Glycemic control per primary team * Medical management of lytes * Avoid potential nephrotoxins * Dose medications for renal function Subjective Date of service: 06/08/20 Principal diagnosis: Acute Respiratory Failure Secondary to COVID Interval history: Chart, vitals, labs reviewed Objective - Exam Narrative Exam: In light of PPE conservation strategy, exam deferred. - Vital Signs Vital signs: Vital Signs - 12hr 06/08/20 06/08/20 06/08/20 03:24 03:31 04:00 Temperature 97.8 F Pulse Rate [ 90 Apical] Pulse Rate [ 69 Left Popliteal] O2 Sat by Pulse 94 98 Oximetry 06/08/20 06/08/20 08:00 08:52 Temperature 98.4 F Pulse Rate [ 64 Apical] Pulse Rate [ 64 Left Popliteal] O2 Sat by Pulse 98 94 Oximetry - Lab 06/08/20 06:35 06/08/20 06:35 Most recent lab results Calcium 8.3 mg/dL (8.4-10.2) L 06/08/20 06:35 Medications & Allergies - Medications Allergies/Adverse Reactions: Allergies No Known Allergies Allergy (Unverified 05/29/20 15:15) Home Medications: Home Medications Medication Instructions Recorded Confirmed Last Taken Type ARIPiprazole [Aripiprazole] 2 mg PO DAILY 06/02/20 06/02/20 Unknown History Duloxetine HCl 2 tab PO DAILY 06/02/20 06/02/20 Unknown History PARoxetine HCl 10 mg PO DAILY 06/02/20 06/02/20 Unknown History Active Medications: Generic Name Dose Route Start Last Admin Trade Name Freq PRN Reason Stop Dose Admin Acetaminophen 650 mg 05/30/20 00:19 06/04/20 04:50 Tylenol PO 650 mg Q4H PRN Administration Pain MILD(1-3)/Fever >100.5/ESPINOZA Lipase/Protease/Amylase 1 each 06/07/20 08:46 Pancrecamacho Bruner 10,500 Unit FEEDTUBE PRN PRN For Clogged Feeding Tube Apixaban 5 mg 06/06/20 13:00 06/08/20 09:38 Eliquis PO 5 mg Q12HR LONG Administration Protocol Famotidine 20 mg 06/05/20 10:00 06/08/20 09:38 Pepcid PO 20 mg DAILY LONG Administration Haloperidol Lactate 5 mg 06/03/20 15:07 06/08/20 09:39 Haldol IV 5 mg Q6H LONG Administration REMDESIVIR 100 mg/ Sodium 250 mls @ 500 mls/hr 06/05/20 21:00 06/07/20 21:21 Chloride IV 06/08/20 21:29 500 mls/hr Q24HR@2100 LONG Administration Dextrose 1,000 mls @ 75 mls/hr 06/07/20 08:00 06/08/20 09:36 D5w IV 75 mls/hr DIRECT LONG Administration Dexmedetomidine HCl 400 mcg/ 104 mls @ 6.302 mls/hr 06/07/20 15:00 06/08/20 08:30 Sodium Chloride IV 0.3 mcg/kg/hr TITRATE LONG 9.454 mls/hr Administration Protocol 0.2 MCG/KG/HR Insulin Glargine 10 units 06/05/20 12:00 06/08/20 09:37 Lantus SUB-Q 10 units DAILY LONG Administration Insulin Glargine 55 units 06/06/20 22:00 06/07/20 21:43 Lantus SUB-Q 55 units QHS LONG Administration Insulin Human Lispro 0 unit 06/05/20 14:00 06/08/20 09:37 Humalog SUB-Q 4 unit Q4HR LONG Administration Protocol Methylprednisolone Sodium Succinate 40 mg 06/04/20 14:00 06/08/20 06:19 Solu-Medrol IV 40 mg Q8HR LONG Administration Ondansetron HCl 4 mg 05/30/20 00:19 05/31/20 17:38 Zofran IV 4 mg Q8H PRN Administration Nausea And Vomiting Paroxetine HCl 10 mg 06/02/20 11:45 06/08/20 09:38 Paxil PO 10 mg DAILY LONG Administration Simple Syrup 15 ml 06/07/20 08:46 Simple Syrup FEEDTUBE PRN PRN Hypoglycemia Simple Syrup 30 ml 06/07/20 08:46 Simple Syrup FEEDTUBE PRN PRN Hypoglycemia Sodium Bicarbonate 325 mg 06/07/20 08:46 Sodium Bicarbonate FEEDTUBE PRN PRN For Clogged Feeding Tube Sodium Chloride 10 ml 05/30/20 10:00 06/08/20 09:39 Sodium Chloride Flush Syringe 10 Ml IV 10 ml BID LONG Administration Sodium Chloride 10 ml 05/30/20 00:19 Sodium Chloride Flush Syringe 10 Ml IV PRN PRN LINE FLUSH Sodium Chloride 50 ml 06/04/20 15:00 06/07/20 21:21 Nacl 0.9% IV 06/08/20 21:01 50 ml 2100 LONG Administration
--- NOTE | 2020-06-08 16:57 | Progress Note ---
Assessment and Plan /Severe sepsis Secondary to COVID pneumonia presented with Elevated lactic acid, tachycardia, elevated procalcitonin /Bilateral COVID 19 pneumonia Repeat COVID test positive, consulted ID Continue steroids, s/p plasmatherapy Given improvement in renal function, started on IV Remdesivir for 5 days, /Acute psychosis with visual and auditory hallucination Resume outpatient medications for depression psych following /Acute respiratory failure with hypoxia Secondary to COVID-19 pneumonia and underlying possible obesity hypoventilation syndrome Patient is on high flow Ventimask/BiPAP alternatively cont nebs and wean off as tolerated /Hyperkalemia secondary to renal failure as needed Kayexalate Monitor electrolytes /Acute kidney injury- likely ATN vs postobstructive R/O acute on chronic kidney disease Baseline renal function is not known nephrology consulted, Avoid nephrotoxins Renal ultrasound ordered renal function improving /dense proximal urethral stricture - unable to place whitehead at bedside - Urology consulted, s/p whitehead by cysto /Hypertension Blood pressure fair off medication Continue to monitor /Hypernatremia - Na 162 today - monitor BMP, initiated d5w /Type 2 diabetes mellitus Continue insulin sliding scale coverage hemoglobin A1c 9.7, consistent carb diet /COVID19 + Management as outlined above /CHF (congestive heart failure), combined systolic and diastolic Echocardiogram requested - pending /Morbid obesity, BMI 45.9 Dietary and exercise recommendation when clinically appropriate --DVT prophylaxis On Lovenox and GI prophylaxis The high probability of a clinically significant, sudden or life threatening deterioration of the [pulmonary, renal] system(s) required my full and direct attention, intervention and personal management. The aggregate critical care time was [35] minutes. This time is in addition to time spent performing reported procedures but includes the following: [x] Data Review and interpretation [x] Patient assessment and monitoring of vital signs [x] Documentation [x] Medication orders and management 05/30 patient is a long term resident, alert and oriented and appears moderately short of breath and is on Ventimask Denies any chest pain or palpitations. He does complain of cough Lab results reviewed 05/31: Continues on high flow oxygen. still on High flow oxygen. Pulmonary consulted, ID consulted. COVID +, adjust insulin for better control. 06/01: Remains on High flow, due to severe hypoxemia Consent obtained for convalescent plasma. We will also obtain type and cross for the same. Wean oxygen as tolerated. ID input noted. No indication Remdesivir due to renal failure, renal on board, although renal function beginning to improve we will discuss with ID if we should revisit Remdesivir if renal function continues to improve. Continue ceftriaxone and azithromycin for 5 days. Offloading sacral area and keep area dry per wound care team. Continue anticoagulation. ID added fluconazole. Will adjust insulin therapy and also sliding scale to a higher scale. 06/02: Called and discussed with family patient does have some psychiatric illness will obtain psych consultation due to new onset psychosis. Pulmonary input appreciated. Will proceed with ordering plasma therapy.The assigned patient code is [id number] for plasma transfusion. 06/03: Continues with intermittent confusion, known psych hx, psych team consulted. Continue oxygen therapy, awaiting Plasma therapy. Patient being transferred to ICU due to worsening respiratory status. Psych following. 06/04: Remains on BiPAP, with intermittent confusion, appears slighlty restless, s/p plasma therapy yesterday. cont to wean off from biPAP. planned to start IV Remdesivir for 5 days as renal function improved 06/05; renal function declined, OK to continue IV Remdesivir for now, D2 of 5 per ID. Patient remains on 100% high flow O2/BiPAP alternatively. Continue to wean off from O2 requirement as tolerated. 06/06: Continue day 3 of Remdesivir, continue to follow renal function, continue to wean off O2 as tolerated. Prognosis remains guarded. d-dimer significantly elevated - will order VQ scan for possible PE and start on therapeutic AC, cont to monitor. also plan to place whitehead by cysto today 06/07: Na 162 today, placed on d5w, cont to monitor. Cr slightly improved 06/08: Na and Cr level improving, cont d5w. pt on 75% FiO2 Brief History; 64-year-old man with history of hypertension diabetes congestive heart failure and left below-knee amputation comes in for cough fever and shortness of breath and chills for 5 days. Patient has been tested positive for COVID-19 5 days ago. Patient saturations were 80% on room air which improved to 98% on a nonrebreather. Denies any chest pain. Patient is covid 19 positive and hypoxic. Subjective Date of service: 06/08/20 Principal diagnosis: Acute Respiratory Failure Secondary to COVID Interval history: Patient seen and examined Patient now on high flow nasal cannula - 75% fio2 Follows command, denies any chest pain Objective - Exam Narrative Exam: VITAL SIGNS: Reviewed. GENERAL: The patient appears normally developed, morbidly obese vital signs as documented. HEAD: No signs of head trauma. EYES: Pupils are equal. Extraocular motions intact. EARS: Hearing grossly intact. MOUTH: Oropharynx is normal. NECK: No adenopathy, no JVD. CHEST: Chest with diminished breath sounds bilaterally. Increased respiratory rate. No wheezes, rales, or rhonchi. CARDIAC: Regular rate and rhythm. S1 and S2, without murmurs, gallops, or rubs. VASCULAR: No Edema. Peripheral pulses normal and equal in all extremities. ABDOMEN: Soft, non tender and non distended. No rebound or guarding, and no masses palpated. Bowel Sounds normal. MUSCULOSKELETAL: BKA LEFT LOWER EXT. extremities without clubbing, cyanosis or edema. NEUROLOGIC EXAM: Alert and oriented x 1 No focal sensory or strength deficits. Speech normal. Follows commands. PSYCHIATRIC: Mood anxious SKIN: no rash, warm - Constitutional Vitals: Vital Signs - 12hr 06/08/20 06/08/20 06/08/20 08:00 08:52 12:00 Temperature 98.4 F 97.7 F Pulse Rate [ 64 57 L Apical] Pulse Rate [ 64 57 L Left Popliteal] O2 Sat by Pulse 98 94 94 Oximetry 06/08/20 06/08/20 14:23 16:00 Temperature 98.0 F Pulse Rate [ 122 H Apical] Pulse Rate [ 122 H Left Popliteal] O2 Sat by Pulse 91 92 Oximetry - Labs CBC & Chem 7: 06/09/20 05:44 06/09/20 05:44 Labs: Abnormal lab results 06/07/20 06/07/20 06/07/20 Range/Units 09:42 13:35 14:30 WBC (4.5-11.0) K/mm3 Hct (35.5-45.6) % MCHC (32-34) % RDW (13.2-15.2) % Plt Count (140-440) K/mm3 Lymph % (Auto) (13.4-35.0) % Lymph # (1.2-5.4) K/mm3 Seg Neutrophils % (40.0-70.0) % Seg Neutrophils # (1.8-7.7) K/mm3 D-Dimer (0-234) ng/mlDDU Sodium (137-145) mmol/L Chloride (98-107) mmol/L Carbon Dioxide (22-30) mmol/L BUN (9-20) mg/dL Creatinine (0.8-1.3) mg/dL Glucose (75-100) mg/dL POC Glucose 192 H 192 H 184 H (70-105) Calcium (8.4-10.2) mg/dL Ferritin (30.0-300.0) ng/mL Lactate Dehydrogenase (91-180) units/L C-Reactive Protein (0.00-1.30) mg/dL Albumin (3.9-5) g/dL 06/07/20 06/07/20 06/08/20 Range/Units 17:20 21:47 00:08 WBC (4.5-11.0) K/mm3 Hct (35.5-45.6) % MCHC (32-34) % RDW (13.2-15.2) % Plt Count (140-440) K/mm3 Lymph % (Auto) (13.4-35.0) % Lymph # (1.2-5.4) K/mm3 Seg Neutrophils % (40.0-70.0) % Seg Neutrophils # (1.8-7.7) K/mm3 D-Dimer (0-234) ng/mlDDU Sodium (137-145) mmol/L Chloride (98-107) mmol/L Carbon Dioxide (22-30) mmol/L BUN (9-20) mg/dL Creatinine (0.8-1.3) mg/dL Glucose (75-100) mg/dL POC Glucose 165 H 299 H 335 H (70-105) Calcium (8.4-10.2) mg/dL Ferritin (30.0-300.0) ng/mL Lactate Dehydrogenase (91-180) units/L C-Reactive Protein (0.00-1.30) mg/dL Albumin (3.9-5) g/dL 06/08/20 06/08/20 06/08/20 Range/Units 02:02 04:00 06:33 WBC (4.5-11.0) K/mm3 Hct (35.5-45.6) % MCHC (32-34) % RDW (13.2-15.2) % Plt Count (140-440) K/mm3 Lymph % (Auto) (13.4-35.0) % Lymph # (1.2-5.4) K/mm3 Seg Neutrophils % (40.0-70.0) % Seg Neutrophils # (1.8-7.7) K/mm3 D-Dimer (0-234) ng/mlDDU Sodium (137-145) mmol/L Chloride (98-107) mmol/L Carbon Dioxide (22-30) mmol/L BUN (9-20) mg/dL Creatinine (0.8-1.3) mg/dL Glucose (75-100) mg/dL POC Glucose 342 H 242 H (70-105) Calcium (8.4-10.2) mg/dL Ferritin 687.9 H (30.0-300.0) ng/mL Lactate Dehydrogenase (91-180) units/L C-Reactive Protein (0.00-1.30) mg/dL Albumin (3.9-5) g/dL 06/08/20 06/08/20 06/08/20 Range/Units 06:35 06:35 06:35 WBC 13.6 H (4.5-11.0) K/mm3 Hct 45.8 H (35.5-45.6) % MCHC 31 L (32-34) % RDW 16.7 H (13.2-15.2) % Plt Count 110 L (140-440) K/mm3 Lymph % (Auto) 6.3 L (13.4-35.0) % Lymph # 0.9 L (1.2-5.4) K/mm3 Seg Neutrophils % 89.0 H (40.0-70.0) % Seg Neutrophils # 12.1 H (1.8-7.7) K/mm3 D-Dimer 2645.35 H (0-234) ng/mlDDU Sodium 153 H D (137-145) mmol/L Chloride 117.0 H (98-107) mmol/L Carbon Dioxide 19 L (22-30) mmol/L BUN 84 H (9-20) mg/dL Creatinine 1.8 H (0.8-1.3) mg/dL Glucose 268 H (75-100) mg/dL POC Glucose (70-105) Calcium 8.3 L (8.4-10.2) mg/dL Ferritin (30.0-300.0) ng/mL Lactate Dehydrogenase 679 H (91-180) units/L C-Reactive Protein 1.50 H (0.00-1.30) mg/dL Albumin 2.8 L (3.9-5) g/dL 06/08/20 06/08/20 Range/Units 09:48 15:34 WBC (4.5-11.0) K/mm3 Hct (35.5-45.6) % MCHC (32-34) % RDW (13.2-15.2) % Plt Count (140-440) K/mm3 Lymph % (Auto) (13.4-35.0) % Lymph # (1.2-5.4) K/mm3 Seg Neutrophils % (40.0-70.0) % Seg Neutrophils # (1.8-7.7) K/mm3 D-Dimer (0-234) ng/mlDDU Sodium (137-145) mmol/L Chloride (98-107) mmol/L Carbon Dioxide (22-30) mmol/L BUN (9-20) mg/dL Creatinine (0.8-1.3) mg/dL Glucose (75-100) mg/dL POC Glucose 178 H 214 H (70-105) Calcium (8.4-10.2) mg/dL Ferritin (30.0-300.0) ng/mL Lactate Dehydrogenase (91-180) units/L C-Reactive Protein (0.00-1.30) mg/dL Albumin (3.9-5) g/dL HEART Score - HEART Score Troponin: Troponin T 0.025 ng/mL (0.00-0.029) 05/29/20 15:10
--- NOTE | 2020-06-08 18:41 | Progress Note ---
Assessment and Plan Imp: 1. Covid-19 viral pneumonia 2. Acute respiratory failure, hypoxia 3. Sepsis 4. NIR 5. Morbid obesity 6. Hypernatremia 7. NSVT Rec: 1. Cont. steroids, Remdesivir 2. D5W plus free water; monitor sodium 3. Check magnesium level stat 4. On Eliquis BID 5. Wean HFNC to keep sats 88% or > 6. Guarded prognosis No family present; CCT 31 minutes Subjective Date of service: 06/08/20 Principal diagnosis: Acute Respiratory Failure Secondary to COVID Interval history: Awake, moaning, not able to give history. Remains on HFNC. Having some non-sustained VT episodes. Active Medications Acetaminophen (Tylenol) 650 mg PO Q4H PRN PRN Reason: Pain MILD(1-3)/Fever >100.5/ESPINOZA Last Admin: 06/04/20 04:50 Dose: 650 mg Documented by: Lipase/Protease/Amylase (Pancreaze Dr 10,500 Unit) 1 each FEEDTUBE PRN PRN PRN Reason: For Clogged Feeding Tube Apixaban (Eliquis) 5 mg PO Q12HR LONG; Protocol Last Admin: 06/08/20 09:38 Dose: 5 mg Documented by: Famotidine (Pepcid) 20 mg PO DAILY LONG Last Admin: 06/08/20 09:38 Dose: 20 mg Documented by: Haloperidol Lactate (Haldol) 5 mg IV Q6H LONG Last Admin: 06/08/20 15:24 Dose: 5 mg Documented by: REMDESIVIR 100 mg/ Sodium (Chloride) 250 mls @ 500 mls/hr IV Q24HR@2100 [facility] Stop: 06/08/20 21:29 Last Admin: 06/07/20 21:21 Dose: 500 mls/hr Documented by: Dextrose (D5w) 1,000 mls @ 75 mls/hr IV DIRECT LONG Last Admin: 06/08/20 09:36 Dose: 75 mls/hr Documented by: Dexmedetomidine HCl 400 mcg/ (Sodium Chloride) 104 mls @ 6.302 mls/hr IV TITRATE LONG; Protocol Last Admin: 06/08/20 08:30 Dose: 0.3 mcg/kg/hr, 9.454 mls/hr Documented by: Insulin Glargine (Lantus) 10 units SUB-Q DAILY LONG Last Admin: 06/08/20 09:37 Dose: 10 units Documented by: Insulin Glargine (Lantus) 55 units SUB-Q QHS [facility] Last Admin: 06/07/20 21:43 Dose: 55 units Documented by: Insulin Human Lispro (Humalog) 0 unit SUB-Q Q4HR [facility]; Protocol Last Admin: 06/08/20 14:59 Dose: 6 unit Documented by: Methylprednisolone Sodium Succinate (Solu-Medrol) 40 mg IV Q8HR [facility] Last Admin: 06/08/20 14:33 Dose: 40 mg Documented by: Ondansetron HCl (Zofran) 4 mg IV Q8H PRN PRN Reason: Nausea And Vomiting Last Admin: 05/31/20 17:38 Dose: 4 mg Documented by: Paroxetine HCl (Paxil) 10 mg PO DAILY [facility] Last Admin: 06/08/20 09:38 Dose: 10 mg Documented by: Simple Syrup (Simple Syrup) 15 ml FEEDTUBE PRN PRN PRN Reason: Hypoglycemia Simple Syrup (Simple Syrup) 30 ml FEEDTUBE PRN PRN PRN Reason: Hypoglycemia Sodium Bicarbonate (Sodium Bicarbonate) 325 mg FEEDTUBE PRN PRN PRN Reason: For Clogged Feeding Tube Sodium Chloride (Sodium Chloride Flush Syringe 10 Ml) 10 ml IV BID [facility] Last Admin: 06/08/20 09:39 Dose: 10 ml Documented by: Sodium Chloride (Sodium Chloride Flush Syringe 10 Ml) 10 ml IV PRN PRN PRN Reason: LINE FLUSH Sodium Chloride (Nacl 0.9%) 50 ml IV 2100 [facility] Stop: 06/08/20 21:01 Last Admin: 06/07/20 21:21 Dose: 50 ml Documented by: Objective Vital Signs - 12hr 06/08/20 06/08/20 06/08/20 08:00 08:52 12:00 Temperature 98.4 F 97.7 F Pulse Rate [ 64 57 L Apical] Pulse Rate [ 64 57 L Left Popliteal] O2 Sat by Pulse 98 94 94 Oximetry 06/08/20 06/08/20 14:23 16:00 Temperature 98.0 F Pulse Rate [ 122 H Apical] Pulse Rate [ 122 H Left Popliteal] O2 Sat by Pulse 91 92 Oximetry Constitutional: appears uncomfortable, other (critically ill on HFNC) Eyes: non-icteric ENT: other (short fat neck) Neck: supple Effort: mildly labored Ascultation: Bilateral: diminished breath sounds Cardiovascular: regular rate and rhythm (no mrg) Gastrointestinal: normoactive bowel sounds, soft, non-tender, non-distended Integumentary: normal Extremities: no cyanosis, no edema, pink and warm Neurologic: other (awake, eyes open, moaning) Psychiatric: other (not able to assess) CBC and BMP: 06/08/20 06:35 06/08/20 06:35 ABG, PT/INR, D-dimer: PT/INR, D-dimer PT 14.1 Sec. (12.2-14.9) 06/05/20 10:30 INR 1.08 (0.87-1.13) 06/05/20 10:30 D-Dimer 2645.35 ng/mlDDU (0-234) H 06/08/20 06:35 Abnormal lab findings: Abnormal Labs 05/29/20 05/29/20 05/29/20 13:25 13:25 13:25 WBC Hct MCV MCHC RDW 16.4 H Plt Count Lymph % (Auto) Lymph # Seg Neutrophils % 78.4 H Seg Neutrophils # D-Dimer Sodium 131 L Potassium 5.4 H Chloride 96.2 L Carbon Dioxide 14 L BUN 42 H Creatinine 4.7 H Glucose 121 H POC Glucose Hemoglobin A1c Lactic Acid 2.70 H* Calcium 8.3 L Ferritin AST Lactate Dehydrogenase C-Reactive Protein Albumin Coronavirus (PCR) 05/29/20 05/29/20 05/29/20 13:25 15:10 15:10 WBC Hct MCV MCHC RDW Plt Count Lymph % (Auto) Lymph # Seg Neutrophils % Seg Neutrophils # D-Dimer 1391.41 H Sodium Potassium Chloride Carbon Dioxide BUN Creatinine Glucose 120 H POC Glucose Hemoglobin A1c Lactic Acid Calcium Ferritin AST 54 H Lactate Dehydrogenase 581 H C-Reactive Protein 40.70 H Albumin 2.9 L Coronavirus (PCR) 05/29/20 05/29/20 05/29/20 15:10 15:10 22:55 WBC Hct MCV MCHC RDW Plt Count Lymph % (Auto) Lymph # Seg Neutrophils % Seg Neutrophils # D-Dimer Sodium Potassium Chloride Carbon Dioxide BUN Creatinine Glucose POC Glucose 256 H Hemoglobin A1c Lactic Acid 2.20 H* Calcium Ferritin 1092.0 H AST Lactate Dehydrogenase C-Reactive Protein Albumin Coronavirus (PCR) 05/29/20 05/30/20 05/30/20 Unknown 07:00 07:00 WBC Hct MCV MCHC RDW 16.0 H Plt Count Lymph % (Auto) 7.3 L Lymph # 0.5 L Seg Neutrophils % 88.4 H Seg Neutrophils # D-Dimer Sodium 132 L Potassium 5.9 H Chloride 95.5 L Carbon Dioxide 18 L BUN 49 H Creatinine 4.0 H Glucose 415 H POC Glucose Hemoglobin A1c Lactic Acid Calcium 7.8 L Ferritin AST 46 H Lactate Dehydrogenase C-Reactive Protein Albumin 3.2 L Coronavirus (PCR) Positive A 05/30/20 05/30/20 05/30/20 07:00 07:45 11:39 WBC Hct MCV MCHC RDW Plt Count Lymph % (Auto) Lymph # Seg Neutrophils % Seg Neutrophils # D-Dimer Sodium Potassium Chloride Carbon Dioxide BUN Creatinine Glucose POC Glucose 424 H 468 H Hemoglobin A1c 9.7 H Lactic Acid Calcium Ferritin AST Lactate Dehydrogenase C-Reactive Protein Albumin Coronavirus (PCR) 05/30/20 05/31/20 05/31/20 17:11 01:49 08:14 WBC Hct MCV MCHC RDW Plt Count Lymph % (Auto) Lymph # Seg Neutrophils % Seg Neutrophils # D-Dimer Sodium Potassium Chloride Carbon Dioxide BUN Creatinine Glucose POC Glucose 475 H 426 H 430 H Hemoglobin A1c Lactic Acid Calcium Ferritin AST Lactate Dehydrogenase C-Reactive Protein Albumin Coronavirus (PCR) 05/31/20 05/31/20 05/31/20 10:17 10:17 10:17 WBC Hct MCV MCHC RDW 16.0 H Plt Count Lymph % (Auto) Lymph # Seg Neutrophils % Seg Neutrophils # D-Dimer 704.53 H Sodium 134 L Potassium 5.2 H Chloride 92.9 L Carbon Dioxide BUN 38 H Creatinine 1.6 H D Glucose 556 H* POC Glucose Hemoglobin A1c Lactic Acid Calcium Ferritin AST Lactate Dehydrogenase 676 H C-Reactive Protein 21.30 H Albumin 3.2 L Coronavirus (PCR) 05/31/20 05/31/20 05/31/20 10:17 11:24 16:25 WBC Hct MCV MCHC RDW Plt Count Lymph % (Auto) Lymph # Seg Neutrophils % Seg Neutrophils # D-Dimer Sodium Potassium Chloride Carbon Dioxide BUN Creatinine Glucose POC Glucose 482 H 367 H Hemoglobin A1c Lactic Acid Calcium Ferritin 1221.0 H AST Lactate Dehydrogenase C-Reactive Protein Albumin Coronavirus (PCR) 05/31/20 06/01/20 06/01/20 22:52 04:48 04:48 WBC Hct MCV MCHC RDW 15.7 H Plt Count Lymph % (Auto) Lymph # Seg Neutrophils % Seg Neutrophils # D-Dimer Sodium 132 L Potassium Chloride 93.3 L Carbon Dioxide BUN 39 H Creatinine 1.4 H Glucose 533 H* POC Glucose 431 H Hemoglobin A1c Lactic Acid Calcium Ferritin AST Lactate Dehydrogenase C-Reactive Protein Albumin Coronavirus (PCR) 06/01/20 06/01/20 06/01/20 07:46 08:46 11:38 WBC Hct MCV MCHC RDW Plt Count Lymph % (Auto) Lymph # Seg Neutrophils % Seg Neutrophils # D-Dimer Sodium Potassium Chloride Carbon Dioxide BUN Creatinine Glucose 504 H* POC Glucose 448 H 287 H Hemoglobin A1c Lactic Acid Calcium Ferritin AST Lactate Dehydrogenase C-Reactive Protein Albumin Coronavirus (PCR) 06/01/20 06/01/20 06/02/20 16:27 22:47 07:35 WBC Hct MCV MCHC RDW Plt Count Lymph % (Auto) Lymph # Seg Neutrophils % Seg Neutrophils # D-Dimer Sodium Potassium Chloride Carbon Dioxide BUN Creatinine Glucose POC Glucose 298 H 411 H 347 H Hemoglobin A1c Lactic Acid Calcium Ferritin AST Lactate Dehydrogenase C-Reactive Protein Albumin Coronavirus (PCR) 06/02/20 06/02/20 06/02/20 11:53 17:08 22:41 WBC Hct MCV MCHC RDW Plt Count Lymph % (Auto) Lymph # Seg Neutrophils % Seg Neutrophils # D-Dimer Sodium Potassium Chloride Carbon Dioxide BUN Creatinine Glucose POC Glucose 406 H 355 H 272 H Hemoglobin A1c Lactic Acid Calcium Ferritin AST Lactate Dehydrogenase C-Reactive Protein Albumin Coronavirus (PCR) 06/03/20 06/03/20 06/03/20 05:14 05:14 08:11 WBC 11.9 H Hct MCV MCHC RDW 15.6 H Plt Count Lymph % (Auto) Lymph # Seg Neutrophils % Seg Neutrophils # D-Dimer Sodium Potassium Chloride Carbon Dioxide BUN 44 H Creatinine 1.4 H Glucose 291 H POC Glucose 265 H Hemoglobin A1c Lactic Acid Calcium Ferritin AST Lactate Dehydrogenase C-Reactive Protein Albumin Coronavirus (PCR) 06/03/20 06/03/20 06/03/20 13:32 18:24 21:26 WBC Hct MCV MCHC RDW Plt Count Lymph % (Auto) Lymph # Seg Neutrophils % Seg Neutrophils # D-Dimer Sodium Potassium Chloride Carbon Dioxide BUN Creatinine Glucose POC Glucose 309 H 365 H 333 H Hemoglobin A1c Lactic Acid Calcium Ferritin AST Lactate Dehydrogenase C-Reactive Protein Albumin Coronavirus (PCR) 06/04/20 06/04/20 06/04/20 03:41 03:41 03:41 WBC 12.5 H Hct MCV MCHC RDW 15.8 H Plt Count Lymph % (Auto) Lymph # Seg Neutrophils % Seg Neutrophils # D-Dimer 541.25 H Sodium Potassium 5.1 H D Chloride Carbon Dioxide BUN 52 H Creatinine 1.8 H Glucose 155 H POC Glucose Hemoglobin A1c Lactic Acid Calcium Ferritin AST Lactate Dehydrogenase 732 H C-Reactive Protein 3.00 H Albumin Coronavirus (PCR) 06/04/20 06/04/20 06/04/20 03:41 07:49 10:54 WBC Hct MCV MCHC RDW Plt Count Lymph % (Auto) Lymph # Seg Neutrophils % Seg Neutrophils # D-Dimer Sodium Potassium Chloride Carbon Dioxide BUN Creatinine Glucose POC Glucose 254 H 288 H Hemoglobin A1c Lactic Acid Calcium Ferritin 913.8 H AST Lactate Dehydrogenase C-Reactive Protein Albumin Coronavirus (PCR) 06/04/20 06/04/20 06/05/20 17:11 23:10 05:30 WBC Hct MCV MCHC RDW Plt Count Lymph % (Auto) Lymph # Seg Neutrophils % Seg Neutrophils # D-Dimer Sodium 153 H D Potassium Chloride 109.5 H Carbon Dioxide BUN 93 H Creatinine 2.9 H D Glucose 370 H POC Glucose 194 H 268 H Hemoglobin A1c Lactic Acid Calcium Ferritin AST Lactate Dehydrogenase C-Reactive Protein Albumin 3.4 L Coronavirus (PCR) 06/05/20 06/05/20 06/05/20 11:44 16:16 18:19 WBC Hct MCV MCHC RDW Plt Count Lymph % (Auto) Lymph # Seg Neutrophils % Seg Neutrophils # D-Dimer Sodium Potassium Chloride Carbon Dioxide BUN Creatinine Glucose POC Glucose 432 H 452 H 458 H Hemoglobin A1c Lactic Acid Calcium Ferritin AST Lactate Dehydrogenase C-Reactive Protein Albumin Coronavirus (PCR) 06/05/20 06/06/20 06/06/20 21:26 02:04 04:00 WBC Hct MCV MCHC RDW Plt Count Lymph % (Auto) Lymph # Seg Neutrophils % Seg Neutrophils # D-Dimer Sodium Potassium Chloride Carbon Dioxide BUN Creatinine Glucose POC Glucose 436 H 372 H Hemoglobin A1c Lactic Acid Calcium Ferritin 1073.0 H AST Lactate Dehydrogenase C-Reactive Protein Albumin Coronavirus (PCR) 06/06/20 06/06/20 06/06/20 04:00 04:40 04:40 WBC 13.6 H Hct 46.0 H MCV MCHC RDW 16.3 H Plt Count Lymph % (Auto) 5.4 L Lymph # 0.7 L Seg Neutrophils % 87.9 H Seg Neutrophils # 11.9 H D-Dimer 4258.77 H Sodium Potassium Chloride Carbon Dioxide BUN Creatinine Glucose POC Glucose Hemoglobin A1c Lactic Acid Calcium Ferritin AST Lactate Dehydrogenase 627 H C-Reactive Protein 2.20 H Albumin Coronavirus (PCR) 06/06/20 06/06/20 06/06/20 05:00 05:36 10:11 WBC Hct MCV MCHC RDW Plt Count Lymph % (Auto) Lymph # Seg Neutrophils % Seg Neutrophils # D-Dimer Sodium 157 H Potassium Chloride 115.8 H Carbon Dioxide BUN 110 H Creatinine 2.9 H Glucose 342 H POC Glucose 247 H 265 H Hemoglobin A1c Lactic Acid Calcium Ferritin AST Lactate Dehydrogenase C-Reactive Protein Albumin 3.6 L Coronavirus (PCR) 06/06/20 06/06/20 06/06/20 14:17 18:43 21:31 WBC Hct MCV MCHC RDW Plt Count Lymph % (Auto) Lymph # Seg Neutrophils % Seg Neutrophils # D-Dimer Sodium Potassium Chloride Carbon Dioxide BUN Creatinine Glucose POC Glucose 324 H 301 H 275 H Hemoglobin A1c Lactic Acid Calcium Ferritin AST Lactate Dehydrogenase C-Reactive Protein Albumin Coronavirus (PCR) 06/07/20 06/07/20 06/07/20 00:26 02:01 05:51 WBC Hct MCV MCHC RDW Plt Count Lymph % (Auto) Lymph # Seg Neutrophils % Seg Neutrophils # D-Dimer Sodium Potassium Chloride Carbon Dioxide BUN Creatinine Glucose POC Glucose 268 H 239 H 212 H Hemoglobin A1c Lactic Acid Calcium Ferritin AST Lactate Dehydrogenase C-Reactive Protein Albumin Coronavirus (PCR) 06/07/20 06/07/20 06/07/20 06:50 06:50 09:42 WBC 13.4 H Hct 47.1 H MCV 96 H MCHC 31 L RDW 16.8 H Plt Count 132 L Lymph % (Auto) 6.3 L Lymph # 0.8 L Seg Neutrophils % 88.8 H Seg Neutrophils # 11.9 H D-Dimer Sodium 162 H* Potassium Chloride 124.7 H Carbon Dioxide BUN 107 H Creatinine 2.4 H Glucose 212 H POC Glucose 192 H Hemoglobin A1c Lactic Acid Calcium 8.2 L Ferritin AST Lactate Dehydrogenase C-Reactive Protein Albumin Coronavirus (PCR) 06/07/20 06/07/20 06/07/20 13:35 14:30 17:20 WBC Hct MCV MCHC RDW Plt Count Lymph % (Auto) Lymph # Seg Neutrophils % Seg Neutrophils # D-Dimer Sodium Potassium Chloride Carbon Dioxide BUN Creatinine Glucose POC Glucose 192 H 184 H 165 H Hemoglobin A1c Lactic Acid Calcium Ferritin AST Lactate Dehydrogenase C-Reactive Protein Albumin Coronavirus (PCR) 06/07/20 06/08/20 06/08/20 21:47 00:08 02:02 WBC Hct MCV MCHC RDW Plt Count Lymph % (Auto) Lymph # Seg Neutrophils % Seg Neutrophils # D-Dimer Sodium Potassium Chloride Carbon Dioxide BUN Creatinine Glucose POC Glucose 299 H 335 H 342 H Hemoglobin A1c Lactic Acid Calcium Ferritin AST Lactate Dehydrogenase C-Reactive Protein Albumin Coronavirus (PCR) 06/08/20 06/08/20 06/08/20 04:00 06:33 06:35 WBC Hct MCV MCHC RDW Plt Count Lymph % (Auto) Lymph # Seg Neutrophils % Seg Neutrophils # D-Dimer 2645.35 H Sodium Potassium Chloride Carbon Dioxide BUN Creatinine Glucose POC Glucose 242 H Hemoglobin A1c Lactic Acid Calcium Ferritin 687.9 H AST Lactate Dehydrogenase C-Reactive Protein Albumin Coronavirus (PCR) 06/08/20 06/08/20 06/08/20 06:35 06:35 09:48 WBC 13.6 H Hct 45.8 H MCV MCHC 31 L RDW 16.7 H Plt Count 110 L Lymph % (Auto) 6.3 L Lymph # 0.9 L Seg Neutrophils % 89.0 H Seg Neutrophils # 12.1 H D-Dimer Sodium 153 H D Potassium Chloride 117.0 H Carbon Dioxide 19 L BUN 84 H Creatinine 1.8 H Glucose 268 H POC Glucose 178 H Hemoglobin A1c Lactic Acid Calcium 8.3 L Ferritin AST Lactate Dehydrogenase 679 H C-Reactive Protein 1.50 H Albumin 2.8 L Coronavirus (PCR) 06/08/20 06/08/20 12:27 15:34 WBC Hct MCV MCHC RDW Plt Count Lymph % (Auto) Lymph # Seg Neutrophils % Seg Neutrophils # D-Dimer Sodium Potassium Chloride Carbon Dioxide BUN Creatinine Glucose POC Glucose 179 H 214 H Hemoglobin A1c Lactic Acid Calcium Ferritin AST Lactate Dehydrogenase C-Reactive Protein Albumin Coronavirus (PCR) Chest x-ray: report reviewed, image reviewed
[2020-06-08] MEDS: REMDESIVIR 100 MG in SODIUM CHLORIDE 0.9% 250ML 250 ML IV SCH (21:59)
[2020-06-08] MEDS: SODIUM CHLORIDE 0.9% 50 ML IVPB IV SCH (21:59)
[2020-06-09] MEDS: INSULIN LISPRO 100 UNIT/ML VIAL 3 mL SUB-Q SCH ×6 (02:00→21:43)
[2020-06-09] MEDS: HALOPERIDOL LACTATE 5 MG/1 ML INJ IV SCH ×3 (03:42→09:52)
[2020-06-09] MEDS: DEXMEDETOMIDINE 400 MCG in SODIUM CHLORIDE 0.9% 100 ML IV SCH ×2 (05:57→15:54)
[2020-06-09] MEDS: methylPREDNISolone Sod Succinate 40 MG/1 ML INJ IV SCH ×3 (05:57→21:12)
[2020-06-09 06:16] LABS: Hematocrit 47.2 % (35.5-45.6); Hemoglobin 14.9 gm/dl (11.8-15.2); Mean Corpuscular HGB Conc 32 % (32-34); Mean Corpuscular Volume 94 fl (84-94); Red Cell Distribution Width 16.4 % (13.2-15.2)
[2020-06-09 06:46] LABS: Platelet Count 77 K/mm3 (140-440)
[2020-06-09 08:03] LABS: Anisocytosis Few; Basophils % (Manual) 0 % (0.0-1.8); Eosinophils % (Manual) 0 % (0.0-4.3); Total Cells Counted 100
[2020-06-09 08:04] LABS: Macrocytosis Few; Platelet Estimate Consistent w Auto
[2020-06-09] MEDS: PARoxetine 10 MG TAB PO SCH (09:45)
[2020-06-09] MEDS: INSULIN GLARGINE 100 UNITS/ML SUB-Q SCH ×2 (09:45→21:43)
[2020-06-09] MEDS: FAMOTIDINE 20 MG TAB PO SCH (09:45)
[2020-06-09] MEDS: APIXABAN 5 MG TAB PO SCH ×2 (09:46→21:12)
[2020-06-09 11:10] LABS: ABG Base Excess -5.5 mmol/L (-2.0-3.0); ABG HCO3 18.7 mmol/L (20.0-26.0); ABG Methemoglobin 0.4 % (0.0-1.5); ABG PCO2 33.4 mm Hg; ABG PH 7.367 pH Units (7.350-7.450); ABG PO2 62.9 mm Hg (80.0-90.0)
[2020-06-09] MEDS: DEXTROSE 5% IN WATER 1,000 ML IV SCH ×2 (11:26→22:54)
--- NOTE | 2020-06-09 12:18 | Progress Note ---
Assessment and Plan Impression: * Acute kidney injury secondary to prerenal azotemia * Azotemia - secondary to NIR vs steroids * Sepsis * Acute hypoxic respiratory failure * COVID 19 Pneumonia * Hypernatremia * Hyperkalemia - resolved * Type II diabetes mellitus * Urethra stricture --s/p cystoscopy, urethral dilation, cystogram Plan: * Renal function is stable - SCr continues to trend down. Monitor lytes and volume status. No acute need for initiation of renal replacement therapy * Continue D5W and free water * Pulm/ID recommendations reviewed * Steroids/Redemsevir per ID * Glycemic control per primary team * Medical management of lytes * Avoid potential nephrotoxins * Dose medications for renal function Subjective Date of service: 06/09/20 Principal diagnosis: Acute Respiratory Failure Secondary to COVID Interval history: Chart, vitals, labs reviewed. Objective - Exam Narrative Exam: In light of PPE conservation strategy, exam deferred. - Vital Signs Vital signs: Vital Signs - 12hr 06/09/20 06/09/20 06/09/20 00:21 00:30 00:41 Temperature Pulse Rate 89 89 81 Pulse Rate [ Apical] Pulse Rate [ From Monitor] Pulse Rate [ Left Popliteal] Respiratory 33 H 25 H 21 Rate Blood Pressure 92/55 100/61 100/61 O2 Sat by Pulse 98 99 96 Oximetry 06/09/20 06/09/20 06/09/20 00:51 01:00 01:11 Temperature Pulse Rate 85 81 86 Pulse Rate [ Apical] Pulse Rate [ From Monitor] Pulse Rate [ Left Popliteal] Respiratory 29 H 22 35 H Rate Blood Pressure 104/64 108/63 108/63 O2 Sat by Pulse 92 92 92 Oximetry 06/09/20 06/09/20 06/09/20 01:21 01:31 01:41 Temperature Pulse Rate 82 84 75 Pulse Rate [ Apical] Pulse Rate [ From Monitor] Pulse Rate [ Left Popliteal] Respiratory 18 19 16 Rate Blood Pressure 99/63 89/62 89/62 O2 Sat by Pulse 99 95 98 Oximetry 06/09/20 06/09/20 06/09/20 01:51 02:00 02:11 Temperature Pulse Rate 72 67 79 Pulse Rate [ Apical] Pulse Rate [ From Monitor] Pulse Rate [ Left Popliteal] Respiratory 29 H 24 33 H Rate Blood Pressure 107/65 109/69 109/69 O2 Sat by Pulse 96 93 94 Oximetry 06/09/20 06/09/20 06/09/20 02:21 02:30 02:41 Temperature Pulse Rate 73 68 64 Pulse Rate [ Apical] Pulse Rate [ From Monitor] Pulse Rate [ Left Popliteal] Respiratory 20 26 H 28 H Rate Blood Pressure 103/65 108/61 108/61 O2 Sat by Pulse 93 92 92 Oximetry 06/09/20 06/09/20 06/09/20 02:51 03:00 03:11 Temperature Pulse Rate 62 64 62 Pulse Rate [ Apical] Pulse Rate [ From Monitor] Pulse Rate [ Left Popliteal] Respiratory 31 H 27 H 31 H Rate Blood Pressure 92/62 100/63 108/61 O2 Sat by Pulse 93 92 90 Oximetry 06/09/20 06/09/20 06/09/20 03:21 03:31 03:41 Temperature Pulse Rate 57 L 56 L 55 L Pulse Rate [ Apical] Pulse Rate [ From Monitor] Pulse Rate [ Left Popliteal] Respiratory 27 H 25 H 30 H Rate Blood Pressure 94/68 102/69 102/69 O2 Sat by Pulse 90 91 93 Oximetry 06/09/20 06/09/20 06/09/20 03:51 04:00 04:11 Temperature 98.1 F Pulse Rate 58 L 57 L 60 Pulse Rate [ 124 H Apical] Pulse Rate [ From Monitor] Pulse Rate [ 65 Left Popliteal] Respiratory 27 H 30 H 32 H Rate Blood Pressure 93/64 108/81 108/81 O2 Sat by Pulse 89 86 86 Oximetry 06/09/20 06/09/20 06/09/20 04:21 04:31 04:41 Temperature Pulse Rate 66 106 H 63 Pulse Rate [ Apical] Pulse Rate [ From Monitor] Pulse Rate [ Left Popliteal] Respiratory 26 H 17 21 Rate Blood Pressure 103/62 48/28 103/62 O2 Sat by Pulse 85 97 90 Oximetry 06/09/20 06/09/20 06/09/20 04:51 05:01 05:11 Temperature Pulse Rate 82 81 79 Pulse Rate [ Apical] Pulse Rate [ From Monitor] Pulse Rate [ Left Popliteal] Respiratory 33 H 27 H 21 Rate Blood Pressure 117/82 110/58 110/58 O2 Sat by Pulse 90 88 96 Oximetry 06/09/20 06/09/20 06/09/20 05:21 05:30 05:41 Temperature Pulse Rate 89 67 69 Pulse Rate [ Apical] Pulse Rate [ From Monitor] Pulse Rate [ Left Popliteal] Respiratory 32 H 23 30 H Rate Blood Pressure 105/54 106/65 106/65 O2 Sat by Pulse 95 88 86 Oximetry 06/09/20 06/09/20 06/09/20 05:51 06:00 06:11 Temperature Pulse Rate 81 81 87 Pulse Rate [ Apical] Pulse Rate [ From Monitor] Pulse Rate [ Left Popliteal] Respiratory 18 29 H 28 H Rate Blood Pressure 99/63 113/67 113/67 O2 Sat by Pulse 96 87 95 Oximetry 06/09/20 06/09/20 06/09/20 06:21 06:30 06:41 Temperature Pulse Rate 92 H 86 121 H Pulse Rate [ Apical] Pulse Rate [ From Monitor] Pulse Rate [ Left Popliteal] Respiratory 38 H 32 H 30 H Rate Blood Pressure 110/65 106/60 106/60 O2 Sat by Pulse 88 87 87 Oximetry 06/09/20 06/09/20 06/09/20 06:51 07:00 07:11 Temperature Pulse Rate 115 H 120 H 121 H Pulse Rate [ Apical] Pulse Rate [ From Monitor] Pulse Rate [ Left Popliteal] Respiratory 29 H 31 H 31 H Rate Blood Pressure 112/70 94/73 94/73 O2 Sat by Pulse 92 90 90 Oximetry 06/09/20 06/09/20 06/09/20 07:21 07:30 07:41 Temperature Pulse Rate 79 80 83 Pulse Rate [ Apical] Pulse Rate [ From Monitor] Pulse Rate [ Left Popliteal] Respiratory 32 H 34 H 33 H Rate Blood Pressure 103/74 105/60 105/60 O2 Sat by Pulse 94 96 91 Oximetry 06/09/20 06/09/20 06/09/20 07:51 08:00 08:11 Temperature 98.4 F Pulse Rate 79 85 73 Pulse Rate [ Apical] Pulse Rate [ 85 From Monitor] Pulse Rate [ Left Popliteal] Respiratory 24 29 H 24 Rate Blood Pressure 97/70 104/60 104/60 O2 Sat by Pulse 93 92 87 Oximetry 06/09/20 06/09/20 06/09/20 08:21 08:30 08:41 Temperature Pulse Rate 64 59 L 59 L Pulse Rate [ Apical] Pulse Rate [ From Monitor] Pulse Rate [ Left Popliteal] Respiratory 29 H 28 H 30 H Rate Blood Pressure 105/60 106/64 106/64 O2 Sat by Pulse 85 87 83 L Oximetry 06/09/20 06/09/20 06/09/20 08:51 09:00 09:11 Temperature Pulse Rate 59 L 59 L 68 Pulse Rate [ Apical] Pulse Rate [ From Monitor] Pulse Rate [ Left Popliteal] Respiratory 30 H 29 H 27 H Rate Blood Pressure 97/61 99/67 99/67 O2 Sat by Pulse 81 L 83 L 86 Oximetry 06/09/20 06/09/20 06/09/20 09:12 09:21 09:30 Temperature Pulse Rate 95 H 103 H 147 H Pulse Rate [ Apical] Pulse Rate [ From Monitor] Pulse Rate [ Left Popliteal] Respiratory 28 H 24 17 Rate Blood Pressure 99/67 104/69 104/69 O2 Sat by Pulse 92 92 66 L Oximetry 06/09/20 06/09/20 06/09/20 09:41 09:51 10:00 Temperature Pulse Rate 83 69 69 Pulse Rate [ Apical] Pulse Rate [ From Monitor] Pulse Rate [ Left Popliteal] Respiratory 26 H 28 H 28 H Rate Blood Pressure 99/58 104/69 91/56 O2 Sat by Pulse 92 84 77 L Oximetry 06/09/20 06/09/20 06/09/20 10:11 10:21 10:31 Temperature Pulse Rate 69 66 66 Pulse Rate [ Apical] Pulse Rate [ From Monitor] Pulse Rate [ Left Popliteal] Respiratory 28 H 27 H 26 H Rate Blood Pressure 91/56 92/54 92/54 O2 Sat by Pulse 86 92 87 Oximetry 06/09/20 06/09/20 06/09/20 10:41 10:51 11:00 Temperature Pulse Rate 71 69 69 Pulse Rate [ Apical] Pulse Rate [ From Monitor] Pulse Rate [ Left Popliteal] Respiratory 29 H 23 33 H Rate Blood Pressure 102/54 97/64 99/63 O2 Sat by Pulse 92 94 95 Oximetry - Lab 06/09/20 05:44 06/09/20 05:44 Most recent lab results ABG pH 7.367 pH Units (7.350-7.450) 06/09/20 10:50 ABG pCO2 33.4 mm Hg 06/09/20 10:50 ABG pO2 62.9 mm Hg (80.0-90.0) L 06/09/20 10:50 ABG HCO3 18.7 mmol/L (20.0-26.0) L 06/09/20 10:50 ABG O2 Saturation 91.0 % (95.0-99.0) L 06/09/20 10:50 Calcium 9.0 mg/dL (8.4-10.2) 06/09/20 05:44 Magnesium 2.20 mg/dL (1.7-2.3) 06/08/20 18:30 Medications & Allergies - Medications Allergies/Adverse Reactions: Allergies No Known Allergies Allergy (Unverified 05/29/20 15:15) Home Medications: Home Medications Medication Instructions Recorded Confirmed Last Taken Type ARIPiprazole [Aripiprazole] 2 mg PO DAILY 06/02/20 06/02/20 Unknown History Duloxetine HCl 2 tab PO DAILY 06/02/20 06/02/20 Unknown History PARoxetine HCl 10 mg PO DAILY 06/02/20 06/02/20 Unknown History Active Medications: Generic Name Dose Route Start Last Admin Trade Name Freq PRN Reason Stop Dose Admin Acetaminophen 650 mg 05/30/20 00:19 06/04/20 04:50 Tylenol PO 650 mg Q4H PRN Administration Pain MILD(1-3)/Fever >100.5/ESPINOZA Lipase/Protease/Amylase 1 each 06/07/20 08:[address] 10,500 Unit FEEDTUBE PRN PRN For Clogged Feeding Tube Apixaban 5 mg 06/06/20 13:00 06/09/20 09:46 Eliquis PO 5 mg Q12HR LONG Administration Protocol Famotidine 20 mg 06/05/20 10:00 06/09/20 09:45 Pepcid PO 20 mg DAILY LONG Administration Haloperidol Lactate 5 mg 06/03/20 15:07 06/09/20 09:52 Haldol IV Not Given Q6H LONG Dextrose 1,000 mls @ 75 mls/hr 06/07/20 08:00 06/09/20 11:26 D5w IV 75 mls/hr DIRECT LONG Administration Dexmedetomidine HCl 400 mcg/ 104 mls @ 6.302 mls/hr 06/07/20 15:00 06/09/20 09:49 Sodium Chloride IV 0.3 mcg/kg/hr TITRATE LONG 9.454 mls/hr Titration Protocol 0.2 MCG/KG/HR Insulin Glargine 10 units 06/05/20 12:00 06/09/20 09:45 Lantus SUB-Q 10 units DAILY LONG Administration Insulin Glargine 55 units 06/06/20 22:00 06/08/20 22:00 Lantus SUB-Q 55 units QHS LONG Administration Insulin Human Lispro 0 unit 06/05/20 14:00 06/09/20 09:46 Humalog SUB-Q 8 unit Q4HR LONG Administration Protocol Methylprednisolone Sodium Succinate 40 mg 06/04/20 14:00 06/09/20 05:57 Solu-Medrol IV 40 mg Q8HR LONG Administration Metoprolol Tartrate 2.5 mg 06/09/20 11:45 Metoprolol IV Q6H PRN Tachyarrhythmias Ondansetron HCl 4 mg 05/30/20 00:19 05/31/20 17:38 Zofran IV 4 mg Q8H PRN Administration Nausea And Vomiting Paroxetine HCl 10 mg 06/02/20 11:45 06/09/20 09:45 Paxil PO 10 mg DAILY LONG Administration Simple Syrup 15 ml 06/07/20 08:46 Simple Syrup FEEDTUBE PRN PRN Hypoglycemia Simple Syrup 30 ml 06/07/20 08:46 Simple Syrup FEEDTUBE PRN PRN Hypoglycemia Sodium Bicarbonate 325 mg 06/07/20 08:46 Sodium Bicarbonate FEEDTUBE PRN PRN For Clogged Feeding Tube Sodium Chloride 10 ml 05/30/20 10:00 06/09/20 09:52 Sodium Chloride Flush Syringe 10 Ml IV 10 ml BID LONG Administration Sodium Chloride 10 ml 05/30/20 00:19 Sodium Chloride Flush Syringe 10 Ml IV PRN PRN LINE FLUSH
--- NOTE | 2020-06-09 12:34 | Progress Note ---
Assessment and Plan Cultures: Blood culture 05/29/2020 no growth COVID PCR 05/29/2020 Positive 06/03/2020 blood culture: no growth Assessment: 55 years old male with history of diabetes mellitus, congestive heart failure, hypertension, left below-knee amputation, admitted on 05/29/2020 due to 5-day history of cough, fever, malaise, chills and shortness of breath: #Severe sepsis: likely due to bilateral pneumonia. Completed empiric CAP abx. #Severe/Critical COVID pneumonia: Inflammatory markers very elevated, possible cytokine storm. S/P CCP 06/03/2020. On steroids. S/P Remdesivir x 5 days ending 06/08/2020. #Acute hypoxemic respiratory failure: on BiPAP/HFNC. #Elevated LFTs: from COVID, mild. #Acute renal failure: ?obstructive. Now with whitehead placement in OR. Improving. #Stage III sacral decubitus: Not infected. Per wound care measures 4 x 1 x 0.1 cm, small yellow slough. Recs: Continue steroids x 10 days at least S/P CCP 06/03/2020, Remdesivir x 5 days ending 06/08/2020 continue supportive care and oxygen weaning Alyssa Yang MD, FACP [facility] ([facility] C: [phone] O: [phone] F: [phone] Subjective Date of service: 06/09/20 Principal diagnosis: Acute Respiratory Failure Secondary to COVID Interval history: No fever. Remains in ICU. On high flow oxygen/BiPAP. Creatinine downtrending. Objective - Exam Narrative Exam: Physical Exam (reviewed in chart due to PPE conservation) Constitutional: limited due to PPE conservation strategy Head, Ears, Nose: limited due to PPE conservation strategy Eyes: limited due to PPE conservation strategy Neck: limited due to PPE conservation strategy Oral: limited due to PPE conservation strategy Cardiovascular: limited due to PPE conservation strategy Respiratory: limited due to PPE conservation strategy GI: limited due to PPE conservation strategy Musculoskeletal: limited due to PPE conservation strategy Skin: limited due to PPE conservation strategy Hem/Lymphatic: limited due to PPE conservation strategy Psych: limited due to PPE conservation strategy Neurological: limited due to PPE conservation strategy - Constitutional Vitals: Vital Signs Temp Pulse Resp BP Pulse Ox 97.9 F 95 H 35 H 128/107 97 06/09/20 12:00 06/09/20 12:30 06/09/20 12:30 06/09/20 12:30 06/09/20 12:30 Temperature -Last 24 Hours Temperature 97.9 F Temperature 98.4 F Temperature 98.1 F Temperature 98.1 F Temperature 98.8 F Temperature 98.9 F Temperature 98.9 F Temperature 98.0 F - Labs CBC & Chem 7: 06/09/20 05:44 06/09/20 05:44 Labs: Abnormal lab results 06/08/20 06/08/20 06/08/20 Range/Units 12:27 15:34 22:56 WBC (4.5-11.0) K/mm3 Hct (35.5-45.6) % RDW (13.2-15.2) % Plt Count (140-440) K/mm3 Seg Neuts % (Manual) (40.0-70.0) % Lymphocytes % (Manual) (13.4-35.0) % Seg Neutrophils # Man (1.8-7.7) K/mm3 Lymphocytes # (Manual) (1.2-5.4) K/mm3 ABG pO2 (80.0-90.0) mm Hg ABG HCO3 (20.0-26.0) mmol/L ABG O2 Saturation (95.0-99.0) % ABG Base Excess (-2.0-3.0) mmol/L Oxyhemoglobin (95.0-99.0) % Sodium (137-145) mmol/L Chloride (98-107) mmol/L Carbon Dioxide (22-30) mmol/L BUN (9-20) mg/dL Creatinine (0.8-1.3) mg/dL Glucose (75-100) mg/dL POC Glucose 179 H 214 H 330 H (70-105) 06/09/20 06/09/20 06/09/20 Range/Units 03:15 05:44 05:44 WBC 13.2 H (4.5-11.0) K/mm3 Hct 47.2 H (35.5-45.6) % RDW 16.4 H (13.2-15.2) % Plt Count 77 L (140-440) K/mm3 Seg Neuts % (Manual) 91.0 H (40.0-70.0) % Lymphocytes % (Manual) 5.0 L (13.4-35.0) % Seg Neutrophils # Man 12.0 H (1.8-7.7) K/mm3 Lymphocytes # (Manual) 0.7 L (1.2-5.4) K/mm3 ABG pO2 (80.0-90.0) mm Hg ABG HCO3 (20.0-26.0) mmol/L ABG O2 Saturation (95.0-99.0) % ABG Base Excess (-2.0-3.0) mmol/L Oxyhemoglobin (95.0-99.0) % Sodium 151 H (137-145) mmol/L Chloride 114.8 H (98-107) mmol/L Carbon Dioxide 19 L (22-30) mmol/L BUN 63 H (9-20) mg/dL Creatinine 1.5 H (0.8-1.3) mg/dL Glucose 360 H (75-100) mg/dL POC Glucose 318 H (70-105) 06/09/20 06/09/20 06/09/20 Range/Units 06:13 09:53 10:50 WBC (4.5-11.0) K/mm3 Hct (35.5-45.6) % RDW (13.2-15.2) % Plt Count (140-440) K/mm3 Seg Neuts % (Manual) (40.0-70.0) % Lymphocytes % (Manual) (13.4-35.0) % Seg Neutrophils # Man (1.8-7.7) K/mm3 Lymphocytes # (Manual) (1.2-5.4) K/mm3 ABG pO2 62.9 L (80.0-90.0) mm Hg ABG HCO3 18.7 L (20.0-26.0) mmol/L ABG O2 Saturation 91.0 L (95.0-99.0) % ABG Base Excess -5.5 L (-2.0-3.0) mmol/L Oxyhemoglobin 89.5 L (95.0-99.0) % Sodium (137-145) mmol/L Chloride (98-107) mmol/L Carbon Dioxide (22-30) mmol/L BUN (9-20) mg/dL Creatinine (0.8-1.3) mg/dL Glucose (75-100) mg/dL POC Glucose 314 H 279 H (70-105)
[2020-06-09] MEDS: METOPROLOL TARTRATE 5 MG/5 ML INJ IV PRN ×2 (13:14→20:39)
--- NOTE | 2020-06-09 15:42 | Progress Note ---
Assessment and Plan Imp: 1. Covid-19 viral pneumonia 2. Acute respiratory failure, hypoxia 3. Sepsis 4. NIR 5. Morbid obesity 6. Hypernatremia 7. NSVT Rec: 1. Cont. steroids; finishing Remdesivir 2. D5W plus free water; monitor sodium; TFs as tolerated 3. Mag and K levels okay; d/c Haldol and Zofran, and wean Precedex to lowest possible dose 4. On Eliquis BID 5. Wean BIPAP/HFNC to keep sats 88% or >; oxgenation adequate so continued to try to hold off on intubation (will be difficult to oxygenate on the ventilator as well); repeat CXR in AM 6. Eliquis BID 7. Guarded to poor prognosis No family present; CCT 31 minutes Subjective Date of service: 06/09/20 Principal diagnosis: Acute Respiratory Failure Secondary to COVID Interval history: D/w RT. Did not use BIPAP the past 2 nights for unclear reasons. HFNC FiO2 turned up to 100% this AM but still desaturating so placed on BIPAP with improvement in sats to 93% on 90% FiO2. Mentation is the same. Having brief runs of VT per medical staff assistant. On my eval. there are only a few PVCs noted on the monitor. Active Medications Acetaminophen (Tylenol) 650 mg PO Q4H PRN PRN Reason: Pain MILD(1-3)/Fever >100.5/ESPINOZA Last Admin: 06/04/20 04:50 Dose: 650 mg Documented by: Lipase/Protease/Amylase ([address] Dr 10,500 Unit) 1 each FEEDTUBE PRN PRN PRN Reason: For Clogged Feeding Tube Apixaban (Eliquis) 5 mg PO Q12HR LONG; Protocol Last Admin: 06/09/20 09:46 Dose: 5 mg Documented by: Famotidine (Pepcid) 20 mg PO DAILY LONG Last Admin: 06/09/20 09:45 Dose: 20 mg Documented by: Dextrose (D5w) 1,000 mls @ 75 mls/hr IV DIRECT LONG Last Admin: 06/09/20 11:26 Dose: 75 mls/hr Documented by: Dexmedetomidine HCl 400 mcg/ (Sodium Chloride) 104 mls @ 6.302 mls/hr IV TITRATE LONG; Protocol Last Titration: 06/09/20 09:49 Dose: 0.3 mcg/kg/hr, 9.454 mls/hr Documented by: Insulin Glargine (Lantus) 10 units SUB-Q DAILY [facility] Last Admin: 06/09/20 09:45 Dose: 10 units Documented by: Insulin Glargine (Lantus) 55 units SUB-Q QHS [facility] Last Admin: 06/08/20 22:00 Dose: 55 units Documented by: Insulin Human Lispro (Humalog) 0 unit SUB-Q Q4HR [facility]; Protocol Last Admin: 06/09/20 14:03 Dose: 6 unit Documented by: Methylprednisolone Sodium Succinate (Solu-Medrol) 40 mg IV Q8HR [facility] Last Admin: 06/09/20 13:14 Dose: 40 mg Documented by: Metoprolol Tartrate (Metoprolol) 2.5 mg IV Q6H PRN PRN Reason: Tachyarrhythmias Last Admin: 06/09/20 13:14 Dose: 2.5 mg Documented by: Paroxetine HCl (Paxil) 10 mg PO DAILY [facility] Last Admin: 06/09/20 09:45 Dose: 10 mg Documented by: Simple Syrup (Simple Syrup) 15 ml FEEDTUBE PRN PRN PRN Reason: Hypoglycemia Simple Syrup (Simple Syrup) 30 ml FEEDTUBE PRN PRN PRN Reason: Hypoglycemia Sodium Bicarbonate (Sodium Bicarbonate) 325 mg FEEDTUBE PRN PRN PRN Reason: For Clogged Feeding Tube Sodium Chloride (Sodium Chloride Flush Syringe 10 Ml) 10 ml IV BID [facility] Last Admin: 06/09/20 09:52 Dose: 10 ml Documented by: Sodium Chloride (Sodium Chloride Flush Syringe 10 Ml) 10 ml IV PRN PRN PRN Reason: LINE FLUSH Objective - Exam Narrative Exam: Limited exam done today to conserve PPE Vital Signs - 12hr 06/09/20 06/09/20 06/09/20 03:41 03:51 04:00 Temperature 98.1 F Pulse Rate 55 L 58 L 57 L Pulse Rate [ 124 H Apical] Pulse Rate [ From Monitor] Pulse Rate [ 65 Left Popliteal] Respiratory 30 H 27 H 30 H Rate Blood Pressure 102/69 93/64 108/81 O2 Sat by Pulse 93 89 86 Oximetry 06/09/20 06/09/20 06/09/20 04:11 04:21 04:31 Temperature Pulse Rate 60 66 106 H Pulse Rate [ Apical] Pulse Rate [ From Monitor] Pulse Rate [ Left Popliteal] Respiratory 32 H 26 H 17 Rate Blood Pressure 108/81 103/62 48/28 O2 Sat by Pulse 86 85 97 Oximetry 06/09/20 06/09/20 06/09/20 04:41 04:51 05:01 Temperature Pulse Rate 63 82 81 Pulse Rate [ Apical] Pulse Rate [ From Monitor] Pulse Rate [ Left Popliteal] Respiratory 21 33 H 27 H Rate Blood Pressure 103/62 117/82 110/58 O2 Sat by Pulse 90 90 88 Oximetry 06/09/20 06/09/20 06/09/20 05:11 05:21 05:30 Temperature Pulse Rate 79 89 67 Pulse Rate [ Apical] Pulse Rate [ From Monitor] Pulse Rate [ Left Popliteal] Respiratory 21 32 H 23 Rate Blood Pressure 110/58 105/54 106/65 O2 Sat by Pulse 96 95 88 Oximetry 06/09/20 06/09/20 06/09/20 05:41 05:51 06:00 Temperature Pulse Rate 69 81 81 Pulse Rate [ Apical] Pulse Rate [ From Monitor] Pulse Rate [ Left Popliteal] Respiratory 30 H 18 29 H Rate Blood Pressure 106/65 99/63 113/67 O2 Sat by Pulse 86 96 87 Oximetry 06/09/20 06/09/20 06/09/20 06:11 06:21 06:30 Temperature Pulse Rate 87 92 H 86 Pulse Rate [ Apical] Pulse Rate [ From Monitor] Pulse Rate [ Left Popliteal] Respiratory 28 H 38 H 32 H Rate Blood Pressure 113/67 110/65 106/60 O2 Sat by Pulse 95 88 87 Oximetry 06/09/20 06/09/20 06/09/20 06:41 06:51 07:00 Temperature Pulse Rate 121 H 115 H 120 H Pulse Rate [ Apical] Pulse Rate [ From Monitor] Pulse Rate [ Left Popliteal] Respiratory 30 H 29 H 31 H Rate Blood Pressure 106/60 112/70 94/73 O2 Sat by Pulse 87 92 90 Oximetry 06/09/20 06/09/20 06/09/20 07:11 07:21 07:30 Temperature Pulse Rate 121 H 79 80 Pulse Rate [ Apical] Pulse Rate [ From Monitor] Pulse Rate [ Left Popliteal] Respiratory 31 H 32 H 34 H Rate Blood Pressure 94/73 103/74 105/60 O2 Sat by Pulse 90 94 96 Oximetry 06/09/20 06/09/20 06/09/20 07:41 07:51 08:00 Temperature 98.4 F Pulse Rate 83 79 85 Pulse Rate [ Apical] Pulse Rate [ 85 From Monitor] Pulse Rate [ Left Popliteal] Respiratory 33 H 24 29 H Rate Blood Pressure 105/60 97/70 104/60 O2 Sat by Pulse 91 93 92 Oximetry 06/09/20 06/09/20 06/09/20 08:11 08:21 08:30 Temperature Pulse Rate 73 64 59 L Pulse Rate [ Apical] Pulse Rate [ From Monitor] Pulse Rate [ Left Popliteal] Respiratory 24 29 H 28 H Rate Blood Pressure 104/60 105/60 106/64 O2 Sat by Pulse 87 85 87 Oximetry 06/09/20 06/09/20 06/09/20 08:41 08:51 09:00 Temperature Pulse Rate 59 L 59 L 59 L Pulse Rate [ Apical] Pulse Rate [ From Monitor] Pulse Rate [ Left Popliteal] Respiratory 30 H 30 H 29 H Rate Blood Pressure 106/64 97/61 99/67 O2 Sat by Pulse 83 L 81 L 83 L Oximetry 06/09/20 06/09/20 06/09/20 09:11 09:12 09:21 Temperature Pulse Rate 68 95 H 103 H Pulse Rate [ Apical] Pulse Rate [ From Monitor] Pulse Rate [ Left Popliteal] Respiratory 27 H 28 H 24 Rate Blood Pressure 99/67 99/67 104/69 O2 Sat by Pulse 86 92 92 Oximetry 06/09/20 06/09/20 06/09/20 09:30 09:41 09:51 Temperature Pulse Rate 147 H 83 69 Pulse Rate [ Apical] Pulse Rate [ From Monitor] Pulse Rate [ Left Popliteal] Respiratory 17 26 H 28 H Rate Blood Pressure 104/69 99/58 104/69 O2 Sat by Pulse 66 L 92 84 Oximetry 06/09/20 06/09/20 06/09/20 10:00 10:11 10:21 Temperature Pulse Rate 69 69 66 Pulse Rate [ Apical] Pulse Rate [ From Monitor] Pulse Rate [ Left Popliteal] Respiratory 28 H 28 H 27 H Rate Blood Pressure 91/56 91/56 92/54 O2 Sat by Pulse 77 L 86 92 Oximetry 06/09/20 06/09/20 06/09/20 10:31 10:41 10:51 Temperature Pulse Rate 66 71 69 Pulse Rate [ Apical] Pulse Rate [ From Monitor] Pulse Rate [ Left Popliteal] Respiratory 26 H 29 H 23 Rate Blood Pressure 92/54 102/54 97/64 O2 Sat by Pulse 87 92 94 Oximetry 06/09/20 06/09/20 06/09/20 11:00 11:11 11:21 Temperature Pulse Rate 69 71 72 Pulse Rate [ Apical] Pulse Rate [ From Monitor] Pulse Rate [ Left Popliteal] Respiratory 33 H 22 35 H Rate Blood Pressure 99/63 99/63 101/71 O2 Sat by Pulse 95 94 Oximetry 06/09/20 06/09/20 06/09/20 11:30 11:41 11:51 Temperature Pulse Rate 65 77 68 Pulse Rate [ Apical] Pulse Rate [ From Monitor] Pulse Rate [ Left Popliteal] Respiratory 19 14 12 Rate Blood Pressure 104/65 104/65 109/57 O2 Sat by Pulse 90 91 92 Oximetry 06/09/20 06/09/20 06/09/20 12:00 12:11 12:21 Temperature 97.9 F Pulse Rate 69 91 H 84 Pulse Rate [ Apical] Pulse Rate [ 69 From Monitor] Pulse Rate [ Left Popliteal] Respiratory 12 18 15 Rate Blood Pressure 112/63 112/63 108/71 O2 Sat by Pulse 93 Oximetry 06/09/20 06/09/20 06/09/20 12:30 12:31 12:41 Temperature Pulse Rate 95 H 73 85 Pulse Rate [ Apical] Pulse Rate [ From Monitor] Pulse Rate [ Left Popliteal] Respiratory 35 H 28 H 23 Rate Blood Pressure 128/107 128/107 128/107 O2 Sat by Pulse 97 92 91 Oximetry 06/09/20 06/09/20 06/09/20 12:51 13:00 13:11 Temperature Pulse Rate 81 99 H 102 H Pulse Rate [ Apical] Pulse Rate [ From Monitor] Pulse Rate [ Left Popliteal] Respiratory 15 24 25 H Rate Blood Pressure 137/68 132/84 132/84 O2 Sat by Pulse 90 82 L 92 Oximetry 06/09/20 06/09/20 06/09/20 13:14 13:21 13:30 Temperature Pulse Rate 105 H 75 82 Pulse Rate [ Apical] Pulse Rate [ From Monitor] Pulse Rate [ Left Popliteal] Respiratory 12 34 H Rate Blood Pressure 132/84 90/66 105/69 O2 Sat by Pulse 92 89 Oximetry 08/23/20 13:41 Temperature Pulse Rate 77 Pulse Rate [ Apical] Pulse Rate [ From Monitor] Pulse Rate [ Left Popliteal] Respiratory 33 H Rate Blood Pressure 105/69 O2 Sat by Pulse 91 Oximetry Constitutional: appears uncomfortable, other (critically ill on BIPAP) Eyes: non-icteric ENT: other (short fat neck) Neck: supple Effort: mildly labored Cardiovascular: regular rate and rhythm Gastrointestinal: soft, non-distended, other (obese) Integumentary: normal Extremities: no cyanosis Neurologic: other (awake, eyes open, moaning) Psychiatric: other (not able to assess) CBC and BMP: 06/09/20 05:44 06/09/20 05:44 ABG, PT/INR, D-dimer: ABG ABG pH 7.367 pH Units (7.350-7.450) 06/09/20 10:50 ABG pCO2 33.4 mm Hg 06/09/20 10:50 ABG pO2 62.9 mm Hg (80.0-90.0) L 06/09/20 10:50 ABG O2 Saturation 91.0 % (95.0-99.0) L 06/09/20 10:50 PT/INR, D-dimer PT 14.1 Sec. (12.2-14.9) 06/05/20 10:30 INR 1.08 (0.87-1.13) 06/05/20 10:30 D-Dimer 2645.35 ng/mlDDU (0-234) H 06/08/20 06:35 Abnormal lab findings: Abnormal Labs 05/29/20 05/29/20 05/29/20 13:25 13:25 13:25 WBC Hct MCV MCHC RDW 16.4 H Plt Count Lymph % (Auto) Lymph # Seg Neutrophils % 78.4 H Seg Neuts % (Manual) Lymphocytes % (Manual) Seg Neutrophils # Seg Neutrophils # Man Lymphocytes # (Manual) D-Dimer ABG pO2 ABG HCO3 ABG O2 Saturation ABG Base Excess Oxyhemoglobin Sodium 131 L Potassium 5.4 H Chloride 96.2 L Carbon Dioxide 14 L BUN 42 H Creatinine 4.7 H Glucose 121 H POC Glucose Hemoglobin A1c Lactic Acid 2.70 H* Calcium 8.3 L Ferritin AST Lactate Dehydrogenase C-Reactive Protein Albumin Coronavirus (PCR) 05/29/20 05/29/20 05/29/20 13:25 15:10 15:10 WBC Hct MCV MCHC RDW Plt Count Lymph % (Auto) Lymph # Seg Neutrophils % Seg Neuts % (Manual) Lymphocytes % (Manual) Seg Neutrophils # Seg Neutrophils # Man Lymphocytes # (Manual) D-Dimer 1391.41 H ABG pO2 ABG HCO3 ABG O2 Saturation ABG Base Excess Oxyhemoglobin Sodium Potassium Chloride Carbon Dioxide BUN Creatinine Glucose 120 H POC Glucose Hemoglobin A1c Lactic Acid Calcium Ferritin AST 54 H Lactate Dehydrogenase 581 H C-Reactive Protein 40.70 H Albumin 2.9 L Coronavirus (PCR) 05/29/20 05/29/20 05/29/20 15:10 15:10 22:55 WBC Hct MCV MCHC RDW Plt Count Lymph % (Auto) Lymph # Seg Neutrophils % Seg Neuts % (Manual) Lymphocytes % (Manual) Seg Neutrophils # Seg Neutrophils # Man Lymphocytes # (Manual) D-Dimer ABG pO2 ABG HCO3 ABG O2 Saturation ABG Base Excess Oxyhemoglobin Sodium Potassium Chloride Carbon Dioxide BUN Creatinine Glucose POC Glucose 256 H Hemoglobin A1c Lactic Acid 2.20 H* Calcium Ferritin 1092.0 H AST Lactate Dehydrogenase C-Reactive Protein Albumin Coronavirus (PCR) 05/29/20 05/30/20 05/30/20 Unknown 07:00 07:00 WBC Hct MCV MCHC RDW 16.0 H Plt Count Lymph % (Auto) 7.3 L Lymph # 0.5 L Seg Neutrophils % 88.4 H Seg Neuts % (Manual) Lymphocytes % (Manual) Seg Neutrophils # Seg Neutrophils # Man Lymphocytes # (Manual) D-Dimer ABG pO2 ABG HCO3 ABG O2 Saturation ABG Base Excess Oxyhemoglobin Sodium 132 L Potassium 5.9 H Chloride 95.5 L Carbon Dioxide 18 L BUN 49 H Creatinine 4.0 H Glucose 415 H POC Glucose Hemoglobin A1c Lactic Acid Calcium 7.8 L Ferritin AST 46 H Lactate Dehydrogenase C-Reactive Protein Albumin 3.2 L Coronavirus (PCR) Positive A 05/30/20 05/30/20 05/30/20 07:00 07:45 11:39 WBC Hct MCV MCHC RDW Plt Count Lymph % (Auto) Lymph # Seg Neutrophils % Seg Neuts % (Manual) Lymphocytes % (Manual) Seg Neutrophils # Seg Neutrophils # Man Lymphocytes # (Manual) D-Dimer ABG pO2 ABG HCO3 ABG O2 Saturation ABG Base Excess Oxyhemoglobin Sodium Potassium Chloride Carbon Dioxide BUN Creatinine Glucose POC Glucose 424 H 468 H Hemoglobin A1c 9.7 H Lactic Acid Calcium Ferritin AST Lactate Dehydrogenase C-Reactive Protein Albumin Coronavirus (PCR) 05/30/20 05/31/20 05/31/20 17:11 01:49 08:14 WBC Hct MCV MCHC RDW Plt Count Lymph % (Auto) Lymph # Seg Neutrophils % Seg Neuts % (Manual) Lymphocytes % (Manual) Seg Neutrophils # Seg Neutrophils # Man Lymphocytes # (Manual) D-Dimer ABG pO2 ABG HCO3 ABG O2 Saturation ABG Base Excess Oxyhemoglobin Sodium Potassium Chloride Carbon Dioxide BUN Creatinine Glucose POC Glucose 475 H 426 H 430 H Hemoglobin A1c Lactic Acid Calcium Ferritin AST Lactate Dehydrogenase C-Reactive Protein Albumin Coronavirus (PCR) 05/31/20 05/31/20 05/31/20 10:17 10:17 10:17 WBC Hct MCV MCHC RDW 16.0 H Plt Count Lymph % (Auto) Lymph # Seg Neutrophils % Seg Neuts % (Manual) Lymphocytes % (Manual) Seg Neutrophils # Seg Neutrophils # Man Lymphocytes # (Manual) D-Dimer 704.53 H ABG pO2 ABG HCO3 ABG O2 Saturation ABG Base Excess Oxyhemoglobin Sodium 134 L Potassium 5.2 H Chloride 92.9 L Carbon Dioxide BUN 38 H Creatinine 1.6 H D Glucose 556 H* POC Glucose Hemoglobin A1c Lactic Acid Calcium Ferritin AST Lactate Dehydrogenase 676 H C-Reactive Protein 21.30 H Albumin 3.2 L Coronavirus (PCR) 05/31/20 05/31/20 05/31/20 10:17 11:24 16:25 WBC Hct MCV MCHC RDW Plt Count Lymph % (Auto) Lymph # Seg Neutrophils % Seg Neuts % (Manual) Lymphocytes % (Manual) Seg Neutrophils # Seg Neutrophils # Man Lymphocytes # (Manual) D-Dimer ABG pO2 ABG HCO3 ABG O2 Saturation ABG Base Excess Oxyhemoglobin Sodium Potassium Chloride Carbon Dioxide BUN Creatinine Glucose POC Glucose 482 H 367 H Hemoglobin A1c Lactic Acid Calcium Ferritin 1221.0 H AST Lactate Dehydrogenase C-Reactive Protein Albumin Coronavirus (PCR) 05/31/20 06/01/20 06/01/20 22:52 04:48 04:48 WBC Hct MCV MCHC RDW 15.7 H Plt Count Lymph % (Auto) Lymph # Seg Neutrophils % Seg Neuts % (Manual) Lymphocytes % (Manual) Seg Neutrophils # Seg Neutrophils # Man Lymphocytes # (Manual) D-Dimer ABG pO2 ABG HCO3 ABG O2 Saturation ABG Base Excess Oxyhemoglobin Sodium 132 L Potassium Chloride 93.3 L Carbon Dioxide BUN 39 H Creatinine 1.4 H Glucose 533 H* POC Glucose 431 H Hemoglobin A1c Lactic Acid Calcium Ferritin AST Lactate Dehydrogenase C-Reactive Protein Albumin Coronavirus (PCR) 06/01/20 06/01/20 06/01/20 07:46 08:46 11:38 WBC Hct MCV MCHC RDW Plt Count Lymph % (Auto) Lymph # Seg Neutrophils % Seg Neuts % (Manual) Lymphocytes % (Manual) Seg Neutrophils # Seg Neutrophils # Man Lymphocytes # (Manual) D-Dimer ABG pO2 ABG HCO3 ABG O2 Saturation ABG Base Excess Oxyhemoglobin Sodium Potassium Chloride Carbon Dioxide BUN Creatinine Glucose 504 H* POC Glucose 448 H 287 H Hemoglobin A1c Lactic Acid Calcium Ferritin AST Lactate Dehydrogenase C-Reactive Protein Albumin Coronavirus (PCR) 06/01/20 06/01/20 06/02/20 16:27 22:47 07:35 WBC Hct MCV MCHC RDW Plt Count Lymph % (Auto) Lymph # Seg Neutrophils % Seg Neuts % (Manual) Lymphocytes % (Manual) Seg Neutrophils # Seg Neutrophils # Man Lymphocytes # (Manual) D-Dimer ABG pO2 ABG HCO3 ABG O2 Saturation ABG Base Excess Oxyhemoglobin Sodium Potassium Chloride Carbon Dioxide BUN Creatinine Glucose POC Glucose 298 H 411 H 347 H Hemoglobin A1c Lactic Acid Calcium Ferritin AST Lactate Dehydrogenase C-Reactive Protein Albumin Coronavirus (PCR) 06/02/20 06/02/20 06/02/20 11:53 17:08 22:41 WBC Hct MCV MCHC RDW Plt Count Lymph % (Auto) Lymph # Seg Neutrophils % Seg Neuts % (Manual) Lymphocytes % (Manual) Seg Neutrophils # Seg Neutrophils # Man Lymphocytes # (Manual) D-Dimer ABG pO2 ABG HCO3 ABG O2 Saturation ABG Base Excess Oxyhemoglobin Sodium Potassium Chloride Carbon Dioxide BUN Creatinine Glucose POC Glucose 406 H 355 H 272 H Hemoglobin A1c Lactic Acid Calcium Ferritin AST Lactate Dehydrogenase C-Reactive Protein Albumin Coronavirus (PCR) 06/03/20 06/03/20 06/03/20 05:14 05:14 08:11 WBC 11.9 H Hct MCV MCHC RDW 15.6 H Plt Count Lymph % (Auto) Lymph # Seg Neutrophils % Seg Neuts % (Manual) Lymphocytes % (Manual) Seg Neutrophils # Seg Neutrophils # Man Lymphocytes # (Manual) D-Dimer ABG pO2 ABG HCO3 ABG O2 Saturation ABG Base Excess Oxyhemoglobin Sodium Potassium Chloride Carbon Dioxide BUN 44 H Creatinine 1.4 H Glucose 291 H POC Glucose 265 H Hemoglobin A1c Lactic Acid Calcium Ferritin AST Lactate Dehydrogenase C-Reactive Protein Albumin Coronavirus (PCR) 06/03/20 06/03/20 06/03/20 13:32 18:24 21:26 WBC Hct MCV MCHC RDW Plt Count Lymph % (Auto) Lymph # Seg Neutrophils % Seg Neuts % (Manual) Lymphocytes % (Manual) Seg Neutrophils # Seg Neutrophils # Man Lymphocytes # (Manual) D-Dimer ABG pO2 ABG HCO3 ABG O2 Saturation ABG Base Excess Oxyhemoglobin Sodium Potassium Chloride Carbon Dioxide BUN Creatinine Glucose POC Glucose 309 H 365 H 333 H Hemoglobin A1c Lactic Acid Calcium Ferritin AST Lactate Dehydrogenase C-Reactive Protein Albumin Coronavirus (PCR) 06/04/20 06/04/20 06/04/20 03:41 03:41 03:41 WBC 12.5 H Hct MCV MCHC RDW 15.8 H Plt Count Lymph % (Auto) Lymph # Seg Neutrophils % Seg Neuts % (Manual) Lymphocytes % (Manual) Seg Neutrophils # Seg Neutrophils # Man Lymphocytes # (Manual) D-Dimer 541.25 H ABG pO2 ABG HCO3 ABG O2 Saturation ABG Base Excess Oxyhemoglobin Sodium Potassium 5.1 H D Chloride Carbon Dioxide BUN 52 H Creatinine 1.8 H Glucose 155 H POC Glucose Hemoglobin A1c Lactic Acid Calcium Ferritin AST Lactate Dehydrogenase 732 H C-Reactive Protein 3.00 H Albumin Coronavirus (PCR) 06/04/20 06/04/20 06/04/20 03:41 07:49 10:54 WBC Hct MCV MCHC RDW Plt Count Lymph % (Auto) Lymph # Seg Neutrophils % Seg Neuts % (Manual) Lymphocytes % (Manual) Seg Neutrophils # Seg Neutrophils # Man Lymphocytes # (Manual) D-Dimer ABG pO2 ABG HCO3 ABG O2 Saturation ABG Base Excess Oxyhemoglobin Sodium Potassium Chloride Carbon Dioxide BUN Creatinine Glucose POC Glucose 254 H 288 H Hemoglobin A1c Lactic Acid Calcium Ferritin 913.8 H AST Lactate Dehydrogenase C-Reactive Protein Albumin Coronavirus (PCR) 08/06/04/20 06/05/20 17:11 23:10 05:30 WBC Hct MCV MCHC RDW Plt Count Lymph % (Auto) Lymph # Seg Neutrophils % Seg Neuts % (Manual) Lymphocytes % (Manual) Seg Neutrophils # Seg Neutrophils # Man Lymphocytes # (Manual) D-Dimer ABG pO2 ABG HCO3 ABG O2 Saturation ABG Base Excess Oxyhemoglobin Sodium 153 H D Potassium Chloride 109.5 H Carbon Dioxide BUN 93 H Creatinine 2.9 H D Glucose 370 H POC Glucose 194 H 268 H Hemoglobin A1c Lactic Acid Calcium Ferritin AST Lactate Dehydrogenase C-Reactive Protein Albumin 3.4 L Coronavirus (PCR) 06/05/20 06/05/20 06/05/20 11:44 16:16 18:19 WBC Hct MCV MCHC RDW Plt Count Lymph % (Auto) Lymph # Seg Neutrophils % Seg Neuts % (Manual) Lymphocytes % (Manual) Seg Neutrophils # Seg Neutrophils # Man Lymphocytes # (Manual) D-Dimer ABG pO2 ABG HCO3 ABG O2 Saturation ABG Base Excess Oxyhemoglobin Sodium Potassium Chloride Carbon Dioxide BUN Creatinine Glucose POC Glucose 432 H 452 H 458 H Hemoglobin A1c Lactic Acid Calcium Ferritin AST Lactate Dehydrogenase C-Reactive Protein Albumin Coronavirus (PCR) 06/05/20 06/06/20 06/06/20 21:26 02:04 04:00 WBC Hct MCV MCHC RDW Plt Count Lymph % (Auto) Lymph # Seg Neutrophils % Seg Neuts % (Manual) Lymphocytes % (Manual) Seg Neutrophils # Seg Neutrophils # Man Lymphocytes # (Manual) D-Dimer ABG pO2 ABG HCO3 ABG O2 Saturation ABG Base Excess Oxyhemoglobin Sodium Potassium Chloride Carbon Dioxide BUN Creatinine Glucose POC Glucose 436 H 372 H Hemoglobin A1c Lactic Acid Calcium Ferritin 1073.0 H AST Lactate Dehydrogenase C-Reactive Protein Albumin Coronavirus (PCR) 06/06/20 06/06/20 06/06/20 04:00 04:40 04:40 WBC 13.6 H Hct 46.0 H MCV MCHC RDW 16.3 H Plt Count Lymph % (Auto) 5.4 L Lymph # 0.7 L Seg Neutrophils % 87.9 H Seg Neuts % (Manual) Lymphocytes % (Manual) Seg Neutrophils # 11.9 H Seg Neutrophils # Man Lymphocytes # (Manual) D-Dimer 4258.77 H ABG pO2 ABG HCO3 ABG O2 Saturation ABG Base Excess Oxyhemoglobin Sodium Potassium Chloride Carbon Dioxide BUN Creatinine Glucose POC Glucose Hemoglobin A1c Lactic Acid Calcium Ferritin AST Lactate Dehydrogenase 627 H C-Reactive Protein 2.20 H Albumin Coronavirus (PCR) 06/06/20 06/06/20 06/06/20 05:00 05:36 10:11 WBC Hct MCV MCHC RDW Plt Count Lymph % (Auto) Lymph # Seg Neutrophils % Seg Neuts % (Manual) Lymphocytes % (Manual) Seg Neutrophils # Seg Neutrophils # Man Lymphocytes # (Manual) D-Dimer ABG pO2 ABG HCO3 ABG O2 Saturation ABG Base Excess Oxyhemoglobin Sodium 157 H Potassium Chloride 115.8 H Carbon Dioxide BUN 110 H Creatinine 2.9 H Glucose 342 H POC Glucose 247 H 265 H Hemoglobin A1c Lactic Acid Calcium Ferritin AST Lactate Dehydrogenase C-Reactive Protein Albumin 3.6 L Coronavirus (PCR) 06/06/20 06/06/20 06/06/20 14:17 18:43 21:31 WBC Hct MCV MCHC RDW Plt Count Lymph % (Auto) Lymph # Seg Neutrophils % Seg Neuts % (Manual) Lymphocytes % (Manual) Seg Neutrophils # Seg Neutrophils # Man Lymphocytes # (Manual) D-Dimer ABG pO2 ABG HCO3 ABG O2 Saturation ABG Base Excess Oxyhemoglobin Sodium Potassium Chloride Carbon Dioxide BUN Creatinine Glucose POC Glucose 324 H 301 H 275 H Hemoglobin A1c Lactic Acid Calcium Ferritin AST Lactate Dehydrogenase C-Reactive Protein Albumin Coronavirus (PCR) 06/07/20 06/07/20 06/07/20 00:26 02:01 05:51 WBC Hct MCV MCHC RDW Plt Count Lymph % (Auto) Lymph # Seg Neutrophils % Seg Neuts % (Manual) Lymphocytes % (Manual) Seg Neutrophils # Seg Neutrophils # Man Lymphocytes # (Manual) D-Dimer ABG pO2 ABG HCO3 ABG O2 Saturation ABG Base Excess Oxyhemoglobin Sodium Potassium Chloride Carbon Dioxide BUN Creatinine Glucose POC Glucose 268 H 239 H 212 H Hemoglobin A1c Lactic Acid Calcium Ferritin AST Lactate Dehydrogenase C-Reactive Protein Albumin Coronavirus (PCR) 06/07/20 06/07/20 06/07/20 06:50 06:50 09:42 WBC 13.4 H Hct 47.1 H MCV 96 H MCHC 31 L RDW 16.8 H Plt Count 132 L Lymph % (Auto) 6.3 L Lymph # 0.8 L Seg Neutrophils % 88.8 H Seg Neuts % (Manual) Lymphocytes % (Manual) Seg Neutrophils # 11.9 H Seg Neutrophils # Man Lymphocytes # (Manual) D-Dimer ABG pO2 ABG HCO3 ABG O2 Saturation ABG Base Excess Oxyhemoglobin Sodium 162 H* Potassium Chloride 124.7 H Carbon Dioxide BUN 107 H Creatinine 2.4 H Glucose 212 H POC Glucose 192 H Hemoglobin A1c Lactic Acid Calcium 8.2 L Ferritin AST Lactate Dehydrogenase C-Reactive Protein Albumin Coronavirus (PCR) 06/07/20 06/07/20 06/07/20 13:35 14:30 17:20 WBC Hct MCV MCHC RDW Plt Count Lymph % (Auto) Lymph # Seg Neutrophils % Seg Neuts % (Manual) Lymphocytes % (Manual) Seg Neutrophils # Seg Neutrophils # Man Lymphocytes # (Manual) D-Dimer ABG pO2 ABG HCO3 ABG O2 Saturation ABG Base Excess Oxyhemoglobin Sodium Potassium Chloride Carbon Dioxide BUN Creatinine Glucose POC Glucose 192 H 184 H 165 H Hemoglobin A1c Lactic Acid Calcium Ferritin AST Lactate Dehydrogenase C-Reactive Protein Albumin Coronavirus (PCR) 06/07/20 06/08/20 06/08/20 21:47 00:08 02:02 WBC Hct MCV MCHC RDW Plt Count Lymph % (Auto) Lymph # Seg Neutrophils % Seg Neuts % (Manual) Lymphocytes % (Manual) Seg Neutrophils # Seg Neutrophils # Man Lymphocytes # (Manual) D-Dimer ABG pO2 ABG HCO3 ABG O2 Saturation ABG Base Excess Oxyhemoglobin Sodium Potassium Chloride Carbon Dioxide BUN Creatinine Glucose POC Glucose 299 H 335 H 342 H Hemoglobin A1c Lactic Acid Calcium Ferritin AST Lactate Dehydrogenase C-Reactive Protein Albumin Coronavirus (PCR) 06/08/20 06/08/20 06/08/20 04:00 06:33 06:35 WBC Hct MCV MCHC RDW Plt Count Lymph % (Auto) Lymph # Seg Neutrophils % Seg Neuts % (Manual) Lymphocytes % (Manual) Seg Neutrophils # Seg Neutrophils # Man Lymphocytes # (Manual) D-Dimer 2645.35 H ABG pO2 ABG HCO3 ABG O2 Saturation ABG Base Excess Oxyhemoglobin Sodium Potassium Chloride Carbon Dioxide BUN Creatinine Glucose POC Glucose 242 H Hemoglobin A1c Lactic Acid Calcium Ferritin 687.9 H AST Lactate Dehydrogenase C-Reactive Protein Albumin Coronavirus (PCR) 06/08/20 06/08/20 06/08/20 06:35 06:35 09:48 WBC 13.6 H Hct 45.8 H MCV MCHC 31 L RDW 16.7 H Plt Count 110 L Lymph % (Auto) 6.3 L Lymph # 0.9 L Seg Neutrophils % 89.0 H Seg Neuts % (Manual) Lymphocytes % (Manual) Seg Neutrophils # 12.1 H Seg Neutrophils # Man Lymphocytes # (Manual) D-Dimer ABG pO2 ABG HCO3 ABG O2 Saturation ABG Base Excess Oxyhemoglobin Sodium 153 H D Potassium Chloride 117.0 H Carbon Dioxide 19 L BUN 84 H Creatinine 1.8 H Glucose 268 H POC Glucose 178 H Hemoglobin A1c Lactic Acid Calcium 8.3 L Ferritin AST Lactate Dehydrogenase 679 H C-Reactive Protein 1.50 H Albumin 2.8 L Coronavirus (PCR) 06/08/20 06/08/20 06/08/20 12:27 15:34 22:56 WBC Hct MCV MCHC RDW Plt Count Lymph % (Auto) Lymph # Seg Neutrophils % Seg Neuts % (Manual) Lymphocytes % (Manual) Seg Neutrophils # Seg Neutrophils # Man Lymphocytes # (Manual) D-Dimer ABG pO2 ABG HCO3 ABG O2 Saturation ABG Base Excess Oxyhemoglobin Sodium Potassium Chloride Carbon Dioxide BUN Creatinine Glucose POC Glucose 179 H 214 H 330 H Hemoglobin A1c Lactic Acid Calcium Ferritin AST Lactate Dehydrogenase C-Reactive Protein Albumin Coronavirus (PCR) 06/09/20 06/09/20 06/09/20 03:15 05:44 05:44 WBC 13.2 H Hct 47.2 H MCV MCHC RDW 16.4 H Plt Count 77 L Lymph % (Auto) Lymph # Seg Neutrophils % Seg Neuts % (Manual) 91.0 H Lymphocytes % (Manual) 5.0 L Seg Neutrophils # Seg Neutrophils # Man 12.0 H Lymphocytes # (Manual) 0.7 L D-Dimer ABG pO2 ABG HCO3 ABG O2 Saturation ABG Base Excess Oxyhemoglobin Sodium 151 H Potassium Chloride 114.8 H Carbon Dioxide 19 L BUN 63 H Creatinine 1.5 H Glucose 360 H POC Glucose 318 H Hemoglobin A1c Lactic Acid Calcium Ferritin AST Lactate Dehydrogenase C-Reactive Protein Albumin Coronavirus (PCR) 06/09/20 06/09/20 06/09/20 06:13 09:53 10:50 WBC Hct MCV MCHC RDW Plt Count Lymph % (Auto) Lymph # Seg Neutrophils % Seg Neuts % (Manual) Lymphocytes % (Manual) Seg Neutrophils # Seg Neutrophils # Man Lymphocytes # (Manual) D-Dimer ABG pO2 62.9 L ABG HCO3 18.7 L ABG O2 Saturation 91.0 L ABG Base Excess -5.5 L Oxyhemoglobin 89.5 L Sodium Potassium Chloride Carbon Dioxide BUN Creatinine Glucose POC Glucose 314 H 279 H Hemoglobin A1c Lactic Acid Calcium Ferritin AST Lactate Dehydrogenase C-Reactive Protein Albumin Coronavirus (PCR) 06/09/20 14:17 WBC Hct MCV MCHC RDW Plt Count Lymph % (Auto) Lymph # Seg Neutrophils % Seg Neuts % (Manual) Lymphocytes % (Manual) Seg Neutrophils # Seg Neutrophils # Man Lymphocytes # (Manual) D-Dimer ABG pO2 ABG HCO3 ABG O2 Saturation ABG Base Excess Oxyhemoglobin Sodium Potassium Chloride Carbon Dioxide BUN Creatinine Glucose POC Glucose 232 H Hemoglobin A1c Lactic Acid Calcium Ferritin AST Lactate Dehydrogenase C-Reactive Protein Albumin Coronavirus (PCR) Chest x-ray: report reviewed, image reviewed
[2020-06-09] MEDS: ACETAMINOPHEN 325 MG TAB PO PRN (21:11)
--- NOTE | 2020-06-09 23:04 | Progress Note ---
Assessment and Plan /Severe sepsis Secondary to COVID pneumonia presented with Elevated lactic acid, tachycardia, elevated procalcitonin /Bilateral COVID 19 pneumonia Repeat COVID test positive, consulted ID Continue steroids, s/p plasmatherapy Given improvement in renal function, started on IV Remdesivir for 5 days, /Acute psychosis with visual and auditory hallucination Resume outpatient medications for depression psych following /Acute respiratory failure with hypoxia Secondary to COVID-19 pneumonia and underlying possible obesity hypoventilation syndrome Patient is on high flow Ventimask/BiPAP alternatively cont nebs and wean off as tolerated /Hyperkalemia secondary to renal failure as needed Kayexalate Monitor electrolytes /Acute kidney injury- likely ATN vs postobstructive R/O acute on chronic kidney disease Baseline renal function is not known nephrology consulted, Avoid nephrotoxins Renal ultrasound ordered renal function improving /dense proximal urethral stricture - unable to place whitehead at bedside - Urology consulted, s/p whitehead by cysto /Hypertension Blood pressure fair off medication Continue to monitor /Hypernatremia - Na 162 today - monitor BMP, initiated d5w /Type 2 diabetes mellitus Continue insulin sliding scale coverage hemoglobin A1c 9.7, consistent carb diet /COVID19 + Management as outlined above /CHF (congestive heart failure), combined systolic and diastolic Echocardiogram requested - pending /Morbid obesity, BMI 45.9 Dietary and exercise recommendation when clinically appropriate --DVT prophylaxis On Lovenox and GI prophylaxis The high probability of a clinically significant, sudden or life threatening deterioration of the [pulmonary, renal] system(s) required my full and direct attention, intervention and personal management. The aggregate critical care time was [35] minutes. This time is in addition to time spent performing reported procedures but includes the following: [x] Data Review and interpretation [x] Patient assessment and monitoring of vital signs [x] Documentation [x] Medication orders and management 05/30 patient is a [facility] resident, alert and oriented and appears moderately short of breath and is on Ventimask Denies any chest pain or palpitations. He does complain of cough Lab results reviewed 05/31: Continues on high flow oxygen. still on High flow oxygen. Pulmonary consulted, ID consulted. COVID +, adjust insulin for better control. 06/01: Remains on High flow, due to severe hypoxemia Consent obtained for convalescent plasma. We will also obtain type and cross for the same. Wean oxygen as tolerated. ID input noted. No indication Remdesivir due to renal failure, renal on board, although renal function beginning to improve we will discuss with ID if we should revisit Remdesivir if renal function continues to improve. Continue ceftriaxone and azithromycin for 5 days. Offloading sacral area and keep area dry per wound care team. Continue anticoagulation. ID added fluconazole. Will adjust insulin therapy and also sliding scale to a higher scale. 06/02: Called and discussed with family patient does have some psychiatric illness will obtain psych consultation due to new onset psychosis. Pulmonary input appreciated. Will proceed with ordering plasma therapy.The assigned patient code is [id number] for plasma transfusion. 06/03: Continues with intermittent confusion, known psych hx, psych team consulted. Continue oxygen therapy, awaiting Plasma therapy. Patient being transferred to ICU due to worsening respiratory status. Psych following. 06/04: Remains on BiPAP, with intermittent confusion, appears slighlty restless, s/p plasma therapy yesterday. cont to wean off from biPAP. planned to start IV Remdesivir for 5 days as renal function improved 06/05; renal function declined, OK to continue IV Remdesivir for now, D2 of 5 per ID. Patient remains on 100% high flow O2/BiPAP alternatively. Continue to wean off from O2 requirement as tolerated. 06/06: Continue day 3 of Remdesivir, continue to follow renal function, continue to wean off O2 as tolerated. Prognosis remains guarded. d-dimer significantly elevated - will order VQ scan for possible PE and start on therapeutic AC, cont to monitor. also plan to place whitehead by cysto today 06/07: Na 162 today, placed on d5w, cont to monitor. Cr slightly improved 06/08: Na and Cr level improving, cont d5w. pt on 75% FiO2 06/09: Patient on BiPAP today, noted tachycardic, cont to monitor BMP. na and Cr level improving, TF on hold as patient on BiPAP Brief History; 64-year-old man with history of hypertension diabetes congestive heart failure and left below-knee amputation comes in for cough fever and shortness of breath and chills for 5 days. Patient has been tested positive for COVID-19 5 days ago. Patient saturations were 80% on room air which improved to 98% on a nonrebreather. Denies any chest pain. Patient is covid 19 positive and hypoxic. Subjective Date of service: 06/09/20 Principal diagnosis: Acute Respiratory Failure Secondary to COVID Interval history: Patient seen and examined Patient placed back on BiPAP today intermittently tachycardic on tele Follows command, Objective - Exam Narrative Exam: VITAL SIGNS: Reviewed. GENERAL: The patient appears normally developed, morbidly obese vital signs as documented. on Bipap HEAD: No signs of head trauma. EYES: Pupils are equal. Extraocular motions intact. EARS: Hearing grossly intact. MOUTH: Oropharynx is normal. NECK: No adenopathy, no JVD. CHEST: Chest with diminished breath sounds bilaterally. Increased respiratory rate. No wheezes, rales, or rhonchi. CARDIAC: Regular rate and rhythm. S1 and S2, without murmurs, gallops, or rubs. VASCULAR: No Edema. Peripheral pulses normal and equal in all extremities. ABDOMEN: Soft, non tender and non distended. No rebound or guarding, and no masses palpated. Bowel Sounds normal. MUSCULOSKELETAL: BKA LEFT LOWER EXT. extremities without clubbing, cyanosis or edema. NEUROLOGIC EXAM: Alert and oriented x 1 No focal sensory or strength deficits. Speech normal. Follows commands. PSYCHIATRIC: Mood anxious SKIN: no rash, warm - Constitutional Vitals: Vital Signs - 12hr 06/09/20 06/09/20 06/09/20 11:11 11:21 11:30 Temperature Pulse Rate 71 72 65 Pulse Rate [ From Monitor] Respiratory 22 35 H 19 Rate Blood Pressure 99/63 101/71 104/65 O2 Sat by Pulse 94 90 Oximetry 06/09/20 06/09/20 06/09/20 11:41 11:51 12:00 Temperature 97.9 F Pulse Rate 77 68 69 Pulse Rate [ 69 From Monitor] Respiratory 14 12 12 Rate Blood Pressure 104/65 109/57 112/63 O2 Sat by Pulse 91 92 93 Oximetry 06/09/20 06/09/20 06/09/20 12:11 12:21 12:30 Temperature Pulse Rate 91 H 84 95 H Pulse Rate [ From Monitor] Respiratory 18 15 35 H Rate Blood Pressure 112/63 108/71 128/107 O2 Sat by Pulse 97 Oximetry 06/09/20 06/09/20 06/09/20 12:31 12:41 12:51 Temperature Pulse Rate 73 85 81 Pulse Rate [ From Monitor] Respiratory 28 H 23 15 Rate Blood Pressure 128/107 128/107 137/68 O2 Sat by Pulse 92 91 90 Oximetry 06/09/20 06/09/20 06/09/20 13:00 13:11 13:14 Temperature Pulse Rate 99 H 102 H 105 H Pulse Rate [ From Monitor] Respiratory 24 25 H Rate Blood Pressure 132/84 132/84 132/84 O2 Sat by Pulse 82 L 92 Oximetry 06/09/20 06/09/20 06/09/20 13:21 13:30 13:41 Temperature Pulse Rate 75 82 77 Pulse Rate [ From Monitor] Respiratory 12 34 H 33 H Rate Blood Pressure 90/66 105/69 105/69 O2 Sat by Pulse 92 89 91 Oximetry 06/09/20 06/09/20 06/09/20 13:51 14:00 14:11 Temperature Pulse Rate 77 76 76 Pulse Rate [ From Monitor] Respiratory 25 H 31 H 30 H Rate Blood Pressure 106/59 114/65 114/65 O2 Sat by Pulse 87 91 91 Oximetry 06/09/20 06/09/20 06/09/20 14:21 14:30 14:41 Temperature Pulse Rate 77 74 75 Pulse Rate [ From Monitor] Respiratory 13 29 H 36 H Rate Blood Pressure 108/72 109/69 109/69 O2 Sat by Pulse 94 94 93 Oximetry 06/09/20 06/09/20 06/09/20 14:51 15:00 15:11 Temperature Pulse Rate 72 70 71 Pulse Rate [ From Monitor] Respiratory 33 H 27 H 32 H Rate Blood Pressure 109/60 103/65 103/65 O2 Sat by Pulse 92 94 94 Oximetry 06/09/20 06/09/20 06/09/20 15:21 15:30 15:41 Temperature Pulse Rate 72 72 75 Pulse Rate [ From Monitor] Respiratory 31 H 31 H 34 H Rate Blood Pressure 100/62 105/69 105/69 O2 Sat by Pulse 94 94 93 Oximetry 06/09/20 06/09/20 06/09/20 15:51 16:00 16:11 Temperature 99.1 F Pulse Rate 75 76 78 Pulse Rate [ 76 From Monitor] Respiratory 38 H 33 H 35 H Rate Blood Pressure 106/64 103/71 103/71 O2 Sat by Pulse 92 92 92 Oximetry 06/09/20 06/09/20 06/09/20 16:21 16:30 16:41 Temperature Pulse Rate 78 77 78 Pulse Rate [ From Monitor] Respiratory 33 H 33 H 33 H Rate Blood Pressure 107/64 124/66 124/66 O2 Sat by Pulse 92 92 93 Oximetry 06/09/20 06/09/20 06/09/20 16:51 17:00 17:11 Temperature Pulse Rate 79 81 79 Pulse Rate [ From Monitor] Respiratory 35 H 35 H 32 H Rate Blood Pressure 103/67 119/64 119/64 O2 Sat by Pulse 92 93 92 Oximetry 06/09/20 06/09/20 06/09/20 17:21 17:30 17:41 Temperature Pulse Rate 80 78 77 Pulse Rate [ From Monitor] Respiratory 32 H 32 H 31 H Rate Blood Pressure 107/68 100/74 100/74 O2 Sat by Pulse 91 94 93 Oximetry 06/09/20 06/09/20 06/09/20 17:51 18:01 18:11 Temperature Pulse Rate 77 82 82 Pulse Rate [ From Monitor] Respiratory 30 H 26 H 30 H Rate Blood Pressure 108/74 103/66 103/66 O2 Sat by Pulse 94 91 92 Oximetry 06/09/20 06/09/20 06/09/20 18:21 18:30 18:41 Temperature Pulse Rate 85 89 99 H Pulse Rate [ From Monitor] Respiratory 32 H 32 H 28 H Rate Blood Pressure 109/75 119/81 119/81 O2 Sat by Pulse 93 94 91 Oximetry 06/09/20 06/09/20 06/09/20 18:50 19:00 19:11 Temperature Pulse Rate 143 H 99 H 99 H Pulse Rate [ From Monitor] Respiratory 36 H 26 H 29 H Rate Blood Pressure 88/62 104/80 109/75 O2 Sat by Pulse 91 89 92 Oximetry 06/09/20 06/09/20 06/09/20 19:21 19:23 19:30 Temperature Pulse Rate 104 H 105 H 105 H Pulse Rate [ From Monitor] Respiratory 33 H 33 H 36 H Rate Blood Pressure 79/40 113/68 113/68 O2 Sat by Pulse 89 91 90 Oximetry 06/09/20 06/09/20 06/09/20 19:41 19:51 20:00 Temperature 100.7 F H Pulse Rate 107 H 112 H Pulse Rate [ 114 H From Monitor] Respiratory 37 H 33 H 35 H Rate Blood Pressure 113/68 110/72 O2 Sat by Pulse 92 94 93 Oximetry 08/06/09/20 06/09/20 20:01 20:11 20:21 Temperature Pulse Rate 112 H 112 H 111 H Pulse Rate [ From Monitor] Respiratory 36 H 32 H 34 H Rate Blood Pressure 73/55 113/68 105/85 O2 Sat by Pulse 93 94 92 Oximetry 06/09/20 06/09/20 06/09/20 20:30 20:39 20:41 Temperature Pulse Rate 113 H 115 H 110 H Pulse Rate [ From Monitor] Respiratory 34 H 24 Rate Blood Pressure 110/62 110/68 110/62 O2 Sat by Pulse 93 92 Oximetry 06/09/20 06/09/20 06/09/20 20:51 21:00 21:11 Temperature Pulse Rate 100 H 98 H 105 H Pulse Rate [ From Monitor] Respiratory 35 H 38 H 33 H Rate Blood Pressure 110/72 97/66 105/85 O2 Sat by Pulse 91 92 93 Oximetry 06/09/20 06/09/20 06/09/20 21:21 21:31 21:41 Temperature Pulse Rate 105 H 107 H 109 H Pulse Rate [ From Monitor] Respiratory 37 H 35 H 34 H Rate Blood Pressure 117/61 118/52 118/52 O2 Sat by Pulse 93 94 95 Oximetry 06/09/20 06/09/20 06/09/20 21:51 22:01 22:11 Temperature Pulse Rate 107 H 109 H 109 H Pulse Rate [ From Monitor] Respiratory 33 H 37 H 36 H Rate Blood Pressure 122/44 113/38 113/38 O2 Sat by Pulse 95 96 96 Oximetry - Labs CBC & Chem 7: 06/10/20 05:52 06/10/20 05:52 Labs: Abnormal lab results 06/08/20 06/09/20 06/09/20 Range/Units 22:56 03:15 05:44 WBC 13.2 H (4.5-11.0) K/mm3 Hct 47.2 H (35.5-45.6) % RDW 16.4 H (13.2-15.2) % Plt Count 77 L (140-440) K/mm3 Seg Neuts % (Manual) 91.0 H (40.0-70.0) % Lymphocytes % (Manual) 5.0 L (13.4-35.0) % Seg Neutrophils # Man 12.0 H (1.8-7.7) K/mm3 Lymphocytes # (Manual) 0.7 L (1.2-5.4) K/mm3 ABG pO2 (80.0-90.0) mm Hg ABG HCO3 (20.0-26.0) mmol/L ABG O2 Saturation (95.0-99.0) % ABG Base Excess (-2.0-3.0) mmol/L Oxyhemoglobin (95.0-99.0) % Sodium (137-145) mmol/L Chloride (98-107) mmol/L Carbon Dioxide (22-30) mmol/L BUN (9-20) mg/dL Creatinine (0.8-1.3) mg/dL Glucose (75-100) mg/dL POC Glucose 330 H 318 H (70-105) 06/09/20 06/09/20 06/09/20 Range/Units 05:44 06:13 09:53 WBC (4.5-11.0) K/mm3 Hct (35.5-45.6) % RDW (13.2-15.2) % Plt Count (140-440) K/mm3 Seg Neuts % (Manual) (40.0-70.0) % Lymphocytes % (Manual) (13.4-35.0) % Seg Neutrophils # Man (1.8-7.7) K/mm3 Lymphocytes # (Manual) (1.2-5.4) K/mm3 ABG pO2 (80.0-90.0) mm Hg ABG HCO3 (20.0-26.0) mmol/L ABG O2 Saturation (95.0-99.0) % ABG Base Excess (-2.0-3.0) mmol/L Oxyhemoglobin (95.0-99.0) % Sodium 151 H (137-145) mmol/L Chloride 114.8 H (98-107) mmol/L Carbon Dioxide 19 L (22-30) mmol/L BUN 63 H (9-20) mg/dL Creatinine 1.5 H (0.8-1.3) mg/dL Glucose 360 H (75-100) mg/dL POC Glucose 314 H 279 H (70-105) 06/09/20 06/09/20 06/09/20 Range/Units 10:50 14:17 18:08 WBC (4.5-11.0) K/mm3 Hct (35.5-45.6) % RDW (13.2-15.2) % Plt Count (140-440) K/mm3 Seg Neuts % (Manual) (40.0-70.0) % Lymphocytes % (Manual) (13.4-35.0) % Seg Neutrophils # Man (1.8-7.7) K/mm3 Lymphocytes # (Manual) (1.2-5.4) K/mm3 ABG pO2 62.9 L (80.0-90.0) mm Hg ABG HCO3 18.7 L (20.0-26.0) mmol/L ABG O2 Saturation 91.0 L (95.0-99.0) % ABG Base Excess -5.5 L (-2.0-3.0) mmol/L Oxyhemoglobin 89.5 L (95.0-99.0) % Sodium (137-145) mmol/L Chloride (98-107) mmol/L Carbon Dioxide (22-30) mmol/L BUN (9-20) mg/dL Creatinine (0.8-1.3) mg/dL Glucose (75-100) mg/dL POC Glucose 232 H 194 H (70-105) 06/09/20 Range/Units 21:47 WBC (4.5-11.0) K/mm3 Hct (35.5-45.6) % RDW (13.2-15.2) % Plt Count (140-440) K/mm3 Seg Neuts % (Manual) (40.0-70.0) % Lymphocytes % (Manual) (13.4-35.0) % Seg Neutrophils # Man (1.8-7.7) K/mm3 Lymphocytes # (Manual) (1.2-5.4) K/mm3 ABG pO2 (80.0-90.0) mm Hg ABG HCO3 (20.0-26.0) mmol/L ABG O2 Saturation (95.0-99.0) % ABG Base Excess (-2.0-3.0) mmol/L Oxyhemoglobin (95.0-99.0) % Sodium (137-145) mmol/L Chloride (98-107) mmol/L Carbon Dioxide (22-30) mmol/L BUN (9-20) mg/dL Creatinine (0.8-1.3) mg/dL Glucose (75-100) mg/dL POC Glucose 174 H (70-105) HEART Score - HEART Score Troponin: Troponin T 0.025 ng/mL (0.00-0.029) 05/29/20 15:10
[2020-06-10] MEDS: INSULIN LISPRO 100 UNIT/ML VIAL 3 mL SUB-Q SCH ×7 (02:12→22:16)
--- NOTE | 2020-06-10 05:38 | XRay Report ---
CHEST 1 VIEW, 06/10/2020 3:15 AM CLINICAL INFORMATION/INDICATION: COVID pneumonia COMPARISON: Chest radiograph, 05/29/2020 FINDINGS: SUPPORT DEVICES: None. HEART: Cardiac and mediastinal contours appear unchanged. LUNGS/PLEURA: Diffuse patchy bilateral parenchymal opacities have slightly improved compared to the p revious study. No large pleural effusion is identified. ADDITIONAL FINDINGS: No additional acute findings. IMPRESSION: 1. Slight interval improvement in the appearance of patchy bilateral parenchymal opacities. Signer Name: Samreen Chua MD Signed: 06/10/2020 5:34 AM Workstation Name: [id number]
[2020-06-10] MEDS: methylPREDNISolone Sod Succinate 40 MG/1 ML INJ IV SCH ×4 (06:31→20:40)
[2020-06-10] MEDS: METOPROLOL TARTRATE 5 MG/5 ML INJ IV PRN (06:31)
[2020-06-10 06:33] LABS: Hematocrit 43.8 % (35.5-45.6); Hemoglobin 14.1 gm/dl (11.8-15.2); Mean Corpuscular HGB Conc 32 % (32-34); Mean Corpuscular Volume 93 fl (84-94); Red Blood Count 4.71 M/mm3 (3.65-5.03); Red Cell Distribution Width 15.9 % (13.2-15.2)
[2020-06-10 06:36] LABS: Platelet Count 71 K/mm3 (140-440)
[2020-06-10 06:50] LABS: Calcium 8.4 mg/dL (8.4-10.2)
[2020-06-10] MEDS: HALOPERIDOL LACTATE 5 MG/1 ML INJ IV SCH (08:08)
[2020-06-10 08:17] LABS: Anisocytosis Few; Basophils % (Manual) 0 % (0.0-1.8); Eosinophils % (Manual) 0 % (0.0-4.3); Macrocytosis Few; Platelet Estimate Consistent w Auto; Total Cells Counted 100
[2020-06-10] MEDS: APIXABAN 5 MG TAB PO SCH ×2 (09:24→22:16)
[2020-06-10] MEDS: FAMOTIDINE 20 MG TAB PO SCH (09:25)
[2020-06-10] MEDS: PARoxetine 10 MG TAB PO SCH (09:25)
[2020-06-10] MEDS: INSULIN GLARGINE 100 UNITS/ML SUB-Q SCH ×3 (09:26→22:17)
--- NOTE | 2020-06-10 10:35 | Progress Note ---
Assessment and Plan 55 y/o obese male with acute respiratory failure from COVID and acute renal failure. 1. No further lasix therapy, especially given low BP's now. 2. Na is better today. Continue Dextrose Therapy with Feeds 3. Attempt HFNC at some point today, has had a significant increase in oxygen requirement. Will repeat CXR. 4. Continue IV steroids, not weaned over the weekend. 5. Patient finished remdesivir 6. Thrombocytopenia, worsening since 06/06. Ordered HIT today. Off lovenox therapy as this was topped on 06/06. No clinical evidence of suspicion of clot but given COVID positive, agree with empiric anticoagulation with Eliquis. 7. renal function is better with catheter placement. Continue to hold lasix. May need more volume but will defer to renal Overall prognosis is guarded to poor. cct 31 Subjective Date of service: 06/10/20 Principal diagnosis: Acute Respiratory Failure Secondary to COVID Interval history: Patient still on bipap this am. Was on HFNC yesterday morning but then switched to bipap late morning and appears to have been on ever since. Patient had some tachycardic episodes this am with rates up to the 170's. Spontaneously resolved. Awaiting EKG. K, Mag and Calcium all within normal limits. Objective Vital Signs - 12hr 06/09/20 06/09/20 06/09/20 22:31 22:41 22:50 Temperature Pulse Rate 109 H 109 H 109 H Pulse Rate [ From Monitor] Respiratory 37 H 39 H 36 H Rate Blood Pressure 85/54 85/54 86/63 O2 Sat by Pulse 94 95 93 Oximetry 06/09/20 06/09/20 06/09/20 23:00 23:11 23:21 Temperature Pulse Rate 108 H 105 H 104 H Pulse Rate [ From Monitor] Respiratory 36 H 34 H 39 H Rate Blood Pressure 86/63 82/44 81/53 O2 Sat by Pulse 92 92 93 Oximetry 06/09/20 06/09/20 06/09/20 23:27 23:30 23:41 Temperature Pulse Rate 108 H 99 H 100 H Pulse Rate [ From Monitor] Respiratory 37 H 35 H 33 H Rate Blood Pressure 81/53 80/51 86/58 O2 Sat by Pulse 92 93 93 Oximetry 06/09/20 06/09/20 06/10/20 23:49 23:51 00:00 Temperature 98.3 F Pulse Rate 105 H 144 H 100 H Pulse Rate [ 99 H From Monitor] Respiratory 34 H 39 H 34 H Rate Blood Pressure 82/51 82/51 84/50 O2 Sat by Pulse 92 92 93 Oximetry 06/10/20 06/10/20 06/10/20 00:11 00:21 00:30 Temperature Pulse Rate 102 H 96 H 100 H Pulse Rate [ From Monitor] Respiratory 33 H 32 H 34 H Rate Blood Pressure 84/50 82/45 85/53 O2 Sat by Pulse 93 93 94 Oximetry 06/10/20 06/10/20 06/10/20 00:41 00:51 01:00 Temperature Pulse Rate 98 H 92 H 94 H Pulse Rate [ From Monitor] Respiratory 32 H 32 H 35 H Rate Blood Pressure 85/53 82/45 87/57 O2 Sat by Pulse 94 95 94 Oximetry 06/10/20 06/10/20 06/10/20 01:11 01:21 01:30 Temperature Pulse Rate 103 H 94 H 96 H Pulse Rate [ From Monitor] Respiratory 33 H 32 H 32 H Rate Blood Pressure 87/57 87/57 92/38 O2 Sat by Pulse 94 96 94 Oximetry 06/10/20 06/10/20 06/10/20 01:41 01:51 02:00 Temperature Pulse Rate 82 98 H 90 Pulse Rate [ From Monitor] Respiratory 32 H 33 H 34 H Rate Blood Pressure 92/38 92/38 97/59 O2 Sat by Pulse 94 93 91 Oximetry 06/10/20 06/10/20 06/10/20 02:11 02:21 02:30 Temperature Pulse Rate 88 97 H 105 H Pulse Rate [ From Monitor] Respiratory 27 H 33 H 31 H Rate Blood Pressure 97/59 96/60 84/63 O2 Sat by Pulse 94 93 94 Oximetry 06/10/20 06/10/20 06/10/20 02:41 02:51 03:00 Temperature Pulse Rate 94 H 89 87 Pulse Rate [ From Monitor] Respiratory 33 H 33 H 26 H Rate Blood Pressure 84/63 84/55 100/66 O2 Sat by Pulse 93 93 93 Oximetry 06/10/20 06/10/20 06/10/20 03:11 03:21 03:30 Temperature Pulse Rate 95 H 100 H 91 H Pulse Rate [ From Monitor] Respiratory 33 H 28 H 28 H Rate Blood Pressure 100/66 89/67 93/66 O2 Sat by Pulse 93 92 95 Oximetry 06/10/20 06/10/20 06/10/20 03:41 03:45 03:51 Temperature Pulse Rate 83 92 H 103 H Pulse Rate [ From Monitor] Respiratory 18 33 H 29 H Rate Blood Pressure 93/66 98/70 98/70 O2 Sat by Pulse 91 94 93 Oximetry 06/10/20 06/10/20 06/10/20 04:00 04:11 04:21 Temperature 99.9 F H Pulse Rate 92 H 96 H 93 H Pulse Rate [ 89 From Monitor] Respiratory 34 H 35 H 30 H Rate Blood Pressure 88/58 88/58 83/68 O2 Sat by Pulse 94 93 93 Oximetry 06/10/20 06/10/20 06/10/20 04:30 04:41 04:51 Temperature Pulse Rate 96 H 102 H 96 H Pulse Rate [ From Monitor] Respiratory 35 H 22 28 H Rate Blood Pressure 95/39 95/39 103/73 O2 Sat by Pulse 93 92 92 Oximetry 06/10/20 06/10/20 06/10/20 05:01 05:11 05:21 Temperature Pulse Rate 99 H 102 H 94 H Pulse Rate [ From Monitor] Respiratory 22 17 31 H Rate Blood Pressure 88/62 88/62 96/61 O2 Sat by Pulse 92 92 92 Oximetry 06/10/20 06/10/20 06/10/20 05:31 05:41 05:51 Temperature Pulse Rate 93 H 100 H 99 H Pulse Rate [ From Monitor] Respiratory 23 21 29 H Rate Blood Pressure 110/56 110/56 110/60 O2 Sat by Pulse 94 92 92 Oximetry 06/10/20 06/10/20 06/10/20 06:00 06:11 07:53 Temperature Pulse Rate 141 H 103 H 152 H Pulse Rate [ From Monitor] Respiratory 29 H 28 H 35 H Rate Blood Pressure 95/35 95/35 105/72 O2 Sat by Pulse 91 91 97 Oximetry Constitutional: appears uncomfortable, other (critically ill on BIPAP) Eyes: non-icteric ENT: other (short fat neck) Neck: supple Effort: mildly labored Ascultation: Bilateral: diminished breath sounds Percussion: Bilateral: not dull Cardiovascular: regular rate and rhythm Gastrointestinal: soft, non-distended, other (obese) Integumentary: normal Extremities: no cyanosis Neurologic: other (awake, eyes open, moaning) Psychiatric: other (not able to assess) CBC and BMP: 06/10/20 05:52 06/10/20 05:52 ABG, PT/INR, D-dimer: ABG ABG pH 7.367 pH Units (7.350-7.450) 06/09/20 10:50 ABG pCO2 33.4 mm Hg 06/09/20 10:50 ABG pO2 62.9 mm Hg (80.0-90.0) L 06/09/20 10:50 ABG O2 Saturation 91.0 % (95.0-99.0) L 06/09/20 10:50 PT/INR, D-dimer PT 14.1 Sec. (12.2-14.9) 06/05/20 10:30 INR 1.08 (0.87-1.13) 06/05/20 10:30 D-Dimer 2645.35 ng/mlDDU (0-234) H 06/08/20 06:35 Abnormal lab findings: Abnormal Labs 05/29/20 05/29/20 05/29/20 13:25 13:25 13:25 WBC Hct MCV MCHC RDW 16.4 H Plt Count Lymph % (Auto) Lymph # Seg Neutrophils % 78.4 H Seg Neuts % (Manual) Lymphocytes % (Manual) Seg Neutrophils # Seg Neutrophils # Man Lymphocytes # (Manual) D-Dimer ABG pO2 ABG HCO3 ABG O2 Saturation ABG Base Excess Oxyhemoglobin Sodium 131 L Potassium 5.4 H Chloride 96.2 L Carbon Dioxide 14 L BUN 42 H Creatinine 4.7 H Glucose 121 H POC Glucose Hemoglobin A1c Lactic Acid 2.70 H* Calcium 8.3 L Ferritin AST Lactate Dehydrogenase C-Reactive Protein Albumin Coronavirus (PCR) 05/29/20 05/29/20 05/29/20 13:25 15:10 15:10 WBC Hct MCV MCHC RDW Plt Count Lymph % (Auto) Lymph # Seg Neutrophils % Seg Neuts % (Manual) Lymphocytes % (Manual) Seg Neutrophils # Seg Neutrophils # Man Lymphocytes # (Manual) D-Dimer 1391.41 H ABG pO2 ABG HCO3 ABG O2 Saturation ABG Base Excess Oxyhemoglobin Sodium Potassium Chloride Carbon Dioxide BUN Creatinine Glucose 120 H POC Glucose Hemoglobin A1c Lactic Acid Calcium Ferritin AST 54 H Lactate Dehydrogenase 581 H C-Reactive Protein 40.70 H Albumin 2.9 L Coronavirus (PCR) 05/29/20 05/29/20 05/29/20 15:10 15:10 22:55 WBC Hct MCV MCHC RDW Plt Count Lymph % (Auto) Lymph # Seg Neutrophils % Seg Neuts % (Manual) Lymphocytes % (Manual) Seg Neutrophils # Seg Neutrophils # Man Lymphocytes # (Manual) D-Dimer ABG pO2 ABG HCO3 ABG O2 Saturation ABG Base Excess Oxyhemoglobin Sodium Potassium Chloride Carbon Dioxide BUN Creatinine Glucose POC Glucose 256 H Hemoglobin A1c Lactic Acid 2.20 H* Calcium Ferritin 1092.0 H AST Lactate Dehydrogenase C-Reactive Protein Albumin Coronavirus (PCR) 05/29/20 05/30/20 05/30/20 Unknown 07:00 07:00 WBC Hct MCV MCHC RDW 16.0 H Plt Count Lymph % (Auto) 7.3 L Lymph # 0.5 L Seg Neutrophils % 88.4 H Seg Neuts % (Manual) Lymphocytes % (Manual) Seg Neutrophils # Seg Neutrophils # Man Lymphocytes # (Manual) D-Dimer ABG pO2 ABG HCO3 ABG O2 Saturation ABG Base Excess Oxyhemoglobin Sodium 132 L Potassium 5.9 H Chloride 95.5 L Carbon Dioxide 18 L BUN 49 H Creatinine 4.0 H Glucose 415 H POC Glucose Hemoglobin A1c Lactic Acid Calcium 7.8 L Ferritin AST 46 H Lactate Dehydrogenase C-Reactive Protein Albumin 3.2 L Coronavirus (PCR) Positive A 05/30/20 05/30/20 05/30/20 07:00 07:45 11:39 WBC Hct MCV MCHC RDW Plt Count Lymph % (Auto) Lymph # Seg Neutrophils % Seg Neuts % (Manual) Lymphocytes % (Manual) Seg Neutrophils # Seg Neutrophils # Man Lymphocytes # (Manual) D-Dimer ABG pO2 ABG HCO3 ABG O2 Saturation ABG Base Excess Oxyhemoglobin Sodium Potassium Chloride Carbon Dioxide BUN Creatinine Glucose POC Glucose 424 H 468 H Hemoglobin A1c 9.7 H Lactic Acid Calcium Ferritin AST Lactate Dehydrogenase C-Reactive Protein Albumin Coronavirus (PCR) 05/30/20 05/31/20 05/31/20 17:11 01:49 08:14 WBC Hct MCV MCHC RDW Plt Count Lymph % (Auto) Lymph # Seg Neutrophils % Seg Neuts % (Manual) Lymphocytes % (Manual) Seg Neutrophils # Seg Neutrophils # Man Lymphocytes # (Manual) D-Dimer ABG pO2 ABG HCO3 ABG O2 Saturation ABG Base Excess Oxyhemoglobin Sodium Potassium Chloride Carbon Dioxide BUN Creatinine Glucose POC Glucose 475 H 426 H 430 H Hemoglobin A1c Lactic Acid Calcium Ferritin AST Lactate Dehydrogenase C-Reactive Protein Albumin Coronavirus (PCR) 05/31/20 05/31/20 05/31/20 10:17 10:17 10:17 WBC Hct MCV MCHC RDW 16.0 H Plt Count Lymph % (Auto) Lymph # Seg Neutrophils % Seg Neuts % (Manual) Lymphocytes % (Manual) Seg Neutrophils # Seg Neutrophils # Man Lymphocytes # (Manual) D-Dimer 704.53 H ABG pO2 ABG HCO3 ABG O2 Saturation ABG Base Excess Oxyhemoglobin Sodium 134 L Potassium 5.2 H Chloride 92.9 L Carbon Dioxide BUN 38 H Creatinine 1.6 H D Glucose 556 H* POC Glucose Hemoglobin A1c Lactic Acid Calcium Ferritin AST Lactate Dehydrogenase 676 H C-Reactive Protein 21.30 H Albumin 3.2 L Coronavirus (PCR) 05/31/20 05/31/20 05/31/20 10:17 11:24 16:25 WBC Hct MCV MCHC RDW Plt Count Lymph % (Auto) Lymph # Seg Neutrophils % Seg Neuts % (Manual) Lymphocytes % (Manual) Seg Neutrophils # Seg Neutrophils # Man Lymphocytes # (Manual) D-Dimer ABG pO2 ABG HCO3 ABG O2 Saturation ABG Base Excess Oxyhemoglobin Sodium Potassium Chloride Carbon Dioxide BUN Creatinine Glucose POC Glucose 482 H 367 H Hemoglobin A1c Lactic Acid Calcium Ferritin 1221.0 H AST Lactate Dehydrogenase C-Reactive Protein Albumin Coronavirus (PCR) 05/31/20 06/01/20 06/01/20 22:52 04:48 04:48 WBC Hct MCV MCHC RDW 15.7 H Plt Count Lymph % (Auto) Lymph # Seg Neutrophils % Seg Neuts % (Manual) Lymphocytes % (Manual) Seg Neutrophils # Seg Neutrophils # Man Lymphocytes # (Manual) D-Dimer ABG pO2 ABG HCO3 ABG O2 Saturation ABG Base Excess Oxyhemoglobin Sodium 132 L Potassium Chloride 93.3 L Carbon Dioxide BUN 39 H Creatinine 1.4 H Glucose 533 H* POC Glucose 431 H Hemoglobin A1c Lactic Acid Calcium Ferritin AST Lactate Dehydrogenase C-Reactive Protein Albumin Coronavirus (PCR) 06/01/20 06/01/20 06/01/20 07:46 08:46 11:38 WBC Hct MCV MCHC RDW Plt Count Lymph % (Auto) Lymph # Seg Neutrophils % Seg Neuts % (Manual) Lymphocytes % (Manual) Seg Neutrophils # Seg Neutrophils # Man Lymphocytes # (Manual) D-Dimer ABG pO2 ABG HCO3 ABG O2 Saturation ABG Base Excess Oxyhemoglobin Sodium Potassium Chloride Carbon Dioxide BUN Creatinine Glucose 504 H* POC Glucose 448 H 287 H Hemoglobin A1c Lactic Acid Calcium Ferritin AST Lactate Dehydrogenase C-Reactive Protein Albumin Coronavirus (PCR) 06/01/20 06/01/20 06/02/20 16:27 22:47 07:35 WBC Hct MCV MCHC RDW Plt Count Lymph % (Auto) Lymph # Seg Neutrophils % Seg Neuts % (Manual) Lymphocytes % (Manual) Seg Neutrophils # Seg Neutrophils # Man Lymphocytes # (Manual) D-Dimer ABG pO2 ABG HCO3 ABG O2 Saturation ABG Base Excess Oxyhemoglobin Sodium Potassium Chloride Carbon Dioxide BUN Creatinine Glucose POC Glucose 298 H 411 H 347 H Hemoglobin A1c Lactic Acid Calcium Ferritin AST Lactate Dehydrogenase C-Reactive Protein Albumin Coronavirus (PCR) 06/02/20 06/02/20 06/02/20 11:53 17:08 22:41 WBC Hct MCV MCHC RDW Plt Count Lymph % (Auto) Lymph # Seg Neutrophils % Seg Neuts % (Manual) Lymphocytes % (Manual) Seg Neutrophils # Seg Neutrophils # Man Lymphocytes # (Manual) D-Dimer ABG pO2 ABG HCO3 ABG O2 Saturation ABG Base Excess Oxyhemoglobin Sodium Potassium Chloride Carbon Dioxide BUN Creatinine Glucose POC Glucose 406 H 355 H 272 H Hemoglobin A1c Lactic Acid Calcium Ferritin AST Lactate Dehydrogenase C-Reactive Protein Albumin Coronavirus (PCR) 06/03/20 06/03/20 06/03/20 05:14 05:14 08:11 WBC 11.9 H Hct MCV MCHC RDW 15.6 H Plt Count Lymph % (Auto) Lymph # Seg Neutrophils % Seg Neuts % (Manual) Lymphocytes % (Manual) Seg Neutrophils # Seg Neutrophils # Man Lymphocytes # (Manual) D-Dimer ABG pO2 ABG HCO3 ABG O2 Saturation ABG Base Excess Oxyhemoglobin Sodium Potassium Chloride Carbon Dioxide BUN 44 H Creatinine 1.4 H Glucose 291 H POC Glucose 265 H Hemoglobin A1c Lactic Acid Calcium Ferritin AST Lactate Dehydrogenase C-Reactive Protein Albumin Coronavirus (PCR) 06/03/20 06/03/20 06/03/20 13:32 18:24 21:26 WBC Hct MCV MCHC RDW Plt Count Lymph % (Auto) Lymph # Seg Neutrophils % Seg Neuts % (Manual) Lymphocytes % (Manual) Seg Neutrophils # Seg Neutrophils # Man Lymphocytes # (Manual) D-Dimer ABG pO2 ABG HCO3 ABG O2 Saturation ABG Base Excess Oxyhemoglobin Sodium Potassium Chloride Carbon Dioxide BUN Creatinine Glucose POC Glucose 309 H 365 H 333 H Hemoglobin A1c Lactic Acid Calcium Ferritin AST Lactate Dehydrogenase C-Reactive Protein Albumin Coronavirus (PCR) 06/04/20 06/04/20 06/04/20 03:41 03:41 03:41 WBC 12.5 H Hct MCV MCHC RDW 15.8 H Plt Count Lymph % (Auto) Lymph # Seg Neutrophils % Seg Neuts % (Manual) Lymphocytes % (Manual) Seg Neutrophils # Seg Neutrophils # Man Lymphocytes # (Manual) D-Dimer 541.25 H ABG pO2 ABG HCO3 ABG O2 Saturation ABG Base Excess Oxyhemoglobin Sodium Potassium 5.1 H D Chloride Carbon Dioxide BUN 52 H Creatinine 1.8 H Glucose 155 H POC Glucose Hemoglobin A1c Lactic Acid Calcium Ferritin AST Lactate Dehydrogenase 732 H C-Reactive Protein 3.00 H Albumin Coronavirus (PCR) 06/04/20 06/04/20 06/04/20 03:41 07:49 10:54 WBC Hct MCV MCHC RDW Plt Count Lymph % (Auto) Lymph # Seg Neutrophils % Seg Neuts % (Manual) Lymphocytes % (Manual) Seg Neutrophils # Seg Neutrophils # Man Lymphocytes # (Manual) D-Dimer ABG pO2 ABG HCO3 ABG O2 Saturation ABG Base Excess Oxyhemoglobin Sodium Potassium Chloride Carbon Dioxide BUN Creatinine Glucose POC Glucose 254 H 288 H Hemoglobin A1c Lactic Acid Calcium Ferritin 913.8 H AST Lactate Dehydrogenase C-Reactive Protein Albumin Coronavirus (PCR) 06/04/20 06/04/20 06/05/20 17:11 23:10 05:30 WBC Hct MCV MCHC RDW Plt Count Lymph % (Auto) Lymph # Seg Neutrophils % Seg Neuts % (Manual) Lymphocytes % (Manual) Seg Neutrophils # Seg Neutrophils # Man Lymphocytes # (Manual) D-Dimer ABG pO2 ABG HCO3 ABG O2 Saturation ABG Base Excess Oxyhemoglobin Sodium 153 H D Potassium Chloride 109.5 H Carbon Dioxide BUN 93 H Creatinine 2.9 H D Glucose 370 H POC Glucose 194 H 268 H Hemoglobin A1c Lactic Acid Calcium Ferritin AST Lactate Dehydrogenase C-Reactive Protein Albumin 3.4 L Coronavirus (PCR) 06/05/20 06/05/20 06/05/20 11:44 16:16 18:19 WBC Hct MCV MCHC RDW Plt Count Lymph % (Auto) Lymph # Seg Neutrophils % Seg Neuts % (Manual) Lymphocytes % (Manual) Seg Neutrophils # Seg Neutrophils # Man Lymphocytes # (Manual) D-Dimer ABG pO2 ABG HCO3 ABG O2 Saturation ABG Base Excess Oxyhemoglobin Sodium Potassium Chloride Carbon Dioxide BUN Creatinine Glucose POC Glucose 432 H 452 H 458 H Hemoglobin A1c Lactic Acid Calcium Ferritin AST Lactate Dehydrogenase C-Reactive Protein Albumin Coronavirus (PCR) 06/05/20 06/06/20 06/06/20 21:26 02:04 04:00 WBC Hct MCV MCHC RDW Plt Count Lymph % (Auto) Lymph # Seg Neutrophils % Seg Neuts % (Manual) Lymphocytes % (Manual) Seg Neutrophils # Seg Neutrophils # Man Lymphocytes # (Manual) D-Dimer ABG pO2 ABG HCO3 ABG O2 Saturation ABG Base Excess Oxyhemoglobin Sodium Potassium Chloride Carbon Dioxide BUN Creatinine Glucose POC Glucose 436 H 372 H Hemoglobin A1c Lactic Acid Calcium Ferritin 1073.0 H AST Lactate Dehydrogenase C-Reactive Protein Albumin Coronavirus (PCR) 06/06/20 06/06/20 06/06/20 04:00 04:40 04:40 WBC 13.6 H Hct 46.0 H MCV MCHC RDW 16.3 H Plt Count Lymph % (Auto) 5.4 L Lymph # 0.7 L Seg Neutrophils % 87.9 H Seg Neuts % (Manual) Lymphocytes % (Manual) Seg Neutrophils # 11.9 H Seg Neutrophils # Man Lymphocytes # (Manual) D-Dimer 4258.77 H ABG pO2 ABG HCO3 ABG O2 Saturation ABG Base Excess Oxyhemoglobin Sodium Potassium Chloride Carbon Dioxide BUN Creatinine Glucose POC Glucose Hemoglobin A1c Lactic Acid Calcium Ferritin AST Lactate Dehydrogenase 627 H C-Reactive Protein 2.20 H Albumin Coronavirus (PCR) 06/06/20 06/06/20 06/06/20 05:00 05:36 10:11 WBC Hct MCV MCHC RDW Plt Count Lymph % (Auto) Lymph # Seg Neutrophils % Seg Neuts % (Manual) Lymphocytes % (Manual) Seg Neutrophils # Seg Neutrophils # Man Lymphocytes # (Manual) D-Dimer ABG pO2 ABG HCO3 ABG O2 Saturation ABG Base Excess Oxyhemoglobin Sodium 157 H Potassium Chloride 115.8 H Carbon Dioxide BUN 110 H Creatinine 2.9 H Glucose 342 H POC Glucose 247 H 265 H Hemoglobin A1c Lactic Acid Calcium Ferritin AST Lactate Dehydrogenase C-Reactive Protein Albumin 3.6 L Coronavirus (PCR) 06/06/20 06/06/20 06/06/20 14:17 18:43 21:31 WBC Hct MCV MCHC RDW Plt Count Lymph % (Auto) Lymph # Seg Neutrophils % Seg Neuts % (Manual) Lymphocytes % (Manual) Seg Neutrophils # Seg Neutrophils # Man Lymphocytes # (Manual) D-Dimer ABG pO2 ABG HCO3 ABG O2 Saturation ABG Base Excess Oxyhemoglobin Sodium Potassium Chloride Carbon Dioxide BUN Creatinine Glucose POC Glucose 324 H 301 H 275 H Hemoglobin A1c Lactic Acid Calcium Ferritin AST Lactate Dehydrogenase C-Reactive Protein Albumin Coronavirus (PCR) 06/07/20 06/07/20 06/07/20 00:26 02:01 05:51 WBC Hct MCV MCHC RDW Plt Count Lymph % (Auto) Lymph # Seg Neutrophils % Seg Neuts % (Manual) Lymphocytes % (Manual) Seg Neutrophils # Seg Neutrophils # Man Lymphocytes # (Manual) D-Dimer ABG pO2 ABG HCO3 ABG O2 Saturation ABG Base Excess Oxyhemoglobin Sodium Potassium Chloride Carbon Dioxide BUN Creatinine Glucose POC Glucose 268 H 239 H 212 H Hemoglobin A1c Lactic Acid Calcium Ferritin AST Lactate Dehydrogenase C-Reactive Protein Albumin Coronavirus (PCR) 06/07/20 06/07/20 06/07/20 06:50 06:50 09:42 WBC 13.4 H Hct 47.1 H MCV 96 H MCHC 31 L RDW 16.8 H Plt Count 132 L Lymph % (Auto) 6.3 L Lymph # 0.8 L Seg Neutrophils % 88.8 H Seg Neuts % (Manual) Lymphocytes % (Manual) Seg Neutrophils # 11.9 H Seg Neutrophils # Man Lymphocytes # (Manual) D-Dimer ABG pO2 ABG HCO3 ABG O2 Saturation ABG Base Excess Oxyhemoglobin Sodium 162 H* Potassium Chloride 124.7 H Carbon Dioxide BUN 107 H Creatinine 2.4 H Glucose 212 H POC Glucose 192 H Hemoglobin A1c Lactic Acid Calcium 8.2 L Ferritin AST Lactate Dehydrogenase C-Reactive Protein Albumin Coronavirus (PCR) 06/07/20 06/07/20 06/07/20 13:35 14:30 17:20 WBC Hct MCV MCHC RDW Plt Count Lymph % (Auto) Lymph # Seg Neutrophils % Seg Neuts % (Manual) Lymphocytes % (Manual) Seg Neutrophils # Seg Neutrophils # Man Lymphocytes # (Manual) D-Dimer ABG pO2 ABG HCO3 ABG O2 Saturation ABG Base Excess Oxyhemoglobin Sodium Potassium Chloride Carbon Dioxide BUN Creatinine Glucose POC Glucose 192 H 184 H 165 H Hemoglobin A1c Lactic Acid Calcium Ferritin AST Lactate Dehydrogenase C-Reactive Protein Albumin Coronavirus (PCR) 06/07/20 06/08/20 06/08/20 21:47 00:08 02:02 WBC Hct MCV MCHC RDW Plt Count Lymph % (Auto) Lymph # Seg Neutrophils % Seg Neuts % (Manual) Lymphocytes % (Manual) Seg Neutrophils # Seg Neutrophils # Man Lymphocytes # (Manual) D-Dimer ABG pO2 ABG HCO3 ABG O2 Saturation ABG Base Excess Oxyhemoglobin Sodium Potassium Chloride Carbon Dioxide BUN Creatinine Glucose POC Glucose 299 H 335 H 342 H Hemoglobin A1c Lactic Acid Calcium Ferritin AST Lactate Dehydrogenase C-Reactive Protein Albumin Coronavirus (PCR) 06/08/20 06/08/20 06/08/20 04:00 06:33 06:35 WBC Hct MCV MCHC RDW Plt Count Lymph % (Auto) Lymph # Seg Neutrophils % Seg Neuts % (Manual) Lymphocytes % (Manual) Seg Neutrophils # Seg Neutrophils # Man Lymphocytes # (Manual) D-Dimer 2645.35 H ABG pO2 ABG HCO3 ABG O2 Saturation ABG Base Excess Oxyhemoglobin Sodium Potassium Chloride Carbon Dioxide BUN Creatinine Glucose POC Glucose 242 H Hemoglobin A1c Lactic Acid Calcium Ferritin 687.9 H AST Lactate Dehydrogenase C-Reactive Protein Albumin Coronavirus (PCR) 06/08/20 06/08/20 06/08/20 06:35 06:35 09:48 WBC 13.6 H Hct 45.8 H MCV MCHC 31 L RDW 16.7 H Plt Count 110 L Lymph % (Auto) 6.3 L Lymph # 0.9 L Seg Neutrophils % 89.0 H Seg Neuts % (Manual) Lymphocytes % (Manual) Seg Neutrophils # 12.1 H Seg Neutrophils # Man Lymphocytes # (Manual) D-Dimer ABG pO2 ABG HCO3 ABG O2 Saturation ABG Base Excess Oxyhemoglobin Sodium 153 H D Potassium Chloride 117.0 H Carbon Dioxide 19 L BUN 84 H Creatinine 1.8 H Glucose 268 H POC Glucose 178 H Hemoglobin A1c Lactic Acid Calcium 8.3 L Ferritin AST Lactate Dehydrogenase 679 H C-Reactive Protein 1.50 H Albumin 2.8 L Coronavirus (PCR) 06/08/20 06/08/20 06/08/20 12:27 15:34 17:47 WBC Hct MCV MCHC RDW Plt Count Lymph % (Auto) Lymph # Seg Neutrophils % Seg Neuts % (Manual) Lymphocytes % (Manual) Seg Neutrophils # Seg Neutrophils # Man Lymphocytes # (Manual) D-Dimer ABG pO2 ABG HCO3 ABG O2 Saturation ABG Base Excess Oxyhemoglobin Sodium Potassium Chloride Carbon Dioxide BUN Creatinine Glucose POC Glucose 179 H 214 H 275 H Hemoglobin A1c Lactic Acid Calcium Ferritin AST Lactate Dehydrogenase C-Reactive Protein Albumin Coronavirus (PCR) 06/08/20 06/09/20 06/09/20 22:56 03:15 05:44 WBC 13.2 H Hct 47.2 H MCV MCHC RDW 16.4 H Plt Count 77 L Lymph % (Auto) Lymph # Seg Neutrophils % Seg Neuts % (Manual) 91.0 H Lymphocytes % (Manual) 5.0 L Seg Neutrophils # Seg Neutrophils # Man 12.0 H Lymphocytes # (Manual) 0.7 L D-Dimer ABG pO2 ABG HCO3 ABG O2 Saturation ABG Base Excess Oxyhemoglobin Sodium Potassium Chloride Carbon Dioxide BUN Creatinine Glucose POC Glucose 330 H 318 H Hemoglobin A1c Lactic Acid Calcium Ferritin AST Lactate Dehydrogenase C-Reactive Protein Albumin Coronavirus (PCR) 06/09/20 06/09/20 06/09/20 05:44 06:13 09:53 WBC Hct MCV MCHC RDW Plt Count Lymph % (Auto) Lymph # Seg Neutrophils % Seg Neuts % (Manual) Lymphocytes % (Manual) Seg Neutrophils # Seg Neutrophils # Man Lymphocytes # (Manual) D-Dimer ABG pO2 ABG HCO3 ABG O2 Saturation ABG Base Excess Oxyhemoglobin Sodium 151 H Potassium Chloride 114.8 H Carbon Dioxide 19 L BUN 63 H Creatinine 1.5 H Glucose 360 H POC Glucose 314 H 279 H Hemoglobin A1c Lactic Acid Calcium Ferritin AST Lactate Dehydrogenase C-Reactive Protein Albumin Coronavirus (PCR) 06/09/20 06/09/20 06/09/20 10:50 14:17 18:08 WBC Hct MCV MCHC RDW Plt Count Lymph % (Auto) Lymph # Seg Neutrophils % Seg Neuts % (Manual) Lymphocytes % (Manual) Seg Neutrophils # Seg Neutrophils # Man Lymphocytes # (Manual) D-Dimer ABG pO2 62.9 L ABG HCO3 18.7 L ABG O2 Saturation 91.0 L ABG Base Excess -5.5 L Oxyhemoglobin 89.5 L Sodium Potassium Chloride Carbon Dioxide BUN Creatinine Glucose POC Glucose 232 H 194 H Hemoglobin A1c Lactic Acid Calcium Ferritin AST Lactate Dehydrogenase C-Reactive Protein Albumin Coronavirus (PCR) 06/09/20 06/10/20 06/10/20 21:47 02:12 05:43 WBC Hct MCV MCHC RDW Plt Count Lymph % (Auto) Lymph # Seg Neutrophils % Seg Neuts % (Manual) Lymphocytes % (Manual) Seg Neutrophils # Seg Neutrophils # Man Lymphocytes # (Manual) D-Dimer ABG pO2 ABG HCO3 ABG O2 Saturation ABG Base Excess Oxyhemoglobin Sodium Potassium Chloride Carbon Dioxide BUN Creatinine Glucose POC Glucose 174 H 267 H 304 H Hemoglobin A1c Lactic Acid Calcium Ferritin AST Lactate Dehydrogenase C-Reactive Protein Albumin Coronavirus (PCR) 06/10/20 06/10/20 06/10/20 05:52 05:52 09:37 WBC 15.0 H Hct MCV MCHC RDW 15.9 H Plt Count 71 L Lymph % (Auto) Lymph # Seg Neutrophils % Seg Neuts % (Manual) 95.0 H Lymphocytes % (Manual) 4.0 L Seg Neutrophils # Seg Neutrophils # Man 14.3 H Lymphocytes # (Manual) 0.6 L D-Dimer ABG pO2 ABG HCO3 ABG O2 Saturation ABG Base Excess Oxyhemoglobin Sodium 147 H Potassium Chloride 109.8 H Carbon Dioxide 18 L BUN 53 H Creatinine 1.6 H Glucose 336 H POC Glucose 284 H Hemoglobin A1c Lactic Acid Calcium Ferritin AST Lactate Dehydrogenase C-Reactive Protein Albumin Coronavirus (PCR) 06/10/20 10:21 WBC Hct MCV MCHC RDW Plt Count Lymph % (Auto) Lymph # Seg Neutrophils % Seg Neuts % (Manual) Lymphocytes % (Manual) Seg Neutrophils # Seg Neutrophils # Man Lymphocytes # (Manual) D-Dimer ABG pO2 ABG HCO3 ABG O2 Saturation ABG Base Excess Oxyhemoglobin Sodium Potassium Chloride Carbon Dioxide BUN Creatinine Glucose POC Glucose 272 H Hemoglobin A1c Lactic Acid Calcium Ferritin AST Lactate Dehydrogenase C-Reactive Protein Albumin Coronavirus (PCR)
--- NOTE | 2020-06-10 11:49 | XRay Report ---
CHEST 1 VIEW 1108 hours INDICATION: Hypoxemia, covid positive. COMPARISON: 06/10/2020 at 0400 hours FINDINGS: Support devices: Stable Heart: Within normal limits. Lungs/Pleura: There is increased airspace opacity at the right lung base. Otherwise, bilateral lung o pacities or congestive changes appear stable. No pleural fluid or pneumothorax is appreciated. Additional findings: None. IMPRESSION: Increased infiltration at the right lung base since earlier today. Signer Name: Spencer Marie Jr, MD Signed: 06/10/2020 11:45 AM Workstation Name: [id number]
--- NOTE | 2020-06-10 11:52 | Progress Note ---
Assessment and Plan Cultures: Blood culture 05/29/2020 no growth COVID PCR 05/29/2020 Positive 06/03/2020 blood culture: no growth Assessment: 55 years old male with history of diabetes mellitus, congestive heart failure, hypertension, left below-knee amputation, admitted on 05/29/2020 due to 5-day history of cough, fever, malaise, chills and shortness of breath: #Severe sepsis: likely due to bilateral pneumonia. Completed empiric CAP abx. #Severe/Critical COVID pneumonia: Inflammatory markers very elevated, possible cytokine storm. S/P CCP 06/03/2020. On steroids. S/P Remdesivir x 5 days ending 06/08/2020. #Acute hypoxemic respiratory failure: on BiPAP/HFNC. #Elevated LFTs: from COVID, mild. #Acute renal failure: ?obstructive. S/P whitehead placement in OR. Improving. #Stage III sacral decubitus: Not infected. Per wound care measures 4 x 1 x 0.1 cm, small yellow slough. Recs: Continue steroids x 10 days at least S/P CCP 06/03/2020, completed Remdesivir x 5 days ending 06/08/2020 continue supportive care and oxygen weaning Alyssa Yang MD, FACP [facility] C: [phone] O: [phone] F: [phone] Subjective Date of service: 06/10/20 Principal diagnosis: Acute Respiratory Failure Secondary to COVID Interval history: No fever. Remains on BiPAP. Objective - Exam Narrative Exam: Physical Exam (reviewed in chart due to PPE conservation) Constitutional: limited due to PPE conservation strategy Head, Ears, Nose: limited due to PPE conservation strategy Eyes: limited due to PPE conservation strategy Neck: limited due to PPE conservation strategy Oral: limited due to PPE conservation strategy Cardiovascular: limited due to PPE conservation strategy Respiratory: limited due to PPE conservation strategy GI: limited due to PPE conservation strategy Musculoskeletal: limited due to PPE conservation strategy Skin: limited due to PPE conservation strategy Hem/Lymphatic: limited due to PPE conservation strategy Psych: limited due to PPE conservation strategy Neurological: limited due to PPE conservation strategy - Constitutional Vitals: Vital Signs Temp Pulse Resp BP Pulse Ox 98.7 F 109 H 38 H 116/63 87 06/10/20 08:00 06/10/20 11:30 06/10/20 11:30 06/10/20 11:30 06/10/20 11:30 Temperature -Last 24 Hours Temperature 98.7 F Temperature 99.9 F Temperature 98.3 F Temperature 100.7 F Temperature 99.1 F Temperature 97.9 F - Labs CBC & Chem 7: 06/10/20 05:52 06/10/20 05:52 Labs: Abnormal lab results 06/08/20 06/09/20 06/09/20 Range/Units 17:47 14:17 18:08 WBC (4.5-11.0) K/mm3 RDW (13.2-15.2) % Plt Count (140-440) K/mm3 Seg Neuts % (Manual) (40.0-70.0) % Lymphocytes % (Manual) (13.4-35.0) % Seg Neutrophils # Man (1.8-7.7) K/mm3 Lymphocytes # (Manual) (1.2-5.4) K/mm3 Sodium (137-145) mmol/L Chloride (98-107) mmol/L Carbon Dioxide (22-30) mmol/L BUN (9-20) mg/dL Creatinine (0.8-1.3) mg/dL Glucose (75-100) mg/dL POC Glucose 275 H 232 H 194 H (70-105) 06/09/20 06/10/20 06/10/20 Range/Units 21:47 02:12 05:43 WBC (4.5-11.0) K/mm3 RDW (13.2-15.2) % Plt Count (140-440) K/mm3 Seg Neuts % (Manual) (40.0-70.0) % Lymphocytes % (Manual) (13.4-35.0) % Seg Neutrophils # Man (1.8-7.7) K/mm3 Lymphocytes # (Manual) (1.2-5.4) K/mm3 Sodium (137-145) mmol/L Chloride (98-107) mmol/L Carbon Dioxide (22-30) mmol/L BUN (9-20) mg/dL Creatinine (0.8-1.3) mg/dL Glucose (75-100) mg/dL POC Glucose 174 H 267 H 304 H (70-105) 06/10/20 06/10/2020 Range/Units 05:52 05:52 09:37 WBC 15.0 H (4.5-11.0) K/mm3 RDW 15.9 H (13.2-15.2) % Plt Count 71 L (140-440) K/mm3 Seg Neuts % (Manual) 95.0 H (40.0-70.0) % Lymphocytes % (Manual) 4.0 L (13.4-35.0) % Seg Neutrophils # Man 14.3 H (1.8-7.7) K/mm3 Lymphocytes # (Manual) 0.6 L (1.2-5.4) K/mm3 Sodium 147 H (137-145) mmol/L Chloride 109.8 H (98-107) mmol/L Carbon Dioxide 18 L (22-30) mmol/L BUN 53 H (9-20) mg/dL Creatinine 1.6 H (0.8-1.3) mg/dL Glucose 336 H (75-100) mg/dL POC Glucose 284 H (70-105) 06/10/20 Range/Units 10:21 WBC (4.5-11.0) K/mm3 RDW (13.2-15.2) % Plt Count (140-440) K/mm3 Seg Neuts % (Manual) (40.0-70.0) % Lymphocytes % (Manual) (13.4-35.0) % Seg Neutrophils # Man (1.8-7.7) K/mm3 Lymphocytes # (Manual) (1.2-5.4) K/mm3 Sodium (137-145) mmol/L Chloride (98-107) mmol/L Carbon Dioxide (22-30) mmol/L BUN (9-20) mg/dL Creatinine (0.8-1.3) mg/dL Glucose (75-100) mg/dL POC Glucose 272 H (70-105)
[2020-06-10] MEDS: ACETAMINOPHEN 325 MG TAB PO PRN (12:37)
--- NOTE | 2020-06-10 12:54 | Consultation ---
History of Present Illness Consult date: 06/10/20 Consult reason: atrial fibrillation History of present illness: This is a 55yr old male admitted with COVID-19 viral pneumonia and renal failure. Creatinine of 4.7 on presentation. Labs now show severe thrombocytopenia of 71,000 today from platelet count of 184,000 on presentation. Creatinine of 1.6. On presentation, his ECG shows normal sinus rhythm. No acute ischemic changes. On care transitions nurse there is evidence of sinus rhythm with ventricular bigeminy and transient rapid atrial fibrillation which reverted spontaneously. Magnesium level is normal. Cardiology was consultation was requested for management of paroxysmal atrial fibrillation. Medications and Allergies Allergies Allergy/AdvReac Type Severity Reaction Status Date / Time No Known Allergies Allergy Unverified 05/29/20 15:15 Home Medications Medication Instructions Recorded Confirmed Last Taken Type ARIPiprazole [Aripiprazole] 2 mg PO DAILY 06/02/20 06/02/20 Unknown History Duloxetine HCl 2 tab PO DAILY 06/02/20 06/02/20 Unknown History PARoxetine HCl 10 mg PO DAILY 06/02/20 06/02/20 Unknown History Active Meds: Active Medications Acetaminophen (Tylenol) 650 mg PO Q4H PRN PRN Reason: Pain MILD(1-3)/Fever >100.5/ESPINOZA Last Admin: 06/10/20 12:37 Dose: 650 mg Documented by: Lipase/Protease/Amylase (Pancreaze Dr 10,500 Unit) 1 each FEEDTUBE PRN PRN PRN Reason: For Clogged Feeding Tube Apixaban (Eliquis) 5 mg PO Q12HR LONG; Protocol Last Admin: 06/10/20 09:24 Dose: 5 mg Documented by: Famotidine (Pepcid) 20 mg PO DAILY LONG Last Admin: 06/10/20 09:25 Dose: 20 mg Documented by: Dextrose (D5w) 1,000 mls @ 75 mls/hr IV DIRECT LONG Last Admin: 06/09/20 22:54 Dose: 75 mls/hr Documented by: Dexmedetomidine HCl 400 mcg/ (Sodium Chloride) 104 mls @ 6.302 mls/hr IV TITRATE LONG; Protocol Last Titration: 06/09/20 18:53 Dose: 0 mcg/kg/hr, 0 mls/hr Documented by: Amiodarone HCl 900 mg/ (Dextrose) 500 mls @ 33.333 mls/hr IV DIRECT LONG; Protocol Vancomycin HCl 1,750 mg/ (Sodium Chloride) 535 mls @ 333.333 mls/hr IV ONCE ONE Stop: 06/10/20 14:36 Cefepime HCl (Cefepime/Ns 2 Gm/100 Ml) 2 gm in 100 mls @ 200 mls/hr IV Q12HR [facility] [place] Insulin Glargine (Lantus) 10 units SUB-Q DAILY [facility] Last Admin: 06/10/20 09:26 Dose: 10 units Documented by: Insulin Glargine (Lantus) 55 units SUB-Q QHS [facility] [place] Last Admin: 06/09/20 21:43 Dose: Not Given Documented by: Insulin Human Lispro (Humalog) 0 unit SUB-Q Q4HR [facility] [place]; Protocol Last Admin: 06/10/20 09:27 Dose: 8 unit Documented by: Methylprednisolone Sodium Succinate (Solu-Medrol) 40 mg IV Q8HR [facility] [place] Last Admin: 06/10/20 06:31 Dose: 40 mg Documented by: Metoprolol Tartrate (Metoprolol) 2.5 mg IV Q6H PRN PRN Reason: Tachyarrhythmias Last Admin: 06/10/20 06:31 Dose: 2.5 mg Documented by: Paroxetine HCl (Paxil) 10 mg PO DAILY [facility] [place] Last Admin: 06/10/20 09:25 Dose: 10 mg Documented by: Simple Syrup (Simple Syrup) 15 ml FEEDTUBE PRN PRN PRN Reason: Hypoglycemia Simple Syrup (Simple Syrup) 30 ml FEEDTUBE PRN PRN PRN Reason: Hypoglycemia Sodium Bicarbonate (Sodium Bicarbonate) 325 mg FEEDTUBE PRN PRN PRN Reason: For Clogged Feeding Tube Sodium Chloride (Sodium Chloride Flush Syringe 10 Ml) 10 ml IV BID [facility] [place] Last Admin: 06/10/20 09:25 Dose: 10 ml Documented by: Sodium Chloride (Sodium Chloride Flush Syringe 10 Ml) 10 ml IV PRN PRN PRN Reason: LINE FLUSH Physical Examination Vital Signs Pulse Resp 96 H 19 05/29/20 12:36 05/29/20 12:36 Narrative exam: Deferred due to coronavirus isolation protocol. Cardiac: Positive: Tachycardia Results 06/10/20 05:52 06/10/20 05:52 CBC 06/10/20 Range/Units 05:52 WBC 15.0 H (4.5-11.0) K/mm3 RBC 4.71 (3.65-5.03) M/mm3 Hgb 14.1 (11.8-15.2) gm/dl Hct 43.8 (35.5-45.6) % Plt Count 71 L (140-440) K/mm3 Comprehensive Metabolic Panel 06/10/20 Range/Units 05:52 Sodium 147 H (137-145) mmol/L Potassium 4.7 (3.6-5.0) mmol/L Chloride 109.8 H (98-107) mmol/L Carbon Dioxide 18 L (22-30) mmol/L BUN 53 H (9-20) mg/dL Creatinine 1.6 H (0.8-1.3) mg/dL Glucose 336 H (75-100) mg/dL Calcium 8.4 (8.4-10.2) mg/dL Assessment and Plan Paroxysmal atrial fibrillation reverted spontaneously COVID-19 viral pneumonia Acute renal failure Thrombocytopenia Check a TSH. Will use beta blockers for suppression of paroxysmal atrial fibrillation.
[2020-06-10] MEDS ORDERED: VANCOMYCIN 1,750 MG in SODIUM CHLORIDE 0.9% 500 ML 500 ML IV ONE (13:00)
[2020-06-10] MEDS: CEFEPIME/NS 2 GM/100 ML 2 GM/100 ML BAG IV SCH ×2 (14:46→22:42)
[2020-06-10] MEDS: METOPROLOL TARTRATE 25 MG TAB PO SCH ×2 (15:16→17:26)
--- NOTE | 2020-06-10 15:29 | Progress Note ---
Assessment and Plan Impression: * Non-oliguric Acute kidney injury secondary to prerenal azotemia * Azotemia - secondary to NIR vs steroids * Metabolic acidosis * Sepsis * Acute hypoxic respiratory failure, on BiPAP * COVID 19 Pneumonia * Hypernatremia * Hyperkalemia - resolved * Type II diabetes mellitus * Urethra stricture --s/p cystoscopy, urethral dilation, cystogram Plan: * Renal function is improving - SCr continues to trend down. Monitor lytes and volume status. No acute need for initiation of renal replacement therapy * D5W stopped, recommend continuing for now at 75 cc/hr. * Monitor electrolytes daily * Pulm/ID recommendations reviewed * Steroids/Redemsevir per ID * Glycemic control per primary team * Avoid potential nephrotoxins * Dose medications for renal function Subjective Date of service: 06/10/20 Principal diagnosis: Acute Respiratory Failure Secondary to COVID Interval history: Remains on BiPAP. Objective - Exam Narrative Exam: Exam as per the primary team. Did not personally examine in consideration of PPE conservation strategy. Constitution: critically ill on BIPAP Eyes: non-icteric ENT: other (short fat neck) Neck: supple Effort: mildly labored Ascultation: Bilateral: diminished breath sounds Percussion: Bilateral: not dull Cardiovascular: regular rate and rhythm Gastrointestinal: soft, non-distended, other (obese) Integumentary: normal Extremities: no cyanosis Neurologic: other (awake, eyes open, moaning) Psychiatric: other (not able to assess) - Vital Signs Vital signs: Vital Signs - 12hr 06/10/20 06/10/20 06/10/20 03:30 03:41 03:45 Temperature Pulse Rate 91 H 83 92 H Pulse Rate [ From Monitor] Respiratory 28 H 18 33 H Rate Blood Pressure 93/66 93/66 98/70 O2 Sat by Pulse 95 91 94 Oximetry 06/10/20 06/10/20 06/10/20 03:51 04:00 04:11 Temperature 99.9 F H Pulse Rate 103 H 92 H 96 H Pulse Rate [ 89 From Monitor] Respiratory 29 H 34 H 35 H Rate Blood Pressure 98/70 88/58 88/58 O2 Sat by Pulse 93 94 93 Oximetry 06/10/20 06/10/20 06/10/20 04:21 04:30 04:41 Temperature Pulse Rate 93 H 96 H 102 H Pulse Rate [ From Monitor] Respiratory 30 H 35 H 22 Rate Blood Pressure 83/68 95/39 95/39 O2 Sat by Pulse 93 93 92 Oximetry 06/10/20 06/10/20 06/10/20 04:51 05:01 05:11 Temperature Pulse Rate 96 H 99 H 102 H Pulse Rate [ From Monitor] Respiratory 28 H 22 17 Rate Blood Pressure 103/73 88/62 88/62 O2 Sat by Pulse 92 92 92 Oximetry 06/10/20 06/10/20 06/10/20 05:21 05:31 05:41 Temperature Pulse Rate 94 H 93 H 100 H Pulse Rate [ From Monitor] Respiratory 31 H 23 21 Rate Blood Pressure 96/61 110/56 110/56 O2 Sat by Pulse 92 94 92 Oximetry 06/10/20 06/10/20 06/10/20 05:51 06:00 06:11 Temperature Pulse Rate 99 H 141 H 103 H Pulse Rate [ From Monitor] Respiratory 29 H 29 H 28 H Rate Blood Pressure 110/60 95/35 95/35 O2 Sat by Pulse 92 91 91 Oximetry 06/10/20 06/10/20 06/10/20 06:21 06:30 06:41 Temperature Pulse Rate 109 H 149 H 131 H Pulse Rate [ From Monitor] Respiratory 27 H 38 H 33 H Rate Blood Pressure 103/61 107/66 108/73 O2 Sat by Pulse 92 91 90 Oximetry 06/10/20 06/10/20 06/10/20 06:51 07:01 07:11 Temperature Pulse Rate 128 H 129 H 140 H Pulse Rate [ From Monitor] Respiratory 16 26 H 18 Rate Blood Pressure 105/84 108/40 108/40 O2 Sat by Pulse 88 89 89 Oximetry 06/10/20 06/10/20 06/10/20 07:21 07:31 07:41 Temperature Pulse Rate 143 H 154 H 140 H Pulse Rate [ From Monitor] Respiratory 31 H 34 H 11 L Rate Blood Pressure 107/59 112/81 112/81 O2 Sat by Pulse 89 89 90 Oximetry 06/10/20 06/10/20 06/10/20 07:51 07:53 08:00 Temperature 98.7 F Pulse Rate 142 H 152 H 136 H Pulse Rate [ 155 H From Monitor] Respiratory 34 H 35 H 30 H Rate Blood Pressure 105/72 105/72 100/73 O2 Sat by Pulse 94 97 90 Oximetry 06/10/20 06/10/20 06/10/20 08:11 08:21 08:30 Temperature Pulse Rate 142 H 140 H 176 H Pulse Rate [ From Monitor] Respiratory 36 H 36 H 31 H Rate Blood Pressure 100/73 97/70 97/75 O2 Sat by Pulse 92 91 92 Oximetry 06/10/20 06/10/20 06/10/20 08:41 08:51 09:00 Temperature Pulse Rate 97 H 99 H 99 H Pulse Rate [ From Monitor] Respiratory 37 H 27 H 31 H Rate Blood Pressure 97/75 75/51 107/68 O2 Sat by Pulse 95 91 91 Oximetry 06/10/20 06/10/20 06/10/20 09:11 09:21 09:30 Temperature Pulse Rate 99 H 99 H 101 H Pulse Rate [ From Monitor] Respiratory 41 H 36 H 43 H Rate Blood Pressure 107/68 105/62 112/64 O2 Sat by Pulse 91 92 90 Oximetry 06/10/20 06/10/20 06/10/20 09:41 09:51 10:00 Temperature Pulse Rate 100 H 101 H 97 H Pulse Rate [ From Monitor] Respiratory 36 H 34 H 35 H Rate Blood Pressure 112/64 128/66 102/71 O2 Sat by Pulse 92 92 92 Oximetry 06/10/20 06/10/20 06/10/20 10:11 10:21 10:30 Temperature Pulse Rate 99 H 102 H 101 H Pulse Rate [ From Monitor] Respiratory 38 H 38 H 40 H Rate Blood Pressure 112/64 116/68 127/72 O2 Sat by Pulse 91 91 91 Oximetry 06/10/20 06/10/20 06/10/20 10:41 10:51 11:00 Temperature Pulse Rate 104 H 108 H 106 H Pulse Rate [ From Monitor] Respiratory 40 H 44 H 25 H Rate Blood Pressure 127/72 119/68 108/67 O2 Sat by Pulse 91 86 87 Oximetry 06/10/20 06/10/20 06/10/20 11:11 11:21 11:30 Temperature Pulse Rate 120 H 105 H 109 H Pulse Rate [ From Monitor] Respiratory 42 H 39 H 38 H Rate Blood Pressure 127/72 115/67 116/63 O2 Sat by Pulse 85 87 Oximetry 06/10/20 06/10/20 12:00 15:16 Temperature 102.6 F H Pulse Rate 115 H Pulse Rate [ From Monitor] Respiratory Rate Blood Pressure 91/45 O2 Sat by Pulse Oximetry - Lab 06/10/20 05:52 06/10/20 05:52 Most recent lab results ABG pH 7.367 pH Units (7.350-7.450) 06/09/20 10:50 ABG pCO2 33.4 mm Hg 06/09/20 10:50 ABG pO2 62.9 mm Hg (80.0-90.0) L 06/09/20 10:50 ABG HCO3 18.7 mmol/L (20.0-26.0) L 06/09/20 10:50 ABG O2 Saturation 91.0 % (95.0-99.0) L 06/09/20 10:50 Calcium 8.4 mg/dL (8.4-10.2) 06/10/20 05:52 Magnesium 2.00 mg/dL (1.7-2.3) 06/10/20 05:52 Medications & Allergies - Medications Allergies/Adverse Reactions: Allergies No Known Allergies Allergy (Unverified 05/29/20 15:15) Home Medications: Home Medications Medication Instructions Recorded Confirmed Last Taken Type ARIPiprazole [Aripiprazole] 2 mg PO DAILY 06/02/20 06/02/20 Unknown History Duloxetine HCl 2 tab PO DAILY 06/02/20 06/02/20 Unknown History PARoxetine HCl 10 mg PO DAILY 06/02/20 06/02/20 Unknown History Active Medications: Generic Name Dose Route Start Last Admin Trade Name Freq PRN Reason Stop Dose Admin Acetaminophen 650 mg 05/30/20 00:19 06/10/20 12:37 Tylenol PO 650 mg Q4H PRN Administration Pain MILD(1-3)/Fever >100.5/ESPINOZA Lipase/Protease/Amylase 1 each 06/07/20 08:46 Pancreaze 10,500 Unit FEEDTUBE PRN PRN For Clogged Feeding Tube Apixaban 5 mg 06/06/20 13:00 06/10/20 09:24 Eliquis PO 5 mg Q12HR LONG Administration Protocol Aspirin 81 mg 06/11/20 10:00 Halfprin Ec PO QDAY LONG Famotidine 20 mg 06/05/20 10:00 06/10/20 09:25 Pepcid PO 20 mg DAILY LONG Administration Dextrose 1,000 mls @ 75 mls/hr 06/07/20 08:00 06/09/20 22:54 D5w IV 75 mls/hr DIRECT LONG Administration Dexmedetomidine HCl 400 mcg/ 104 mls @ 6.302 mls/hr 06/07/20 15:00 06/09/20 18:53 Sodium Chloride IV 0 mcg/kg/hr TITRATE LONG 0 mls/hr Titration Protocol 0.2 MCG/KG/HR Amiodarone HCl 900 mg/ 500 mls @ 33.333 mls/hr 06/10/20 09:00 Dextrose IV DIRECT LONG Protocol 1 MG/MIN Cefepime HCl 2 gm in 100 mls @ 200 mls/hr 06/10/20 13:00 06/10/20 14:46 Cefepime/Ns 2 Gm/100 Ml IV 200 mls/hr Q12HR LONG Administration Insulin Glargine 10 units 06/05/20 12:00 06/10/20 09:26 Lantus SUB-Q 10 units DAILY LONG Administration Insulin Glargine 55 units 06/06/20 22:00 06/09/20 21:43 Lantus SUB-Q Not Given QHS [facility] Insulin Human Lispro 0 unit 06/05/20 14:00 06/10/20 14:47 Humalog SUB-Q 6 unit Q4HR [facility] Administration Protocol Methylprednisolone Sodium Succinate 40 mg 06/04/20 14:00 06/10/20 14:46 Solu-Medrol IV 40 mg Q8HR LONG Administration Metoprolol Tartrate 2.5 mg 06/09/20 11:45 06/10/20 06:31 Metoprolol IV 2.5 mg Q6H PRN Administration Tachyarrhythmias Metoprolol Tartrate 25 mg 06/10/20 14:00 06/10/20 15:16 Metoprolol PO Not Given Q6HR LONG Paroxetine HCl 10 mg 06/02/20 11:45 06/10/20 09:25 Paxil PO 10 mg DAILY LONG Administration Simple Syrup 15 ml 06/07/20 08:46 Simple Syrup FEEDTUBE PRN PRN Hypoglycemia Simple Syrup 30 ml 06/07/20 08:46 Simple Syrup FEEDTUBE PRN PRN Hypoglycemia Sodium Bicarbonate 325 mg 06/07/20 08:46 Sodium Bicarbonate FEEDTUBE PRN PRN For Clogged Feeding Tube Sodium Chloride 10 ml 05/30/20 10:00 06/10/20 09:25 Sodium Chloride Flush Syringe 10 Ml IV 10 ml BID LONG Administration Sodium Chloride 10 ml 05/30/20 00:19 Sodium Chloride Flush Syringe 10 Ml IV PRN PRN LINE FLUSH
--- NOTE | 2020-06-10 16:08 | Progress Note ---
Assessment and Plan /Severe sepsis Secondary to COVID pneumonia presented with Elevated lactic acid, tachycardia, elevated procalcitonin /Bilateral COVID 19 pneumonia Repeat COVID test positive, consulted ID Continue steroids, s/p plasmatherapy Given improvement in renal function, started on IV Remdesivir for 5 days, /Acute psychosis with visual and auditory hallucination Resume outpatient medications for depression psych following /Acute respiratory failure with hypoxia Secondary to COVID-19 pneumonia and underlying possible obesity hypoventilation syndrome Patient is on high flow Ventimask/BiPAP alternatively cont nebs and wean off as tolerated /Hyperkalemia secondary to renal failure as needed Kayexalate Monitor electrolytes /Acute kidney injury- likely ATN vs postobstructive R/O acute on chronic kidney disease Baseline renal function is not known nephrology consulted, Avoid nephrotoxins Renal ultrasound ordered renal function improving /dense proximal urethral stricture - unable to place whitehead at bedside - Urology consulted, s/p whitehead by cysto /Hypertension Blood pressure fair off medication Continue to monitor /Hypernatremia - Na 162 today - monitor BMP, initiated d5w /Type 2 diabetes mellitus Continue insulin sliding scale coverage hemoglobin A1c 9.7, consistent carb diet /COVID19 + Management as outlined above /CHF (congestive heart failure), combined systolic and diastolic Echocardiogram requested - pending /Morbid obesity, BMI 45.9 Dietary and exercise recommendation when clinically appropriate /Paroxysmal atrial fibrillation -Reverted to normal sinus rhythm now -Continue Eliquis, beta-sandra for suppression -Cardiology following, 2D echo pending --DVT prophylaxis On Lovenox and GI prophylaxis The high probability of a clinically significant, sudden or life threatening deterioration of the [pulmonary, renal] system(s) required my full and direct attention, intervention and personal management. The aggregate critical care time was [35] minutes. This time is in addition to time spent performing reported procedures but includes the following: [x] Data Review and interpretation [x] Patient assessment and monitoring of vital signs [x] Documentation [x] Medication orders and management 05/30 patient is a halfway resident, alert and oriented and appears moderately short of breath and is on Ventimask Denies any chest pain or palpitations. He does complain of cough Lab results reviewed 05/31: Continues on high flow oxygen. still on High flow oxygen. Pulmonary consulted, ID consulted. COVID +, adjust insulin for better control. 8/15: Remains on High flow, due to severe hypoxemia Consent obtained for convalescent plasma. We will also obtain type and cross for the same. Wean oxygen as tolerated. ID input noted. No indication Remdesivir due to renal failure, renal on board, although renal function beginning to improve we will discuss with ID if we should revisit Remdesivir if renal function continues to improve. Continue ceftriaxone and azithromycin for 5 days. Offloading sacral area and keep area dry per wound care team. Continue anticoagulation. ID added fluconazole. Will adjust insulin therapy and also sliding scale to a higher scale. 06/02: Called and discussed with family patient does have some psychiatric illness will obtain psych consultation due to new onset psychosis. Pulmonary input appreciated. Will proceed with ordering plasma therapy.The assigned patient code is [id number] for plasma transfusion. 06/03: Continues with intermittent confusion, known psych hx, psych team consulted. Continue oxygen therapy, awaiting Plasma therapy. Patient being transferred to ICU due to worsening respiratory status. Psych following. 06/04: Remains on BiPAP, with intermittent confusion, appears slighlty restless, s/p plasma therapy yesterday. cont to wean off from biPAP. planned to start IV Remdesivir for 5 days as renal function improved 06/05; renal function declined, OK to continue IV Remdesivir for now, D2 of 5 per ID. Patient remains on 100% high flow O2/BiPAP alternatively. Continue to wean off from O2 requirement as tolerated. 06/06: Continue day 3 of Remdesivir, continue to follow renal function, continue to wean off O2 as tolerated. Prognosis remains guarded. d-dimer significantly elevated - will order VQ scan for possible PE and start on therapeutic AC, cont to monitor. also plan to place whitehead by cysto today 06/07: Na 162 today, placed on d5w, cont to monitor. Cr slightly improved 06/08: Na and Cr level improving, cont d5w. pt on 75% FiO2 06/09: Patient on BiPAP today, noted tachycardic, cont to monitor BMP. na and Cr level improving, TF on hold as patient on BiPAP 06/10; patient converted to atrial fibrillation for a brief period of time, currently again on normal sinus rhythm. Remains on continuous BiPAP. Chest x- ray shows no pulmonary edema and apparently stable, compared to prior exam. Continue to monitor clinically. Follow CBC and BMP Brief History; 64-year-old man with history of hypertension diabetes congestive heart failure and left below-knee amputation comes in for cough fever and shortness of breath and chills for 5 days. Patient has been tested positive for COVID-19 5 days ago. Patient saturations were 80% on room air which improved to 98% on a nonrebreather. Denies any chest pain. Patient is covid 19 positive and hypoxic. Subjective Date of service: 06/10/20 Principal diagnosis: Acute Respiratory Failure Secondary to COVID Interval history: Patient seen and examined Patient remains on BiPAP today intermittently tachycardic on tele Follows command, Objective - Exam Narrative Exam: VITAL SIGNS: Reviewed. GENERAL: The patient appears normally developed, morbidly obese vital signs as documented. on Bipap HEAD: No signs of head trauma. EYES: Pupils are equal. Extraocular motions intact. EARS: Hearing grossly intact. MOUTH: Oropharynx is normal. NECK: No adenopathy, no JVD. CHEST: Chest with diminished breath sounds bilaterally. Increased respiratory rate. No wheezes, rales, or rhonchi. CARDIAC: Regular rate and rhythm. S1 and S2, without murmurs, gallops, or r ubs. VASCULAR: No Edema. Peripheral pulses normal and equal in all extremities. ABDOMEN: Soft, non tender and non distended. No rebound or guarding, and no masses palpated. Bowel Sounds normal. MUSCULOSKELETAL: BKA LEFT LOWER EXT. extremities without clubbing, cyanosis or edema. NEUROLOGIC EXAM: Alert and oriented x 1 No focal sensory or strength deficits. Speech normal. Follows commands. PSYCHIATRIC: Mood anxious SKIN: no rash, warm - Constitutional Vitals: Vital Signs - 12hr 06/10/20 06/10/20 06/10/20 04:11 04:21 04:30 Temperature Pulse Rate 96 H 93 H 96 H Pulse Rate [ From Monitor] Respiratory 35 H 30 H 35 H Rate Blood Pressure 88/58 83/68 95/39 O2 Sat by Pulse 93 93 93 Oximetry 06/10/20 06/10/20 06/10/20 04:41 04:51 05:01 Temperature Pulse Rate 102 H 96 H 99 H Pulse Rate [ From Monitor] Respiratory 22 28 H 22 Rate Blood Pressure 95/39 103/73 88/62 O2 Sat by Pulse 92 92 92 Oximetry 06/10/20 06/10/20 06/10/20 05:11 05:21 05:31 Temperature Pulse Rate 102 H 94 H 93 H Pulse Rate [ From Monitor] Respiratory 17 31 H 23 Rate Blood Pressure 88/62 96/61 110/56 O2 Sat by Pulse 92 92 94 Oximetry 06/10/20 06/10/20 06/10/20 05:41 05:51 06:00 Temperature Pulse Rate 100 H 99 H 141 H Pulse Rate [ From Monitor] Respiratory 21 29 H 29 H Rate Blood Pressure 110/56 110/60 95/35 O2 Sat by Pulse 92 92 91 Oximetry 06/10/20 06/10/20 06/10/20 06:11 06:21 06:30 Temperature Pulse Rate 103 H 109 H 149 H Pulse Rate [ From Monitor] Respiratory 28 H 27 H 38 H Rate Blood Pressure 95/35 103/61 107/66 O2 Sat by Pulse 91 92 91 Oximetry 06/10/20 06/10/20 06/10/20 06:41 06:51 07:01 Temperature Pulse Rate 131 H 128 H 129 H Pulse Rate [ From Monitor] Respiratory 33 H 16 26 H Rate Blood Pressure 108/73 105/84 108/40 O2 Sat by Pulse 90 88 89 Oximetry 06/10/20 06/10/20 06/10/20 07:11 07:21 07:31 Temperature Pulse Rate 140 H 143 H 154 H Pulse Rate [ From Monitor] Respiratory 18 31 H 34 H Rate Blood Pressure 108/40 107/59 112/81 O2 Sat by Pulse 89 89 89 Oximetry 06/10/20 06/10/20 06/10/20 07:41 07:51 07:53 Temperature Pulse Rate 140 H 142 H 152 H Pulse Rate [ From Monitor] Respiratory 11 L 34 H 35 H Rate Blood Pressure 112/81 105/72 105/72 O2 Sat by Pulse 90 94 97 Oximetry 06/10/20 06/10/20 06/10/20 08:00 08:11 08:21 Temperature 98.7 F Pulse Rate 136 H 142 H 140 H Pulse Rate [ 155 H From Monitor] Respiratory 30 H 36 H 36 H Rate Blood Pressure 100/73 100/73 97/70 O2 Sat by Pulse 90 92 91 Oximetry 06/10/20 06/10/20 06/10/20 08:30 08:41 08:51 Temperature Pulse Rate 176 H 97 H 99 H Pulse Rate [ From Monitor] Respiratory 31 H 37 H 27 H Rate Blood Pressure 97/75 97/75 75/51 O2 Sat by Pulse 92 95 91 Oximetry 06/10/20 06/10/20 06/10/20 09:00 09:11 09:21 Temperature Pulse Rate 99 H 99 H 99 H Pulse Rate [ From Monitor] Respiratory 31 H 41 H 36 H Rate Blood Pressure 107/68 107/68 105/62 O2 Sat by Pulse 91 91 92 Oximetry 06/10/20 06/10/20 06/10/20 09:30 09:41 09:51 Temperature Pulse Rate 101 H 100 H 101 H Pulse Rate [ From Monitor] Respiratory 43 H 36 H 34 H Rate Blood Pressure 112/64 112/64 128/66 O2 Sat by Pulse 90 92 92 Oximetry 06/10/20 06/10/20 06/10/20 10:00 10:11 10:21 Temperature Pulse Rate 97 H 99 H 102 H Pulse Rate [ From Monitor] Respiratory 35 H 38 H 38 H Rate Blood Pressure 102/71 112/64 116/68 O2 Sat by Pulse 92 91 91 Oximetry 06/10/20 06/10/20 06/10/20 10:30 10:41 10:51 Temperature Pulse Rate 101 H 104 H 108 H Pulse Rate [ From Monitor] Respiratory 40 H 40 H 44 H Rate Blood Pressure 127/72 127/72 119/68 O2 Sat by Pulse 91 91 86 Oximetry 06/10/20 06/10/20 06/10/20 11:00 11:11 11:21 Temperature Pulse Rate 106 H 120 H 105 H Pulse Rate [ From Monitor] Respiratory 25 H 42 H 39 H Rate Blood Pressure 108/67 127/72 115/67 O2 Sat by Pulse 87 85 Oximetry 06/10/20 06/10/20 06/10/20 11:30 12:00 15:16 Temperature 102.6 F H Pulse Rate 109 H 115 H Pulse Rate [ From Monitor] Respiratory 38 H Rate Blood Pressure 116/63 91/45 O2 Sat by Pulse 87 Oximetry - Labs CBC & Chem 7: 06/10/20 05:52 06/10/20 05:52 Labs: Abnormal lab results 06/08/20 06/09/20 06/09/20 Range/Units 17:47 18:08 21:47 WBC (4.5-11.0) K/mm3 RDW (13.2-15.2) % Plt Count (140-440) K/mm3 Seg Neuts % (Manual) (40.0-70.0) % Lymphocytes % (Manual) (13.4-35.0) % Seg Neutrophils # Man (1.8-7.7) K/mm3 Lymphocytes # (Manual) (1.2-5.4) K/mm3 Sodium (137-145) mmol/L Chloride (98-107) mmol/L Carbon Dioxide (22-30) mmol/L BUN (9-20) mg/dL Creatinine (0.8-1.3) mg/dL Glucose (75-100) mg/dL POC Glucose 275 H 194 H 174 H (70-105) 06/10/20 06/10/20 06/10/20 Range/Units 02:12 05:43 05:52 WBC 15.0 H (4.5-11.0) K/mm3 RDW 15.9 H (13.2-15.2) % Plt Count 71 L (140-440) K/mm3 Seg Neuts % (Manual) 95.0 H (40.0-70.0) % Lymphocytes % (Manual) 4.0 L (13.4-35.0) % Seg Neutrophils # Man 14.3 H (1.8-7.7) K/mm3 Lymphocytes # (Manual) 0.6 L (1.2-5.4) K/mm3 Sodium (137-145) mmol/L Chloride (98-107) mmol/L Carbon Dioxide (22-30) mmol/L BUN (9-20) mg/dL Creatinine (0.8-1.3) mg/dL Glucose (75-100) mg/dL POC Glucose 267 H 304 H (70-105) 06/10/20 06/10/20 06/10/20 Range/Units 05:52 09:37 10:21 WBC (4.5-11.0) K/mm3 RDW (13.2-15.2) % Plt Count (140-440) K/mm3 Seg Neuts % (Manual) (40.0-70.0) % Lymphocytes % (Manual) (13.4-35.0) % Seg Neutrophils # Man (1.8-7.7) K/mm3 Lymphocytes # (Manual) (1.2-5.4) K/mm3 Sodium 147 H (137-145) mmol/L Chloride 109.8 H (98-107) mmol/L Carbon Dioxide 18 L (22-30) mmol/L BUN 53 H (9-20) mg/dL Creatinine 1.6 H (0.8-1.3) mg/dL Glucose 336 H (75-100) mg/dL POC Glucose 284 H 272 H (70-105) 06/10/20 Range/Units 13:50 WBC (4.5-11.0) K/mm3 RDW (13.2-15.2) % Plt Count (140-440) K/mm3 Seg Neuts % (Manual) (40.0-70.0) % Lymphocytes % (Manual) (13.4-35.0) % Seg Neutrophils # Man (1.8-7.7) K/mm3 Lymphocytes # (Manual) (1.2-5.4) K/mm3 Sodium (137-145) mmol/L Chloride (98-107) mmol/L Carbon Dioxide (22-30) mmol/L BUN (9-20) mg/dL Creatinine (0.8-1.3) mg/dL Glucose (75-100) mg/dL POC Glucose 226 H (70-105) HEART Score - HEART Score Troponin: Troponin T 0.025 ng/mL (0.00-0.029) 05/29/20 15:10
[2020-06-10] MEDS: NORepinephrine/NS 4 MG-250 ML 4 MG/250 ML BAG IV SCH ×2 (16:40→22:42)
[2020-06-10] MEDS: AMIODARONE 900 MG in DEXTROSE 5% IN WATER 482 ML IV SCH (16:53)
[2020-06-10 17:14] LABS: ABG Base Excess -11.1 mmol/L (-2.0-3.0); ABG HCO3 14.7 mmol/L (20.0-26.0); ABG Methemoglobin 0.6 % (0.0-1.5); ABG Oxygen Saturation 69.3 % (95.0-99.0); ABG PCO2 32.7 mm Hg; ABG PH 7.269 pH Units (7.350-7.450); ABG PO2 42.5 mm Hg (80.0-90.0)
[2020-06-10] MEDS: SODIUM CHLORIDE 0.9% 1000 ML 1,000 ML IV SCH ×2 (18:38→20:40)
--- NOTE | 2020-06-10 18:55 | Event Note ---
Date: 06/10/20 Anesthesia Called to 260 for Intubation s/p Respiratory failure/ Covid +19. Pt on BiPAP no responsive, labored breathing, 91/45 b/p, 75-85%, RR46. PPE applied with droplet precaution followed. [place] scope in room. 10mg etomidate, 100mg succ. give IV by D[employer] MIXER. Patient was rapidly intubated with out bagging. Easy intubation, + C02 detection device. 7.5 ett placed and 20cm at teeth. post intubation vital signs p 146, 90%, b/p 73/55, 45 rr. ETT secured and placed on vent by RT. RT and RN and bedside with Patient Jones Tha, [employer] [phone]
[2020-06-10 19:32] LABS: ABG Base Excess -12.1 mmol/L (-2.0-3.0); ABG HCO3 15.9 mmol/L (20.0-26.0); ABG Methemoglobin 0.7 % (0.0-1.5); ABG Oxygen Saturation 74.5 % (95.0-99.0); ABG PCO2 43.6 mm Hg
--- NOTE | 2020-06-10 19:34 | XRay Report ---
XR chest 1V ap INDICATION / CLINICAL INFORMATION: ETT placement. COMPARISON: Radiograph from earlier same day. FINDINGS: SUPPORT DEVICES: Endotracheal tube terminates at the clavicular heads. Left PICC terminates in the lo wer superior vena cava. Enteric tube courses with the diaphragm with tip not visualized. HEART / MEDIASTINUM: Unchanged. LUNGS / PLEURA: Airspace disease is worse compared to the prior examination. Suspect right pleural e ffusion. No pneumothorax. ADDITIONAL FINDINGS: No significant additional findings. IMPRESSION: 1. Endotracheal tube terminates appropriately at the level of clavicular heads. Worsening bilateral a irspace disease. Signer Name: Jason Moeller MD Signed: 06/10/2020 7:29 PM Workstation Name: [id number]
[2020-06-10 19:37] LABS: ABG PH 7.179 pH Units (7.350-7.450)
[2020-06-10] MEDS ORDERED: SODIUM CHLORIDE 0.9% 1000 ML 1,000 ML IV ONE (19:55)
[2020-06-10] MEDS ORDERED: SODIUM BICARB 8.4% 50 MEQ/50 ML SYRINGE IV ONE (19:55)
[2020-06-10] MEDS ORDERED: DEXTROSE 5% IN WATER 1,000 ML with SODIUM BICARBONATE 150 MEQ IV SCH (20:30)
[2020-06-10] MEDS ORDERED: SODIUM CHLORIDE 0.9% 500 ML 500 ML ONE (21:36)
--- NOTE | 2020-06-10 21:36 | XRay Report ---
XR chest 1V ap INDICATION / CLINICAL INFORMATION: ETT. COMPARISON: Earlier same day FINDINGS: SUPPORT DEVICES: Endotracheal tube has been advanced and now terminates just beneath the clavicular h anna. Enteric tube coursing below the diaphragm with tip not visualized. Left PICC terminates in lowe r superior vena cava. HEART / MEDIASTINUM: No significant abnormality. LUNGS / PLEURA: Airspace disease in the lungs is unchanged. Costophrenic sulci are sharp. New large r ight pneumothorax. ADDITIONAL FINDINGS: No significant additional findings. IMPRESSION: 1. New large right pneumothorax without evidence of tension. Informed the ICU physician taking care of the pateint at 8:32. Signer Name: Jason Moeller MD Signed: 06/10/2020 9:32 PM Workstation Name: [id number]
--- NOTE | 2020-06-10 23:25 | Consultation ---
History of Present Illness Consult date: 06/10/20 Reason for consult: other (right ptx) Requesting physician: ENMA GOETZ Chief complaint: hypoxia - History of present illness History of present illness: 64-year-old man with history of hypertension diabetes congestive heart failure and left below-knee amputation comes in for cough fever and shortness of breath and chills for 5 days prior to admission. Patient has been tested positive for COVID-19 5 days prior to admission. Pt required intubation tonight which resulted in a right PTX. General surgery consulted for CT placement as attending and ED were not able to place one. Past History Past Medical History: diabetes, heart failure, hypertension Past Surgical History: appendectomy, Other (amputation, prostate) Social history: no significant social history Family history: no significant family history Medications and Allergies Allergies Allergy/AdvReac Type Severity Reaction Status Date / Time No Known Allergies Allergy Unverified 05/29/20 15:15 Home Medications Medication Instructions Recorded Confirmed Last Taken Type ARIPiprazole [Aripiprazole] 2 mg PO DAILY 06/02/20 06/02/20 Unknown History Duloxetine HCl 2 tab PO DAILY 06/02/20 06/02/20 Unknown History PARoxetine HCl 10 mg PO DAILY 06/02/20 06/02/20 Unknown History Active Meds: Active Medications Acetaminophen (Tylenol) 650 mg PO Q4H PRN PRN Reason: Pain MILD(1-3)/Fever >100.5/ESPINOZA Last Admin: 06/10/20 12:37 Dose: 650 mg Documented by: Lipase/Protease/Amylase (Pancreaze Dr 10,500 Unit) 1 each FEEDTUBE PRN PRN PRN Reason: For Clogged Feeding Tube Apixaban (Eliquis) 5 mg PO Q12HR LONG; Protocol Last Admin: 06/10/20 09:24 Dose: 5 mg Documented by: Aspirin (Halfprin Ec) 81 mg PO QDAY LONG Famotidine (Pepcid) 20 mg PO DAILY LONG Last Admin: 06/10/20 09:25 Dose: 20 mg Documented by: Dextrose (D5w) 1,000 mls @ 75 mls/hr IV DIRECT LONG Last Admin: 06/09/20 22:54 Dose: 75 mls/hr Documented by: Dexmedetomidine HCl 400 mcg/ (Sodium Chloride) 104 mls @ 6.302 mls/hr IV TITRATE LONG; Protocol Last Titration: 06/09/20 18:53 Dose: 0 mcg/kg/hr, 0 mls/hr Documented by: Amiodarone HCl 900 mg/ (Dextrose) 500 mls @ 33.333 mls/hr IV DIRECT LONG; Protocol Last Admin: 06/10/20 16:53 Dose: 1 mg/min, 33.333 mls/hr Documented by: Cefepime HCl (Cefepime/Ns 2 Gm/100 Ml) 2 gm in 100 mls @ 200 mls/hr IV Q12HR LONG Last Admin: 06/10/20 22:42 Dose: 200 mls/hr Documented by: Norepinephrine (Levophed Drip 4 Mg/Ns 250 Ml) 4 mg in 250 mls @ 7.5 mls/hr IV TITR LONG; Protocol Last Admin: 06/10/20 22:42 Dose: 20 mcg/min, 75 mls/hr Documented by: Sodium Chloride (Nacl 0.9% 1000 Ml) 1,000 mls @ 999 mls/hr IV ONCE LONG Stop: 06/11/20 19:15 Last Admin: 06/10/20 20:40 Dose: 999 mls/hr Documented by: Sodium Bicarbonate 150 meq/ (Dextrose) 1,150 mls @ 200 mls/hr IV DIRECT LONG Vasopressin 20 unit/ Sodium (Chloride) 101 mls @ 9.09 mls/hr IV TITR LONG; Protocol Insulin Glargine (Lantus) 10 units SUB-Q DAILY LONG Last Admin: 06/10/20 09:26 Dose: 10 units Documented by: Insulin Glargine (Lantus) 55 units SUB-Q QHS LONG Last Admin: 06/10/20 22:17 Dose: 55 units Documented by: Insulin Human Lispro (Humalog) 0 unit SUB-Q Q4HR LONG; Protocol Last Admin: 06/10/20 18:55 Dose: 6 unit Documented by: Methylprednisolone Sodium Succinate (Solu-Medrol) 40 mg IV Q8HR LONG Last Admin: 06/10/20 20:40 Dose: 40 mg Documented by: Metoprolol Tartrate (Metoprolol) 2.5 mg IV Q6H PRN PRN Reason: Tachyarrhythmias Last Admin: 06/10/20 06:31 Dose: 2.5 mg Documented by: Metoprolol Tartrate (Metoprolol) 25 mg PO Q6HR [facility] Last Admin: 06/10/20 17:26 Dose: Not Given Documented by: Paroxetine HCl (Paxil) 10 mg PO DAILY [facility] Last Admin: 06/10/20 09:25 Dose: 10 mg Documented by: Simple Syrup (Simple Syrup) 15 ml FEEDTUBE PRN PRN PRN Reason: Hypoglycemia Simple Syrup (Simple Syrup) 30 ml FEEDTUBE PRN PRN PRN Reason: Hypoglycemia Sodium Bicarbonate (Sodium Bicarbonate) 325 mg FEEDTUBE PRN PRN PRN Reason: For Clogged Feeding Tube Sodium Chloride (Sodium Chloride Flush Syringe 10 Ml) 10 ml IV BID [facility] Last Admin: 06/10/20 21:40 Dose: 10 ml Documented by: Sodium Chloride (Sodium Chloride Flush Syringe 10 Ml) 10 ml IV PRN PRN PRN Reason: LINE FLUSH Review of Systems ROS unobtainable: due to endotracheal tube, due to mental status Exam Vital Signs Pulse Resp 96 H 19 05/29/20 12:36 05/29/20 12:36 - General physical appearance Positive: no distress, no pain, obese, other (oxygen sats 70. patient appears mildly cyanotic) - Respiratory Positive: normal expansion, normal respiratory effort absent breath sounds: right - Cardiovascular Rhythm: regular - Integumentary no rash, no growths, no abnormal pigmentation Results - Labs 06/10/20 05:52 06/10/20 05:52 Abnormal lab results 06/08/20 06/10/20 06/10/20 Range/Units 17:47 02:12 05:43 WBC (4.5-11.0) K/mm3 RDW (13.2-15.2) % Plt Count (140-440) K/mm3 Seg Neuts % (Manual) (40.0-70.0) % Lymphocytes % (Manual) (13.4-35.0) % Seg Neutrophils # Man (1.8-7.7) K/mm3 Lymphocytes # (Manual) (1.2-5.4) K/mm3 ABG pH (7.350-7.450) pH Units ABG pO2 (80.0-90.0) mm Hg ABG HCO3 (20.0-26.0) mmol/L ABG O2 Saturation (95.0-99.0) % ABG Base Excess (-2.0-3.0) mmol/L Oxyhemoglobin (95.0-99.0) % Sodium (137-145) mmol/L Chloride (98-107) mmol/L Carbon Dioxide (22-30) mmol/L BUN (9-20) mg/dL Creatinine (0.8-1.3) mg/dL Glucose (75-100) mg/dL POC Glucose 275 H 267 H 304 H (70-105) 06/10/20 06/10/20 06/10/20 Range/Units 05:52 05:52 09:37 WBC 15.0 H (4.5-11.0) K/mm3 RDW 15.9 H (13.2-15.2) % Plt Count 71 L (140-440) K/mm3 Seg Neuts % (Manual) 95.0 H (40.0-70.0) % Lymphocytes % (Manual) 4.0 L (13.4-35.0) % Seg Neutrophils # Man 14.3 H (1.8-7.7) K/mm3 Lymphocytes # (Manual) 0.6 L (1.2-5.4) K/mm3 ABG pH (7.350-7.450) pH Units ABG pO2 (80.0-90.0) mm Hg ABG HCO3 (20.0-26.0) mmol/L ABG O2 Saturation (95.0-99.0) % ABG Base Excess (-2.0-3.0) mmol/L Oxyhemoglobin (95.0-99.0) % Sodium 147 H (137-145) mmol/L Chloride 109.8 H (98-107) mmol/L Carbon Dioxide 18 L (22-30) mmol/L BUN 53 H (9-20) mg/dL Creatinine 1.6 H (0.8-1.3) mg/dL Glucose 336 H (75-100) mg/dL POC Glucose 284 H (70-105) 06/10/20 06/10/20 06/10/20 Range/Units 10:21 13:50 16:55 WBC (4.5-11.0) K/mm3 RDW (13.2-15.2) % Plt Count (140-440) K/mm3 Seg Neuts % (Manual) (40.0-70.0) % Lymphocytes % (Manual) (13.4-35.0) % Seg Neutrophils # Man (1.8-7.7) K/mm3 Lymphocytes # (Manual) (1.2-5.4) K/mm3 ABG pH 7.269 L (7.350-7.450) pH Units ABG pO2 42.5 L (80.0-90.0) mm Hg ABG HCO3 14.7 L (20.0-26.0) mmol/L ABG O2 Saturation 69.3 L (95.0-99.0) % ABG Base Excess -11.1 L (-2.0-3.0) mmol/L Oxyhemoglobin 67.9 L (95.0-99.0) % Sodium (137-145) mmol/L Chloride (98-107) mmol/L Carbon Dioxide (22-30) mmol/L BUN (9-20) mg/dL Creatinine (0.8-1.3) mg/dL Glucose (75-100) mg/dL POC Glucose 272 H 226 H (70-105) 06/10/20 06/10/20 06/10/20 Range/Units 17:27 19:11 22:28 WBC (4.5-11.0) K/mm3 RDW (13.2-15.2) % Plt Count (140-440) K/mm3 Seg Neuts % (Manual) (40.0-70.0) % Lymphocytes % (Manual) (13.4-35.0) % Seg Neutrophils # Man (1.8-7.7) K/mm3 Lymphocytes # (Manual) (1.2-5.4) K/mm3 ABG pH 7.179 L* (7.350-7.450) pH Units ABG pO2 50.0 L (80.0-90.0) mm Hg ABG HCO3 15.9 L (20.0-26.0) mmol/L ABG O2 Saturation 74.5 L (95.0-99.0) % ABG Base Excess -12.1 L (-2.0-3.0) mmol/L Oxyhemoglobin 73.1 L (95.0-99.0) % Sodium (137-145) mmol/L Chloride (98-107) mmol/L Carbon Dioxide (22-30) mmol/L BUN (9-20) mg/dL Creatinine (0.8-1.3) mg/dL Glucose (75-100) mg/dL POC Glucose 240 H 259 H (70-105) Diabetes panel 06/10/20 Range/Units 05:52 Sodium 147 H (137-145) mmol/L Potassium 4.7 (3.6-5.0) mmol/L Chloride 109.8 H (98-107) mmol/L Carbon Dioxide 18 L (22-30) mmol/L BUN 53 H (9-20) mg/dL Creatinine 1.6 H (0.8-1.3) mg/dL Glucose 336 H (75-100) mg/dL Calcium 8.4 (8.4-10.2) mg/dL Calcium panel 06/10/20 Range/Units 05:52 Calcium 8.4 (8.4-10.2) mg/dL Pituitary panel 06/10/20 Range/Units 05:52 Sodium 147 H (137-145) mmol/L Potassium 4.7 (3.6-5.0) mmol/L Chloride 109.8 H (98-107) mmol/L Carbon Dioxide 18 L (22-30) mmol/L BUN 53 H (9-20) mg/dL Creatinine 1.6 H (0.8-1.3) mg/dL Glucose 336 H (75-100) mg/dL Calcium 8.4 (8.4-10.2) mg/dL Adrenal panel 06/10/20 Range/Units 05:52 Sodium 147 H (137-145) mmol/L Potassium 4.7 (3.6-5.0) mmol/L Chloride 109.8 H (98-107) mmol/L Carbon Dioxide 18 L (22-30) mmol/L BUN 53 H (9-20) mg/dL Creatinine 1.6 H (0.8-1.3) mg/dL Glucose 336 H (75-100) mg/dL Calcium 8.4 (8.4-10.2) mg/dL - Imaging Chest x-ray: report reviewed, image reviewed (large right PTX) Assessment and Plan - Patient Problems (1) Pneumothorax, right Current Visit: Yes Status: Acute Plan to address problem: Pt in critical condition. Patient noted to have a large right pneumothorax. Patient is hypoxic. He is in need of urgent right chest decompression. Attending physician unable to address the issue. ER physician unable to perform a needle decompression. Consent has been obtained for chest tube placement. Will place immediately. Time=20min
--- NOTE | 2020-06-10 23:26 | Procedure Note ---
Date of procedure: 06/10/20 Pre-op diagnosis: right PTX Post-op diagnosis: same Procedure: right chest tube placement Consent was on the chart. Timeout was called. Sterile prep and drape was performed. 1% lidocaine was used to anesthetize the skin. On the right side of the chest at the level of the areola a small incision was made. Blunt dissection was done down to the chest wall. Using a 24 [place] chest tube with trocar, the chest tube was inserted between the ribs. The rib spaces were very small. I was able to get into the pleural space and we had a good air burgess. There was condensation in the tube. There is a small amount of drainage. Chest tube was connected to the Pleur-evac. We had active air leak. His oxygen saturations went from 68 to 83 quickly. Chest x-ray showed the tube to be in good position. Patient tolerated the procedure well. There were no complications. Findings: large air burgess Implants: 24Fr CT Anesthesia: local Surgeon: QIANA CONWAY Estimated blood loss: minimal Pathology: none Condition: critical Disposition: ICU
--- NOTE | 2020-06-11 00:09 | XRay Report ---
CHEST 1 VIEW, 06/10/2020 11:31 PM CLINICAL INFORMATION/INDICATION: Chest tube placement COMPARISON: Chest radiograph, 06/10/2020 at 9:02 PM FINDINGS: SUPPORT DEVICES: There has been interval placement of a right-sided chest tube with significant reexp ansion of the right lung. The endotracheal tube, left-sided PICC line and esophagogastric tube projec t in similar position. HEART: Cardiac silhouette is not well visualized. LUNGS/PLEURA: Diffuse bilateral predominantly airspace disease is again noted and has not significant ly changed. ADDITIONAL FINDINGS: No additional acute findings. IMPRESSION: 1. Placement of right-sided chest tube with significant reexpansion of the right lung. Signer Name: Samreen Chua MD Signed: 06/11/2020 12:05 AM Workstation Name: [email or web address]
[2020-06-11] MEDS: METOPROLOL TARTRATE 25 MG TAB PO SCH ×5 (00:13→23:07)
[2020-06-11] MEDS: INSULIN LISPRO 100 UNIT/ML VIAL 3 mL SUB-Q SCH ×3 (00:30→06:03)
[2020-06-11] MEDS: INSULIN GLARGINE 100 UNITS/ML SUB-Q SCH (00:31)
[2020-06-11 02:05] LABS: ABG Base Excess -7.4 mmol/L (-2.0-3.0); ABG HCO3 19.1 mmol/L (20.0-26.0); ABG Methemoglobin 0.5 % (0.0-1.5); ABG Oxygen Saturation 91.4 % (95.0-99.0); ABG PCO2 41.9 mm Hg; ABG PH 7.276 pH Units (7.350-7.450); ABG PO2 64.6 mm Hg (80.0-90.0)
[2020-06-11] MEDS: NORepinephrine/NS 4 MG-250 ML 4 MG/250 ML BAG IV SCH ×6 (02:21→19:35)
[2020-06-11] MEDS ORDERED: fentaNYL 100 MCG/2 ML INJ IV PRN (03:00)
[2020-06-11] MEDS: methylPREDNISolone Sod Succinate 40 MG/1 ML INJ IV SCH ×3 (04:54→22:21)
[2020-06-11] MEDS: SODIUM BICARBONATE 150 MEQ in DEXTROSE 5% IN WATER 1,000 ML IV SCH ×4 (04:55→22:29)
[2020-06-11 05:23] LABS: Hemoglobin 12.9 gm/dl (11.8-15.2); Mean Corpuscular HGB Conc 33 % (32-34); Mean Corpuscular Volume 95 fl (84-94); Red Blood Count 4.11 M/mm3 (3.65-5.03); Red Cell Distribution Width 16.9 % (13.2-15.2)
[2020-06-11 05:24] LABS: Platelet Count 77 K/mm3 (140-440)
[2020-06-11 05:26] LABS: Basophils % (Auto) 0.2 % (0.0-1.8); Lymphocytes # (Auto) 0.6 K/mm3 (1.2-5.4); Lymphocytes % (Auto) 6.7 % (13.4-35.0); Monocytes # (Auto) 0.2 K/mm3 (0.0-0.8); Monocytes % (Auto) 2.3 % (0.0-7.3)
[2020-06-11 05:35] LABS: Calcium 7.1 mg/dL (8.4-10.2)
--- NOTE | 2020-06-11 07:02 | Event Note ---
Date: 06/11/20 Patient noted to be in respiratory distress and was intubated but X-Ray showed ET tube at Clavicular level. The tube was adjusted by Respiratory Therapist and subsequent Chest X-Ray showed large right sided Pneumothorax patients blood pressure at the time of evaluation was about 78/43. Patient's mother Mrs Gena Starks was contacted and notified about patient's condition and treatment plan involving the need for chest tube placement at about 10p.m . She gave verbal consent and the ED physician Dr. Wray came and saw patient and subseque ntly the surgeon overhead distribution engineer came and also evaluated the patient and placed a chest tube on the right side with patient remaining stable.
[2020-06-11] MEDS: AMIODARONE 900 MG in DEXTROSE 5% IN WATER 482 ML IV SCH (07:18)
--- NOTE | 2020-06-11 08:51 | Progress Note ---
Assessment and Plan - Patient Problems (1) Pneumothorax, right Current Visit: Yes Status: Acute Plan to address problem: Pt in guarded condition. s/p right chest tube placement - 06/10. Blood gas improved this morning. Oxygen saturation up to 90. X-ray shows expansion of right lung. Continue with chest tube on suction for now. Please call with questions. Time=10min Subjective Date of service: 06/11/20 Patient Reports: Positive: other (no new events) Objective Vital Signs - 12hr 06/10/20 06/10/20 06/10/20 20:51 21:01 21:11 Temperature Pulse Rate 118 H 109 H Pulse Rate [ From Monitor] Respiratory 34 H 33 H 35 H Rate Blood Pressure 94/70 78/43 78/43 O2 Sat by Pulse 59 L 65 L 67 L Oximetry 06/10/20 06/10/20 06/10/20 21:21 21:31 21:41 Temperature Pulse Rate 105 H 105 H 112 H Pulse Rate [ From Monitor] Respiratory 32 H 30 H 35 H Rate Blood Pressure 78/43 78/43 78/43 O2 Sat by Pulse 69 L 71 L 74 L Oximetry 06/10/20 06/10/20 06/10/20 21:51 22:01 22:11 Temperature Pulse Rate 115 H 124 H 112 H Pulse Rate [ From Monitor] Respiratory 39 H 37 H 38 H Rate Blood Pressure 78/43 124/80 124/80 O2 Sat by Pulse 75 L 75 L 75 L Oximetry 06/10/20 06/10/20 06/10/20 22:21 22:31 22:41 Temperature Pulse Rate 112 H 107 H 105 H Pulse Rate [ From Monitor] Respiratory 41 H 27 H 38 H Rate Blood Pressure 171/88 139/98 139/98 O2 Sat by Pulse 73 L 74 L 72 L Oximetry 06/10/20 06/10/20 06/10/20 22:51 23:01 23:11 Temperature Pulse Rate 107 H 106 H Pulse Rate [ From Monitor] Respiratory 29 H 21 Rate Blood Pressure 124/98 124/98 115/84 O2 Sat by Pulse 72 L 71 L 71 L Oximetry 06/10/20 06/10/20 06/10/20 23:21 23:30 23:35 Temperature Pulse Rate 106 H 107 H Pulse Rate [ 106 H From Monitor] Respiratory 35 H 31 H 33 H Rate Blood Pressure 125/49 124/90 O2 Sat by Pulse 83 L 83 L 90 Oximetry 06/10/20 06/10/20 06/11/20 23:41 23:51 00:00 Temperature 99.9 F H Pulse Rate 106 H 113 H Pulse Rate [ From Monitor] Respiratory 26 H 16 Rate Blood Pressure 124/90 128/83 O2 Sat by Pulse 85 87 Oximetry 06/11/20 06/11/20 06/11/20 00:01 00:11 00:13 Temperature Pulse Rate 108 H 108 H 106 H Pulse Rate [ From Monitor] Respiratory 36 H 20 Rate Blood Pressure 128/83 135/90 105/62 O2 Sat by Pulse 88 89 Oximetry 06/11/20 06/11/20 06/11/20 00:21 00:26 00:30 Temperature Pulse Rate 106 H 110 H 104 H Pulse Rate [ From Monitor] Respiratory 25 H 25 H Rate Blood Pressure 138/94 133/94 132/100 O2 Sat by Pulse 90 89 89 Oximetry 06/11/20 06/11/20 06/11/20 00:41 00:51 01:01 Temperature Pulse Rate 107 H 103 H 106 H Pulse Rate [ From Monitor] Respiratory 34 H 25 H 35 H Rate Blood Pressure 132/100 156/98 156/98 O2 Sat by Pulse 89 90 90 Oximetry 06/11/20 06/11/20 06/11/20 01:11 01:21 01:31 Temperature Pulse Rate 104 H 102 H 105 H Pulse Rate [ From Monitor] Respiratory 19 33 H 29 H Rate Blood Pressure 151/96 160/112 142/102 O2 Sat by Pulse 90 92 92 Oximetry 06/11/20 06/11/20 06/11/20 01:41 01:51 02:00 Temperature Pulse Rate 106 H 107 H Pulse Rate [ 106 H From Monitor] Respiratory 34 H 37 H 29 H Rate Blood Pressure 142/102 191/114 O2 Sat by Pulse 92 92 90 Oximetry 06/11/20 06/11/20 06/11/20 02:01 02:11 02:18 Temperature Pulse Rate 103 H 89 Pulse Rate [ From Monitor] Respiratory 36 H 38 H 36 H Rate Blood Pressure 175/91 175/91 O2 Sat by Pulse 91 87 Oximetry 06/11/20 06/11/20 06/11/20 02:21 02:30 02:41 Temperature Pulse Rate 103 H 107 H 106 H Pulse Rate [ From Monitor] Respiratory 31 H 28 H 24 Rate Blood Pressure 156/101 165/89 165/89 O2 Sat by Pulse 94 94 94 Oximetry 06/11/20 06/11/20 06/11/20 02:51 02:58 03:01 Temperature Pulse Rate 108 H 106 H Pulse Rate [ From Monitor] Respiratory 29 H 28 H 27 H Rate Blood Pressure 170/96 179/103 O2 Sat by Pulse 97 95 Oximetry 06/11/20 06/11/20 06/11/20 03:11 03:21 03:31 Temperature Pulse Rate 108 H 110 H 108 H Pulse Rate [ From Monitor] Respiratory 30 H 37 H 34 H Rate Blood Pressure 179/103 161/112 171/122 O2 Sat by Pulse 94 94 90 Oximetry 06/11/20 06/11/20 06/11/20 03:41 03:42 03:51 Temperature Pulse Rate 115 H 115 H Pulse Rate [ 106 H From Monitor] Respiratory 34 H 32 H 34 H Rate Blood Pressure 171/122 O2 Sat by Pulse 87 90 86 Oximetry 06/11/20 06/11/20 06/11/20 04:00 04:01 04:11 Temperature 98.9 F Pulse Rate 119 H 125 H Pulse Rate [ From Monitor] Respiratory 38 H 38 H Rate Blood Pressure O2 Sat by Pulse 85 86 Oximetry 06/11/20 06/11/20 06/11/20 04:21 04:31 04:41 Temperature Pulse Rate 116 H 109 H 103 H Pulse Rate [ From Monitor] Respiratory 37 H 38 H 38 H Rate Blood Pressure 116/72 94/56 94/56 O2 Sat by Pulse 87 89 87 Oximetry 06/11/20 06/11/20 06/11/20 04:51 05:01 05:08 Temperature Pulse Rate 100 H 99 H 111 H Pulse Rate [ 106 H From Monitor] Respiratory 39 H 39 H 32 H Rate Blood Pressure 96/28 94/56 119/88 O2 Sat by Pulse 86 88 88 Oximetry 06/11/20 05:11 Temperature Pulse Rate 99 H Pulse Rate [ From Monitor] Respiratory 38 H Rate Blood Pressure 119/88 O2 Sat by Pulse 88 Oximetry - General physical appearance no distress, no pain, obese - Respiratory normal expansion, normal respiratory effort, other (Chest tube in place with +airleak. serosang drainage) - Labs 06/11/20 04:45 06/11/20 04:45 Diabetes panel 06/11/20 Range/Units 04:45 Sodium 147 H (137-145) mmol/L Potassium 4.7 (3.6-5.0) mmol/L Chloride 109.1 H (98-107) mmol/L Carbon Dioxide 15 L (22-30) mmol/L BUN 48 H (9-20) mg/dL Creatinine 2.1 H (0.8-1.3) mg/dL Glucose 367 H (75-100) mg/dL Calcium 7.1 L D (8.4-10.2) mg/dL Calcium panel 06/11/20 Range/Units 04:45 Calcium 7.1 L D (8.4-10.2) mg/dL Pituitary panel 06/11/20 Range/Units 04:45 Sodium 147 H (137-145) mmol/L Potassium 4.7 (3.6-5.0) mmol/L Chloride 109.1 H (98-107) mmol/L Carbon Dioxide 15 L (22-30) mmol/L BUN 48 H (9-20) mg/dL Creatinine 2.1 H (0.8-1.3) mg/dL Glucose 367 H (75-100) mg/dL Calcium 7.1 L D (8.4-10.2) mg/dL Adrenal panel 06/11/20 Range/Units 04:45 Sodium 147 H (137-145) mmol/L Potassium 4.7 (3.6-5.0) mmol/L Chloride 109.1 H (98-107) mmol/L Carbon Dioxide 15 L (22-30) mmol/L BUN 48 H (9-20) mg/dL Creatinine 2.1 H (0.8-1.3) mg/dL Glucose 367 H (75-100) mg/dL Calcium 7.1 L D (8.4-10.2) mg/dL
--- NOTE | 2020-06-11 09:23 | Event Note ---
Date: 06/10/20 Anesthesia Called back to ICU for ETT placement. RT said that radiology said the ETT was at the clavicle level. Patients Spo2 72-75%. Used [place] scope to determine correct placement. The ETT balloon was above the cords, ett was advanced to correct placement, Spo2 % dropped to 45% but recovered to 75%. Xray done, the tip of ett was above the charles, but it was noted that a R pneumothorax had developed. Reviewed chest xray after initial ett placement. Ett in correct position and no pneumothorax was noted on Xray, notified by Xray and RN. Jones Almazan [phone]
--- NOTE | 2020-06-11 09:27 | Event Note ---
Date: 06/10/20 Anesthesia called to ICU to place A-line for blood pressure monitoring. Sterile prep and drape, +davin test. [address] with ultra sound to L wrist, w/o difficulty. secured to sterile occlusive dressing. + NIBP correlation. Jones Almazan [phone]
--- NOTE | 2020-06-11 10:19 | Progress Note ---
Assessment and Plan 55 y/o obese male with acute respiratory failure from COVID and acute renal failure. 1. Pulm-worsening respiratory failure now requiring mechanical ventilation with chest tube for PTX. Currently lung re-expanded but does shows severe diffuse airspace disease. Worsening COVID vs new onset HCAP. Placed on Empiric abx therapy. Continue high levels of PEEP to help with oxygenation. Very guarded prognosis given COVID diagnosis 2. ACID/BASE-metabolic acidosis. Likely DKA given elevated blood sugars from Bicarb drip and uncontrolled diabetes with worsening infection. Will place patient on insulin drip, q1 hour fsbs. Monitor renal function but Cr is 2.1 up from 1.6 and BUN is only 50 3. Will start to decrease steroids as this may have added to worsening respiratory status. Will wean as fast as possible. 4. ID- worsening right lower lobe infiltrate, fever, started on broad spec abx yesterday. Cultured as well. Still pending. Will follow up. 5. Patient finished remdesivir 6. Follow up HIT antibody. Platelets stable today. 7. Overall prognosis is extremely guarded to poor. Patient had a significant amount of time hypotensive and hypoxic. He is not currently sedated and still requires cardiovascular support. Will wean pressors as tolerated for MAPs greater than 65 cct 31 Subjective Date of service: 06/11/20 Principal diagnosis: Acute Respiratory Failure Secondary to COVID Interval history: Clinically patient worse over the last 24 hours. Worsening metabolic acidosis and worsening respiratory failure requiring intubation. Also development of secondary pneumothorax either from intubation or worsening undelying lung disease. Now intubated on 100% and elevated PEEP with marginal PaO2's. Chest tube in place showing re-expansion of the lung. Renal function worse today. Objective Vital Signs - 12hr 06/10/20 06/10/20 06/10/20 22:21 22:31 22:41 Temperature Pulse Rate 112 H 107 H 105 H Pulse Rate [ From Monitor] Respiratory 41 H 27 H 38 H Rate Blood Pressure 171/88 139/98 139/98 O2 Sat by Pulse 73 L 74 L 72 L Oximetry 06/10/20 06/10/20 06/10/20 22:51 23:01 23:11 Temperature Pulse Rate 107 H 106 H Pulse Rate [ From Monitor] Respiratory 29 H 21 Rate Blood Pressure 124/98 124/98 115/84 O2 Sat by Pulse 72 L 71 L 71 L Oximetry 06/10/20 06/10/20 06/10/20 23:21 23:30 23:35 Temperature Pulse Rate 106 H 107 H Pulse Rate [ 106 H From Monitor] Respiratory 35 H 31 H 33 H Rate Blood Pressure 125/49 124/90 O2 Sat by Pulse 83 L 83 L 90 Oximetry 06/10/20 06/10/20 06/11/20 23:41 23:51 00:00 Temperature 99.9 F H Pulse Rate 106 H 113 H Pulse Rate [ From Monitor] Respiratory 26 H 16 Rate Blood Pressure 124/90 128/83 O2 Sat by Pulse 85 87 Oximetry 06/11/20 06/11/20 06/11/20 00:01 00:11 00:13 Temperature Pulse Rate 108 H 108 H 106 H Pulse Rate [ From Monitor] Respiratory 36 H 20 Rate Blood Pressure 128/83 135/90 105/62 O2 Sat by Pulse 88 89 Oximetry 06/11/20 06/11/20 06/11/20 00:21 00:26 00:30 Temperature Pulse Rate 106 H 110 H 104 H Pulse Rate [ From Monitor] Respiratory 25 H 25 H Rate Blood Pressure 138/94 133/94 132/100 O2 Sat by Pulse 90 89 89 Oximetry 06/11/20 06/11/20 06/11/20 00:41 00:51 01:01 Temperature Pulse Rate 107 H 103 H 106 H Pulse Rate [ From Monitor] Respiratory 34 H 25 H 35 H Rate Blood Pressure 132/100 156/98 156/98 O2 Sat by Pulse 89 90 90 Oximetry 06/11/20 06/11/20 06/11/20 01:11 01:21 01:31 Temperature Pulse Rate 104 H 102 H 105 H Pulse Rate [ From Monitor] Respiratory 19 33 H 29 H Rate Blood Pressure 151/96 160/112 142/102 O2 Sat by Pulse 90 92 92 Oximetry 06/11/20 06/11/20 06/11/20 01:41 01:51 02:00 Temperature Pulse Rate 106 H 107 H Pulse Rate [ 106 H From Monitor] Respiratory 34 H 37 H 29 H Rate Blood Pressure 142/102 191/114 O2 Sat by Pulse 92 92 90 Oximetry 06/11/20 06/11/20 06/11/20 02:01 02:11 02:18 Temperature Pulse Rate 103 H 89 Pulse Rate [ From Monitor] Respiratory 36 H 38 H 36 H Rate Blood Pressure 175/91 175/91 O2 Sat by Pulse 91 87 Oximetry 06/11/20 06/11/20 06/11/20 02:21 02:30 02:41 Temperature Pulse Rate 103 H 107 H 106 H Pulse Rate [ From Monitor] Respiratory 31 H 28 H 24 Rate Blood Pressure 156/101 165/89 165/89 O2 Sat by Pulse 94 94 94 Oximetry 06/11/20 06/11/20 06/11/20 02:51 02:58 03:01 Temperature Pulse Rate 108 H 106 H Pulse Rate [ From Monitor] Respiratory 29 H 28 H 27 H Rate Blood Pressure 170/96 179/103 O2 Sat by Pulse 97 95 Oximetry 06/11/20 06/11/20 06/11/20 03:11 03:21 03:31 Temperature Pulse Rate 108 H 110 H 108 H Pulse Rate [ From Monitor] Respiratory 30 H 37 H 34 H Rate Blood Pressure 179/103 161/112 171/122 O2 Sat by Pulse 94 94 90 Oximetry 06/11/20 06/11/20 06/11/20 03:41 03:42 03:51 Temperature Pulse Rate 115 H 115 H Pulse Rate [ 106 H From Monitor] Respiratory 34 H 32 H 34 H Rate Blood Pressure 171/122 O2 Sat by Pulse 87 90 86 Oximetry 06/11/20 06/11/20 06/11/20 04:00 04:01 04:11 Temperature 98.9 F Pulse Rate 119 H 125 H Pulse Rate [ From Monitor] Respiratory 38 H 38 H Rate Blood Pressure O2 Sat by Pulse 85 86 Oximetry 06/11/20 06/11/20 06/11/20 04:21 04:31 04:41 Temperature Pulse Rate 116 H 109 H 103 H Pulse Rate [ From Monitor] Respiratory 37 H 38 H 38 H Rate Blood Pressure 116/72 94/56 94/56 O2 Sat by Pulse 87 89 87 Oximetry 06/11/20 06/11/20 06/11/20 04:51 05:01 05:08 Temperature Pulse Rate 100 H 99 H 111 H Pulse Rate [ 106 H From Monitor] Respiratory 39 H 39 H 32 H Rate Blood Pressure 96/28 94/56 119/88 O2 Sat by Pulse 86 88 88 Oximetry 06/11/20 06/11/20 05:11 09:18 Temperature Pulse Rate 99 H 102 H Pulse Rate [ From Monitor] Respiratory 38 H Rate Blood Pressure 119/88 123/96 O2 Sat by Pulse 88 91 Oximetry Constitutional: appears uncomfortable, other (critically ill on BIPAP) Eyes: non-icteric ENT: other (orally intubated ) Neck: supple Effort: mildly labored Ascultation: Bilateral: diminished breath sounds Percussion: Bilateral: not dull Cardiovascular: regular rate and rhythm Gastrointestinal: soft, non-distended, other (obese) Integumentary: normal Extremities: no cyanosis Neurologic: other (awake, eyes open, moaning) Psychiatric: other (not able to assess) CBC and BMP: 06/11/20 04:45 06/11/20 04:45 ABG, PT/INR, D-dimer: ABG ABG pH 7.276 pH Units (7.350-7.450) L 06/11/20 02:00 ABG pCO2 41.9 mm Hg 06/11/20 02:00 ABG pO2 64.6 mm Hg (80.0-90.0) L 06/11/20 02:00 ABG O2 Saturation 91.4 % (95.0-99.0) L 06/11/20 02:00 PT/INR, D-dimer PT 14.1 Sec. (12.2-14.9) 06/05/20 10:30 INR 1.08 (0.87-1.13) 06/05/20 10:30 D-Dimer 2645.35 ng/mlDDU (0-234) H 06/08/20 06:35 Abnormal lab findings: Abnormal Labs 05/29/20 05/29/20 05/29/20 13:25 13:25 13:25 WBC Hct MCV MCHC RDW 16.4 H Plt Count Lymph % (Auto) Lymph # Seg Neutrophils % 78.4 H Seg Neuts % (Manual) Lymphocytes % (Manual) Seg Neutrophils # Seg Neutrophils # Man Lymphocytes # (Manual) D-Dimer ABG pH ABG pO2 ABG HCO3 ABG O2 Saturation ABG Base Excess ABG Hemoglobin Oxyhemoglobin Sodium 131 L Potassium 5.4 H Chloride 96.2 L Carbon Dioxide 14 L BUN 42 H Creatinine 4.7 H Glucose 121 H POC Glucose Hemoglobin A1c Lactic Acid 2.70 H* Calcium 8.3 L Ferritin AST Lactate Dehydrogenase C-Reactive Protein Albumin Coronavirus (PCR) 05/29/20 05/29/20 05/29/20 13:25 15:10 15:10 WBC Hct MCV MCHC RDW Plt Count Lymph % (Auto) Lymph # Seg Neutrophils % Seg Neuts % (Manual) Lymphocytes % (Manual) Seg Neutrophils # Seg Neutrophils # Man Lymphocytes # (Manual) D-Dimer 1391.41 H ABG pH ABG pO2 ABG HCO3 ABG O2 Saturation ABG Base Excess ABG Hemoglobin Oxyhemoglobin Sodium Potassium Chloride Carbon Dioxide BUN Creatinine Glucose 120 H POC Glucose Hemoglobin A1c Lactic Acid Calcium Ferritin AST 54 H Lactate Dehydrogenase 581 H C-Reactive Protein 40.70 H Albumin 2.9 L Coronavirus (PCR) 05/29/20 05/29/20 05/29/20 15:10 15:10 22:55 WBC Hct MCV MCHC RDW Plt Count Lymph % (Auto) Lymph # Seg Neutrophils % Seg Neuts % (Manual) Lymphocytes % (Manual) Seg Neutrophils # Seg Neutrophils # Man Lymphocytes # (Manual) D-Dimer ABG pH ABG pO2 ABG HCO3 ABG O2 Saturation ABG Base Excess ABG Hemoglobin Oxyhemoglobin Sodium Potassium Chloride Carbon Dioxide BUN Creatinine Glucose POC Glucose 256 H Hemoglobin A1c Lactic Acid 2.20 H* Calcium Ferritin 1092.0 H AST Lactate Dehydrogenase C-Reactive Protein Albumin Coronavirus (PCR) 05/29/20 05/30/20 05/30/20 Unknown 07:00 07:00 WBC Hct MCV MCHC RDW 16.0 H Plt Count Lymph % (Auto) 7.3 L Lymph # 0.5 L Seg Neutrophils % 88.4 H Seg Neuts % (Manual) Lymphocytes % (Manual) Seg Neutrophils # Seg Neutrophils # Man Lymphocytes # (Manual) D-Dimer ABG pH ABG pO2 ABG HCO3 ABG O2 Saturation ABG Base Excess ABG Hemoglobin Oxyhemoglobin Sodium 132 L Potassium 5.9 H Chloride 95.5 L Carbon Dioxide 18 L BUN 49 H Creatinine 4.0 H Glucose 415 H POC Glucose Hemoglobin A1c Lactic Acid Calcium 7.8 L Ferritin AST 46 H Lactate Dehydrogenase C-Reactive Protein Albumin 3.2 L Coronavirus (PCR) Positive A 05/30/20 05/30/20 05/30/20 07:00 07:45 11:39 WBC Hct MCV MCHC RDW Plt Count Lymph % (Auto) Lymph # Seg Neutrophils % Seg Neuts % (Manual) Lymphocytes % (Manual) Seg Neutrophils # Seg Neutrophils # Man Lymphocytes # (Manual) D-Dimer ABG pH ABG pO2 ABG HCO3 ABG O2 Saturation ABG Base Excess ABG Hemoglobin Oxyhemoglobin Sodium Potassium Chloride Carbon Dioxide BUN Creatinine Glucose POC Glucose 424 H 468 H Hemoglobin A1c 9.7 H Lactic Acid Calcium Ferritin AST Lactate Dehydrogenase C-Reactive Protein Albumin Coronavirus (PCR) 05/30/20 05/31/20 05/31/20 17:11 01:49 08:14 WBC Hct MCV MCHC RDW Plt Count Lymph % (Auto) Lymph # Seg Neutrophils % Seg Neuts % (Manual) Lymphocytes % (Manual) Seg Neutrophils # Seg Neutrophils # Man Lymphocytes # (Manual) D-Dimer ABG pH ABG pO2 ABG HCO3 ABG O2 Saturation ABG Base Excess ABG Hemoglobin Oxyhemoglobin Sodium Potassium Chloride Carbon Dioxide BUN Creatinine Glucose POC Glucose 475 H 426 H 430 H Hemoglobin A1c Lactic Acid Calcium Ferritin AST Lactate Dehydrogenase C-Reactive Protein Albumin Coronavirus (PCR) 05/31/20 05/31/20 05/31/20 10:17 10:17 10:17 WBC Hct MCV MCHC RDW 16.0 H Plt Count Lymph % (Auto) Lymph # Seg Neutrophils % Seg Neuts % (Manual) Lymphocytes % (Manual) Seg Neutrophils # Seg Neutrophils # Man Lymphocytes # (Manual) D-Dimer 704.53 H ABG pH ABG pO2 ABG HCO3 ABG O2 Saturation ABG Base Excess ABG Hemoglobin Oxyhemoglobin Sodium 134 L Potassium 5.2 H Chloride 92.9 L Carbon Dioxide BUN 38 H Creatinine 1.6 H D Glucose 556 H* POC Glucose Hemoglobin A1c Lactic Acid Calcium Ferritin AST Lactate Dehydrogenase 676 H C-Reactive Protein 21.30 H Albumin 3.2 L Coronavirus (PCR) 05/31/20 05/31/20 05/31/20 10:17 11:24 16:25 WBC Hct MCV MCHC RDW Plt Count Lymph % (Auto) Lymph # Seg Neutrophils % Seg Neuts % (Manual) Lymphocytes % (Manual) Seg Neutrophils # Seg Neutrophils # Man Lymphocytes # (Manual) D-Dimer ABG pH ABG pO2 ABG HCO3 ABG O2 Saturation ABG Base Excess ABG Hemoglobin Oxyhemoglobin Sodium Potassium Chloride Carbon Dioxide BUN Creatinine Glucose POC Glucose 482 H 367 H Hemoglobin A1c Lactic Acid Calcium Ferritin 1221.0 H AST Lactate Dehydrogenase C-Reactive Protein Albumin Coronavirus (PCR) 05/31/20 06/01/20 06/01/20 22:52 04:48 04:48 WBC Hct MCV MCHC RDW 15.7 H Plt Count Lymph % (Auto) Lymph # Seg Neutrophils % Seg Neuts % (Manual) Lymphocytes % (Manual) Seg Neutrophils # Seg Neutrophils # Man Lymphocytes # (Manual) D-Dimer ABG pH ABG pO2 ABG HCO3 ABG O2 Saturation ABG Base Excess ABG Hemoglobin Oxyhemoglobin Sodium 132 L Potassium Chloride 93.3 L Carbon Dioxide BUN 39 H Creatinine 1.4 H Glucose 533 H* POC Glucose 431 H Hemoglobin A1c Lactic Acid Calcium Ferritin AST Lactate Dehydrogenase C-Reactive Protein Albumin Coronavirus (PCR) 06/01/20 06/01/20 06/01/20 07:46 08:46 11:38 WBC Hct MCV MCHC RDW Plt Count Lymph % (Auto) Lymph # Seg Neutrophils % Seg Neuts % (Manual) Lymphocytes % (Manual) Seg Neutrophils # Seg Neutrophils # Man Lymphocytes # (Manual) D-Dimer ABG pH ABG pO2 ABG HCO3 ABG O2 Saturation ABG Base Excess ABG Hemoglobin Oxyhemoglobin Sodium Potassium Chloride Carbon Dioxide BUN Creatinine Glucose 504 H* POC Glucose 448 H 287 H Hemoglobin A1c Lactic Acid Calcium Ferritin AST Lactate Dehydrogenase C-Reactive Protein Albumin Coronavirus (PCR) 06/01/20 06/01/20 06/02/20 16:27 22:47 07:35 WBC Hct MCV MCHC RDW Plt Count Lymph % (Auto) Lymph # Seg Neutrophils % Seg Neuts % (Manual) Lymphocytes % (Manual) Seg Neutrophils # Seg Neutrophils # Man Lymphocytes # (Manual) D-Dimer ABG pH ABG pO2 ABG HCO3 ABG O2 Saturation ABG Base Excess ABG Hemoglobin Oxyhemoglobin Sodium Potassium Chloride Carbon Dioxide BUN Creatinine Glucose POC Glucose 298 H 411 H 347 H Hemoglobin A1c Lactic Acid Calcium Ferritin AST Lactate Dehydrogenase C-Reactive Protein Albumin Coronavirus (PCR) 06/02/20 06/02/20 06/02/20 11:53 17:08 22:41 WBC Hct MCV MCHC RDW Plt Count Lymph % (Auto) Lymph # Seg Neutrophils % Seg Neuts % (Manual) Lymphocytes % (Manual) Seg Neutrophils # Seg Neutrophils # Man Lymphocytes # (Manual) D-Dimer ABG pH ABG pO2 ABG HCO3 ABG O2 Saturation ABG Base Excess ABG Hemoglobin Oxyhemoglobin Sodium Potassium Chloride Carbon Dioxide BUN Creatinine Glucose POC Glucose 406 H 355 H 272 H Hemoglobin A1c Lactic Acid Calcium Ferritin AST Lactate Dehydrogenase C-Reactive Protein Albumin Coronavirus (PCR) 06/03/20 06/03/20 06/03/20 05:14 05:14 08:11 WBC 11.9 H Hct MCV MCHC RDW 15.6 H Plt Count Lymph % (Auto) Lymph # Seg Neutrophils % Seg Neuts % (Manual) Lymphocytes % (Manual) Seg Neutrophils # Seg Neutrophils # Man Lymphocytes # (Manual) D-Dimer ABG pH ABG pO2 ABG HCO3 ABG O2 Saturation ABG Base Excess ABG Hemoglobin Oxyhemoglobin Sodium Potassium Chloride Carbon Dioxide BUN 44 H Creatinine 1.4 H Glucose 291 H POC Glucose 265 H Hemoglobin A1c Lactic Acid Calcium Ferritin AST Lactate Dehydrogenase C-Reactive Protein Albumin Coronavirus (PCR) 06/03/20 06/03/20 06/03/20 13:32 18:24 21:26 WBC Hct MCV MCHC RDW Plt Count Lymph % (Auto) Lymph # Seg Neutrophils % Seg Neuts % (Manual) Lymphocytes % (Manual) Seg Neutrophils # Seg Neutrophils # Man Lymphocytes # (Manual) D-Dimer ABG pH ABG pO2 ABG HCO3 ABG O2 Saturation ABG Base Excess ABG Hemoglobin Oxyhemoglobin Sodium Potassium Chloride Carbon Dioxide BUN Creatinine Glucose POC Glucose 309 H 365 H 333 H Hemoglobin A1c Lactic Acid Calcium Ferritin AST Lactate Dehydrogenase C-Reactive Protein Albumin Coronavirus (PCR) 06/04/20 06/04/20 06/04/20 03:41 03:41 03:41 WBC 12.5 H Hct MCV MCHC RDW 15.8 H Plt Count Lymph % (Auto) Lymph # Seg Neutrophils % Seg Neuts % (Manual) Lymphocytes % (Manual) Seg Neutrophils # Seg Neutrophils # Man Lymphocytes # (Manual) D-Dimer 541.25 H ABG pH ABG pO2 ABG HCO3 ABG O2 Saturation ABG Base Excess ABG Hemoglobin Oxyhemoglobin Sodium Potassium 5.1 H D Chloride Carbon Dioxide BUN 52 H Creatinine 1.8 H Glucose 155 H POC Glucose Hemoglobin A1c Lactic Acid Calcium Ferritin AST Lactate Dehydrogenase 732 H C-Reactive Protein 3.00 H Albumin Coronavirus (PCR) 06/04/20 06/04/20 06/04/20 03:41 07:49 10:54 WBC Hct MCV MCHC RDW Plt Count Lymph % (Auto) Lymph # Seg Neutrophils % Seg Neuts % (Manual) Lymphocytes % (Manual) Seg Neutrophils # Seg Neutrophils # Man Lymphocytes # (Manual) D-Dimer ABG pH ABG pO2 ABG HCO3 ABG O2 Saturation ABG Base Excess ABG Hemoglobin Oxyhemoglobin Sodium Potassium Chloride Carbon Dioxide BUN Creatinine Glucose POC Glucose 254 H 288 H Hemoglobin A1c Lactic Acid Calcium Ferritin 913.8 H AST Lactate Dehydrogenase C-Reactive Protein Albumin Coronavirus (PCR) 06/04/20 06/04/20 06/05/20 17:11 23:10 05:30 WBC Hct MCV MCHC RDW Plt Count Lymph % (Auto) Lymph # Seg Neutrophils % Seg Neuts % (Manual) Lymphocytes % (Manual) Seg Neutrophils # Seg Neutrophils # Man Lymphocytes # (Manual) D-Dimer ABG pH ABG pO2 ABG HCO3 ABG O2 Saturation ABG Base Excess ABG Hemoglobin Oxyhemoglobin Sodium 153 H D Potassium Chloride 109.5 H Carbon Dioxide BUN 93 H Creatinine 2.9 H D Glucose 370 H POC Glucose 194 H 268 H Hemoglobin A1c Lactic Acid Calcium Ferritin AST Lactate Dehydrogenase C-Reactive Protein Albumin 3.4 L Coronavirus (PCR) 06/05/20 06/05/20 06/05/20 11:44 16:16 18:19 WBC Hct MCV MCHC RDW Plt Count Lymph % (Auto) Lymph # Seg Neutrophils % Seg Neuts % (Manual) Lymphocytes % (Manual) Seg Neutrophils # Seg Neutrophils # Man Lymphocytes # (Manual) D-Dimer ABG pH ABG pO2 ABG HCO3 ABG O2 Saturation ABG Base Excess ABG Hemoglobin Oxyhemoglobin Sodium Potassium Chloride Carbon Dioxide BUN Creatinine Glucose POC Glucose 432 H 452 H 458 H Hemoglobin A1c Lactic Acid Calcium Ferritin AST Lactate Dehydrogenase C-Reactive Protein Albumin Coronavirus (PCR) 06/05/20 06/06/20 06/06/20 21:26 02:04 04:00 WBC Hct MCV MCHC RDW Plt Count Lymph % (Auto) Lymph # Seg Neutrophils % Seg Neuts % (Manual) Lymphocytes % (Manual) Seg Neutrophils # Seg Neutrophils # Man Lymphocytes # (Manual) D-Dimer ABG pH ABG pO2 ABG HCO3 ABG O2 Saturation ABG Base Excess ABG Hemoglobin Oxyhemoglobin Sodium Potassium Chloride Carbon Dioxide BUN Creatinine Glucose POC Glucose 436 H 372 H Hemoglobin A1c Lactic Acid Calcium Ferritin 1073.0 H AST Lactate Dehydrogenase C-Reactive Protein Albumin Coronavirus (PCR) 06/06/20 06/06/20 06/06/20 04:00 04:40 04:40 WBC 13.6 H Hct 46.0 H MCV MCHC RDW 16.3 H Plt Count Lymph % (Auto) 5.4 L Lymph # 0.7 L Seg Neutrophils % 87.9 H Seg Neuts % (Manual) Lymphocytes % (Manual) Seg Neutrophils # 11.9 H Seg Neutrophils # Man Lymphocytes # (Manual) D-Dimer 4258.77 H ABG pH ABG pO2 ABG HCO3 ABG O2 Saturation ABG Base Excess ABG Hemoglobin Oxyhemoglobin Sodium Potassium Chloride Carbon Dioxide BUN Creatinine Glucose POC Glucose Hemoglobin A1c Lactic Acid Calcium Ferritin AST Lactate Dehydrogenase 627 H C-Reactive Protein 2.20 H Albumin Coronavirus (PCR) 06/06/20 06/06/20 06/06/20 05:00 05:36 10:11 WBC Hct MCV MCHC RDW Plt Count Lymph % (Auto) Lymph # Seg Neutrophils % Seg Neuts % (Manual) Lymphocytes % (Manual) Seg Neutrophils # Seg Neutrophils # Man Lymphocytes # (Manual) D-Dimer ABG pH ABG pO2 ABG HCO3 ABG O2 Saturation ABG Base Excess ABG Hemoglobin Oxyhemoglobin Sodium 157 H Potassium Chloride 115.8 H Carbon Dioxide BUN 110 H Creatinine 2.9 H Glucose 342 H POC Glucose 247 H 265 H Hemoglobin A1c Lactic Acid Calcium Ferritin AST Lactate Dehydrogenase C-Reactive Protein Albumin 3.6 L Coronavirus (PCR) 06/06/20 06/06/20 06/06/20 14:17 18:43 21:31 WBC Hct MCV MCHC RDW Plt Count Lymph % (Auto) Lymph # Seg Neutrophils % Seg Neuts % (Manual) Lymphocytes % (Manual) Seg Neutrophils # Seg Neutrophils # Man Lymphocytes # (Manual) D-Dimer ABG pH ABG pO2 ABG HCO3 ABG O2 Saturation ABG Base Excess ABG Hemoglobin Oxyhemoglobin Sodium Potassium Chloride Carbon Dioxide BUN Creatinine Glucose POC Glucose 324 H 301 H 275 H Hemoglobin A1c Lactic Acid Calcium Ferritin AST Lactate Dehydrogenase C-Reactive Protein Albumin Coronavirus (PCR) 06/07/20 06/07/20 06/07/20 00:26 02:01 05:51 WBC Hct MCV MCHC RDW Plt Count Lymph % (Auto) Lymph # Seg Neutrophils % Seg Neuts % (Manual) Lymphocytes % (Manual) Seg Neutrophils # Seg Neutrophils # Man Lymphocytes # (Manual) D-Dimer ABG pH ABG pO2 ABG HCO3 ABG O2 Saturation ABG Base Excess ABG Hemoglobin Oxyhemoglobin Sodium Potassium Chloride Carbon Dioxide BUN Creatinine Glucose POC Glucose 268 H 239 H 212 H Hemoglobin A1c Lactic Acid Calcium Ferritin AST Lactate Dehydrogenase C-Reactive Protein Albumin Coronavirus (PCR) 06/07/20 06/07/20 06/07/20 06:50 06:50 09:42 WBC 13.4 H Hct 47.1 H MCV 96 H MCHC 31 L RDW 16.8 H Plt Count 132 L Lymph % (Auto) 6.3 L Lymph # 0.8 L Seg Neutrophils % 88.8 H Seg Neuts % (Manual) Lymphocytes % (Manual) Seg Neutrophils # 11.9 H Seg Neutrophils # Man Lymphocytes # (Manual) D-Dimer ABG pH ABG pO2 ABG HCO3 ABG O2 Saturation ABG Base Excess ABG Hemoglobin Oxyhemoglobin Sodium 162 H* Potassium Chloride 124.7 H Carbon Dioxide BUN 107 H Creatinine 2.4 H Glucose 212 H POC Glucose 192 H Hemoglobin A1c Lactic Acid Calcium 8.2 L Ferritin AST Lactate Dehydrogenase C-Reactive Protein Albumin Coronavirus (PCR) 06/07/20 06/07/20 06/07/20 13:35 14:30 17:20 WBC Hct MCV MCHC RDW Plt Count Lymph % (Auto) Lymph # Seg Neutrophils % Seg Neuts % (Manual) Lymphocytes % (Manual) Seg Neutrophils # Seg Neutrophils # Man Lymphocytes # (Manual) D-Dimer ABG pH ABG pO2 ABG HCO3 ABG O2 Saturation ABG Base Excess ABG Hemoglobin Oxyhemoglobin Sodium Potassium Chloride Carbon Dioxide BUN Creatinine Glucose POC Glucose 192 H 184 H 165 H Hemoglobin A1c Lactic Acid Calcium Ferritin AST Lactate Dehydrogenase C-Reactive Protein Albumin Coronavirus (PCR) 06/07/20 06/08/20 06/08/20 21:47 00:08 02:02 WBC Hct MCV MCHC RDW Plt Count Lymph % (Auto) Lymph # Seg Neutrophils % Seg Neuts % (Manual) Lymphocytes % (Manual) Seg Neutrophils # Seg Neutrophils # Man Lymphocytes # (Manual) D-Dimer ABG pH ABG pO2 ABG HCO3 ABG O2 Saturation ABG Base Excess ABG Hemoglobin Oxyhemoglobin Sodium Potassium Chloride Carbon Dioxide BUN Creatinine Glucose POC Glucose 299 H 335 H 342 H Hemoglobin A1c Lactic Acid Calcium Ferritin AST Lactate Dehydrogenase C-Reactive Protein Albumin Coronavirus (PCR) 06/08/20 06/08/20 06/08/20 04:00 06:33 06:35 WBC Hct MCV MCHC RDW Plt Count Lymph % (Auto) Lymph # Seg Neutrophils % Seg Neuts % (Manual) Lymphocytes % (Manual) Seg Neutrophils # Seg Neutrophils # Man Lymphocytes # (Manual) D-Dimer 2645.35 H ABG pH ABG pO2 ABG HCO3 ABG O2 Saturation ABG Base Excess ABG Hemoglobin Oxyhemoglobin Sodium Potassium Chloride Carbon Dioxide BUN Creatinine Glucose POC Glucose 242 H Hemoglobin A1c Lactic Acid Calcium Ferritin 687.9 H AST Lactate Dehydrogenase C-Reactive Protein Albumin Coronavirus (PCR) 06/08/20 06/08/20 06/08/20 06:35 06:35 09:48 WBC 13.6 H Hct 45.8 H MCV MCHC 31 L RDW 16.7 H Plt Count 110 L Lymph % (Auto) 6.3 L Lymph # 0.9 L Seg Neutrophils % 89.0 H Seg Neuts % (Manual) Lymphocytes % (Manual) Seg Neutrophils # 12.1 H Seg Neutrophils # Man Lymphocytes # (Manual) D-Dimer ABG pH ABG pO2 ABG HCO3 ABG O2 Saturation ABG Base Excess ABG Hemoglobin Oxyhemoglobin Sodium 153 H D Potassium Chloride 117.0 H Carbon Dioxide 19 L BUN 84 H Creatinine 1.8 H Glucose 268 H POC Glucose 178 H Hemoglobin A1c Lactic Acid Calcium 8.3 L Ferritin AST Lactate Dehydrogenase 679 H C-Reactive Protein 1.50 H Albumin 2.8 L Coronavirus (PCR) 06/08/20 06/08/20 06/08/20 12:27 15:34 17:47 WBC Hct MCV MCHC RDW Plt Count Lymph % (Auto) Lymph # Seg Neutrophils % Seg Neuts % (Manual) Lymphocytes % (Manual) Seg Neutrophils # Seg Neutrophils # Man Lymphocytes # (Manual) D-Dimer ABG pH ABG pO2 ABG HCO3 ABG O2 Saturation ABG Base Excess ABG Hemoglobin Oxyhemoglobin Sodium Potassium Chloride Carbon Dioxide BUN Creatinine Glucose POC Glucose 179 H 214 H 275 H Hemoglobin A1c Lactic Acid Calcium Ferritin AST Lactate Dehydrogenase C-Reactive Protein Albumin Coronavirus (PCR) 06/08/20 06/09/20 06/09/20 22:56 03:15 05:44 WBC 13.2 H Hct 47.2 H MCV MCHC RDW 16.4 H Plt Count 77 L Lymph % (Auto) Lymph # Seg Neutrophils % Seg Neuts % (Manual) 91.0 H Lymphocytes % (Manual) 5.0 L Seg Neutrophils # Seg Neutrophils # Man 12.0 H Lymphocytes # (Manual) 0.7 L D-Dimer ABG pH ABG pO2 ABG HCO3 ABG O2 Saturation ABG Base Excess ABG Hemoglobin Oxyhemoglobin Sodium Potassium Chloride Carbon Dioxide BUN Creatinine Glucose POC Glucose 330 H 318 H Hemoglobin A1c Lactic Acid Calcium Ferritin AST Lactate Dehydrogenase C-Reactive Protein Albumin Coronavirus (PCR) 06/09/20 06/09/20 06/09/20 05:44 06:13 09:53 WBC Hct MCV MCHC RDW Plt Count Lymph % (Auto) Lymph # Seg Neutrophils % Seg Neuts % (Manual) Lymphocytes % (Manual) Seg Neutrophils # Seg Neutrophils # Man Lymphocytes # (Manual) D-Dimer ABG pH ABG pO2 ABG HCO3 ABG O2 Saturation ABG Base Excess ABG Hemoglobin Oxyhemoglobin Sodium 151 H Potassium Chloride 114.8 H Carbon Dioxide 19 L BUN 63 H Creatinine 1.5 H Glucose 360 H POC Glucose 314 H 279 H Hemoglobin A1c Lactic Acid Calcium Ferritin AST Lactate Dehydrogenase C-Reactive Protein Albumin Coronavirus (PCR) 06/09/20 06/09/20 06/09/20 10:50 14:17 18:08 WBC Hct MCV MCHC RDW Plt Count Lymph % (Auto) Lymph # Seg Neutrophils % Seg Neuts % (Manual) Lymphocytes % (Manual) Seg Neutrophils # Seg Neutrophils # Man Lymphocytes # (Manual) D-Dimer ABG pH ABG pO2 62.9 L ABG HCO3 18.7 L ABG O2 Saturation 91.0 L ABG Base Excess -5.5 L ABG Hemoglobin Oxyhemoglobin 89.5 L Sodium Potassium Chloride Carbon Dioxide BUN Creatinine Glucose POC Glucose 232 H 194 H Hemoglobin A1c Lactic Acid Calcium Ferritin AST Lactate Dehydrogenase C-Reactive Protein Albumin Coronavirus (PCR) 06/09/20 06/10/20 06/10/20 21:47 02:12 05:43 WBC Hct MCV MCHC RDW Plt Count Lymph % (Auto) Lymph # Seg Neutrophils % Seg Neuts % (Manual) Lymphocytes % (Manual) Seg Neutrophils # Seg Neutrophils # Man Lymphocytes # (Manual) D-Dimer ABG pH ABG pO2 ABG HCO3 ABG O2 Saturation ABG Base Excess ABG Hemoglobin Oxyhemoglobin Sodium Potassium Chloride Carbon Dioxide BUN Creatinine Glucose POC Glucose 174 H 267 H 304 H Hemoglobin A1c Lactic Acid Calcium Ferritin AST Lactate Dehydrogenase C-Reactive Protein Albumin Coronavirus (PCR) 08/06/10/20 06/10/20 05:52 05:52 09:37 WBC 15.0 H Hct MCV MCHC RDW 15.9 H Plt Count 71 L Lymph % (Auto) Lymph # Seg Neutrophils % Seg Neuts % (Manual) 95.0 H Lymphocytes % (Manual) 4.0 L Seg Neutrophils # Seg Neutrophils # Man 14.3 H Lymphocytes # (Manual) 0.6 L D-Dimer ABG pH ABG pO2 ABG HCO3 ABG O2 Saturation ABG Base Excess ABG Hemoglobin Oxyhemoglobin Sodium 147 H Potassium Chloride 109.8 H Carbon Dioxide 18 L BUN 53 H Creatinine 1.6 H Glucose 336 H POC Glucose 284 H Hemoglobin A1c Lactic Acid Calcium Ferritin AST Lactate Dehydrogenase C-Reactive Protein Albumin Coronavirus (PCR) 06/10/20 06/10/20 06/10/20 10:21 13:50 16:55 WBC Hct MCV MCHC RDW Plt Count Lymph % (Auto) Lymph # Seg Neutrophils % Seg Neuts % (Manual) Lymphocytes % (Manual) Seg Neutrophils # Seg Neutrophils # Man Lymphocytes # (Manual) D-Dimer ABG pH 7.269 L ABG pO2 42.5 L ABG HCO3 14.7 L ABG O2 Saturation 69.3 L ABG Base Excess -11.1 L ABG Hemoglobin Oxyhemoglobin 67.9 L Sodium Potassium Chloride Carbon Dioxide BUN Creatinine Glucose POC Glucose 272 H 226 H Hemoglobin A1c Lactic Acid Calcium Ferritin AST Lactate Dehydrogenase C-Reactive Protein Albumin Coronavirus (PCR) 06/10/20 06/10/20 06/10/20 17:27 19:11 22:28 WBC Hct MCV MCHC RDW Plt Count Lymph % (Auto) Lymph # Seg Neutrophils % Seg Neuts % (Manual) Lymphocytes % (Manual) Seg Neutrophils # Seg Neutrophils # Man Lymphocytes # (Manual) D-Dimer ABG pH 7.179 L* ABG pO2 50.0 L ABG HCO3 15.9 L ABG O2 Saturation 74.5 L ABG Base Excess -12.1 L ABG Hemoglobin Oxyhemoglobin 73.1 L Sodium Potassium Chloride Carbon Dioxide BUN Creatinine Glucose POC Glucose 240 H 259 H Hemoglobin A1c Lactic Acid Calcium Ferritin AST Lactate Dehydrogenase C-Reactive Protein Albumin Coronavirus (PCR) 06/11/20 06/11/20 06/11/20 00:07 02:00 02:33 WBC Hct MCV MCHC RDW Plt Count Lymph % (Auto) Lymph # Seg Neutrophils % Seg Neuts % (Manual) Lymphocytes % (Manual) Seg Neutrophils # Seg Neutrophils # Man Lymphocytes # (Manual) D-Dimer ABG pH 7.276 L ABG pO2 64.6 L ABG HCO3 19.1 L ABG O2 Saturation 91.4 L ABG Base Excess -7.4 L ABG Hemoglobin 13.0 L Oxyhemoglobin 89.9 L Sodium Potassium Chloride Carbon Dioxide BUN Creatinine Glucose POC Glucose 316 H 359 H Hemoglobin A1c Lactic Acid Calcium Ferritin AST Lactate Dehydrogenase C-Reactive Protein Albumin Coronavirus (PCR) 06/11/20 06/11/20 06/11/20 04:45 04:45 05:52 WBC Hct MCV 95 H MCHC RDW 16.9 H Plt Count 77 L Lymph % (Auto) 6.7 L Lymph # 0.6 L Seg Neutrophils % Seg Neuts % (Manual) Lymphocytes % (Manual) Seg Neutrophils # 8.3 H Seg Neutrophils # Man Lymphocytes # (Manual) D-Dimer ABG pH ABG pO2 ABG HCO3 ABG O2 Saturation ABG Base Excess ABG Hemoglobin Oxyhemoglobin Sodium 147 H Potassium Chloride 109.1 H Carbon Dioxide 15 L BUN 48 H Creatinine 2.1 H Glucose 367 H POC Glucose 324 H Hemoglobin A1c Lactic Acid Calcium 7.1 L D Ferritin AST Lactate Dehydrogenase C-Reactive Protein Albumin Coronavirus (PCR) Chest x-ray: image reviewed
[2020-06-11] MEDS ORDERED: DEXTROSE 50% IN WATER (25GM) 50 ML SYRINGE IV PRN (10:30)
[2020-06-11] MEDS: CEFEPIME/NS 2 GM/100 ML 2 GM/100 ML BAG IV SCH ×2 (11:33→22:20)
[2020-06-11] MEDS: APIXABAN 5 MG TAB PO SCH ×2 (11:34→22:22)
[2020-06-11] MEDS: ASPIRIN EC 81 MG TAB PO SCH (11:34)
[2020-06-11] MEDS: FAMOTIDINE 20 MG TAB PO SCH (11:34)
[2020-06-11] MEDS: PARoxetine 10 MG TAB PO SCH (11:36)
[2020-06-11 11:47] LABS: ABG Base Excess -11.8 mmol/L (-2.0-3.0); ABG HCO3 14.5 mmol/L (20.0-26.0); ABG Methemoglobin 0.5 % (0.0-1.5); ABG Oxygen Saturation 92.2 % (95.0-99.0); ABG PCO2 34.1 mm Hg; ABG PH 7.246 pH Units (7.350-7.450); ABG PO2 69.5 mm Hg (80.0-90.0)
[2020-06-11] MEDS: INSULIN REGULAR, HUMAN 100 UNITS in SODIUM CHLORIDE 0.9% 99 ML IV SCH (11:55)
--- NOTE | 2020-06-11 12:09 | Progress Note ---
Assessment and Plan Cultures: Blood culture 05/29/2020 no growth COVID PCR 05/29/2020 Positive 06/03/2020 blood culture: no growth 06/10/2020 blood culture: in process 06/10/2020 urine culture: in process Assessment: 55 years old male with history of diabetes mellitus, congestive heart failure, hypertension, left below-knee amputation, admitted on 05/29/2020 due to 5-day history of cough, fever, malaise, chills and shortness of breath: #Septic shock: worsening respiratory status, pneumonia, pneumothorax. Now on pressors, empiric abx. #Severe/Critical COVID pneumonia: Inflammatory markers very elevated, possible cytokine storm. S/P CCP 06/03/2020. On steroids. S/P Remdesivir x 5 days ending 06/08/2020. Completed empiric CAP abx. #Acute hypoxemic respiratory failure: on BiPAP/HFNC. #Elevated LFTs: from COVID, mild. #Acute renal failure: S/P whitehead placement in OR. Improving. #Stage III sacral decubitus: Not infected. Per wound care measures 4 x 1 x 0.1 cm, small yellow slough. Recs: agree with empiric Cefepime, Vancomycin, renally adjusted follow up new cultures Continue steroids per pulm/ICU Poor prognosis Alyssa Yang MD, FACP [facility] ([facility] C: [phone] O: [phone] F: [phone] Subjective Date of service: 06/11/20 Principal diagnosis: Acute Respiratory Failure Secondary to COVID Interval history: Patient with significant decline yesterday. Had worsening, intubated. Also developed pneumothorax requiring chest tube. Febrile yesterday, not today. now on broad spectrum abx. On pressors. Objective - Exam Narrative Exam: Physical Exam (reviewed in chart due to PPE conservation) Constitutional: limited due to PPE conservation strategy Head, Ears, Nose: limited due to PPE conservation strategy Eyes: limited due to PPE conservation strategy Neck: limited due to PPE conservation strategy Oral: limited due to PPE conservation strategy Cardiovascular: limited due to PPE conservation strategy Respiratory: limited due to PPE conservation strategy GI: limited due to PPE conservation strategy Musculoskeletal: limited due to PPE conservation strategy Skin: limited due to PPE conservation strategy Hem/Lymphatic: limited due to PPE conservation strategy Psych: limited due to PPE conservation strategy Neurological: limited due to PPE conservation strategy - Constitutional Vitals: Vital Signs Temp Pulse Resp BP Pulse Ox 98.9 F 96 H 38 H 161/86 92 06/11/20 04:00 06/11/20 11:16 06/11/20 05:11 06/11/20 11:16 06/11/20 11:16 Temperature -Last 24 Hours Temperature 98.9 F Temperature 99.9 F Temperature 99.8 F - Labs CBC & Chem 7: 06/11/20 04:45 06/11/20 04:45 Labs: Abnormal lab results 06/10/20 06/10/20 06/10/20 Range/Units 13:50 16:55 17:27 MCV (84-94) fl RDW (13.2-15.2) % Plt Count (140-440) K/mm3 Lymph % (Auto) (13.4-35.0) % Lymph # (1.2-5.4) K/mm3 Seg Neutrophils # (1.8-7.7) K/mm3 ABG pH 7.269 L (7.350-7.450) pH Units ABG pO2 42.5 L (80.0-90.0) mm Hg ABG HCO3 14.7 L (20.0-26.0) mmol/L ABG O2 Saturation 69.3 L (95.0-99.0) % ABG Base Excess -11.1 L (-2.0-3.0) mmol/L ABG Hemoglobin (14.0-18.0) gm/dl Oxyhemoglobin 67.9 L (95.0-99.0) % Sodium (137-145) mmol/L Chloride (98-107) mmol/L Carbon Dioxide (22-30) mmol/L BUN (9-20) mg/dL Creatinine (0.8-1.3) mg/dL Glucose (75-100) mg/dL POC Glucose 226 H 240 H (70-105) Calcium (8.4-10.2) mg/dL 06/10/20 06/10/20 06/11/20 Range/Units 19:11 22:28 00:07 MCV (84-94) fl RDW (13.2-15.2) % Plt Count (140-440) K/mm3 Lymph % (Auto) (13.4-35.0) % Lymph # (1.2-5.4) K/mm3 Seg Neutrophils # (1.8-7.7) K/mm3 ABG pH 7.179 L* (7.350-7.450) pH Units ABG pO2 50.0 L (80.0-90.0) mm Hg ABG HCO3 15.9 L (20.0-26.0) mmol/L ABG O2 Saturation 74.5 L (95.0-99.0) % ABG Base Excess -12.1 L (-2.0-3.0) mmol/L ABG Hemoglobin (14.0-18.0) gm/dl Oxyhemoglobin 73.1 L (95.0-99.0) % Sodium (137-145) mmol/L Chloride (98-107) mmol/L Carbon Dioxide (22-30) mmol/L BUN (9-20) mg/dL Creatinine (0.8-1.3) mg/dL Glucose (75-100) mg/dL POC Glucose 259 H 316 H (70-105) Calcium (8.4-10.2) mg/dL 06/11/20 06/11/20 06/11/20 Range/Units 02:00 02:33 04:45 MCV 95 H (84-94) fl RDW 16.9 H (13.2-15.2) % Plt Count 77 L (140-440) K/mm3 Lymph % (Auto) 6.7 L (13.4-35.0) % Lymph # 0.6 L (1.2-5.4) K/mm3 Seg Neutrophils # 8.3 H (1.8-7.7) K/mm3 ABG pH 7.276 L (7.350-7.450) pH Units ABG pO2 64.6 L (80.0-90.0) mm Hg ABG HCO3 19.1 L (20.0-26.0) mmol/L ABG O2 Saturation 91.4 L (95.0-99.0) % ABG Base Excess -7.4 L (-2.0-3.0) mmol/L ABG Hemoglobin 13.0 L (14.0-18.0) gm/dl Oxyhemoglobin 89.9 L (95.0-99.0) % Sodium (137-145) mmol/L Chloride (98-107) mmol/L Carbon Dioxide (22-30) mmol/L BUN (9-20) mg/dL Creatinine (0.8-1.3) mg/dL Glucose (75-100) mg/dL POC Glucose 359 H (70-105) Calcium (8.4-10.2) mg/dL 06/11/20 06/11/20 06/11/20 Range/Units 04:45 05:52 10:32 MCV (84-94) fl RDW (13.2-15.2) % Plt Count (140-440) K/mm3 Lymph % (Auto) (13.4-35.0) % Lymph # (1.2-5.4) K/mm3 Seg Neutrophils # (1.8-7.7) K/mm3 ABG pH 7.246 L (7.350-7.450) pH Units ABG pO2 69.5 L (80.0-90.0) mm Hg ABG HCO3 14.5 L (20.0-26.0) mmol/L ABG O2 Saturation 92.2 L (95.0-99.0) % ABG Base Excess -11.8 L (-2.0-3.0) mmol/L ABG Hemoglobin 13.0 L (14.0-18.0) gm/dl Oxyhemoglobin 90.9 L (95.0-99.0) % Sodium 147 H (137-145) mmol/L Chloride 109.1 H (98-107) mmol/L Carbon Dioxide 15 L (22-30) mmol/L BUN 48 H (9-20) mg/dL Creatinine 2.1 H (0.8-1.3) mg/dL Glucose 367 H (75-100) mg/dL POC Glucose 324 H (70-105) Calcium 7.1 L D (8.4-10.2) mg/dL
--- NOTE | 2020-06-11 12:29 | Progress Note ---
Assessment and Plan Paroxysmal atrial fibrillation reverted spontaneously currently in sinus rhythm COVID-19 viral pneumonia patient on Eliquis therapy,related to the COVID presentation. Acute renal failure Thrombocytopenia Subjective Date of service: 06/11/20 Principal diagnosis: Acute Respiratory Failure Secondary to COVID Interval history: Patient is now intubated on the vent and has a right chest tube in place for pneumothorax. He is also on pressors for support. IV Amiodarone was initiated for suspected atrial fibrillation. Currently SR with frequent PVCs on telemetry. Objective Vital Signs Temp Pulse Pulse Resp BP Pulse Ox 06/11/20 11:16 96 H 161/86 92 06/11/20 09:18 102 H 123/96 91 06/11/20 05:11 99 H 38 H 119/88 88 06/11/20 05:08 111 H 106 H 32 H 119/88 88 06/11/20 05:01 99 H 39 H 94/56 88 06/11/20 04:51 100 H 39 H 96/28 86 06/11/20 04:41 103 H 38 H 94/56 87 06/11/20 04:31 109 H 38 H 94/56 89 06/11/20 04:21 116 H 37 H 116/72 87 06/11/20 04:11 125 H 38 H 86 06/11/20 04:01 119 H 38 H 85 06/11/20 04:00 98.9 F 06/11/20 03:51 115 H 34 H 86 06/11/20 03:42 106 H 32 H 90 06/11/20 03:41 115 H 34 H 171/122 87 06/11/20 03:31 108 H 34 H 171/122 90 06/11/20 03:21 110 H 37 H 161/112 94 06/11/20 03:11 108 H 30 H 179/103 94 06/11/20 03:01 106 H 27 H 179/103 95 06/11/20 02:58 28 H 06/11/20 02:51 108 H 29 H 170/96 97 06/11/20 02:41 106 H 24 165/89 94 06/11/20 02:30 107 H 28 H 165/89 94 06/11/20 02:21 103 H 31 H 156/101 94 06/11/20 02:18 36 H 06/11/20 02:11 89 38 H 175/91 87 06/11/20 02:01 103 H 36 H 175/91 91 06/11/20 02:00 106 H 29 H 90 06/11/20 01:51 107 H 37 H 191/114 92 06/11/20 01:41 106 H 34 H 142/102 92 06/11/20 01:31 105 H 29 H 142/102 92 06/11/20 01:21 102 H 33 H 160/112 92 06/11/20 01:11 104 H 19 151/96 90 06/11/20 01:01 106 H 35 H 156/98 90 06/11/20 00:51 103 H 25 H 156/98 90 06/11/20 00:41 107 H 34 H 132/100 89 06/11/20 00:30 104 H 25 H 132/100 89 06/11/20 00:26 110 H 133/94 89 06/11/20 00:21 106 H 25 H 138/94 90 06/11/20 00:13 106 H 105/62 06/11/20 00:11 108 H 20 135/90 89 06/11/20 00:01 108 H 36 H 128/83 88 06/11/20 00:00 99.9 F H 06/10/20 23:51 113 H 16 128/83 87 06/10/20 23:41 106 H 26 H 124/90 85 06/10/20 23:35 106 H 33 H 90 06/10/20 23:30 107 H 31 H 124/90 83 L 06/10/20 23:21 106 H 35 H 125/49 83 L 06/10/20 23:11 115/84 71 L 06/10/20 23:01 106 H 21 124/98 71 L 06/10/20 22:51 107 H 29 H 124/98 72 L 06/10/20 22:41 105 H 38 H 139/98 72 L 06/10/20 22:31 107 H 27 H 139/98 74 L 06/10/20 22:21 112 H 41 H 171/88 73 L 06/10/20 22:11 112 H 38 H 124/80 75 L 06/10/20 22:01 124 H 37 H 124/80 75 L 06/10/20 21:51 115 H 39 H 78/43 75 L 06/10/20 21:41 112 H 35 H 78/43 74 L 06/10/20 21:31 105 H 30 H 78/43 71 L 06/10/20 21:21 105 H 32 H 78/43 69 L 06/10/20 21:11 35 H 78/43 67 L 06/10/20 21:01 109 H 33 H 78/43 65 L 06/10/20 20:51 118 H 34 H 94/70 59 L 06/10/20 20:45 116 H 42/28 78 L 06/10/20 20:41 107 H 35 H 42/28 78 L 06/10/20 20:31 95 H 36 H 119/76 66 L 06/10/20 20:21 102 H 38 H 119/76 73 L 06/10/20 20:11 100 H 35 H 119/76 76 L 06/10/20 20:01 103 H 35 H 99/79 78 L 06/10/20 20:00 99.8 F H 06/10/20 19:51 104 H 36 H 99/79 78 L 06/10/20 19:41 107 H 35 H 109/86 80 L 06/10/20 19:31 97 H 36 H 109/86 78 L 06/10/20 19:30 97 H 116 H 28 H 77 L 06/10/20 19:21 103 H 36 H 109/86 76 L 06/10/20 19:11 108 H 33 H 84/69 73 L 06/10/20 19:01 105 H 24 84/69 72 L 06/10/20 18:51 103 H 27 H 84/69 60 L 06/10/20 18:40 103 H 22 86/65 73 L 06/10/20 18:31 104 H 32 H 91/61 86 06/10/20 18:25 102 H 116/91 74 L 06/10/20 18:21 112 H 22 155/125 78 L 06/10/20 18:11 114 H 44 H 98/83 76 L 06/10/20 18:00 108 H 43 H 98/83 75 L 06/10/20 17:51 111 H 42 H 94/75 85 06/10/20 17:41 111 H 44 H 79/39 86 06/10/20 17:31 112 H 44 H 79/39 84 06/10/20 17:21 116 H 44 H 94/65 86 06/10/20 17:11 112 H 44 H 93/66 86 06/10/20 17:00 117 H 42 H 93/66 87 06/10/20 16:51 121 H 47 H 98/69 87 06/10/20 16:46 146 H 45 H 73/55 90 06/10/20 16:41 144 H 44 H 73/55 85 06/10/20 16:31 124 H 47 H 103/78 06/10/20 16:21 167 H 39 H 103/78 86 06/10/20 16:11 111 H 46 H 91/45 89 06/10/20 16:01 150 H 46 H 69/44 85 06/10/20 16:00 122 H 28 H 75 L 06/10/20 15:51 148 H 47 H 73/53 06/10/20 15:41 129 H 44 H 84/61 83 L 06/10/20 15:30 155 H 41 H 91/45 88 06/10/20 15:21 120 H 45 H 91/45 86 06/10/20 15:16 115 H 91/45 06/10/20 15:11 120 H 38 H 98/71 86 06/10/20 15:00 125 H 31 H 88/37 82 L 06/10/20 14:51 122 H 39 H 88/37 87 06/10/20 14:41 146 H 45 H 94/68 87 06/10/20 14:30 120 H 45 H 94/68 87 06/10/20 14:21 146 H 47 H 99/60 87 06/10/20 14:11 119 H 48 H 101/67 87 06/10/20 14:00 121 H 44 H 105/66 88 06/10/20 13:51 123 H 45 H 101/67 90 06/10/20 13:41 127 H 43 H 110/73 89 06/10/20 13:30 127 H 46 H 99/70 91 06/10/20 13:21 128 H 44 H 110/73 93 06/10/20 13:11 138 H 46 H 100/73 92 06/10/20 13:00 134 H 47 H 100/73 88 06/10/20 12:51 118 H 43 H 100/73 90 06/10/20 12:41 116 H 40 H 112/65 06/10/20 12:30 114 H 35 H 121/65 89 - Physical Examination Narrative exam: Deferred due to coronavirus isolation protocol. - Labs and Meds CBC 06/11/20 Range/Units 04:45 WBC 9.1 (4.5-11.0) K/mm3 RBC 4.11 (3.65-5.03) M/mm3 Hgb 12.9 (11.8-15.2) gm/dl Hct 39.0 (35.5-45.6) % Plt Count 77 L (140-440) K/mm3 Lymph # 0.6 L (1.2-5.4) K/mm3 Hood # 0.2 (0.0-0.8) K/mm3 Eos # 0.0 (0.0-0.4) K/mm3 Baso # 0.0 (0.0-0.1) K/mm3 Comprehensive Metabolic Panel 06/11/20 Range/Units 04:45 Sodium 147 H (137-145) mmol/L Potassium 4.7 (3.6-5.0) mmol/L Chloride 109.1 H (98-107) mmol/L Carbon Dioxide 15 L (22-30) mmol/L BUN 48 H (9-20) mg/dL Creatinine 2.1 H (0.8-1.3) mg/dL Glucose 367 H (75-100) mg/dL Calcium 7.1 L D (8.4-10.2) mg/dL - Imaging and Cardiology EKG: report reviewed
[2020-06-11] MEDS ORDERED: SODIUM BICARB 8.4% 50 MEQ/50 ML SYRINGE IV ONE (13:00)
[2020-06-11] MEDS ORDERED: SUCCINYLCHOLINE CHLORIDE 200 MG/10 ML INJ MDV ONE (13:00)
[2020-06-11] MEDS ORDERED: EPINEPHrine 1 MG/10 ML SYRINGE ONE (13:00)
[2020-06-11] MEDS ORDERED: ETOMIDATE 20 MG/10 ML INJ IV ONE (13:00)
--- NOTE | 2020-06-11 14:44 | Progress Note ---
Assessment and Plan Assessment and plan: 64-year-old man with history of hypertension diabetes congestive heart failure and left below-knee amputation comes in for cough fever and shortness of breath and chills for 5 days. Patient has been tested positive for COVID-19 5 days ago. Patient saturations were 80% on room air which improved to 98% on a nonrebreather. Denies any chest pain. Patient is covered positive and hypoxic. COVID19 + Bilateral Pneumonia Secondary Coagulopathy- Unable to get CTA chest due to renal dysfunction DM with Hyperglycemia- Adjust insulin. Will give Lantus at 20 night HS, also will give 18 Additional units. Acute Hypoxic Respiratory failure 05/30 patient is a halfway resident, alert and oriented and appears moderately short of breath and is on Ventimask Denies any chest pain or palpitations. He does complain of cough Lab results reviewed 05/31: Continues on high flow oxygen. still on High flow oxygen. Pulmonary consulted, ID consulted. COVID +, adjust insulin for better control. 06/01: Remains on High flow, due to severe hypoxemia Consent obtained for convalescent plasma. We will also obtain type and cross for the same. Wean oxygen as tolerated. ID input noted. No indication Remdesivir due to renal failure, renal on board, although renal function beginning to improve we will discuss with ID if we should revisit Remdesivir if renal function continues to improve. Continue ceftriaxone and azithromycin for 5 days. Offloading sacral area and keep area dry per wound care team. Continue anticoagulation. ID added fluconazole. Will adjust insulin therapy and also sliding scale to a higher scale. 06/02: Called and discussed with family patient does have some psychiatric illness will obtain psych consultation due to new onset psychosis. Pulmonary input appreciated. Will proceed with ordering plasma therapy.The assigned patient code is [id number] for plasma transfusion. 06/03: Continues with intermittent confusion, known psych hx, psych team consulted. Continue oxygen therapy, awaiting Plasma therapy. Patient being transferred to ICU due to worsening respiratory status. Psych following. 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, check inflammatory markers, Will review chart further to see if patient received plasma therapy Severe sepsis Current Visit: Yes Status: Acute Plan to address problem: Secondary to COVID pneumonia Elevated lactic acid, tachycardia, elevated procalcitonin Continue IV antibiotics Blood culture results pending Bilateral pneumonia Current Visit: Yes Status: Acute Plan to address problem: 2/2 COVID pneumonia IV Rocephin initiated Patient is apparently coronavirus +5 days ago Repeat COVID test positive Will consult ID Continue steroids Acute psychosis with visual and auditory hallucination Resume outpatient medications for depression which was just obtained acute respiratory failure with hypoxia- Now requring Mechanical ventilation Current Visit: Yes Status: Acute Plan to address problem: Secondary to COVID-19 pneumonia Patient is was initially on nonrebreather Ventimask and O2 sats are in the mid 80s then changed to high flow nasal cannula Hyperkalemia secondary to renal failure Repeat electrolytes after Kayexalate administered yesterday shows a potassium of 5.9 Will order Kayexalate 60 g Monitor electrolytes Acute kidney injury R/O acute on chronic kidney disease Severe renal failure Baseline renal function is not known We will request nephrology consult Avoid nephrotoxins Renal ultrasound Hypertension Current Visit: Yes Status: Chronic Qualifiers: Hypertension type: essential hypertension Qualified Code(s): I10 - Essential (primary) hypertension Plan to address problem: Blood pressure fair off medication Continue to monitor Type 2 diabetes mellitus Current Visit: Yes Status: Chronic Qualifiers: Diabetes mellitus detention insulin use: unspecified detention insulin use status Plan to address problem: Continue insulin sliding scale coverage hemoglobin A1c 9.7 COVID19 + Management as outlined above CHF (congestive heart failure) Current Visit: Yes Status: Chronic Qualifiers: Heart failure type: combined systolic and diastolic Plan to address problem: Echocardiogram requested DVT prophylaxis Current Visit: Yes Status: Acute Plan to address problem: On Lovenox and GI prophylaxis The high probability of a clinically significant, sudden or life threatening deterioration of the [pulmonary, renal] system(s) required my full and direct attention, intervention and personal management. The aggregate critical care time was [35] minutes. This time is in addition to time spent performing reported procedures but includes the following: [x] Data Review and interpretation [x] Patient assessment and monitoring of vital signs [x] Documentation [x] Medication orders and management History Interval history: Patient seen and examined, on chart review, became hypoxic overnight requiring intubation. No new issues reported Hospitalist Physical - Physical exam Narrative exam: VITAL SIGNS: Reviewed. GENERAL: The patient appears Mid respiratory distress, Mechanical ventilation in place. morbidly obese vital signs as documented. HEAD: No signs of head trauma. EYES: Pupils are equal. EARS: Hearing grossly intact. MOUTH: ett in place. NECK: No adenopathy, no JVD. CHEST: Chest with diminished breath sounds bilaterally. Increased respiratory rate. No wheezes, rales, or rhonchi. CARDIAC: Regular rate and rhythm. S1 and S2, without murmurs, gallops, or rubs. VASCULAR: No Edema. Peripheral pulses normal and equal in all extremities. ABDOMEN: Soft, non tender and non distended. No rebound or guarding, and no masses palpated. Bowel Sounds normal. MUSCULOSKELETAL: BKA LEFT LOWER EXT. extremities without clubbing, cyanosis or edema. NEUROLOGIC EXAM: sedated No focal sensory or strength deficits. Speech normal. Follows commands. PSYCHIATRIC: SEDATED SKIN: detail exam as documented in skin assessment - Constitutional Vitals: Temp Pulse Resp BP Pulse Ox 98.9 F 86 38 H 104/54 92 06/11/20 04:00 06/11/20 12:48 06/11/20 05:11 06/11/20 12:48 06/11/20 11:16 General appearance: Present: mild distress HEART Score - HEART Score Troponin: Troponin T 0.025 ng/mL (0.00-0.029) 05/29/20 15:10 Results - Labs CBC & Chem 7: 06/11/20 22:10 06/11/20 22:10 Labs: Laboratory Last Values WBC 9.1 K/mm3 (4.5-11.0) 06/11/20 04:45 RBC 4.11 M/mm3 (3.65-5.03) 06/11/20 04:45 Hgb 12.9 gm/dl (11.8-15.2) 06/11/20 04:45 Hct 39.0 % (35.5-45.6) 06/11/20 04:45 MCV 95 fl (84-94) H 06/11/20 04:45 MCH 31 pg (28-32) 06/11/20 04:45 MCHC 33 % (32-34) 06/11/20 04:45 RDW 16.9 % (13.2-15.2) H 06/11/20 04:45 Plt Count 77 K/mm3 (140-440) L 06/11/20 04:45 Lymph % (Auto) 6.7 % (13.4-35.0) L 06/11/20 04:45 [place] % (Auto) 2.3 % (0.0-7.3) 06/11/20 04:45 Eos % (Auto) 0.0 % (0.0-4.3) 06/11/20 04:45 Baso % (Auto) 0.2 % (0.0-1.8) 06/11/20 04:45 Lymph # 0.6 K/mm3 (1.2-5.4) L 06/11/20 04:45 [place] # 0.2 K/mm3 (0.0-0.8) 06/11/20 04:45 Eos # 0.0 K/mm3 (0.0-0.4) 06/11/20 04:45 Baso # 0.0 K/mm3 (0.0-0.1) 06/11/20 04:45 Add Manual Diff Complete 06/10/20 05:52 Total Counted 100 06/10/20 05:52 Seg Neutrophils % Telephone Diaphragm Assembler 06/11/20 04:45 Seg Neuts % (Manual) 95.0 % (40.0-70.0) H 06/10/20 05:52 Band Neutrophils % 0 % 06/10/20 05:52 Lymphocytes % (Manual) 4.0 % (13.4-35.0) L 06/10/20 05:52 Reactive Lymphs % (Man) 0 % 06/10/20 05:52 Monocytes % (Manual) 1.0 % (0.0-7.3) 06/10/20 05:52 Eosinophils % (Manual) 0 % (0.0-4.3) 06/10/20 05:52 Basophils % (Manual) 0 % (0.0-1.8) 06/10/20 05:52 Metamyelocytes % 0 % 06/10/20 05:52 Myelocytes % 0 % 06/10/20 05:52 Promyelocytes % 0 % 06/10/20 05:52 Blast Cells % 0 % 06/10/20 05:52 Nucleated RBC % Not Reportable 06/10/20 05:52 Seg Neutrophils # 8.3 K/mm3 (1.8-7.7) H 06/11/20 04:45 Seg Neutrophils # Man 14.3 K/mm3 (1.8-7.7) H 06/10/20 05:52 Band Neutrophils # 0.0 K/mm3 06/10/20 05:52 Lymphocytes # (Manual) 0.6 K/mm3 (1.2-5.4) L 06/10/20 05:52 Abs React Lymphs (Man) 0.0 K/mm3 06/10/20 05:52 Monocytes # (Manual) 0.2 K/mm3 (0.0-0.8) 06/10/20 05:52 Eosinophils # (Manual) 0.0 K/mm3 (0.0-0.4) 06/10/20 05:52 Basophils # (Manual) 0.0 K/mm3 (0.0-0.1) 06/10/20 05:52 Metamyelocytes # 0.0 K/mm3 06/10/20 05:52 Myelocytes # 0.0 K/mm3 06/10/20 05:52 Promyelocytes # 0.0 K/mm3 06/10/20 05:52 Blast Cells # 0.0 K/mm3 06/10/20 05:52 WBC Morphology Not Reportable 06/10/20 05:52 Hypersegmented Neuts Not Reportable 06/10/20 05:52 Hyposegmented Neuts Not Reportable 06/10/20 05:52 Hypogranular Neuts Not Reportable 06/10/20 05:52 Smudge Cells Not Reportable 06/10/20 05:52 Toxic Granulation Not Reportable 06/10/20 05:52 Toxic Vacuolation Not Reportable 06/10/20 05:52 Dohle Bodies Not Reportable 06/10/20 05:52 Pelger-Huet Anomaly Not Reportable 06/10/20 05:52 Michele Rods Not Reportable 06/10/20 05:52 Platelet Estimate Consistent w auto 06/10/20 05:52 Clumped Platelets Not Reportable 06/10/20 05:52 Plt Clumps, EDTA Not Reportable 06/10/20 05:52 Large Platelets Not Reportable 06/10/20 05:52 Giant Platelets Not Reportable 06/10/20 05:52 Platelet Satelliting Not Reportable 06/10/20 05:52 Plt Morphology Comment Not Reportable 06/10/20 05:52 RBC Morphology Not Reportable 06/10/20 05:52 Dimorphic RBCs Not Reportable 06/10/20 05:52 Polychromasia Not Reportable 06/10/20 05:52 Hypochromasia Not Reportable 06/10/20 05:52 Poikilocytosis Not Reportable 06/10/20 05:52 Anisocytosis Few 06/10/20 05:52 Microcytosis Not Reportable 06/10/20 05:52 Macrocytosis Few 06/10/20 05:52 Spherocytes Not Reportable 06/10/20 05:52 Pappenheimer Bodies Not Reportable 06/10/20 05:52 Sickle Cells Not Reportable 06/10/20 05:52 Target Cells Not Reportable 06/10/20 05:52 Tear Drop Cells Not Reportable 06/10/20 05:52 Ovalocytes Not Reportable 06/10/20 05:52 Helmet Cells Not Reportable 06/10/20 05:52 [place]ga-[place] Bodies Not Reportable 06/10/20 05:52 [place] Rings Not Reportable 06/10/20 05:52 Gio Cells Not Reportable 06/10/20 05:52 Bite Cells Not Reportable 06/10/20 05:52 Crenated Cell Not Reportable 06/10/20 05:52 Elliptocytes Not Reportable 06/10/20 05:52 Acanthocytes (Spur) Not Reportable 06/10/20 05:52 Rouleaux Not Reportable 06/10/20 05:52 Hemoglobin C Crystals Not Reportable 06/10/20 05:52 Schistocytes Not Reportable 06/10/20 05:52 Malaria parasites Not Reportable 06/10/20 05:52 [place] Bodies Not Reportable 06/10/20 05:52 Hem Pathologist Commnt No 06/10/20 05:52 PT 14.1 Sec. (12.2-14.9) 06/05/20 10:30 INR 1.08 (0.87-1.13) 06/05/20 10:30 APTT 28.1 Sec. (24.2-36.6) 05/29/20 13:25 D-Dimer 2645.35 ng/mlDDU (0-234) H 06/08/20 06:35 ABG pH 7.246 pH Units (7.350-7.450) L 06/11/20 10:32 ABG pCO2 34.1 mm Hg 06/11/20 10:32 ABG pO2 69.5 mm Hg (80.0-90.0) L 06/11/20 10:32 ABG HCO3 14.5 mmol/L (20.0-26.0) L 06/11/20 10:32 ABG O2 Saturation 92.2 % (95.0-99.0) L 06/11/20 10:32 ABG O2 Content 16.7 (0.0-44) 06/11/20 10:32 ABG Base Excess -11.8 mmol/L (-2.0-3.0) L 06/11/20 10:32 ABG Hemoglobin 13.0 gm/dl (14.0-18.0) L 06/11/20 10:32 ABG Carboxyhemoglobin 0.9 % (0.0-5.0) 06/11/20 10:32 ABG Methemoglobin 0.5 % (0.0-1.5) 06/11/20 10:32 Oxyhemoglobin 90.9 % (95.0-99.0) L 06/11/20 10:32 FiO2 100 % 06/11/20 10:32 Sodium 147 mmol/L (137-145) H 06/11/20 04:45 Potassium 4.7 mmol/L (3.6-5.0) 06/11/20 04:45 Chloride 109.1 mmol/L (98-107) H 06/11/20 04:45 Carbon Dioxide 15 mmol/L (22-30) L 06/11/20 04:45 Anion Gap 28 mmol/L 06/11/20 04:45 BUN 48 mg/dL (9-20) H 06/11/20 04:45 Creatinine 2.1 mg/dL (0.8-1.3) H 06/11/20 04:45 Estimated GFR 33 ml/min 06/11/20 04:45 BUN/Creatinine Ratio 23 % 06/11/20 04:45 Glucose 367 mg/dL (75-100) H 06/11/20 04:45 POC Glucose 311 (70-105) H 06/11/20 10:28 Hemoglobin A1c 9.7 % (4-6) H 05/30/20 07:00 Lactic Acid 2.20 mmol/L (0.7-2.0) H* 05/29/20 15:10 Calcium 7.1 mg/dL (8.4-10.2) L D 06/11/20 04:45 Magnesium 2.00 mg/dL (1.7-2.3) 06/10/20 05:52 Ferritin 687.9 ng/mL (30.0-300.0) H 06/08/20 04:00 Total Bilirubin 0.30 mg/dL (0.1-1.2) 06/08/20 06:35 Direct Bilirubin < 0.2 mg/dL (0-0.2) 05/29/20 13:25 Indirect Bilirubin 0.1 mg/dL 05/29/20 13:25 AST 24 units/L (5-40) 06/08/20 06:35 ALT 13 units/L (7-56) 06/08/20 06:35 Alkaline Phosphatase 77 units/L (35-129) 06/08/20 06:35 Lactate Dehydrogenase 679 units/L (91-180) H 06/08/20 06:35 Troponin T 0.025 ng/mL (0.00-0.029) 05/29/20 15:10 C-Reactive Protein 1.50 mg/dL (0.00-1.30) H 06/08/20 06:35 NT-Pro-B Natriuret Pep 89.58 pg/mL (0-900) 05/29/20 13:25 Total Protein 7.0 g/dL (6.3-8.2) 06/08/20 06:35 Albumin 2.8 g/dL (3.9-5) L 06/08/20 06:35 Albumin/Globulin Ratio 0.8 % 06/08/20 06:35 Procalcitonin 4.38 ng/mL (<0.15) 05/29/20 15:10 Coronavirus (PCR) Positive (Negative) A 05/29/20 Unknown Blood Type O POSITIVE 06/02/20 10:09 Antibody Screen Negative 06/02/20 10:09 Microbiology: Microbiology 06/10/20 14:43 Peripheral/Venous Blood Culture - Preliminary 06/10/20 14:00 Peripheral/Venous Blood Culture - Preliminary 06/10/20 Unknown Urine,[place] Urine Culture - Preliminary NO GROWTH AFTER 24 HOURS [place]/IV: Voiding Method Indwelling Catheter IV Catheter Type [Right INT / Saline Lock Forearm] IV Catheter Type [Left Upper PICC Line arm] IV Catheter Type [Left Forearm Peripheral IV ] IV Catheter Type [Left Chest] INT / Saline Lock Active Medications - Current Medications Current Medications: Generic Name Dose Route Start Last Admin Trade Name Freq PRN Reason Stop Dose Admin Acetaminophen 650 mg 05/30/20 00:19 06/10/20 12:37 Tylenol PO 650 mg Q4H PRN Administration Pain MILD(1-3)/Fever >100.5/ESPINOZA Lipase/Protease/Amylase 1 each 06/07/20 08:[address] 10,500 Unit FEEDTUBE PRN PRN For Clogged Feeding Tube Apixaban 5 mg 06/06/20 13:00 06/11/20 11:34 Eliquis PO 5 mg Q12HR LONG Administration Protocol Aspirin 81 mg 06/11/20 10:00 06/11/20 11:34 Halfprin Ec PO 81 mg QDAY LONG Administration Dextrose 50 ml 06/11/20 10:30 D50w (25gm) Syringe IV Q30MIN PRN Hypoglycemia Protocol Famotidine 20 mg 06/05/20 10:00 06/11/20 11:34 Pepcid PO 20 mg DAILY LONG Administration Fentanyl 50 mcg 06/11/20 03:00 06/11/20 02:18 Sublimaze IV 50 mcg Q2H PRN Administration PAIN (7-10) Amiodarone HCl 900 mg/ 500 mls @ 33.333 mls/hr 06/10/20 09:00 06/11/20 07:18 Dextrose IV 0.5 mg/min DIRECT LONG 16.667 mls/hr Administration Protocol 1 MG/MIN Cefepime HCl 2 gm in 100 mls @ 200 mls/hr 06/10/20 13:00 06/11/20 11:33 Cefepime/Ns 2 Gm/100 Ml IV 200 mls/hr Q12HR LONG Administration Norepinephrine 4 mg in 250 mls @ 7.5 mls/hr 06/10/20 17:00 06/11/20 12:59 Levophed Drip 4 Mg/Ns 250 Ml IV 20 mcg/min TITR LONG 75 mls/hr Titration Protocol 2 MCG/MIN Sodium Chloride 1,000 mls @ 999 mls/hr 06/10/20 18:14 06/10/20 20:40 Nacl 0.9% 1000 Ml IV 06/11/20 19:15 999 mls/hr ONCE LONG Administration Vasopressin 20 unit/ Sodium 101 mls @ 9.09 mls/hr 06/10/20 19:55 Chloride IV TITR LONG Protocol 0.03 UNITS/MIN Sodium Bicarbonate 150 meq/ 1,150 mls @ 200 mls/hr 06/11/20 03:00 06/11/20 11:32 Dextrose IV 200 mls/hr DIRECT LONG Administration Insulin Human Regular 100 100 mls @ 1 mls/hr 06/11/20 11:00 06/11/20 14:30 units/ Sodium Chloride IV 5 units/hr TITR LONG 5 mls/hr Titration Protocol 1 UNITS/HR Methylprednisolone Sodium Succinate 20 mg 06/11/20 14:00 06/11/20 14:38 Solu-Medrol IV 20 mg Q8HR LONG Administration Metoprolol Tartrate 2.5 mg 06/09/20 11:45 06/10/20 06:31 Metoprolol IV 2.5 mg Q6H PRN Administration Tachyarrhythmias Metoprolol Tartrate 25 mg 06/10/20 14:00 06/11/20 12:48 Metoprolol PO Not Given Q6HR LONG Paroxetine HCl 10 mg 06/02/20 11:45 06/11/20 11:36 Paxil PO 10 mg DAILY LONG Administration Simple Syrup 15 ml 06/07/20 08:46 Simple Syrup FEEDTUBE PRN PRN Hypoglycemia Simple Syrup 30 ml 06/07/20 08:46 Simple Syrup FEEDTUBE PRN PRN Hypoglycemia Sodium Bicarbonate 325 mg 06/07/20 08:46 Sodium Bicarbonate FEEDTUBE PRN PRN For Clogged Feeding Tube Sodium Chloride 10 ml 05/30/20 10:00 06/11/20 11:36 Sodium Chloride Flush Syringe 10 Ml IV 10 ml BID LONG Administration Sodium Chloride 10 ml 05/30/20 00:19 Sodium Chloride Flush Syringe 10 Ml IV PRN PRN LINE FLUSH Nutrition/Malnutrition Assess - Dietary Evaluation Nutrition/Malnutrition Findings: Nutrition Notes Start: 05/30/20 14:30 Freq: Status: Active Protocol: Document 06/11/20 14:15 LM (Rec: 06/11/20 14:20 LM [id number]) Nutrition Notes Initial or Follow up Brief Note Current Diagnosis Acute Kidney Injury,Diabetes, Sepsis,Hypertension,Heart Failure,Respiratory Failure Other Pertinent Diagnosis COVID-19 (+), bilat pneu, acute psychosis, urethral stricture, (L) BKA Current Diet TF - Nepro at 45ml/hr Labs/Tests Na 147 BUN 48 Cr 2.1 BG 367 Pertinent Medications Humalog Solumedrol Levophed Height 5 ft 4 in Weight 109.769 kg [place] Body Weight (kg) 59.09 BMI 41.5 Weight Status Morbidly Obese Subjective/Other Information Pt intubated. Per RN TF still on hold. Nutrition Intervention Follow-Up By: 06/12/20 Additional Comments F/U: TF restart/tolerance
--- NOTE | 2020-06-11 20:15 | Progress Note ---
Assessment and Plan Impression: * Acute kidney injury secondary to prerenal azotemia. Renal function was improving until recent complications which could have resulted in additional renal injury. * Azotemia - secondary to NIR vs steroids * Metabolic acidosis * Sepsis * Acute hypoxic respiratory failure, intubated * COVID 19 Pneumonia * atrial fibrillation * Hyperkalemia - resolved * Type II diabetes mellitus * Urethra stricture --s/p cystoscopy, urethral dilation, cystogram Plan: * continue sodium bicarb drip for now, change to 100 mEq/L * If no improvement is noted on labs will need to be started on renal replacement therapy. * keep MAP more than 65 * check ionized calcium * Monitor electrolytes daily * Pulm/ID recommendations reviewed * Steroids/Redemsevir per ID * Glycemic control per primary team * Avoid potential nephrotoxins * Dose medications for renal function * strict input and output Subjective Date of service: 06/11/20 Principal diagnosis: Acute Respiratory Failure Secondary to COVID Interval history: Intubated for respiratory failure. Subsequent workup was notable for pneumothorax. Stay also complicated by atrial fibrillation for which amiodarone was started. Objective - Exam Narrative Exam: Exam as per the primary team. Did not personally examine in consideration of PPE conservation strategy. Constitution: critically ill, intubated Eyes: non-icteric ENT: other (short fat neck) Neck: supple Respiratory: intubated Cardiovascular: regular rate and rhythm Gastrointestinal: soft, non-distended, other (obese) Integumentary: normal Extremities: no cyanosis Neurologic: other (awake, eyes open, moaning) Psychiatric: other (not able to assess) - Vital Signs Vital signs: Vital Signs - 12hr 06/11/20 06/11/20 06/11/20 08:31 08:45 09:01 Temperature Pulse Rate 102 H 102 H 112 H Pulse Rate [ From Monitor] Respiratory 24 27 H 28 H Rate Blood Pressure 131/96 133/100 120/94 O2 Sat by Pulse 90 87 90 Oximetry 06/11/20 06/11/20 06/11/20 09:15 09:18 09:31 Temperature Pulse Rate 98 H 102 H 106 H Pulse Rate [ From Monitor] Respiratory 40 H 24 Rate Blood Pressure 120/94 123/96 123/96 O2 Sat by Pulse 90 91 89 Oximetry 06/11/20 06/11/20 06/11/20 09:45 10:00 10:15 Temperature Pulse Rate 96 H 105 H 100 H Pulse Rate [ From Monitor] Respiratory 16 21 27 H Rate Blood Pressure 123/96 138/96 120/96 O2 Sat by Pulse 85 86 85 Oximetry 06/11/20 06/11/20 06/11/20 10:31 10:45 11:01 Temperature Pulse Rate 97 H 94 H 106 H Pulse Rate [ From Monitor] Respiratory 30 H 29 H 40 H Rate Blood Pressure 146/79 146/79 152/88 O2 Sat by Pulse 87 87 85 Oximetry 06/11/20 06/11/20 06/11/20 11:15 11:16 11:31 Temperature Pulse Rate 100 H 96 H 104 H Pulse Rate [ From Monitor] Respiratory 32 H 17 Rate Blood Pressure 146/79 161/86 122/95 O2 Sat by Pulse 87 92 90 Oximetry 06/11/20 06/11/20 06/11/20 11:45 12:00 12:01 Temperature 100.4 F H Pulse Rate 89 87 Pulse Rate [ 92 H From Monitor] Respiratory 22 38 H 31 H Rate Blood Pressure 122/95 122/95 O2 Sat by Pulse 89 96 91 Oximetry 06/11/20 06/11/20 06/11/20 12:15 12:30 12:46 Temperature Pulse Rate 89 83 85 Pulse Rate [ From Monitor] Respiratory 31 H 23 25 H Rate Blood Pressure 122/95 116/68 O2 Sat by Pulse 91 81 L 87 Oximetry 06/11/20 06/11/20 06/11/20 12:48 13:01 13:15 Temperature Pulse Rate 86 85 95 H Pulse Rate [ From Monitor] Respiratory 22 22 Rate Blood Pressure 104/54 130/77 O2 Sat by Pulse 92 94 Oximetry 06/11/20 06/11/20 06/11/20 13:31 13:45 14:01 Temperature Pulse Rate 94 H 87 93 H Pulse Rate [ From Monitor] Respiratory 40 H 20 25 H Rate Blood Pressure 130/77 130/77 117/89 O2 Sat by Pulse 93 91 96 Oximetry 06/11/20 06/11/20 06/11/20 14:15 14:31 14:45 Temperature Pulse Rate 91 H 98 H 104 H Pulse Rate [ From Monitor] Respiratory 15 39 H 31 H Rate Blood Pressure 117/89 117/89 117/89 O2 Sat by Pulse 96 96 96 Oximetry 06/11/20 06/11/20 06/11/20 15:01 15:15 15:31 Temperature Pulse Rate 137 H 129 H 134 H Pulse Rate [ From Monitor] Respiratory 38 H 33 H 30 H Rate Blood Pressure 117/89 117/89 117/89 O2 Sat by Pulse 98 97 98 Oximetry 06/11/20 06/11/20 06/11/20 15:45 16:00 16:01 Temperature 99.2 F Pulse Rate 133 H 130 H Pulse Rate [ From Monitor] Respiratory 39 H 34 H Rate Blood Pressure 117/89 117/89 O2 Sat by Pulse 98 98 Oximetry 06/11/20 06/11/20 06/11/20 16:15 16:24 16:31 Temperature Pulse Rate 128 H 133 H 124 H Pulse Rate [ 126 H From Monitor] Respiratory 34 H 34 H Rate Blood Pressure 117/89 110/76 117/89 O2 Sat by Pulse 99 90 Oximetry 06/11/20 06/11/20 06/11/20 16:45 16:56 17:01 Temperature Pulse Rate 125 H 123 H 132 H Pulse Rate [ From Monitor] Respiratory 22 30 H Rate Blood Pressure 117/89 110/76 151/92 O2 Sat by Pulse 95 92 93 Oximetry 06/11/20 06/11/20 06/11/20 17:15 17:27 17:31 Temperature Pulse Rate 129 H 118 H 107 H Pulse Rate [ From Monitor] Respiratory 35 H 23 Rate Blood Pressure 151/92 151/92 O2 Sat by Pulse 93 95 Oximetry 06/11/20 06/11/20 06/11/20 17:45 18:01 18:15 Temperature Pulse Rate 111 H 135 H 113 H Pulse Rate [ From Monitor] Respiratory 20 27 H 34 H Rate Blood Pressure 151/92 151/92 151/92 O2 Sat by Pulse 93 93 93 Oximetry 06/11/20 06/11/20 06/11/20 18:31 18:45 19:51 Temperature Pulse Rate 115 H 123 H 134 H Pulse Rate [ From Monitor] Respiratory 18 15 Rate Blood Pressure 151/92 151/92 O2 Sat by Pulse 94 94 95 Oximetry - Lab 06/11/20 04:45 06/11/20 04:45 Most recent lab results ABG pH 7.246 pH Units (7.350-7.450) L 06/11/20 10:32 ABG pCO2 34.1 mm Hg 06/11/20 10:32 ABG pO2 69.5 mm Hg (80.0-90.0) L 06/11/20 10:32 ABG HCO3 14.5 mmol/L (20.0-26.0) L 06/11/20 10:32 ABG O2 Saturation 92.2 % (95.0-99.0) L 06/11/20 10:32 Calcium 7.1 mg/dL (8.4-10.2) L D 06/11/20 04:45 Magnesium 2.00 mg/dL (1.7-2.3) 06/10/20 05:52 Medications & Allergies - Medications Allergies/Adverse Reactions: Allergies No Known Allergies Allergy (Unverified 05/29/20 15:15) Home Medications: Home Medications Medication Instructions Recorded Confirmed Last Taken Type ARIPiprazole [Aripiprazole] 2 mg PO DAILY 06/02/20 06/02/20 Unknown History Duloxetine HCl 2 tab PO DAILY 06/02/20 06/02/20 Unknown History PARoxetine HCl 10 mg PO DAILY 06/02/20 06/02/20 Unknown History Active Medications: Generic Name Dose Route Start Last Admin Trade Name Freq PRN Reason Stop Dose Admin Acetaminophen 650 mg 05/30/20 00:19 06/10/20 12:37 Tylenol PO 650 mg Q4H PRN Administration Pain MILD(1-3)/Fever >100.5/ESPINOZA Lipase/Protease/Amylase 1 each 06/07/20 08:[address] 10,500 Unit FEEDTUBE PRN PRN For Clogged Feeding Tube Apixaban 5 mg 06/06/20 13:00 06/11/20 11:34 Eliquis PO 5 mg Q12HR LONG Administration Protocol Aspirin 81 mg 06/11/20 10:00 06/11/20 11:34 Halfprin Ec PO 81 mg QDAY LONG Administration Dextrose 50 ml 06/11/20 10:30 D50w (25gm) Syringe IV Q30MIN PRN Hypoglycemia Protocol Famotidine 20 mg 06/05/20 10:00 06/11/20 11:34 Pepcid PO 20 mg DAILY LONG Administration Fentanyl 50 mcg 06/11/20 03:00 06/11/20 02:18 Sublimaze IV 50 mcg Q2H PRN Administration PAIN (7-10) Amiodarone HCl 900 mg/ 500 mls @ 33.333 mls/hr 06/10/20 09:00 06/11/20 07:18 Dextrose IV 0.5 mg/min DIRECT LONG 16.667 mls/hr Administration Protocol 1 MG/MIN Cefepime HCl 2 gm in 100 mls @ 200 mls/hr 06/10/20 13:00 06/11/20 11:33 Cefepime/Ns 2 Gm/100 Ml IV 200 mls/hr Q12HR LONG Administration Norepinephrine 4 mg in 250 mls @ 7.5 mls/hr 06/10/20 17:00 06/11/20 19:35 Levophed Drip 4 Mg/Ns 250 Ml IV 18 mcg/min TITR LONG 67.5 mls/hr Administration Protocol 2 MCG/MIN Vasopressin 20 unit/ Sodium 101 mls @ 9.09 mls/hr 06/10/20 19:55 Chloride IV TITR LONG Protocol 0.03 UNITS/MIN Sodium Bicarbonate 150 meq/ 1,150 mls @ 200 mls/hr 06/11/20 03:00 06/11/20 17 :26 Dextrose IV 200 mls/hr DIRECT LONG Administration Insulin Human Regular 100 100 mls @ 1 mls/hr 06/11/20 11:00 06/11/20 18:30 units/ Sodium Chloride IV 4 units/hr TITR LONG 4 mls/hr Titration Protocol 1 UNITS/HR Methylprednisolone Sodium Succinate 20 mg 06/11/20 14:00 06/11/20 14:38 Solu-Medrol IV 20 mg Q8HR LONG Administration Metoprolol Tartrate 2.5 mg 06/09/20 11:45 06/10/20 06:31 Metoprolol IV 2.5 mg Q6H PRN Administration Tachyarrhythmias Metoprolol Tartrate 25 mg 06/10/20 14:00 06/11/20 17:27 Metoprolol PO Not Given Q6HR LONG Paroxetine HCl 10 mg 06/02/20 11:45 06/11/20 11:36 Paxil PO 10 mg DAILY LONG Administration Simple Syrup 15 ml 06/07/20 08:46 Simple Syrup FEEDTUBE PRN PRN Hypoglycemia Simple Syrup 30 ml 06/07/20 08:46 Simple Syrup FEEDTUBE PRN PRN Hypoglycemia Sodium Bicarbonate 325 mg 06/07/20 08:46 Sodium Bicarbonate FEEDTUBE PRN PRN For Clogged Feeding Tube Sodium Chloride 10 ml 05/30/20 10:00 06/11/20 11:36 Sodium Chloride Flush Syringe 10 Ml IV 10 ml BID LONG Administration Sodium Chloride 10 ml 05/30/20 00:19 Sodium Chloride Flush Syringe 10 Ml IV PRN PRN LINE FLUSH
[2020-06-11] MEDS: VASOPRESSIN 20 UNIT in SODIUM CHLORIDE 0.9% 100 ML IV SCH (22:28)
[2020-06-11] MEDS: NORepinephrine 8 MG in SODIUM CHLORIDE 0.9% 250ML 242 ML IV SCH (23:13)
[2020-06-11 23:20] LABS: Hematocrit 36.5 % (35.5-45.6); Hemoglobin 11.2 gm/dl (11.8-15.2); Mean Corpuscular HGB Conc 31 % (32-34); Mean Corpuscular Volume 98 fl (84-94); Red Blood Count 3.74 M/mm3 (3.65-5.03); Red Cell Distribution Width 16.6 % (13.2-15.2)
[2020-06-11 23:29] LABS: Platelet Count 33 K/mm3 (140-440)
[2020-06-11 23:34] LABS: Partial Thromboplastin Time 43.7 Sec. (24.2-36.6)
[2020-06-11 23:37] LABS: INR 5.84 (0.87-1.13)
[2020-06-11 23:45] LABS: Creatine Kinase MB 2.6 ng/mL (0.0-4.0)
[2020-06-11 23:46] LABS: Calcium 6.3 mg/dL (8.4-10.2)
[2020-06-12 01:24] LABS: Basophils % (Manual) 0 % (0.0-1.8); Eosinophils % (Manual) 0 % (0.0-4.3); RBC Morphology Normal; Total Cells Counted 100
[2020-06-12 01:25] LABS: Giant Platelets Few; Platelet Clumps Rare
[2020-06-12 02:47] LABS: Chol/HDL Ratio 5.6 %
[2020-06-12] MEDS: SODIUM BICARBONATE 150 MEQ in DEXTROSE 5% IN WATER 1,000 ML IV SCH ×2 (03:22→10:00)
[2020-06-12] MEDS: INSULIN REGULAR, HUMAN 100 UNITS in SODIUM CHLORIDE 0.9% 99 ML IV SCH (03:46)
[2020-06-12] MEDS: NORepinephrine 8 MG in SODIUM CHLORIDE 0.9% 250ML 242 ML IV SCH ×2 (04:11→09:10)
[2020-06-12] MEDS: METOPROLOL TARTRATE 25 MG TAB PO SCH ×2 (05:11→08:18)
[2020-06-12] MEDS: methylPREDNISolone Sod Succinate 40 MG/1 ML INJ IV SCH ×2 (05:13→08:18)
[2020-06-12] MEDS: ACETAMINOPHEN 325 MG TAB PO PRN (05:15)
[2020-06-12 06:00] LABS: ABG Base Excess -3.8 mmol/L (-2.0-3.0); ABG HCO3 21.6 mmol/L (20.0-26.0); ABG Methemoglobin 0.5 % (0.0-1.5); ABG Oxygen Saturation 93.1 % (95.0-99.0); ABG PCO2 40.6 mm Hg; ABG PH 7.344 pH Units (7.350-7.450)
[2020-06-12] MEDS: INSULIN LISPRO 100 UNIT/ML VIAL 3 mL SUB-Q SCH (08:18)
[2020-06-12] MEDS: INSULIN GLARGINE 100 UNITS/ML SUB-Q SCH (08:18)
[2020-06-12] MEDS: VASOPRESSIN 20 UNIT in SODIUM CHLORIDE 0.9% 100 ML IV SCH (09:15)
--- NOTE | 2020-06-12 10:20 | Progress Note ---
Assessment and Plan Assessment and plan: 64-year-old man with history of hypertension diabetes congestive heart failure and left below-knee amputation comes in for cough fever and shortness of breath and chills for 5 days. Patient has been tested positive for COVID-19 5 days ago. Patient saturations were 80% on room air which improved to 98% on a nonrebreather. Denies any chest pain. Patient is covered positive and hypoxic. COVID19 + Bilateral Pneumonia Secondary Coagulopathy- Unable to get CTA chest due to renal dysfunction DM with Hyperglycemia- Adjust insulin. Will give Lantus at 20 night HS, also will give 18 Additional units. Acute Hypoxic Respiratory failure 05/30 patient is a jail resident, alert and oriented and appears moderately short of breath and is on Ventimask Denies any chest pain or palpitations. He does complain of cough Lab results reviewed 05/31: Continues on high flow oxygen. still on High flow oxygen. Pulmonary consulted, ID consulted. COVID +, adjust insulin for better control. 06/01: Remains on High flow, due to severe hypoxemia Consent obtained for convalescent plasma. We will also obtain type and cross for the same. Wean oxygen as tolerated. ID input noted. No indication Remdesivir due to renal failure, renal on board, although renal function beginning to improve we will discuss with ID if we should revisit Remdesivir if renal function continues to improve. Continue ceftriaxone and azithromycin for 5 days. Offloading sacral area and keep area dry per wound care team. Continue anticoagulation. ID added fluconazole. Will adjust insulin therapy and also sliding scale to a higher scale. 06/02: Called and discussed with family patient does have some psychiatric illness will obtain psych consultation due to new onset psychosis. Pulmonary input appreciated. Will proceed with ordering plasma therapy.The assigned patient code is [id number] for plasma transfusion. 06/03: Continues with intermittent confusion, known psych hx, psych team consulted. Continue oxygen therapy, awaiting Plasma therapy. Patient being transferred to ICU due to worsening respiratory status. Psych following. 06/11: Now on mechanical ventilation, Station Superintendent managing, check inflammatory markers, Will review chart further to see if patient received plasma therapy 06/12: Patient had cardiac arrest again last night, Code sheet reviewed, Awaiting Event note. Discussed with surgeon, Chest tube still in place for pneumothorax. Patient continues on 2 pressors and insulin drip secondary to DKA which persist. Pulmonary status is worse patient has a very poor prognosis given COVID diagnosis along with all other complications. Steroids being decreased. Cultures are still pending. Cardiology nephrology and ID and pulmonary input is noted. Spoke with Gena Starks and updated. She confirms that she was updated by the nursing staff. She is having family meeting with the patients Aunt soon to decide on further management. Continue abx Severe sepsis with septic shock Current Visit: Yes Status: Acute Plan to address problem: Secondary to COVID pneumonia Elevated lactic acid, tachycardia, elevated procalcitonin Continue IV antibiotics Blood culture results pending Bilateral pneumonia Current Visit: Yes Status: Acute Plan to address problem: 2/2 COVID pneumonia IV Rocephin initiated Patient is apparently coronavirus +5 days ago Repeat COVID test positive Acute psychosis with visual and auditory hallucination Resume outpatient medications for depression which was just obtained acute respiratory failure with hypoxia- Now requring Mechanical ventilation Current Visit: Yes Status: Acute Plan to address problem: Secondary to COVID-19 pneumonia Patient is was initially on nonrebreather Ventimask and O2 sats are in the mid 80s then changed to high flow nasal cannula Hyperkalemia secondary to renal failure Repeat electrolytes after Kayexalate administered yesterday shows a potassium of 5.9 Will order Kayexalate 60 g Monitor electrolytes Acute kidney injury R/O acute on chronic kidney disease Severe renal failure Baseline renal function is not known We will request nephrology consult Avoid nephrotoxins Renal ultrasound Hypertension Current Visit: Yes Status: Chronic Qualifiers: Hypertension type: essential hypertension Qualified Code(s): I10 - Essential (primary) hypertension Plan to address problem: Blood pressure fair off medication Continue to monitor Type 2 diabetes mellitus Current Visit: Yes Status: Chronic Qualifiers: Diabetes mellitus applier insulin use: unspecified fpc insulin use status Plan to address problem: Continue insulin sliding scale coverage hemoglobin A1c 9.7 COVID19 + Management as outlined above CHF (congestive heart failure) Current Visit: Yes Status: Chronic Qualifiers: Heart failure type: combined systolic and diastolic Plan to address problem: Echocardiogram requested Elevated troponin possible type II [place] Thrombocytopenia Spontaneous pneumothorax S/P Cardiac Arrest DVT prophylaxis Current Visit: Yes Status: Acute Plan to address problem: On Lovenox and GI prophylaxis The high probability of a clinically significant, sudden or life threatening deterioration of the [pulmonary, renal] system(s) required my full and direct attention, intervention and personal management. The aggregate critical care t vickie was [35] minutes. This time is in addition to time spent performing reported procedures but includes the following: [x] Data Review and interpretation [x] Patient assessment and monitoring of vital signs [x] Documentation [x] Medication orders and management History Interval history: Patient seen and examined, on chart review, remains on ventilatory support on pressors. Overnight had another episode of cardiac arrest. Hospitalist Physical - Physical exam Narrative exam: VITAL SIGNS: Reviewed. GENERAL: The patient appears, Mechanical ventilation in place. morbidly obese vital signs as documented. HEAD: No signs of head trauma. EYES: Pupils are equal. EARS: Hearing grossly intact. MOUTH: ett in place. NECK: No adenopathy, no JVD. CHEST: Chest with diminished breath sounds ventilatory sounds transmitted. Right-sided chest tube increased respiratory rate. No wheezes, rales, or rhonchi. CARDIAC: Regular rate and rhythm. S1 and S2, without murmurs, gallops, or rubs. VASCULAR: No Edema. Peripheral pulses normal and equal in all extremities. ABDOMEN: Soft, non tender and non distended. No rebound or guarding, and no masses palpated. Bowel Sounds normal. MUSCULOSKELETAL: BKA LEFT LOWER EXT. extremities without clubbing, cyanosis. Mild edema with chronic changes to the right lower extremity NEUROLOGIC EXAM: sedated No focal sensory or strength deficits. PSYCHIATRIC: SEDATED SKIN: detail exam as documented in skin assessment - Constitutional Vitals: Temp Pulse Resp BP Pulse Ox 103.0 F H 86 32 H 109/72 89 06/12/20 05:10 06/12/20 09:35 06/11/20 21:45 06/12/20 05:09 06/12/20 09:35 General appearance: Present: mild distress HEART Score - HEART Score Troponin: Troponin T 0.166 ng/mL (0.00-0.029) H* 06/12/20 05:45 Results - Labs CBC & Chem 7: 06/11/20 22:10 06/11/20 22:10 Labs: Laboratory Last Values WBC 9.5 K/mm3 (4.5-11.0) 06/11/20 22:10 RBC 3.74 M/mm3 (3.65-5.03) 06/11/20 22:10 Hgb 11.2 gm/dl (11.8-15.2) L 06/11/20 22:10 Hct 36.5 % (35.5-45.6) 06/11/20 22:10 MCV 98 fl (84-94) H 06/11/20 22:10 MCH 30 pg (28-32) 06/11/20 22:10 MCHC 31 % (32-34) L 06/11/20 22:10 RDW 16.6 % (13.2-15.2) H 06/11/20 22:10 Plt Count 33 K/mm3 (140-440) L 06/11/20 22:10 Lymph % (Auto) 6.7 % (13.4-35.0) L 06/11/20 04:45 Alcorn % (Auto) 2.3 % (0.0-7.3) 06/11/20 04:45 Eos % (Auto) 0.0 % (0.0-4.3) 06/11/20 04:45 Baso % (Auto) 0.2 % (0.0-1.8) 06/11/20 04:45 Lymph # 0.6 K/mm3 (1.2-5.4) L 06/11/20 04:45 Alcorn # 0.2 K/mm3 (0.0-0.8) 06/11/20 04:45 Eos # 0.0 K/mm3 (0.0-0.4) 06/11/20 04:45 Baso # 0.0 K/mm3 (0.0-0.1) 06/11/20 04:45 Add Manual Diff Complete 06/11/20 22:10 Total Counted 100 06/11/20 22:10 Seg Neutrophils % Consumer Affairs Specialist 06/11/20 04:45 Seg Neuts % (Manual) 76.0 % (40.0-70.0) H 06/11/20 22:10 Band Neutrophils % 0 % 06/11/20 22:10 Lymphocytes % (Manual) 20.0 % (13.4-35.0) 06/11/20 22:10 Reactive Lymphs % (Man) 0 % 06/11/20 22:10 Monocytes % (Manual) 4.0 % (0.0-7.3) 06/11/20 22:10 Eosinophils % (Manual) 0 % (0.0-4.3) 06/11/20 22:10 Basophils % (Manual) 0 % (0.0-1.8) 06/11/20 22:10 Metamyelocytes % 0 % 06/11/20 22:10 Myelocytes % 0 % 06/11/20 22:10 Promyelocytes % 0 % 06/11/20 22:10 Blast Cells % 0 % 06/11/20 22:10 Nucleated RBC % 6.0 % (0.0-0.9) H 06/11/20 22:10 Seg Neutrophils # 8.3 K/mm3 (1.8-7.7) H 06/11/20 04:45 Seg Neutrophils # Man 7.2 K/mm3 (1.8-7.7) 06/11/20 22:10 Band Neutrophils # 0.0 K/mm3 06/11/20 22:10 Lymphocytes # (Manual) 1.9 K/mm3 (1.2-5.4) 06/11/20 22:10 Abs React Lymphs (Man) 0.0 K/mm3 06/11/20 22:10 Monocytes # (Manual) 0.4 K/mm3 (0.0-0.8) 06/11/20 22:10 Eosinophils # (Manual) 0.0 K/mm3 (0.0-0.4) 06/11/20 22:10 Basophils # (Manual) 0.0 K/mm3 (0.0-0.1) 06/11/20 22:10 Metamyelocytes # 0.0 K/mm3 06/11/20 22:10 Myelocytes # 0.0 K/mm3 06/11/20 22:10 Promyelocytes # 0.0 K/mm3 06/11/20 22:10 Blast Cells # 0.0 K/mm3 06/11/20 22:10 WBC Morphology Not Reportable 06/11/20 22:10 Hypersegmented Neuts Not Reportable 06/11/20 22:10 Hyposegmented Neuts Not Reportable 06/11/20 22:10 Hypogranular Neuts Not Reportable 06/11/20 22:10 Smudge Cells Not Reportable 06/11/20 22:10 Toxic Granulation Not Reportable 06/11/20 22:10 Toxic Vacuolation Not Reportable 06/11/20 22:10 Dohle Bodies Not Reportable 06/11/20 22:10 Pelger-Huet Anomaly Not Reportable 06/11/20 22:10 Michele Rods Not Reportable 06/11/20 22:10 Platelet Estimate Not Reportable 06/11/20 22:10 Clumped Platelets Rare 06/11/20 22:10 Plt Clumps, EDTA Not Reportable 06/11/20 22:10 Large Platelets Not Reportable 06/11/20 22:10 Giant Platelets Few 06/11/20 22:10 Platelet Satelliting Not Reportable 06/11/20 22:10 Plt Morphology Comment Not Reportable 06/11/20 22:10 RBC Morphology Normal 06/11/20 22:10 Dimorphic RBCs Not Reportable 06/11/20 22:10 Polychromasia Not Reportable 06/11/20 22:10 Hypochromasia Not Reportable 06/11/20 22:10 Poikilocytosis Not Reportable 06/11/20 22:10 Anisocytosis Not Reportable 06/11/20 22:10 Microcytosis Not Reportable 06/11/20 22:10 Macrocytosis Not Reportable 06/11/20 22:10 Spherocytes Not Reportable 06/11/20 22:10 Pappenheimer Bodies Not Reportable 06/11/20 22:10 Sickle Cells Not Reportable 06/11/20 22:10 Target Cells Not Reportable 06/11/20 22:10 Tear Drop Cells Not Reportable 06/11/20 22:10 Ovalocytes Not Reportable 06/11/20 22:10 Helmet Cells Not Reportable 06/11/20 22:10 Ortega-Salvisa Bodies Not Reportable 06/11/20 22:10 [place] Rings Not Reportable 06/11/20 22:10 Gio Cells Not Reportable 06/11/20 22:10 Bite Cells Not Reportable 06/11/20 22:10 Crenated Cell Not Reportable 06/11/20 22:10 Elliptocytes Not Reportable 06/11/20 22:10 Acanthocytes (Spur) Not Reportable 06/11/20 22:10 Rouleaux Not Reportable 06/11/20 22:10 Hemoglobin C Crystals Not Reportable 06/11/20 22:10 Schistocytes Not Reportable 06/11/20 22:10 Malaria parasites Not Reportable 06/11/20 22:10 Angelito Bodies Not Reportable 06/11/20 22:10 Hem Pathologist Commnt No 06/11/20 22:10 PT 53.7 Sec. (12.2-14.9) H 06/11/20 22:10 INR 5.84 (0.87-1.13) H* 06/11/20 22:10 APTT 43.7 Sec. (24.2-36.6) H 06/11/20 22:10 D-Dimer 2645.35 ng/mlDDU (0-234) H 06/08/20 06:35 ABG pH 7.344 pH Units (7.350-7.450) L 06/12/20 05:15 ABG pCO2 40.6 mm Hg 06/12/20 05:15 ABG pO2 70.0 mm Hg (80.0-90.0) L 06/12/20 05:15 ABG HCO3 21.6 mmol/L (20.0-26.0) 06/12/20 05:15 ABG O2 Saturation 93.1 % (95.0-99.0) L 06/12/20 05:15 ABG O2 Content 10.5 (0.0-44) 06/12/20 05:15 ABG Base Excess -3.8 mmol/L (-2.0-3.0) L 06/12/20 05:15 ABG Hemoglobin 8.0 gm/dl (14.0-18.0) L 06/12/20 05:15 ABG Carboxyhemoglobin 1.0 % (0.0-5.0) 06/12/20 05:15 ABG Methemoglobin 0.5 % (0.0-1.5) 06/12/20 05:15 Oxyhemoglobin 91.8 % (95.0-99.0) L 06/12/20 05:15 FiO2 100 % 06/12/20 05:15 Sodium 152 mmol/L (137-145) H 06/11/20 22:10 Potassium 4.9 mmol/L (3.6-5.0) 06/11/20 22:10 Chloride 98.9 mmol/L (98-107) 06/11/20 22:10 Carbon Dioxide 17 mmol/L (22-30) L 06/11/20 22:10 Anion Gap 41 mmol/L 06/11/20 22:10 BUN 55 mg/dL (9-20) H 06/11/20 22:10 Creatinine 3.0 mg/dL (0.8-1.3) H 06/11/20 22:10 Estimated GFR 22 ml/min 06/11/20 22:10 BUN/Creatinine Ratio 18 % 06/11/20 22:10 Glucose 218 mg/dL (75-100) H 06/11/20 22:10 POC Glucose 127 (70-105) H 06/12/20 07:15 Hemoglobin A1c 9.7 % (4-6) H 05/30/20 07:00 Lactic Acid 2.20 mmol/L (0.7-2.0) H* 05/29/20 15:10 Calcium 6.3 mg/dL (8.4-10.2) L 06/11/20 22:10 Magnesium 2.10 mg/dL (1.7-2.3) 06/11/20 22:10 Ferritin 687.9 ng/mL (30.0-300.0) H 06/08/20 04:00 Total Bilirubin 0.30 mg/dL (0.1-1.2) 06/08/20 06:35 Direct Bilirubin < 0.2 mg/dL (0-0.2) 05/29/20 13:25 Indirect Bilirubin 0.1 mg/dL 05/29/20 13:25 AST 24 units/L (5-40) 06/08/20 06:35 ALT 13 units/L (7-56) 06/08/20 06:35 Alkaline Phosphatase 77 units/L (35-129) 06/08/20 06:35 Lactate Dehydrogenase 679 units/L (91-180) H 06/08/20 06:35 Total Creatine Kinase 332 units/L (55-170) H 06/11/20 22:10 CK-MB (CK-2) 2.6 ng/mL (0.0-4.0) 06/11/20 22:10 CK-MB (CK-2) Rel Index 0.7 (0-4) 06/11/20 22:10 Troponin T 0.166 ng/mL (0.00-0.029) H* 06/12/20 05:45 C-Reactive Protein 1.50 mg/dL (0.00-1.30) H 06/08/20 06:35 NT-Pro-B Natriuret Pep 89.58 pg/mL (0-900) 05/29/20 13:25 Total Protein 7.0 g/dL (6.3-8.2) 06/08/20 06:35 Albumin 2.8 g/dL (3.9-5) L 06/08/20 06:35 Albumin/Globulin Ratio 0.8 % 06/08/20 06:35 Triglycerides 203 mg/dL (2-149) H 06/11/20 22:10 Cholesterol 56 mg/dL (50-199) 06/11/20 22:10 LDL Cholesterol Direct 6 mg/dL (50-130) L 06/11/20 22:10 HDL Cholesterol 10 mg/dL (40-59) L 06/11/20 22:10 Cholesterol/HDL Ratio 5.60 % 06/11/20 22:10 Procalcitonin 4.38 ng/mL (<0.15) 05/29/20 15:10 Coronavirus (PCR) Positive (Negative) A 05/29/20 Unknown Blood Type O POSITIVE 06/02/20 10:09 Antibody Screen Negative 06/02/20 10:09 Microbiology: Microbiology 06/10/20 14:00 Peripheral/Venous Blood Culture - Preliminary 06/10/20 14:43 Peripheral/Venous Blood Culture - Preliminary 06/10/20 Unknown Urine,[place] Urine Culture - Preliminary NO GROWTH AFTER 24 HOURS [place]/IV: Voiding Method Indwelling Catheter IV Catheter Type [Right INT / Saline Lock Forearm] IV Catheter Type [Left Upper PICC Line arm] IV Catheter Type [Left Forearm Peripheral IV ] IV Catheter Type [Left Chest] INT / Saline Lock Active Medications - Current Medications Current Medications: Generic Name Dose Route Start Last Admin Trade Name Freq PRN Reason Stop Dose Admin Acetaminophen 650 mg 05/30/20 00:19 06/12/20 05:15 Tylenol PO 650 mg Q4H PRN Administration Pain MILD(1-3)/Fever >100.5/ESPINOZA Lipase/Protease/Amylase 1 each 06/07/20 08:46 Pancrecamacho Bruner 10,500 Unit FEEDTUBE PRN PRN For Clogged Feeding Tube Apixaban 5 mg 06/06/20 13:00 06/11/20 22:22 Eliquis PO 5 mg Q12HR LONG Administration Protocol Aspirin 81 mg 06/11/20 10:00 06/11/20 11:34 Halfprin Ec PO 81 mg QDAY LONG Administration Dextrose 50 ml 06/11/20 10:30 D50w (25gm) Syringe IV Q30MIN PRN Hypoglycemia Protocol Famotidine 20 mg 06/05/20 10:00 06/11/20 11:34 Pepcid PO 20 mg DAILY LONG Administration Fentanyl 50 mcg 06/11/20 03:00 06/11/20 02:18 Sublimaze IV 50 mcg Q2H PRN Administration PAIN (7-10) Amiodarone HCl 900 mg/ 500 mls @ 33.333 mls/hr 06/10/20 09:00 06/11/20 07:18 Dextrose IV 0.5 mg/min DIRECT LONG 16.667 mls/hr Administration Protocol 1 MG/MIN Cefepime HCl 2 gm in 100 mls @ 200 mls/hr 06/10/20 13:00 06/11/20 22:20 Cefepime/Ns 2 Gm/100 Ml IV 200 mls/hr Q12HR LONG Administration Vasopressin 20 unit/ Sodium 101 mls @ 9.09 mls/hr 06/10/20 19:55 06/12/20 09:15 Chloride IV 0.03 units/min TITR LONG 9.09 mls/hr Administration Protocol 0.03 UNITS/MIN Sodium Bicarbonate 150 meq/ 1,150 mls @ 200 mls/hr 06/11/20 03:00 06/12/20 03:22 Dextrose IV 200 mls/hr DIRECT LONG Administration Insulin Human Regular 100 100 mls @ 1 mls/hr 06/11/20 11:00 06/12/20 09:29 units/ Sodium Chloride IV 4 units/hr TITR LONG 4 mls/hr Titration Protocol 1 UNITS/HR Norepinephrine 8 mg/ Sodium 250 mls @ 3.75 mls/hr 06/11/20 23:00 06/12/20 09:10 Chloride IV 28 mcg/min TITR LONG 52.5 mls/hr Administration Protocol 2 MCG/MIN Methylprednisolone Sodium Succinate 20 mg 06/11/20 14:00 06/12/20 05:13 Solu-Medrol IV 20 mg Q8HR LONG Administration Metoprolol Tartrate 2.5 mg 06/09/20 11:45 06/10/20 06:31 Metoprolol IV 2.5 mg Q6H PRN Administration Tachyarrhythmias Metoprolol Tartrate 25 mg 06/10/20 14:00 06/12/20 08:18 Metoprolol PO Not Given Q6HR LONG Paroxetine HCl 10 mg 06/02/20 11:45 06/11/20 11:36 Paxil PO 10 mg DAILY LONG Administration Simple Syrup 15 ml 06/07/20 08:46 Simple Syrup FEEDTUBE PRN PRN Hypoglycemia Simple Syrup 30 ml 06/07/20 08:46 Simple Syrup FEEDTUBE PRN PRN Hypoglycemia Sodium Bicarbonate 325 mg 06/07/20 08:46 Sodium Bicarbonate FEEDTUBE PRN PRN For Clogged Feeding Tube Sodium Chloride 10 ml 05/30/20 10:00 06/11/20 22:20 Sodium Chloride Flush Syringe 10 Ml IV 10 ml BID LONG Administration Sodium Chloride 10 ml 05/30/20 00:19 Sodium Chloride Flush Syringe 10 Ml IV PRN PRN LINE FLUSH Nutrition/Malnutrition Assess - Dietary Evaluation Nutrition/Malnutrition Findings: Nutrition Notes Start: 05/30/20 14:30 Freq: Status: Active Protocol: Document 06/11/20 14:15 LM (Rec: 06/11/20 14:20 LM [id number]) Nutrition Notes Initial or Follow up Brief Note Current Diagnosis Acute Kidney Injury,Diabetes, Sepsis,Hypertension,Heart Failure,Respiratory Failure Other Pertinent Diagnosis COVID-19 (+), bilat pneu, acute psychosis, urethral stricture, (L) BKA Current Diet TF - Nepro at 45ml/hr Labs/Tests Na 147 BUN 48 Cr 2.1 BG 367 Pertinent Medications Humalog Solumedrol Levophed Height 5 ft 4 in Weight 109.769 kg [place] Body Weight (kg) 59.09 BMI 41.5 Weight Status Morbidly Obese Subjective/Other Information Pt intubated. Per RN TF still on hold. Nutrition Intervention Follow-Up By: 06/12/20 Additional Comments F/U: TF restart/tolerance
--- NOTE | 2020-06-12 10:21 | Progress Note ---
Assessment and Plan Cultures: Blood culture 05/29/2020 no growth COVID PCR 05/29/2020 Positive 06/03/2020 blood culture: no growth 06/10/2020 blood culture: GPC 06/10/2020 urine culture: no growth thus far Assessment: 55 years old male with history of diabetes mellitus, congestive heart failure, hypertension, left below-knee amputation, admitted on 05/29/2020 due to 5-day history of cough, fever, malaise, chills and shortness of breath: #Septic shock: worsening respiratory status, pneumonia, pneumothorax. Now on pressors, empiric abx. #GPC bacteremia: patient on Vancomycin. Follow up cultures. #Severe/Critical COVID pneumonia: Inflammatory markers very elevated, possible cytokine storm. S/P CCP 06/03/2020. On steroids. S/P Remdesivir x 5 days ending 06/08/2020. Completed empiric CAP abx. #Acute hypoxemic respiratory failure: on the vent since 06/11/2020. #Elevated LFTs: from COVID #Acute renal failure: S/P whitehead placement in OR. Now worse again #Stage III sacral decubitus: Not infected. Per wound care measures 4 x 1 x 0.1 cm, small yellow slough. Recs: continue Cefepime, Vancomycin, renally adjusted follow up blood cultures Continue steroids per pulm/ICU Poor prognosis. From COVID standpoint, patient has received steroids, CCP and Remdesivir. Alyssa Yang MD, FACP [facility] ([facility] C: [phone] O: [phone] F: [phone] Subjective Date of service: 06/12/20 Principal diagnosis: Acute Respiratory Failure Secondary to COVID Interval history: Febrile, remains intubated, on the vent with 100% FiO2. Remains on 2 pressors. Objective - Exam Narrative Exam: Physical Exam (reviewed in chart due to PPE conservation) Constitutional: limited due to PPE conservation strategy Head, Ears, Nose: limited due to PPE conservation strategy Eyes: limited due to PPE conservation strategy Neck: limited due to PPE conservation strategy Oral: limited due to PPE conservation strategy Cardiovascular: limited due to PPE conservation strategy Respiratory: limited due to PPE conservation strategy GI: limited due to PPE conservation strategy Musculoskeletal: limited due to PPE conservation strategy Skin: limited due to PPE conservation strategy Hem/Lymphatic: limited due to PPE conservation strategy Psych: limited due to PPE conservation strategy Neurological: limited due to PPE conservation strategy - Constitutional Vitals: Vital Signs Temp Pulse Resp BP Pulse Ox 103.0 F H 86 32 H 109/72 89 06/12/20 05:10 06/12/20 09:35 06/11/20 21:45 06/12/20 05:09 06/12/20 09:35 Temperature -Last 24 Hours Temperature 103.0 F Temperature 97.4 F Temperature 99.8 F Temperature 99.0 F Temperature 99.2 F Temperature 100.4 F - Labs CBC & Chem 7: 06/11/20 22:10 06/11/20 22:10 Labs: Abnormal lab results 06/11/20 06/11/20 06/11/20 Range/Units 10:28 10:32 12:06 Hgb (11.8-15.2) gm/dl MCV (84-94) fl MCHC (32-34) % RDW (13.2-15.2) % Plt Count (140-440) K/mm3 Seg Neuts % (Manual) (40.0-70.0) % Nucleated RBC % (0.0-0.9) % PT (12.2-14.9) Sec. INR (0.87-1.13) APTT (24.2-36.6) Sec. ABG pH 7.246 L (7.350-7.450) pH Units ABG pO2 69.5 L (80.0-90.0) mm Hg ABG HCO3 14.5 L (20.0-26.0) mmol/L ABG O2 Saturation 92.2 L (95.0-99.0) % ABG Base Excess -11.8 L (-2.0-3.0) mmol/L ABG Hemoglobin 13.0 L (14.0-18.0) gm/dl Oxyhemoglobin 90.9 L (95.0-99.0) % Sodium (137-145) mmol/L Carbon Dioxide (22-30) mmol/L BUN (9-20) mg/dL Creatinine (0.8-1.3) mg/dL Glucose (75-100) mg/dL POC Glucose 311 H 280 H (70-105) Calcium (8.4-10.2) mg/dL Total Creatine Kinase (55-170) units/L Troponin T (0.00-0.029) ng/mL Triglycerides (2-149) mg/dL LDL Cholesterol Direct (50-130) mg/dL HDL Cholesterol (40-59) mg/dL 06/11/20 06/11/20 06/11/20 Range/Units 13:26 14:47 15:54 Hgb (11.8-15.2) gm/dl MCV (84-94) fl MCHC (32-34) % RDW (13.2-15.2) % Plt Count (140-440) K/mm3 Seg Neuts % (Manual) (40.0-70.0) % Nucleated RBC % (0.0-0.9) % PT (12.2-14.9) Sec. INR (0.87-1.13) APTT (24.2-36.6) Sec. ABG pH (7.350-7.450) pH Units ABG pO2 (80.0-90.0) mm Hg ABG HCO3 (20.0-26.0) mmol/L ABG O2 Saturation (95.0-99.0) % ABG Base Excess (-2.0-3.0) mmol/L ABG Hemoglobin (14.0-18.0) gm/dl Oxyhemoglobin (95.0-99.0) % Sodium (137-145) mmol/L Carbon Dioxide (22-30) mmol/L BUN (9-20) mg/dL Creatinine (0.8-1.3) mg/dL Glucose (75-100) mg/dL POC Glucose 300 H 256 H 253 H (70-105) Calcium (8.4-10.2) mg/dL Total Creatine Kinase (55-170) units/L Troponin T (0.00-0.029) ng/mL Triglycerides (2-149) mg/dL LDL Cholesterol Direct (50-130) mg/dL HDL Cholesterol (40-59) mg/dL 06/11/20 06/11/20 06/11/20 Range/Units 16:39 17:40 18:45 Hgb (11.8-15.2) gm/dl MCV (84-94) fl MCHC (32-34) % RDW (13.2-15.2) % Plt Count (140-440) K/mm3 Seg Neuts % (Manual) (40.0-70.0) % Nucleated RBC % (0.0-0.9) % PT (12.2-14.9) Sec. INR (0.87-1.13) APTT (24.2-36.6) Sec. ABG pH (7.350-7.450) pH Units ABG pO2 (80.0-90.0) mm Hg ABG HCO3 (20.0-26.0) mmol/L ABG O2 Saturation (95.0-99.0) % ABG Base Excess (-2.0-3.0) mmol/L ABG Hemoglobin (14.0-18.0) gm/dl Oxyhemoglobin (95.0-99.0) % Sodium (137-145) mmol/L Carbon Dioxide (22-30) mmol/L BUN (9-20) mg/dL Creatinine (0.8-1.3) mg/dL Glucose (75-100) mg/dL POC Glucose 242 H 228 H 214 H (70-105) Calcium (8.4-10.2) mg/dL Total Creatine Kinase (55-170) units/L Troponin T (0.00-0.029) ng/mL Triglycerides (2-149) mg/dL LDL Cholesterol Direct (50-130) mg/dL HDL Cholesterol (40-59) mg/dL 06/11/20 06/11/20 06/11/20 Range/Units 20:28 22:10 22:10 Hgb 11.2 L (11.8-15.2) gm/dl MCV 98 H (84-94) fl MCHC 31 L (32-34) % RDW 16.6 H (13.2-15.2) % Plt Count 33 L (140-440) K/mm3 Seg Neuts % (Manual) 76.0 H (40.0-70.0) % Nucleated RBC % 6.0 H (0.0-0.9) % PT (12.2-14.9) Sec. INR (0.87-1.13) APTT (24.2-36.6) Sec. ABG pH (7.350-7.450) pH Units ABG pO2 (80.0-90.0) mm Hg ABG HCO3 (20.0-26.0) mmol/L ABG O2 Saturation (95.0-99.0) % ABG Base Excess (-2.0-3.0) mmol/L ABG Hemoglobin (14.0-18.0) gm/dl Oxyhemoglobin (95.0-99.0) % Sodium 152 H (137-145) mmol/L Carbon Dioxide 17 L (22-30) mmol/L BUN 55 H (9-20) mg/dL Creatinine 3.0 H (0.8-1.3) mg/dL Glucose 218 H (75-100) mg/dL POC Glucose 226 H (70-105) Calcium 6.3 L (8.4-10.2) mg/dL Total Creatine Kinase 332 H (55-170) units/L Troponin T (0.00-0.029) ng/mL Triglycerides (2-149) mg/dL LDL Cholesterol Direct (50-130) mg/dL HDL Cholesterol (40-59) mg/dL 06/11/20 06/11/20 06/11/20 Range/Units 22:10 22:10 22:17 Hgb (11.8-15.2) gm/dl MCV (84-94) fl MCHC (32-34) % RDW (13.2-15.2) % Plt Count (140-440) K/mm3 Seg Neuts % (Manual) (40.0-70.0) % Nucleated RBC % (0.0-0.9) % PT 53.7 H (12.2-14.9) Sec. INR 5.84 H* (0.87-1.13) APTT 43.7 H (24.2-36.6) Sec. ABG pH (7.350-7.450) pH Units ABG pO2 (80.0-90.0) mm Hg ABG HCO3 (20.0-26.0) mmol/L ABG O2 Saturation (95.0-99.0) % ABG Base Excess (-2.0-3.0) mmol/L ABG Hemoglobin (14.0-18.0) gm/dl Oxyhemoglobin (95.0-99.0) % Sodium (137-145) mmol/L Carbon Dioxide (22-30) mmol/L BUN (9-20) mg/dL Creatinine (0.8-1.3) mg/dL Glucose (75-100) mg/dL POC Glucose 130 H (70-105) Calcium (8.4-10.2) mg/dL Total Creatine Kinase (55-170) units/L Troponin T 0.145 H* (0.00-0.029) ng/mL Triglycerides 203 H (2-149) mg/dL LDL Cholesterol Direct 6 L (50-130) mg/dL HDL Cholesterol 10 L (40-59) mg/dL 06/11/20 06/12/20 06/12/20 Range/Units 23:06 00:19 01:18 Hgb (11.8-15.2) gm/dl MCV (84-94) fl MCHC (32-34) % RDW (13.2-15.2) % Plt Count (140-440) K/mm3 Seg Neuts % (Manual) (40.0-70.0) % Nucleated RBC % (0.0-0.9) % PT (12.2-14.9) Sec. INR (0.87-1.13) APTT (24.2-36.6) Sec. ABG pH (7.350-7.450) pH Units ABG pO2 (80.0-90.0) mm Hg ABG HCO3 (20.0-26.0) mmol/L ABG O2 Saturation (95.0-99.0) % ABG Base Excess (-2.0-3.0) mmol/L ABG Hemoglobin (14.0-18.0) gm/dl Oxyhemoglobin (95.0-99.0) % Sodium (137-145) mmol/L Carbon Dioxide (22-30) mmol/L BUN (9-20) mg/dL Creatinine (0.8-1.3) mg/dL Glucose (75-100) mg/dL POC Glucose 191 H 196 H 177 H (70-105) Calcium (8.4-10.2) mg/dL Total Creatine Kinase (55-170) units/L Troponin T (0.00-0.029) ng/mL Triglycerides (2-149) mg/dL LDL Cholesterol Direct (50-130) mg/dL HDL Cholesterol (40-59) mg/dL 08/06/12/20 06/12/20 Range/Units 02:29 03:26 05:15 Hgb (11.8-15.2) gm/dl MCV (84-94) fl MCHC (32-34) % RDW (13.2-15.2) % Plt Count (140-440) K/mm3 Seg Neuts % (Manual) (40.0-70.0) % Nucleated RBC % (0.0-0.9) % PT (12.2-14.9) Sec. INR (0.87-1.13) APTT (24.2-36.6) Sec. ABG pH 7.344 L (7.350-7.450) pH Units ABG pO2 70.0 L (80.0-90.0) mm Hg ABG HCO3 (20.0-26.0) mmol/L ABG O2 Saturation 93.1 L (95.0-99.0) % ABG Base Excess -3.8 L (-2.0-3.0) mmol/L ABG Hemoglobin 8.0 L (14.0-18.0) gm/dl Oxyhemoglobin 91.8 L (95.0-99.0) % Sodium (137-145) mmol/L Carbon Dioxide (22-30) mmol/L BUN (9-20) mg/dL Creatinine (0.8-1.3) mg/dL Glucose (75-100) mg/dL POC Glucose 175 H 181 H (70-105) Calcium (8.4-10.2) mg/dL Total Creatine Kinase (55-170) units/L Troponin T (0.00-0.029) ng/mL Triglycerides (2-149) mg/dL LDL Cholesterol Direct (50-130) mg/dL HDL Cholesterol (40-59) mg/dL 06/12/20 06/12/20 06/12/20 Range/Units 05:22 05:45 06:29 Hgb (11.8-15.2) gm/dl MCV (84-94) fl MCHC (32-34) % RDW (13.2-15.2) % Plt Count (140-440) K/mm3 Seg Neuts % (Manual) (40.0-70.0) % Nucleated RBC % (0.0-0.9) % PT (12.2-14.9) Sec. INR (0.87-1.13) APTT (24.2-36.6) Sec. ABG pH (7.350-7.450) pH Units ABG pO2 (80.0-90.0) mm Hg ABG HCO3 (20.0-26.0) mmol/L ABG O2 Saturation (95.0-99.0) % ABG Base Excess (-2.0-3.0) mmol/L ABG Hemoglobin (14.0-18.0) gm/dl Oxyhemoglobin (95.0-99.0) % Sodium (137-145) mmol/L Carbon Dioxide (22-30) mmol/L BUN (9-20) mg/dL Creatinine (0.8-1.3) mg/dL Glucose (75-100) mg/dL POC Glucose 163 H 135 H (70-105) Calcium (8.4-10.2) mg/dL Total Creatine Kinase (55-170) units/L Troponin T 0.166 H* (0.00-0.029) ng/mL Triglycerides (2-149) mg/dL LDL Cholesterol Direct (50-130) mg/dL HDL Cholesterol (40-59) mg/dL 06/12/20 Range/Units 07:15 Hgb (11.8-15.2) gm/dl MCV (84-94) fl MCHC (32-34) % RDW (13.2-15.2) % Plt Count (140-440) K/mm3 Seg Neuts % (Manual) (40.0-70.0) % Nucleated RBC % (0.0-0.9) % PT (12.2-14.9) Sec. INR (0.87-1.13) APTT (24.2-36.6) Sec. ABG pH (7.350-7.450) pH Units ABG pO2 (80.0-90.0) mm Hg ABG HCO3 (20.0-26.0) mmol/L ABG O2 Saturation (95.0-99.0) % ABG Base Excess (-2.0-3.0) mmol/L ABG Hemoglobin (14.0-18.0) gm/dl Oxyhemoglobin (95.0-99.0) % Sodium (137-145) mmol/L Carbon Dioxide (22-30) mmol/L BUN (9-20) mg/dL Creatinine (0.8-1.3) mg/dL Glucose (75-100) mg/dL POC Glucose 127 H (70-105) Calcium (8.4-10.2) mg/dL Total Creatine Kinase (55-170) units/L Troponin T (0.00-0.029) ng/mL Triglycerides (2-149) mg/dL LDL Cholesterol Direct (50-130) mg/dL HDL Cholesterol (40-59) mg/dL
--- NOTE | 2020-06-12 10:41 | Progress Note ---
Assessment and Plan - Patient Problems (1) Pneumothorax, right Current Visit: Yes Status: Acute Plan to address problem: Pt in critical condition. The airleak appears to be coming from the skin site as the airleak stops with mild compression over the skin site dressing.. Will check CXR. If there is no pneumothorax, will continue to observe. If there is one, then will re-do dressing. Until patient stabilizes, would leave chest tube on suction to minimize any recurrent pneumothorax that may further worsen his status. Please call with questions. Time=10min Subjective Date of service: 06/12/20 Patient Reports: Positive: other (patient had a cardiac arrest overnight. ) Objective Vital Signs - 12hr 06/11/20 06/11/20 06/11/20 22:45 23:01 23:15 Temperature Pulse Rate 146 H 147 H 141 H Blood Pressure 99/68 O2 Sat by Pulse 92 91 90 Oximetry 06/11/20 06/11/20 06/11/20 23:31 23:45 23:54 Temperature Pulse Rate 143 H 145 H 134 H Blood Pressure 55/40 55/40 78/55 O2 Sat by Pulse 87 89 91 Oximetry 06/12/20 06/12/20 06/12/20 00:00 00:01 00:15 Temperature 99.8 F H Pulse Rate 137 H 116 H Blood Pressure O2 Sat by Pulse 96 93 94 Oximetry 06/12/20 06/12/20 06/12/20 00:31 00:45 01:01 Temperature Pulse Rate 105 H 120 H 117 H Blood Pressure O2 Sat by Pulse 96 96 96 Oximetry 06/12/20 06/12/20 06/12/20 01:15 01:31 01:45 Temperature Pulse Rate 117 H 108 H 121 H Blood Pressure O2 Sat by Pulse 97 96 97 Oximetry 06/12/20 06/12/20 06/12/20 02:01 02:15 02:31 Temperature Pulse Rate 105 H 114 H 107 H Blood Pressure O2 Sat by Pulse 97 97 97 Oximetry 06/12/20 06/12/20 06/12/20 02:45 03:01 03:15 Temperature Pulse Rate 111 H 112 H 105 H Blood Pressure O2 Sat by Pulse 97 97 96 Oximetry 06/12/20 06/12/20 06/12/20 03:31 03:45 04:00 Temperature Pulse Rate 117 H 125 H Blood Pressure O2 Sat by Pulse 97 96 94 Oximetry 06/12/20 06/12/20 06/12/20 04:01 04:15 04:31 Temperature Pulse Rate 112 H 143 H 131 H Blood Pressure O2 Sat by Pulse 95 95 91 Oximetry 06/12/20 06/12/20 06/12/20 04:45 05:00 05:01 Temperature 97.4 F L Pulse Rate 129 H 142 H Blood Pressure O2 Sat by Pulse 92 93 Oximetry 06/12/20 06/12/20 06/12/20 05:09 05:10 05:15 Temperature 103.0 F H Pulse Rate 148 H 139 H Blood Pressure 109/72 O2 Sat by Pulse 92 92 Oximetry 06/12/20 06/12/20 06/12/20 05:31 05:45 06:01 Temperature Pulse Rate 155 H 151 H 148 H Blood Pressure O2 Sat by Pulse 92 91 91 Oximetry 06/12/20 06/12/20 06/12/20 06:15 06:31 06:45 Temperature Pulse Rate 144 H 144 H 155 H Blood Pressure O2 Sat by Pulse 91 90 91 Oximetry 06/12/20 06/12/20 07:01 09:35 Temperature Pulse Rate 152 H 86 Blood Pressure O2 Sat by Pulse 90 89 Oximetry - General physical appearance no distress, no pain, obese, other (unresponsive) - Respiratory normal expansion, normal respiratory effort, other (airleak that varies with respirations. ) - Labs 06/11/20 22:10 06/11/20 22:10 Diabetes panel 06/11/20 06/11/20 Range/Units 22:10 22:10 Sodium 152 H (137-145) mmol/L Potassium 4.9 (3.6-5.0) mmol/L Chloride 98.9 (98-107) mmol/L Carbon Dioxide 17 L (22-30) mmol/L BUN 55 H (9-20) mg/dL Creatinine 3.0 H (0.8-1.3) mg/dL Glucose 218 H (75-100) mg/dL Calcium 6.3 L (8.4-10.2) mg/dL Triglycerides 203 H (2-149) mg/dL HDL Cholesterol 10 L (40-59) mg/dL Calcium panel 06/11/20 Range/Units 22:10 Calcium 6.3 L (8.4-10.2) mg/dL Pituitary panel 06/11/20 Range/Units 22:10 Sodium 152 H (137-145) mmol/L Potassium 4.9 (3.6-5.0) mmol/L Chloride 98.9 (98-107) mmol/L Carbon Dioxide 17 L (22-30) mmol/L BUN 55 H (9-20) mg/dL Creatinine 3.0 H (0.8-1.3) mg/dL Glucose 218 H (75-100) mg/dL Calcium 6.3 L (8.4-10.2) mg/dL Adrenal panel 06/11/20 Range/Units 22:10 Sodium 152 H (137-145) mmol/L Potassium 4.9 (3.6-5.0) mmol/L Chloride 98.9 (98-107) mmol/L Carbon Dioxide 17 L (22-30) mmol/L BUN 55 H (9-20) mg/dL Creatinine 3.0 H (0.8-1.3) mg/dL Glucose 218 H (75-100) mg/dL Calcium 6.3 L (8.4-10.2) mg/dL
[2020-06-12] MEDS ORDERED: VANCOMYCIN PHARMACY TO DOSE IV SCH (11:00)
[2020-06-12] MEDS: FAMOTIDINE 20 MG TAB PO SCH (11:30)
[2020-06-12] MEDS: ASPIRIN EC 81 MG TAB PO SCH (11:30)
[2020-06-12] MEDS: CEFEPIME/NS 2 GM/100 ML 2 GM/100 ML BAG IV SCH (11:30)
[2020-06-12] MEDS: PARoxetine 10 MG TAB PO SCH (11:31)
[2020-06-12] MEDS: APIXABAN 5 MG TAB PO SCH (12:02)
--- NOTE | 2020-06-12 12:14 | Progress Note ---
Assessment and Plan 55 y/o obese male with acute respiratory failure from COVID and acute renal failure. 1. Pulm-still with respiratory failure. CXR appears to be slightly improved on the right. Could not appreciate PTX but await official read. Appreciate surgery help. Continue supportive measures but overall prognosis is very poor. Growing GPC's in clusters on blood cultures. may need bronch. 2. ACID/BASE-metabolic acidosis. Placed on insulin drip. Does not appear to have been the cause of asystole last night. acidemia not better but now renal function is worse so likely a combination of the two things. Continue volume resuscitation. Repeat labs this am. 3. Will start to decrease steroids as this may have added to worsening respiratory status. Will wean as fast as possible. 4. ID- worsening right lower lobe infiltrate, fever, started on broad spec abx yesterday. Cultured as well. Still pending. Will follow up. Random Vanc Level Sent, will redose vanc once back. 5. Patient finished remdesivir 6. Follow up HIT antibody. Platelets worse today. Stopped all anticoagulation as this as restarted. 7. Overall prognosis is extremely guarded to poor. Patient had a significant amount of time hypotensive and hypoxic. He is not currently sedated and still requires cardiovascular support. Will wean pressors as tolerated for MAPs greater than 65 if possible. Calling today to update and discuss code status. cct [id number] Subjective Date of service: 06/12/20 Principal diagnosis: Acute Respiratory Failure Secondary to COVID Interval history: Patient had cardiac arrest last night. Asystole. CPR for 8 minutes with ROSC. Patient is not on sedation, 100% FiO2 and PEEP at 12. Sats in the low 90's. Still making urine. Renal function is worse post arrest. Objective Vital Signs - 12hr 06/12/20 06/12/20 06/12/20 00:15 00:31 00:45 Temperature Pulse Rate 116 H 105 H 120 H Blood Pressure O2 Sat by Pulse 94 96 96 Oximetry 06/12/20 06/12/20 06/12/20 01:01 01:15 01:31 Temperature Pulse Rate 117 H 117 H 108 H Blood Pressure O2 Sat by Pulse 96 97 96 Oximetry 06/12/20 06/12/20 06/12/20 01:45 02:01 02:15 Temperature Pulse Rate 121 H 105 H 114 H Blood Pressure O2 Sat by Pulse 97 97 97 Oximetry 06/12/20 06/12/20 06/12/20 02:31 02:45 03:01 Temperature Pulse Rate 107 H 111 H 112 H Blood Pressure O2 Sat by Pulse 97 97 97 Oximetry 06/12/20 06/12/20 06/12/20 03:15 03:31 03:45 Temperature Pulse Rate 105 H 117 H 125 H Blood Pressure O2 Sat by Pulse 96 97 96 Oximetry 06/12/20 06/12/20 06/12/20 04:00 04:01 04:15 Temperature Pulse Rate 112 H 143 H Blood Pressure O2 Sat by Pulse 94 95 95 Oximetry 06/12/20 06/12/20 06/12/20 04:31 04:45 05:00 Temperature 97.4 F L Pulse Rate 131 H 129 H Blood Pressure O2 Sat by Pulse 91 92 Oximetry 06/12/20 06/12/20 06/12/20 05:01 05:09 05:10 Temperature 103.0 F H Pulse Rate 142 H 148 H Blood Pressure 109/72 O2 Sat by Pulse 93 92 Oximetry 06/12/20 06/12/20 06/12/20 05:15 05:31 05:45 Temperature Pulse Rate 139 H 155 H 151 H Blood Pressure O2 Sat by Pulse 92 92 91 Oximetry 06/12/20 06/12/20 06/12/20 06:01 06:15 06:31 Temperature Pulse Rate 148 H 144 H 144 H Blood Pressure O2 Sat by Pulse 91 91 90 Oximetry 06/12/20 06/12/20 06/12/20 06:45 07:01 09:35 Temperature Pulse Rate 155 H 152 H 86 Blood Pressure O2 Sat by Pulse 91 90 89 Oximetry 06/12/20 11:42 Temperature Pulse Rate 81 Blood Pressure 130/81 O2 Sat by Pulse 91 Oximetry Constitutional: appears uncomfortable, other (critically ill on BIPAP) Eyes: non-icteric ENT: other (orally intubated ) Neck: supple Effort: mildly labored Ascultation: Bilateral: diminished breath sounds Percussion: Bilateral: not dull Cardiovascular: regular rate and rhythm Gastrointestinal: soft, non-distended, other (obese) Integumentary: normal Extremities: no cyanosis Neurologic: other (awake, eyes open, moaning) Psychiatric: other (not able to assess) CBC and BMP: 06/11/20 22:10 06/11/20 22:10 ABG, PT/INR, D-dimer: ABG ABG pH 7.344 pH Units (7.350-7.450) L 06/12/20 05:15 ABG pCO2 40.6 mm Hg 06/12/20 05:15 ABG pO2 70.0 mm Hg (80.0-90.0) L 06/12/20 05:15 ABG O2 Saturation 93.1 % (95.0-99.0) L 06/12/20 05:15 PT/INR, D-dimer PT 53.7 Sec. (12.2-14.9) H 06/11/20 22:10 INR 5.84 (0.87-1.13) H* 06/11/20 22:10 D-Dimer 2645.35 ng/mlDDU (0-234) H 06/08/20 06:35 Abnormal lab findings: Abnormal Labs 05/29/20 05/29/20 05/29/20 13:25 13:25 13:25 WBC Hgb Hct MCV MCHC RDW 16.4 H Plt Count Lymph % (Auto) Lymph # Seg Neutrophils % 78.4 H Seg Neuts % (Manual) Lymphocytes % (Manual) Nucleated RBC % Seg Neutrophils # Seg Neutrophils # Man Lymphocytes # (Manual) PT INR APTT D-Dimer ABG pH ABG pO2 ABG HCO3 ABG O2 Saturation ABG Base Excess ABG Hemoglobin Oxyhemoglobin Sodium 131 L Potassium 5.4 H Chloride 96.2 L Carbon Dioxide 14 L BUN 42 H Creatinine 4.7 H Glucose 121 H POC Glucose Hemoglobin A1c Lactic Acid 2.70 H* Calcium 8.3 L Ferritin AST Lactate Dehydrogenase Total Creatine Kinase Troponin T C-Reactive Protein Albumin Triglycerides LDL Cholesterol Direct HDL Cholesterol Coronavirus (PCR) 05/29/20 05/29/20 05/29/20 13:25 15:10 15:10 WBC Hgb Hct MCV MCHC RDW Plt Count Lymph % (Auto) Lymph # Seg Neutrophils % Seg Neuts % (Manual) Lymphocytes % (Manual) Nucleated RBC % Seg Neutrophils # Seg Neutrophils # Man Lymphocytes # (Manual) PT INR APTT D-Dimer 1391.41 H ABG pH ABG pO2 ABG HCO3 ABG O2 Saturation ABG Base Excess ABG Hemoglobin Oxyhemoglobin Sodium Potassium Chloride Carbon Dioxide BUN Creatinine Glucose 120 H POC Glucose Hemoglobin A1c Lactic Acid Calcium Ferritin AST 54 H Lactate Dehydrogenase 581 H Total Creatine Kinase Troponin T C-Reactive Protein 40.70 H Albumin 2.9 L Triglycerides LDL Cholesterol Direct HDL Cholesterol Coronavirus (PCR) 05/29/20 05/29/20 05/29/20 15:10 15:10 22:55 WBC Hgb Hct MCV MCHC RDW Plt Count Lymph % (Auto) Lymph # Seg Neutrophils % Seg Neuts % (Manual) Lymphocytes % (Manual) Nucleated RBC % Seg Neutrophils # Seg Neutrophils # Man Lymphocytes # (Manual) PT INR APTT D-Dimer ABG pH ABG pO2 ABG HCO3 ABG O2 Saturation ABG Base Excess ABG Hemoglobin Oxyhemoglobin Sodium Potassium Chloride Carbon Dioxide BUN Creatinine Glucose POC Glucose 256 H Hemoglobin A1c Lactic Acid 2.20 H* Calcium Ferritin 1092.0 H AST Lactate Dehydrogenase Total Creatine Kinase Troponin T C-Reactive Protein Albumin Triglycerides LDL Cholesterol Direct HDL Cholesterol Coronavirus (PCR) 05/29/20 05/30/20 05/30/20 Unknown 07:00 07:00 WBC Hgb Hct MCV MCHC RDW 16.0 H Plt Count Lymph % (Auto) 7.3 L Lymph # 0.5 L Seg Neutrophils % 88.4 H Seg Neuts % (Manual) Lymphocytes % (Manual) Nucleated RBC % Seg Neutrophils # Seg Neutrophils # Man Lymphocytes # (Manual) PT INR APTT D-Dimer ABG pH ABG pO2 ABG HCO3 ABG O2 Saturation ABG Base Excess ABG Hemoglobin Oxyhemoglobin Sodium 132 L Potassium 5.9 H Chloride 95.5 L Carbon Dioxide 18 L BUN 49 H Creatinine 4.0 H Glucose 415 H POC Glucose Hemoglobin A1c Lactic Acid Calcium 7.8 L Ferritin AST 46 H Lactate Dehydrogenase Total Creatine Kinase Troponin T C-Reactive Protein Albumin 3.2 L Triglycerides LDL Cholesterol Direct HDL Cholesterol Coronavirus (PCR) Positive A 05/30/20 05/30/20 05/30/20 07:00 07:45 11:39 WBC Hgb Hct MCV MCHC RDW Plt Count Lymph % (Auto) Lymph # Seg Neutrophils % Seg Neuts % (Manual) Lymphocytes % (Manual) Nucleated RBC % Seg Neutrophils # Seg Neutrophils # Man Lymphocytes # (Manual) PT INR APTT D-Dimer ABG pH ABG pO2 ABG HCO3 ABG O2 Saturation ABG Base Excess ABG Hemoglobin Oxyhemoglobin Sodium Potassium Chloride Carbon Dioxide BUN Creatinine Glucose POC Glucose 424 H 468 H Hemoglobin A1c 9.7 H Lactic Acid Calcium Ferritin AST Lactate Dehydrogenase Total Creatine Kinase Troponin T C-Reactive Protein Albumin Triglycerides LDL Cholesterol Direct HDL Cholesterol Coronavirus (PCR) 05/30/20 05/31/20 05/31/20 17:11 01:49 08:14 WBC Hgb Hct MCV MCHC RDW Plt Count Lymph % (Auto) Lymph # Seg Neutrophils % Seg Neuts % (Manual) Lymphocytes % (Manual) Nucleated RBC % Seg Neutrophils # Seg Neutrophils # Man Lymphocytes # (Manual) PT INR APTT D-Dimer ABG pH ABG pO2 ABG HCO3 ABG O2 Saturation ABG Base Excess ABG Hemoglobin Oxyhemoglobin Sodium Potassium Chloride Carbon Dioxide BUN Creatinine Glucose POC Glucose 475 H 426 H 430 H Hemoglobin A1c Lactic Acid Calcium Ferritin AST Lactate Dehydrogenase Total Creatine Kinase Troponin T C-Reactive Protein Albumin Triglycerides LDL Cholesterol Direct HDL Cholesterol Coronavirus (PCR) 05/31/20 05/31/20 05/31/20 10:17 10:17 10:17 WBC Hgb Hct MCV MCHC RDW 16.0 H Plt Count Lymph % (Auto) Lymph # Seg Neutrophils % Seg Neuts % (Manual) Lymphocytes % (Manual) Nucleated RBC % Seg Neutrophils # Seg Neutrophils # Man Lymphocytes # (Manual) PT INR APTT D-Dimer 704.53 H ABG pH ABG pO2 ABG HCO3 ABG O2 Saturation ABG Base Excess ABG Hemoglobin Oxyhemoglobin Sodium 134 L Potassium 5.2 H Chloride 92.9 L Carbon Dioxide BUN 38 H Creatinine 1.6 H D Glucose 556 H* POC Glucose Hemoglobin A1c Lactic Acid Calcium Ferritin AST Lactate Dehydrogenase 676 H Total Creatine Kinase Troponin T C-Reactive Protein 21.30 H Albumin 3.2 L Triglycerides LDL Cholesterol Direct HDL Cholesterol Coronavirus (PCR) 05/31/20 05/31/20 05/31/20 10:17 11:24 16:25 WBC Hgb Hct MCV MCHC RDW Plt Count Lymph % (Auto) Lymph # Seg Neutrophils % Seg Neuts % (Manual) Lymphocytes % (Manual) Nucleated RBC % Seg Neutrophils # Seg Neutrophils # Man Lymphocytes # (Manual) PT INR APTT D-Dimer ABG pH ABG pO2 ABG HCO3 ABG O2 Saturation ABG Base Excess ABG Hemoglobin Oxyhemoglobin Sodium Potassium Chloride Carbon Dioxide BUN Creatinine Glucose POC Glucose 482 H 367 H Hemoglobin A1c Lactic Acid Calcium Ferritin 1221.0 H AST Lactate Dehydrogenase Total Creatine Kinase Troponin T C-Reactive Protein Albumin Triglycerides LDL Cholesterol Direct HDL Cholesterol Coronavirus (PCR) 05/31/20 06/01/20 06/01/20 22:52 04:48 04:48 WBC Hgb Hct MCV MCHC RDW 15.7 H Plt Count Lymph % (Auto) Lymph # Seg Neutrophils % Seg Neuts % (Manual) Lymphocytes % (Manual) Nucleated RBC % Seg Neutrophils # Seg Neutrophils # Man Lymphocytes # (Manual) PT INR APTT D-Dimer ABG pH ABG pO2 ABG HCO3 ABG O2 Saturation ABG Base Excess ABG Hemoglobin Oxyhemoglobin Sodium 132 L Potassium Chloride 93.3 L Carbon Dioxide BUN 39 H Creatinine 1.4 H Glucose 533 H* POC Glucose 431 H Hemoglobin A1c Lactic Acid Calcium Ferritin AST Lactate Dehydrogenase Total Creatine Kinase Troponin T C-Reactive Protein Albumin Triglycerides LDL Cholesterol Direct HDL Cholesterol Coronavirus (PCR) 06/01/20 06/01/20 06/01/20 07:46 08:46 11:38 WBC Hgb Hct MCV MCHC RDW Plt Count Lymph % (Auto) Lymph # Seg Neutrophils % Seg Neuts % (Manual) Lymphocytes % (Manual) Nucleated RBC % Seg Neutrophils # Seg Neutrophils # Man Lymphocytes # (Manual) PT INR APTT D-Dimer ABG pH ABG pO2 ABG HCO3 ABG O2 Saturation ABG Base Excess ABG Hemoglobin Oxyhemoglobin Sodium Potassium Chloride Carbon Dioxide BUN Creatinine Glucose 504 H* POC Glucose 448 H 287 H Hemoglobin A1c Lactic Acid Calcium Ferritin AST Lactate Dehydrogenase Total Creatine Kinase Troponin T C-Reactive Protein Albumin Triglycerides LDL Cholesterol Direct HDL Cholesterol Coronavirus (PCR) 06/01/20 06/01/20 06/02/20 16:27 22:47 07:35 WBC Hgb Hct MCV MCHC RDW Plt Count Lymph % (Auto) Lymph # Seg Neutrophils % Seg Neuts % (Manual) Lymphocytes % (Manual) Nucleated RBC % Seg Neutrophils # Seg Neutrophils # Man Lymphocytes # (Manual) PT INR APTT D-Dimer ABG pH ABG pO2 ABG HCO3 ABG O2 Saturation ABG Base Excess ABG Hemoglobin Oxyhemoglobin Sodium Potassium Chloride Carbon Dioxide BUN Creatinine Glucose POC Glucose 298 H 411 H 347 H Hemoglobin A1c Lactic Acid Calcium Ferritin AST Lactate Dehydrogenase Total Creatine Kinase Troponin T C-Reactive Protein Albumin Triglycerides LDL Cholesterol Direct HDL Cholesterol Coronavirus (PCR) 06/02/20 06/02/20 06/02/20 11:53 17:08 22:41 WBC Hgb Hct MCV MCHC RDW Plt Count Lymph % (Auto) Lymph # Seg Neutrophils % Seg Neuts % (Manual) Lymphocytes % (Manual) Nucleated RBC % Seg Neutrophils # Seg Neutrophils # Man Lymphocytes # (Manual) PT INR APTT D-Dimer ABG pH ABG pO2 ABG HCO3 ABG O2 Saturation ABG Base Excess ABG Hemoglobin Oxyhemoglobin Sodium Potassium Chloride Carbon Dioxide BUN Creatinine Glucose POC Glucose 406 H 355 H 272 H Hemoglobin A1c Lactic Acid Calcium Ferritin AST Lactate Dehydrogenase Total Creatine Kinase Troponin T C-Reactive Protein Albumin Triglycerides LDL Cholesterol Direct HDL Cholesterol Coronavirus (PCR) 06/03/20 06/03/20 06/03/20 05:14 05:14 08:11 WBC 11.9 H Hgb Hct MCV MCHC RDW 15.6 H Plt Count Lymph % (Auto) Lymph # Seg Neutrophils % Seg Neuts % (Manual) Lymphocytes % (Manual) Nucleated RBC % Seg Neutrophils # Seg Neutrophils # Man Lymphocytes # (Manual) PT INR APTT D-Dimer ABG pH ABG pO2 ABG HCO3 ABG O2 Saturation ABG Base Excess ABG Hemoglobin Oxyhemoglobin Sodium Potassium Chloride Carbon Dioxide BUN 44 H Creatinine 1.4 H Glucose 291 H POC Glucose 265 H Hemoglobin A1c Lactic Acid Calcium Ferritin AST Lactate Dehydrogenase Total Creatine Kinase Troponin T C-Reactive Protein Albumin Triglycerides LDL Cholesterol Direct HDL Cholesterol Coronavirus (PCR) 06/03/20 06/03/20 06/03/20 13:32 18:24 21:26 WBC Hgb Hct MCV MCHC RDW Plt Count Lymph % (Auto) Lymph # Seg Neutrophils % Seg Neuts % (Manual) Lymphocytes % (Manual) Nucleated RBC % Seg Neutrophils # Seg Neutrophils # Man Lymphocytes # (Manual) PT INR APTT D-Dimer ABG pH ABG pO2 ABG HCO3 ABG O2 Saturation ABG Base Excess ABG Hemoglobin Oxyhemoglobin Sodium Potassium Chloride Carbon Dioxide BUN Creatinine Glucose POC Glucose 309 H 365 H 333 H Hemoglobin A1c Lactic Acid Calcium Ferritin AST Lactate Dehydrogenase Total Creatine Kinase Troponin T C-Reactive Protein Albumin Triglycerides LDL Cholesterol Direct HDL Cholesterol Coronavirus (PCR) 06/04/20 06/04/20 06/04/20 03:41 03:41 03:41 WBC 12.5 H Hgb Hct MCV MCHC RDW 15.8 H Plt Count Lymph % (Auto) Lymph # Seg Neutrophils % Seg Neuts % (Manual) Lymphocytes % (Manual) Nucleated RBC % Seg Neutrophils # Seg Neutrophils # Man Lymphocytes # (Manual) PT INR APTT D-Dimer 541.25 H ABG pH ABG pO2 ABG HCO3 ABG O2 Saturation ABG Base Excess ABG Hemoglobin Oxyhemoglobin Sodium Potassium 5.1 H D Chloride Carbon Dioxide BUN 52 H Creatinine 1.8 H Glucose 155 H POC Glucose Hemoglobin A1c Lactic Acid Calcium Ferritin AST Lactate Dehydrogenase 732 H Total Creatine Kinase Troponin T C-Reactive Protein 3.00 H Albumin Triglycerides LDL Cholesterol Direct HDL Cholesterol Coronavirus (PCR) 06/04/20 06/04/20 06/04/20 03:41 07:49 10:54 WBC Hgb Hct MCV MCHC RDW Plt Count Lymph % (Auto) Lymph # Seg Neutrophils % Seg Neuts % (Manual) Lymphocytes % (Manual) Nucleated RBC % Seg Neutrophils # Seg Neutrophils # Man Lymphocytes # (Manual) PT INR APTT D-Dimer ABG pH ABG pO2 ABG HCO3 ABG O2 Saturation ABG Base Excess ABG Hemoglobin Oxyhemoglobin Sodium Potassium Chloride Carbon Dioxide BUN Creatinine Glucose POC Glucose 254 H 288 H Hemoglobin A1c Lactic Acid Calcium Ferritin 913.8 H AST Lactate Dehydrogenase Total Creatine Kinase Troponin T C-Reactive Protein Albumin Triglycerides LDL Cholesterol Direct HDL Cholesterol Coronavirus (PCR) 06/04/20 06/04/20 06/05/20 17:11 23:10 05:30 WBC Hgb Hct MCV MCHC RDW Plt Count Lymph % (Auto) Lymph # Seg Neutrophils % Seg Neuts % (Manual) Lymphocytes % (Manual) Nucleated RBC % Seg Neutrophils # Seg Neutrophils # Man Lymphocytes # (Manual) PT INR APTT D-Dimer ABG pH ABG pO2 ABG HCO3 ABG O2 Saturation ABG Base Excess ABG Hemoglobin Oxyhemoglobin Sodium 153 H D Potassium Chloride 109.5 H Carbon Dioxide BUN 93 H Creatinine 2.9 H D Glucose 370 H POC Glucose 194 H 268 H Hemoglobin A1c Lactic Acid Calcium Ferritin AST Lactate Dehydrogenase Total Creatine Kinase Troponin T C-Reactive Protein Albumin 3.4 L Triglycerides LDL Cholesterol Direct HDL Cholesterol Coronavirus (PCR) 06/05/20 06/05/20 06/05/20 11:44 16:16 18:19 WBC Hgb Hct MCV MCHC RDW Plt Count Lymph % (Auto) Lymph # Seg Neutrophils % Seg Neuts % (Manual) Lymphocytes % (Manual) Nucleated RBC % Seg Neutrophils # Seg Neutrophils # Man Lymphocytes # (Manual) PT INR APTT D-Dimer ABG pH ABG pO2 ABG HCO3 ABG O2 Saturation ABG Base Excess ABG Hemoglobin Oxyhemoglobin Sodium Potassium Chloride Carbon Dioxide BUN Creatinine Glucose POC Glucose 432 H 452 H 458 H Hemoglobin A1c Lactic Acid Calcium Ferritin AST Lactate Dehydrogenase Total Creatine Kinase Troponin T C-Reactive Protein Albumin Triglycerides LDL Cholesterol Direct HDL Cholesterol Coronavirus (PCR) 06/05/20 06/06/20 06/06/20 21:26 02:04 04:00 WBC Hgb Hct MCV MCHC RDW Plt Count Lymph % (Auto) Lymph # Seg Neutrophils % Seg Neuts % (Manual) Lymphocytes % (Manual) Nucleated RBC % Seg Neutrophils # Seg Neutrophils # Man Lymphocytes # (Manual) PT INR APTT D-Dimer ABG pH ABG pO2 ABG HCO3 ABG O2 Saturation ABG Base Excess ABG Hemoglobin Oxyhemoglobin Sodium Potassium Chloride Carbon Dioxide BUN Creatinine Glucose POC Glucose 436 H 372 H Hemoglobin A1c Lactic Acid Calcium Ferritin 1073.0 H AST Lactate Dehydrogenase Total Creatine Kinase Troponin T C-Reactive Protein Albumin Triglycerides LDL Cholesterol Direct HDL Cholesterol Coronavirus (PCR) 06/06/20 06/06/20 06/06/20 04:00 04:40 04:40 WBC 13.6 H Hgb Hct 46.0 H MCV MCHC RDW 16.3 H Plt Count Lymph % (Auto) 5.4 L Lymph # 0.7 L Seg Neutrophils % 87.9 H Seg Neuts % (Manual) Lymphocytes % (Manual) Nucleated RBC % Seg Neutrophils # 11.9 H Seg Neutrophils # Man Lymphocytes # (Manual) PT INR APTT D-Dimer 4258.77 H ABG pH ABG pO2 ABG HCO3 ABG O2 Saturation ABG Base Excess ABG Hemoglobin Oxyhemoglobin Sodium Potassium Chloride Carbon Dioxide BUN Creatinine Glucose POC Glucose Hemoglobin A1c Lactic Acid Calcium Ferritin AST Lactate Dehydrogenase 627 H Total Creatine Kinase Troponin T C-Reactive Protein 2.20 H Albumin Triglycerides LDL Cholesterol Direct HDL Cholesterol Coronavirus (PCR) 06/06/20 06/06/20 06/06/20 05:00 05:36 10:11 WBC Hgb Hct MCV MCHC RDW Plt Count Lymph % (Auto) Lymph # Seg Neutrophils % Seg Neuts % (Manual) Lymphocytes % (Manual) Nucleated RBC % Seg Neutrophils # Seg Neutrophils # Man Lymphocytes # (Manual) PT INR APTT D-Dimer ABG pH ABG pO2 ABG HCO3 ABG O2 Saturation ABG Base Excess ABG Hemoglobin Oxyhemoglobin Sodium 157 H Potassium Chloride 115.8 H Carbon Dioxide BUN 110 H Creatinine 2.9 H Glucose 342 H POC Glucose 247 H 265 H Hemoglobin A1c Lactic Acid Calcium Ferritin AST Lactate Dehydrogenase Total Creatine Kinase Troponin T C-Reactive Protein Albumin 3.6 L Triglycerides LDL Cholesterol Direct HDL Cholesterol Coronavirus (PCR) 06/06/20 06/06/20 06/06/20 14:17 18:43 21:31 WBC Hgb Hct MCV MCHC RDW Plt Count Lymph % (Auto) Lymph # Seg Neutrophils % Seg Neuts % (Manual) Lymphocytes % (Manual) Nucleated RBC % Seg Neutrophils # Seg Neutrophils # Man Lymphocytes # (Manual) PT INR APTT D-Dimer ABG pH ABG pO2 ABG HCO3 ABG O2 Saturation ABG Base Excess ABG Hemoglobin Oxyhemoglobin Sodium Potassium Chloride Carbon Dioxide BUN Creatinine Glucose POC Glucose 324 H 301 H 275 H Hemoglobin A1c Lactic Acid Calcium Ferritin AST Lactate Dehydrogenase Total Creatine Kinase Troponin T C-Reactive Protein Albumin Triglycerides LDL Cholesterol Direct HDL Cholesterol Coronavirus (PCR) 06/07/20 06/07/20 06/07/20 00:26 02:01 05:51 WBC Hgb Hct MCV MCHC RDW Plt Count Lymph % (Auto) Lymph # Seg Neutrophils % Seg Neuts % (Manual) Lymphocytes % (Manual) Nucleated RBC % Seg Neutrophils # Seg Neutrophils # Man Lymphocytes # (Manual) PT INR APTT D-Dimer ABG pH ABG pO2 ABG HCO3 ABG O2 Saturation ABG Base Excess ABG Hemoglobin Oxyhemoglobin Sodium Potassium Chloride Carbon Dioxide BUN Creatinine Glucose POC Glucose 268 H 239 H 212 H Hemoglobin A1c Lactic Acid Calcium Ferritin AST Lactate Dehydrogenase Total Creatine Kinase Troponin T C-Reactive Protein Albumin Triglycerides LDL Cholesterol Direct HDL Cholesterol Coronavirus (PCR) 06/07/20 06/07/20 06/07/20 06:50 06:50 09:42 WBC 13.4 H Hgb Hct 47.1 H MCV 96 H MCHC 31 L RDW 16.8 H Plt Count 132 L Lymph % (Auto) 6.3 L Lymph # 0.8 L Seg Neutrophils % 88.8 H Seg Neuts % (Manual) Lymphocytes % (Manual) Nucleated RBC % Seg Neutrophils # 11.9 H Seg Neutrophils # Man Lymphocytes # (Manual) PT INR APTT D-Dimer ABG pH ABG pO2 ABG HCO3 ABG O2 Saturation ABG Base Excess ABG Hemoglobin Oxyhemoglobin Sodium 162 H* Potassium Chloride 124.7 H Carbon Dioxide BUN 107 H Creatinine 2.4 H Glucose 212 H POC Glucose 192 H Hemoglobin A1c Lactic Acid Calcium 8.2 L Ferritin AST Lactate Dehydrogenase Total Creatine Kinase Troponin T C-Reactive Protein Albumin Triglycerides LDL Cholesterol Direct HDL Cholesterol Coronavirus (PCR) 06/07/20 06/07/20 06/07/20 13:35 14:30 17:20 WBC Hgb Hct MCV MCHC RDW Plt Count Lymph % (Auto) Lymph # Seg Neutrophils % Seg Neuts % (Manual) Lymphocytes % (Manual) Nucleated RBC % Seg Neutrophils # Seg Neutrophils # Man Lymphocytes # (Manual) PT INR APTT D-Dimer ABG pH ABG pO2 ABG HCO3 ABG O2 Saturation ABG Base Excess ABG Hemoglobin Oxyhemoglobin Sodium Potassium Chloride Carbon Dioxide BUN Creatinine Glucose POC Glucose 192 H 184 H 165 H Hemoglobin A1c Lactic Acid Calcium Ferritin AST Lactate Dehydrogenase Total Creatine Kinase Troponin T C-Reactive Protein Albumin Triglycerides LDL Cholesterol Direct HDL Cholesterol Coronavirus (PCR) 06/07/20 06/08/20 06/08/20 21:47 00:08 02:02 WBC Hgb Hct MCV MCHC RDW Plt Count Lymph % (Auto) Lymph # Seg Neutrophils % Seg Neuts % (Manual) Lymphocytes % (Manual) Nucleated RBC % Seg Neutrophils # Seg Neutrophils # Man Lymphocytes # (Manual) PT INR APTT D-Dimer ABG pH ABG pO2 ABG HCO3 ABG O2 Saturation ABG Base Excess ABG Hemoglobin Oxyhemoglobin Sodium Potassium Chloride Carbon Dioxide BUN Creatinine Glucose POC Glucose 299 H 335 H 342 H Hemoglobin A1c Lactic Acid Calcium Ferritin AST Lactate Dehydrogenase Total Creatine Kinase Troponin T C-Reactive Protein Albumin Triglycerides LDL Cholesterol Direct HDL Cholesterol Coronavirus (PCR) 06/08/20 06/08/20 06/08/20 04:00 06:33 06:35 WBC Hgb Hct MCV MCHC RDW Plt Count Lymph % (Auto) Lymph # Seg Neutrophils % Seg Neuts % (Manual) Lymphocytes % (Manual) Nucleated RBC % Seg Neutrophils # Seg Neutrophils # Man Lymphocytes # (Manual) PT INR APTT D-Dimer 2645.35 H ABG pH ABG pO2 ABG HCO3 ABG O2 Saturation ABG Base Excess ABG Hemoglobin Oxyhemoglobin Sodium Potassium Chloride Carbon Dioxide BUN Creatinine Glucose POC Glucose 242 H Hemoglobin A1c Lactic Acid Calcium Ferritin 687.9 H AST Lactate Dehydrogenase Total Creatine Kinase Troponin T C-Reactive Protein Albumin Triglycerides LDL Cholesterol Direct HDL Cholesterol Coronavirus (PCR) 06/08/20 06/08/20 06/08/20 06:35 06:35 09:48 WBC 13.6 H Hgb Hct 45.8 H MCV MCHC 31 L RDW 16.7 H Plt Count 110 L Lymph % (Auto) 6.3 L Lymph # 0.9 L Seg Neutrophils % 89.0 H Seg Neuts % (Manual) Lymphocytes % (Manual) Nucleated RBC % Seg Neutrophils # 12.1 H Seg Neutrophils # Man Lymphocytes # (Manual) PT INR APTT D-Dimer ABG pH ABG pO2 ABG HCO3 ABG O2 Saturation ABG Base Excess ABG Hemoglobin Oxyhemoglobin Sodium 153 H D Potassium Chloride 117.0 H Carbon Dioxide 19 L BUN 84 H Creatinine 1.8 H Glucose 268 H POC Glucose 178 H Hemoglobin A1c Lactic Acid Calcium 8.3 L Ferritin AST Lactate Dehydrogenase 679 H Total Creatine Kinase Troponin T C-Reactive Protein 1.50 H Albumin 2.8 L Triglycerides LDL Cholesterol Direct HDL Cholesterol Coronavirus (PCR) 06/08/20 06/08/20 06/08/20 12:27 15:34 17:47 WBC Hgb Hct MCV MCHC RDW Plt Count Lymph % (Auto) Lymph # Seg Neutrophils % Seg Neuts % (Manual) Lymphocytes % (Manual) Nucleated RBC % Seg Neutrophils # Seg Neutrophils # Man Lymphocytes # (Manual) PT INR APTT D-Dimer ABG pH ABG pO2 ABG HCO3 ABG O2 Saturation ABG Base Excess ABG Hemoglobin Oxyhemoglobin Sodium Potassium Chloride Carbon Dioxide BUN Creatinine Glucose POC Glucose 179 H 214 H 275 H Hemoglobin A1c Lactic Acid Calcium Ferritin AST Lactate Dehydrogenase Total Creatine Kinase Troponin T C-Reactive Protein Albumin Triglycerides LDL Cholesterol Direct HDL Cholesterol Coronavirus (PCR) 06/08/20 06/09/20 06/09/20 22:56 03:15 05:44 WBC 13.2 H Hgb Hct 47.2 H MCV MCHC RDW 16.4 H Plt Count 77 L Lymph % (Auto) Lymph # Seg Neutrophils % Seg Neuts % (Manual) 91.0 H Lymphocytes % (Manual) 5.0 L Nucleated RBC % Seg Neutrophils # Seg Neutrophils # Man 12.0 H Lymphocytes # (Manual) 0.7 L PT INR APTT D-Dimer ABG pH ABG pO2 ABG HCO3 ABG O2 Saturation ABG Base Excess ABG Hemoglobin Oxyhemoglobin Sodium Potassium Chloride Carbon Dioxide BUN Creatinine Glucose POC Glucose 330 H 318 H Hemoglobin A1c Lactic Acid Calcium Ferritin AST Lactate Dehydrogenase Total Creatine Kinase Troponin T C-Reactive Protein Albumin Triglycerides LDL Cholesterol Direct HDL Cholesterol Coronavirus (PCR) 06/09/20 06/09/20 06/09/20 05:44 06:13 09:53 WBC Hgb Hct MCV MCHC RDW Plt Count Lymph % (Auto) Lymph # Seg Neutrophils % Seg Neuts % (Manual) Lymphocytes % (Manual) Nucleated RBC % Seg Neutrophils # Seg Neutrophils # Man Lymphocytes # (Manual) PT INR APTT D-Dimer ABG pH ABG pO2 ABG HCO3 ABG O2 Saturation ABG Base Excess ABG Hemoglobin Oxyhemoglobin Sodium 151 H Potassium Chloride 114.8 H Carbon Dioxide 19 L BUN 63 H Creatinine 1.5 H Glucose 360 H POC Glucose 314 H 279 H Hemoglobin A1c Lactic Acid Calcium Ferritin AST Lactate Dehydrogenase Total Creatine Kinase Troponin T C-Reactive Protein Albumin Triglycerides LDL Cholesterol Direct HDL Cholesterol Coronavirus (PCR) 06/09/20 06/09/20 06/09/20 10:50 14:17 18:08 WBC Hgb Hct MCV MCHC RDW Plt Count Lymph % (Auto) Lymph # Seg Neutrophils % Seg Neuts % (Manual) Lymphocytes % (Manual) Nucleated RBC % Seg Neutrophils # Seg Neutrophils # Man Lymphocytes # (Manual) PT INR APTT D-Dimer ABG pH ABG pO2 62.9 L ABG HCO3 18.7 L ABG O2 Saturation 91.0 L ABG Base Excess -5.5 L ABG Hemoglobin Oxyhemoglobin 89.5 L Sodium Potassium Chloride Carbon Dioxide BUN Creatinine Glucose POC Glucose 232 H 194 H Hemoglobin A1c Lactic Acid Calcium Ferritin AST Lactate Dehydrogenase Total Creatine Kinase Troponin T C-Reactive Protein Albumin Triglycerides LDL Cholesterol Direct HDL Cholesterol Coronavirus (PCR) 06/09/20 06/10/20 06/10/20 21:47 02:12 05:43 WBC Hgb Hct MCV MCHC RDW Plt Count Lymph % (Auto) Lymph # Seg Neutrophils % Seg Neuts % (Manual) Lymphocytes % (Manual) Nucleated RBC % Seg Neutrophils # Seg Neutrophils # Man Lymphocytes # (Manual) PT INR APTT D-Dimer ABG pH ABG pO2 ABG HCO3 ABG O2 Saturation ABG Base Excess ABG Hemoglobin Oxyhemoglobin Sodium Potassium Chloride Carbon Dioxide BUN Creatinine Glucose POC Glucose 174 H 267 H 304 H Hemoglobin A1c Lactic Acid Calcium Ferritin AST Lactate Dehydrogenase Total Creatine Kinase Troponin T C-Reactive Protein Albumin Triglycerides LDL Cholesterol Direct HDL Cholesterol Coronavirus (PCR) 06/10/20 06/10/20 06/10/20 05:52 05:52 09:37 WBC 15.0 H Hgb Hct MCV MCHC RDW 15.9 H Plt Count 71 L Lymph % (Auto) Lymph # Seg Neutrophils % Seg Neuts % (Manual) 95.0 H Lymphocytes % (Manual) 4.0 L Nucleated RBC % Seg Neutrophils # Seg Neutrophils # Man 14.3 H Lymphocytes # (Manual) 0.6 L PT INR APTT D-Dimer ABG pH ABG pO2 ABG HCO3 ABG O2 Saturation ABG Base Excess ABG Hemoglobin Oxyhemoglobin Sodium 147 H Potassium Chloride 109.8 H Carbon Dioxide 18 L BUN 53 H Creatinine 1.6 H Glucose 336 H POC Glucose 284 H Hemoglobin A1c Lactic Acid Calcium Ferritin AST Lactate Dehydrogenase Total Creatine Kinase Troponin T C-Reactive Protein Albumin Triglycerides LDL Cholesterol Direct HDL Cholesterol Coronavirus (PCR) 06/10/20 06/10/20 06/10/20 10:21 13:50 16:55 WBC Hgb Hct MCV MCHC RDW Plt Count Lymph % (Auto) Lymph # Seg Neutrophils % Seg Neuts % (Manual) Lymphocytes % (Manual) Nucleated RBC % Seg Neutrophils # Seg Neutrophils # Man Lymphocytes # (Manual) PT INR APTT D-Dimer ABG pH 7.269 L ABG pO2 42.5 L ABG HCO3 14.7 L ABG O2 Saturation 69.3 L ABG Base Excess -11.1 L ABG Hemoglobin Oxyhemoglobin 67.9 L Sodium Potassium Chloride Carbon Dioxide BUN Creatinine Glucose POC Glucose 272 H 226 H Hemoglobin A1c Lactic Acid Calcium Ferritin AST Lactate Dehydrogenase Total Creatine Kinase Troponin T C-Reactive Protein Albumin Triglycerides LDL Cholesterol Direct HDL Cholesterol Coronavirus (PCR) 06/10/20 06/10/20 06/10/20 17:27 19:11 22:28 WBC Hgb Hct MCV MCHC RDW Plt Count Lymph % (Auto) Lymph # Seg Neutrophils % Seg Neuts % (Manual) Lymphocytes % (Manual) Nucleated RBC % Seg Neutrophils # Seg Neutrophils # Man Lymphocytes # (Manual) PT INR APTT D-Dimer ABG pH 7.179 L* ABG pO2 50.0 L ABG HCO3 15.9 L ABG O2 Saturation 74.5 L ABG Base Excess -12.1 L ABG Hemoglobin Oxyhemoglobin 73.1 L Sodium Potassium Chloride Carbon Dioxide BUN Creatinine Glucose POC Glucose 240 H 259 H Hemoglobin A1c Lactic Acid Calcium Ferritin AST Lactate Dehydrogenase Total Creatine Kinase Troponin T C-Reactive Protein Albumin Triglycerides LDL Cholesterol Direct HDL Cholesterol Coronavirus (PCR) 06/11/20 06/11/20 06/11/20 00:07 02:00 02:33 WBC Hgb Hct MCV MCHC RDW Plt Count Lymph % (Auto) Lymph # Seg Neutrophils % Seg Neuts % (Manual) Lymphocytes % (Manual) Nucleated RBC % Seg Neutrophils # Seg Neutrophils # Man Lymphocytes # (Manual) PT INR APTT D-Dimer ABG pH 7.276 L ABG pO2 64.6 L ABG HCO3 19.1 L ABG O2 Saturation 91.4 L ABG Base Excess -7.4 L ABG Hemoglobin 13.0 L Oxyhemoglobin 89.9 L Sodium Potassium Chloride Carbon Dioxide BUN Creatinine Glucose POC Glucose 316 H 359 H Hemoglobin A1c Lactic Acid Calcium Ferritin AST Lactate Dehydrogenase Total Creatine Kinase Troponin T C-Reactive Protein Albumin Triglycerides LDL Cholesterol Direct HDL Cholesterol Coronavirus (PCR) 06/11/20 06/11/20 06/11/20 04:45 04:45 05:52 WBC Hgb Hct MCV 95 H MCHC RDW 16.9 H Plt Count 77 L Lymph % (Auto) 6.7 L Lymph # 0.6 L Seg Neutrophils % Seg Neuts % (Manual) Lymphocytes % (Manual) Nucleated RBC % Seg Neutrophils # 8.3 H Seg Neutrophils # Man Lymphocytes # (Manual) PT INR APTT D-Dimer ABG pH ABG pO2 ABG HCO3 ABG O2 Saturation ABG Base Excess ABG Hemoglobin Oxyhemoglobin Sodium 147 H Potassium Chloride 109.1 H Carbon Dioxide 15 L BUN 48 H Creatinine 2.1 H Glucose 367 H POC Glucose 324 H Hemoglobin A1c Lactic Acid Calcium 7.1 L D Ferritin AST Lactate Dehydrogenase Total Creatine Kinase Troponin T C-Reactive Protein Albumin Triglycerides LDL Cholesterol Direct HDL Cholesterol Coronavirus (PCR) 06/11/20 06/11/20 06/11/20 10:28 10:32 12:06 WBC Hgb Hct MCV MCHC RDW Plt Count Lymph % (Auto) Lymph # Seg Neutrophils % Seg Neuts % (Manual) Lymphocytes % (Manual) Nucleated RBC % Seg Neutrophils # Seg Neutrophils # Man Lymphocytes # (Manual) PT INR APTT D-Dimer ABG pH 7.246 L ABG pO2 69.5 L ABG HCO3 14.5 L ABG O2 Saturation 92.2 L ABG Base Excess -11.8 L ABG Hemoglobin 13.0 L Oxyhemoglobin 90.9 L Sodium Potassium Chloride Carbon Dioxide BUN Creatinine Glucose POC Glucose 311 H 280 H Hemoglobin A1c Lactic Acid Calcium Ferritin AST Lactate Dehydrogenase Total Creatine Kinase Troponin T C-Reactive Protein Albumin Triglycerides LDL Cholesterol Direct HDL Cholesterol Coronavirus (PCR) 06/11/20 06/11/20 06/11/20 13:26 14:47 15:54 WBC Hgb Hct MCV MCHC RDW Plt Count Lymph % (Auto) Lymph # Seg Neutrophils % Seg Neuts % (Manual) Lymphocytes % (Manual) Nucleated RBC % Seg Neutrophils # Seg Neutrophils # Man Lymphocytes # (Manual) PT INR APTT D-Dimer ABG pH ABG pO2 ABG HCO3 ABG O2 Saturation ABG Base Excess ABG Hemoglobin Oxyhemoglobin Sodium Potassium Chloride Carbon Dioxide BUN Creatinine Glucose POC Glucose 300 H 256 H 253 H Hemoglobin A1c Lactic Acid Calcium Ferritin AST Lactate Dehydrogenase Total Creatine Kinase Troponin T C-Reactive Protein Albumin Triglycerides LDL Cholesterol Direct HDL Cholesterol Coronavirus (PCR) 06/11/20 06/11/20 06/11/20 16:39 17:40 18:45 WBC Hgb Hct MCV MCHC RDW Plt Count Lymph % (Auto) Lymph # Seg Neutrophils % Seg Neuts % (Manual) Lymphocytes % (Manual) Nucleated RBC % Seg Neutrophils # Seg Neutrophils # Man Lymphocytes # (Manual) PT INR APTT D-Dimer ABG pH ABG pO2 ABG HCO3 ABG O2 Saturation ABG Base Excess ABG Hemoglobin Oxyhemoglobin Sodium Potassium Chloride Carbon Dioxide BUN Creatinine Glucose POC Glucose 242 H 228 H 214 H Hemoglobin A1c Lactic Acid Calcium Ferritin AST Lactate Dehydrogenase Total Creatine Kinase Troponin T C-Reactive Protein Albumin Triglycerides LDL Cholesterol Direct HDL Cholesterol Coronavirus (PCR) 06/11/20 06/11/20 06/11/20 20:28 22:10 22:10 WBC Hgb 11.2 L Hct MCV 98 H MCHC 31 L RDW 16.6 H Plt Count 33 L Lymph % (Auto) Lymph # Seg Neutrophils % Seg Neuts % (Manual) 76.0 H Lymphocytes % (Manual) Nucleated RBC % 6.0 H Seg Neutrophils # Seg Neutrophils # Man Lymphocytes # (Manual) PT INR APTT D-Dimer ABG pH ABG pO2 ABG HCO3 ABG O2 Saturation ABG Base Excess ABG Hemoglobin Oxyhemoglobin Sodium 152 H Potassium Chloride Carbon Dioxide 17 L BUN 55 H Creatinine 3.0 H Glucose 218 H POC Glucose 226 H Hemoglobin A1c Lactic Acid Calcium 6.3 L Ferritin AST Lactate Dehydrogenase Total Creatine Kinase 332 H Troponin T C-Reactive Protein Albumin Triglycerides LDL Cholesterol Direct HDL Cholesterol Coronavirus (PCR) 06/11/20 06/11/20 06/11/20 22:10 22:10 22:17 WBC Hgb Hct MCV MCHC RDW Plt Count Lymph % (Auto) Lymph # Seg Neutrophils % Seg Neuts % (Manual) Lymphocytes % (Manual) Nucleated RBC % Seg Neutrophils # Seg Neutrophils # Man Lymphocytes # (Manual) PT 53.7 H INR 5.84 H* APTT 43.7 H D-Dimer ABG pH ABG pO2 ABG HCO3 ABG O2 Saturation ABG Base Excess ABG Hemoglobin Oxyhemoglobin Sodium Potassium Chloride Carbon Dioxide BUN Creatinine Glucose POC Glucose 130 H Hemoglobin A1c Lactic Acid Calcium Ferritin AST Lactate Dehydrogenase Total Creatine Kinase Troponin T 0.145 H* C-Reactive Protein Albumin Triglycerides 203 H LDL Cholesterol Direct 6 L HDL Cholesterol 10 L Coronavirus (PCR) 06/11/20 06/12/20 06/12/20 23:06 00:19 01:18 WBC Hgb Hct MCV MCHC RDW Plt Count Lymph % (Auto) Lymph # Seg Neutrophils % Seg Neuts % (Manual) Lymphocytes % (Manual) Nucleated RBC % Seg Neutrophils # Seg Neutrophils # Man Lymphocytes # (Manual) PT INR APTT D-Dimer ABG pH ABG pO2 ABG HCO3 ABG O2 Saturation ABG Base Excess ABG Hemoglobin Oxyhemoglobin Sodium Potassium Chloride Carbon Dioxide BUN Creatinine Glucose POC Glucose 191 H 196 H 177 H Hemoglobin A1c Lactic Acid Calcium Ferritin AST Lactate Dehydrogenase Total Creatine Kinase Troponin T C-Reactive Protein Albumin Triglycerides LDL Cholesterol Direct HDL Cholesterol Coronavirus (PCR) 06/12/20 06/12/20 06/12/20 02:29 03:26 05:15 WBC Hgb Hct MCV MCHC RDW Plt Count Lymph % (Auto) Lymph # Seg Neutrophils % Seg Neuts % (Manual) Lymphocytes % (Manual) Nucleated RBC % Seg Neutrophils # Seg Neutrophils # Man Lymphocytes # (Manual) PT INR APTT D-Dimer ABG pH 7.344 L ABG pO2 70.0 L ABG HCO3 ABG O2 Saturation 93.1 L ABG Base Excess -3.8 L ABG Hemoglobin 8.0 L Oxyhemoglobin 91.8 L Sodium Potassium Chloride Carbon Dioxide BUN Creatinine Glucose POC Glucose 175 H 181 H Hemoglobin A1c Lactic Acid Calcium Ferritin AST Lactate Dehydrogenase Total Creatine Kinase Troponin T C-Reactive Protein Albumin Triglycerides LDL Cholesterol Direct HDL Cholesterol Coronavirus (PCR) 06/12/20 06/12/20 06/12/20 05:22 05:45 06:29 WBC Hgb Hct MCV MCHC RDW Plt Count Lymph % (Auto) Lymph # Seg Neutrophils % Seg Neuts % (Manual) Lymphocytes % (Manual) Nucleated RBC % Seg Neutrophils # Seg Neutrophils # Man Lymphocytes # (Manual) PT INR APTT D-Dimer ABG pH ABG pO2 ABG HCO3 ABG O2 Saturation ABG Base Excess ABG Hemoglobin Oxyhemoglobin Sodium Potassium Chloride Carbon Dioxide BUN Creatinine Glucose POC Glucose 163 H 135 H Hemoglobin A1c Lactic Acid Calcium Ferritin AST Lactate Dehydrogenase Total Creatine Kinase Troponin T 0.166 H* C-Reactive Protein Albumin Triglycerides LDL Cholesterol Direct HDL Cholesterol Coronavirus (PCR) 06/12/20 06/12/20 06/12/20 07:15 08:28 09:43 WBC Hgb Hct MCV MCHC RDW Plt Count Lymph % (Auto) Lymph # Seg Neutrophils % Seg Neuts % (Manual) Lymphocytes % (Manual) Nucleated RBC % Seg Neutrophils # Seg Neutrophils # Man Lymphocytes # (Manual) PT INR APTT D-Dimer ABG pH ABG pO2 ABG HCO3 ABG O2 Saturation ABG Base Excess ABG Hemoglobin Oxyhemoglobin Sodium Potassium Chloride Carbon Dioxide BUN Creatinine Glucose POC Glucose 127 H 113 H 111 H Hemoglobin A1c Lactic Acid Calcium Ferritin AST Lactate Dehydrogenase Total Creatine Kinase Troponin T C-Reactive Protein Albumin Triglycerides LDL Cholesterol Direct HDL Cholesterol Coronavirus (PCR)
--- NOTE | 2020-06-12 12:31 | Event Note ---
Date: 06/12/20 Spoke with and Aunt on the phone. They wish to make the patient an AND and withdrawal of care. They are coming to visit today around 1300 and we will withdraw after that. Spoke with CM who will assist and let hospitalist know.
--- NOTE | 2020-06-12 12:50 | Progress Note ---
Assessment and Plan Paroxysmal atrial fibrillation currently on intravenous amiodarone COVID-19 viral pneumonia patient on Eliquis therapy, related to the COVID presentation. Now discontinued Acute renal failure Thrombocytopenia Respiratory failure Pneumothorax - chest tube in place We will continue amiodarone therapy for paroxysmal atrial fibrillation. Subjective Date of service: 06/12/20 Principal diagnosis: Acute Respiratory Failure Secondary to COVID Interval history: Patient suffered an asystolic cardiac arrest overnight. Objective Vital Signs Temp Pulse Pulse Resp BP Pulse Ox 06/12/20 11:42 81 130/81 91 06/12/20 09:35 86 89 06/12/20 07:01 152 H 90 06/12/20 06:45 155 H 91 06/12/20 06:31 144 H 90 06/12/20 06:15 144 H 91 06/12/20 06:01 148 H 91 06/12/20 05:45 151 H 91 06/12/20 05:31 155 H 92 06/12/20 05:15 139 H 92 06/12/20 05:10 103.0 F H 06/12/20 05:09 148 H 109/72 92 06/12/20 05:01 142 H 93 06/12/20 05:00 97.4 F L 06/12/20 04:45 129 H 92 06/12/20 04:31 131 H 91 06/12/20 04:15 143 H 95 06/12/20 04:01 112 H 95 06/12/20 04:00 94 06/12/20 03:45 125 H 96 06/12/20 03:31 117 H 97 06/12/20 03:15 105 H 96 06/12/20 03:01 112 H 97 06/12/20 02:45 111 H 97 06/12/20 02:31 107 H 97 06/12/20 02:15 114 H 97 06/12/20 02:01 105 H 97 06/12/20 01:45 121 H 97 06/12/20 01:31 108 H 96 06/12/20 01:15 117 H 97 06/12/20 01:01 117 H 96 06/12/20 00:45 120 H 96 06/12/20 00:31 105 H 96 06/12/20 00:15 116 H 94 06/12/20 00:01 137 H 93 06/12/20 00:00 99.8 F H 96 08/25/20 23:54 134 H 78/55 91 06/11/20 23:45 145 H 55/40 89 06/11/20 23:31 143 H 55/40 87 06/11/20 23:15 141 H 90 06/11/20 23:01 147 H 91 06/11/20 22:45 146 H 99/68 92 06/11/20 22:31 142 H 99/68 91 06/11/20 22:15 135 H 216/126 82 L 06/11/20 22:11 138 H 216/126 82 L 06/11/20 22:01 141 H 76 L 06/11/20 21:45 108 H 32 H 114/90 82 L 06/11/20 21:31 131 H 26 H 114/90 96 06/11/20 21:15 124 H 25 H 114/90 95 06/11/20 21:01 132 H 26 H 110/88 96 06/11/20 20:55 95 06/11/20 20:45 135 H 22 110/88 95 06/11/20 20:31 125 H 22 106/79 96 06/11/20 20:15 129 H 23 151/92 97 06/11/20 20:01 154 H 30 H 151/92 95 06/11/20 20:00 99.0 F 06/11/20 19:51 134 H 95 06/11/20 19:45 122 H 30 H 151/92 95 06/11/20 19:31 138 H 27 H 151/92 92 06/11/20 19:15 142 H 25 H 151/92 93 06/11/20 19:01 114 H 27 H 151/92 95 06/11/20 18:45 123 H 15 151/92 94 06/11/20 18:31 115 H 18 151/92 94 06/11/20 18:15 113 H 34 H 151/92 93 06/11/20 18:01 135 H 27 H 151/92 93 06/11/20 17:45 111 H 20 151/92 93 06/11/20 17:31 107 H 23 151/92 95 06/11/20 17:27 118 H 06/11/20 17:15 129 H 35 H 151/92 93 06/11/20 17:01 132 H 30 H 151/92 93 06/11/20 16:56 123 H 110/76 92 06/11/20 16:45 125 H 22 117/89 95 06/11/20 16:31 124 H 34 H 117/89 90 06/11/20 16:24 133 H 110/76 06/11/20 16:15 128 H 126 H 34 H 117/89 99 06/11/20 16:01 130 H 34 H 117/89 98 06/11/20 16:00 99.2 F 06/11/20 15:45 133 H 39 H 117/89 98 06/11/20 15:31 134 H 30 H 117/89 98 06/11/20 15:15 129 H 33 H 117/89 97 06/11/20 15:01 137 H 38 H 117/89 98 06/11/20 14:45 104 H 31 H 117/89 96 06/11/20 14:31 98 H 39 H 117/89 96 06/11/20 14:15 91 H 15 117/89 96 06/11/20 14:01 93 H 25 H 117/89 96 06/11/20 13:45 87 20 130/77 91 06/11/20 13:31 94 H 40 H 130/77 93 06/11/20 13:15 95 H 22 130/77 94 06/11/20 13:01 85 22 92 06/11/20 12:48 86 104/54 - Physical Examination Narrative exam: Deferred due to coronavirus isolation protocol. Cardiac: Positive: Reg Rate and Rhythm - Labs and Meds Cardiac Enzymes 06/11/20 Range/Units 22:10 CK-MB (CK-2) 2.6 (0.0-4.0) ng/mL Coagulation 06/11/20 Range/Units 22:10 PT 53.7 H (12.2-14.9) Sec. INR 5.84 H* (0.87-1.13) APTT 43.7 H (24.2-36.6) Sec. Lipids 06/11/20 Range/Units 22:10 Triglycerides 203 H (2-149) mg/dL Cholesterol 56 (50-199) mg/dL HDL Cholesterol 10 L (40-59) mg/dL Cholesterol/HDL Ratio 5.60 % CBC 06/11/20 Range/Units 22:10 WBC 9.5 (4.5-11.0) K/mm3 RBC 3.74 (3.65-5.03) M/mm3 Hgb 11.2 L (11.8-15.2) gm/dl Hct 36.5 (35.5-45.6) % Plt Count 33 L (140-440) K/mm3 Comprehensive Metabolic Panel 06/11/20 Range/Units 22:10 Sodium 152 H (137-145) mmol/L Potassium 4.9 (3.6-5.0) mmol/L Chloride 98.9 (98-107) mmol/L Carbon Dioxide 17 L (22-30) mmol/L BUN 55 H (9-20) mg/dL Creatinine 3.0 H (0.8-1.3) mg/dL Glucose 218 H (75-100) mg/dL Calcium 6.3 L (8.4-10.2) mg/dL - Imaging and Cardiology EKG: report reviewed
--- NOTE | 2020-06-12 12:58 | XRay Report ---
CHEST 1 VIEW 06/12/2020 10:51 AM INDICATION / CLINICAL INFORMATION: f/u of right PTX.. COMPARISON: 06/10/20 FINDINGS: SUPPORT DEVICES: Stable, satisfactory device positioning. Right chest tube is unchanged. HEART / MEDIASTINUM: Stable. LUNGS / PLEURA: Slight improvement in bibasilar pulmonary opacities. No pneumothorax. ADDITIONAL FINDINGS: No significant additional findings. IMPRESSION: 1. Interval improvement. No right pneumothorax. Signer Name: Bola Peguero MD Signed: 06/12/2020 12:53 PM Workstation Name: [id number]
[2020-06-12] MEDS ORDERED: MORPHINE 2 MG/1 ML INJ IV PRN (13:09)
[2020-06-12] MEDS ORDERED: LORazepam 2 MG/ML VIAL IV PRN (13:09)
[2020-06-12] MEDS ORDERED: METOCLOPRAMIDE 10 MG/2 ML INJ IV PRN (13:11)
[2020-06-12] MEDS ORDERED: diphenhydrAMINE 50 MG/ML VIAL IV PRN (13:11)
[2020-06-12] MEDS ORDERED: ONDANSETRON 4 MG/2 ML INJ IV PRN (13:11)
[2020-06-12] MEDS ORDERED: GLYCOPYRROLATE 0.4 MG/2 ML INJ IV PRN (13:11)
[2020-06-12 13:30] LABS: Calcium 5.5 mg/dL (8.4-10.2)
[2020-06-12] MEDS ORDERED: SODIUM CHLORIDE 0.9% 1000 ML IV SOLN ONE (13:37)
--- NOTE | 2020-06-12 13:41 | Event Note ---
Date: 06/12/20 Called to bedside. Patient asystolic. No heartbeat, no pulse, no respirations. Successfully extubated and at peace. Family viewed from Window. Time of is 13:35
[2020-06-12 13:56] VITALS: BP 130/91
--- NOTE | 2020-06-12 16:01 | Death Summary ---
Summary - Providers Date of service: 06/12/20 Consults: 05/30/20 15:53 Consult to Wound/ET Nurse [CONS] Urgent Reason For Exam: sacral wound eval 05/30/20 16:33 Consult to Physician [CONS] Routine Comment: Consulting Provider: CHUCK OLIVER Physician Instructions: Reason For Exam: NIR 05/30/20 16:35 Consult to Physician [CONS] Routine Comment: Consulting Provider: SALEEM DAY Physician Instructions: Reason For Exam: COVID-19 positive test (U07.1, COVID-19) with A 05/31/20 15:12 Consult to Physician [CONS] Routine Comment: Consulting Provider: BRUCE VELARDE Physician Instructions: Reason For Exam: HYPOXIC RESPIRATORY FAILURE 06/02/20 11:45 Consult to Mental Health [CONS] Routine Reason For Exam: DEPRESSION, HALLUCINATION 06/03/20 11:04 Occupational Therapy Evaluate and Treat [CONS] Routine Comment: Reason For Exam: debility Physical Therapy Evaluation and Treat [CONS] Routine Comment: Reason For Exam: debility 06/03/20 16:34 Consult to PICC Line RN [CONS] Urgent Reason For Exam: Multiple medication usage Type Line:: PICC 06/07/20 07:40 Consult to Dietitian/Nutrition [CONS] Routine Physician Instructions: Reason For Exam: Reason for Consult: Write/Manage Tube Feeding 06/10/20 08:09 Consult to Physician [CONS] Routine Comment: Consulting Provider: DIPIKA GREEN Physician Instructions: Reason For Exam: SVT? 06/10/20 17:23 Consult to Wound/ET Nurse [CONS] Urgent Reason For Exam: sacral wound reval and necrotic right toes Attending: JUAN F HERNANDEZ MD - summary Date of admission: 05/30/20 00:23 Date of : 06/12/20 Reason for admission: COVID 19 RESPIRATORY FAILURE Significant findings: 64-year-old man with history of hypertension diabetes congestive heart failure and left below-knee amputation comes in for cough fever and shortness of breath and chills for 5 days. Patient has been tested positive for COVID-19 5 days ago. Patient saturations were 80% on room air which improved to 98% on a nonrebreather. Denies any chest pain. Patient is covered positive and hypoxic. COVID19 + Bilateral Pneumonia Secondary Coagulopathy- Unable to get CTA chest due to renal dysfunction DM with Hyperglycemia- Adjust insulin. Will give Lantus at 20 night HS, also will give 18 Additional units. 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 He does complain of cough Lab results reviewed 05/31: Continues on high flow oxygen. still on High flow oxygen. Pulmonary consulted, ID consulted. COVID +, adjust insulin for better control. 06/01: Remains on High flow, due to severe hypoxemia Consent obtained for convalescent plasma. We will also obtain type and cross for the same. Wean oxygen as tolerated. ID input noted. No indication Remdesivir due to renal failure, renal on board, although renal function beginning to improve we will discuss with ID if we should revisit Remdesivir if renal function continues to improve. Continue ceftriaxone and azithromycin for 5 days. Offloading sacral a [place] and keep area dry per wound care team. Continue anticoagulation. ID added fluconazole. Will adjust insulin therapy and also sliding scale to a higher scale. 06/02: Called and discussed with family patient does have some psychiatric illness will obtain psych consultation due to new onset psychosis. Pulmonary input appreciated. Will proceed with ordering plasma therapy.The assigned patient code is [id number] for plasma transfusion. 06/03: Continues with intermittent confusion, known psych hx, psych team consulted. Continue oxygen therapy, awaiting Plasma therapy. Patient being transferred to ICU due to worsening respiratory status. Psych following. 06/11: Now on mechanical ventilation, Design Manager managing, check inflammatory markers, Will review chart further to see if patient received plasma therapy 06/12: Patient had cardiac arrest again last night, Code sheet reviewed, Awaiting Event note. Discussed with surgeon, Chest tube still in place for pneumothorax. Patient continues on 2 pressors and insulin drip secondary to DKA which persist. Pulmonary status is worse patient has a very poor prognosis given COVID diagnosis along with all other complications. Steroids being decreased. Cultures are still pending. Cardiology nephrology and ID and pulmonary input is noted. Spoke with Gena Starks and updated. She confirms that she was updated by the nursing staff. She is having family meeting with the patients Aunt soon to decide on further management. Continue abx Following extensive conversation with the family family decided to make the patient a DNR and also proceed with terminal wean. Patient was discontinued from the vent and at 1335 Severe sepsis with septic shock Bilateral pneumonia Acute psychosis with visual and auditory hallucination Acute respiratory failure with hypoxia- Now requring Mechanical ventilation Hyperkalemia secondary to renal failure Acute kidney injury with vasomotor nephropathy Hypertension Type 2 diabetes mellitus COVID19 + CHF (congestive heart failure) Elevated troponin possible type II DE Thrombocytopenia Spontaneous pneumothorax Paroxysmal atrial fibrillation S/P Cardiac Arrest
== END 2020-06-12 17:15 | DRG 871 ==
LOC: ED 12:33 → EDBD 15:44 → 3A 15:44 → OBSVTOIN 05-30 00:23 → CC1 06-03 12:51
PROVIDERS: ADMIT Internal Medicine; ATTEND Internal Medicine
PROC: 02HV33Z Insertion of Infusion Device into Superior Vena Cava, Percutaneous Approach (ICD-10-PCS; 2020-06-04)
PROC: 5A09357 Assistance with Respiratory Ventilation, Less than 24 Consecutive Hours, Continuous Positive Airway Pressure (ICD-10-PCS; 2020-06-04)
PROC: XW033E5 Introduction of Remdesivir Anti-infective into Peripheral Vein, Percutaneous Approach, New Technology Group 5 (ICD-10-PCS; 2020-06-04)
PROC: 5A09357 Assistance with Respiratory Ventilation, Less than 24 Consecutive Hours, Continuous Positive Airway Pressure (ICD-10-PCS; 2020-06-05)
PROC: XW033E5 Introduction of Remdesivir Anti-infective into Peripheral Vein, Percutaneous Approach, New Technology Group 5 (ICD-10-PCS; 2020-06-05)
PROC: 5A09357 Assistance with Respiratory Ventilation, Less than 24 Consecutive Hours, Continuous Positive Airway Pressure (ICD-10-PCS; 2020-06-06)
PROC: XW033E5 Introduction of Remdesivir Anti-infective into Peripheral Vein, Percutaneous Approach, New Technology Group 5 (ICD-10-PCS; 2020-06-06)
PROC: 0T7D8ZZ Dilation of Urethra, Via Natural or Artificial Opening Endoscopic (ICD-10-PCS; 2020-06-06)
PROC: BT1B1ZZ Fluoroscopy of Bladder and Urethra using Low Osmolar Contrast (ICD-10-PCS; 2020-06-06)
PROC: 5A09357 Assistance with Respiratory Ventilation, Less than 24 Consecutive Hours, Continuous Positive Airway Pressure (ICD-10-PCS; 2020-06-07)
PROC: XW033E5 Introduction of Remdesivir Anti-infective into Peripheral Vein, Percutaneous Approach, New Technology Group 5 (ICD-10-PCS; 2020-06-07)
PROC: XW033E5 Introduction of Remdesivir Anti-infective into Peripheral Vein, Percutaneous Approach, New Technology Group 5 (ICD-10-PCS; 2020-06-08)
PROC: 4A033R1 Measurement of Arterial Saturation, Peripheral, Percutaneous Approach (ICD-10-PCS; 2020-06-09)
PROC: 5A09357 Assistance with Respiratory Ventilation, Less than 24 Consecutive Hours, Continuous Positive Airway Pressure (ICD-10-PCS; 2020-06-09)
PROC: 0W9930Z Drainage of Right Pleural Cavity with Drainage Device, Percutaneous Approach (ICD-10-PCS; principal; 2020-06-10)
PROC: 5A1945Z Respiratory Ventilation, 24-96 Consecutive Hours (ICD-10-PCS; 2020-06-10)
PROC: 0BH17EZ Insertion of Endotracheal Airway into Trachea, Via Natural or Artificial Opening (ICD-10-PCS; 2020-06-10)
PROC: 5A09357 Assistance with Respiratory Ventilation, Less than 24 Consecutive Hours, Continuous Positive Airway Pressure (ICD-10-PCS; 2020-06-10)
DX: A41.89 Other specified sepsis (principal); L89.153 Pressure ulcer of sacral region, stage 3; U07.1 COVID-19; J96.01 Acute respiratory failure with hypoxia; J12.89 Other viral pneumonia; N17.0 Acute kidney failure with tubular necrosis; R65.21 Severe sepsis with septic shock; I50.42 Chronic combined systolic (congestive) and diastolic (congestive) heart failure; J93.9 Pneumothorax, unspecified; E87.2 Acidosis; Z68.41 Body mass index [BMI] 40.0-44.9, adult; E87.1 Hypo-osmolality and hyponatremia; F23 Brief psychotic disorder; I47.2 Ventricular tachycardia; I11.0 Hypertensive heart disease with heart failure; Z89.512 Acquired absence of left leg below knee; Z90.49 Acquired absence of other specified parts of digestive tract; I48.0 Paroxysmal atrial fibrillation; E87.6 Hypokalemia; E66.01 Morbid (severe) obesity due to excess calories; Z82.49 Family history of ischemic heart disease and other diseases of the circulatory system; E11.65 Type 2 diabetes mellitus with hyperglycemia; R65.20 Severe sepsis without septic shock; E87.5 Hyperkalemia; N35.919 Unspecified urethral stricture, male, unspecified site; Z71.3 Dietary counseling and surveillance; Z79.4 Long term (current) use of insulin
CPT/HCPCS: 36415; 36600; 71045; 74018; 74430; 74485; 78580; 80048; 80053; 80061; 80076; 80202; 82140; 82330; 82550; 82553; 82728; 82803; 82947; 82962; 83036; 83615; 83735; 83880; 84145; 84484; 85007; 85025; 85027; 85379; 85610; 85730; 86022; 86140; 86850; 86900; 86901; 87040; 87076; 87086; 87186; 93005; 94003; 94660; 94760; G0378; A4217; A9540; C1726; C1758; C1769; J0171; J0282; J0330; J0456; J0610; J0692; J0696; J1100; J1200; J1630; J1650; J1815; J1940; J2060; J2270; J2405; J2920; J3010; J3370; J3490; J7030; J7040; J7050; J7060; J7070; J8540; P9017; P9047; Q9967; U0003-CS